=== PATIENT | male | born 1955 | race Caucasian/White ===

== ENCOUNTER 2016-05-11 12:53 | Emergency (ER) | payer OTHER ==
[2016-05-11 12:59] VITALS: BP 154/88; PULSE 82; TEMP 97.8; BMI 27.0
--- NOTE | 2016-05-11 14:08 | PDOC ---
History of Present Illness - General Chief Complaint: Sore Throat Stated Complaint: THROAT PAIN Time Seen by Provider: 05/11/16 14:05 History Source: Patient Exam Limitations: No Limitations - History of Present Illness Initial Comments: 05/11/16 14:17 Patient came for evaluation of throat pain 2+ weeks. States has copious nasal secretions, pain is worse at night and is uncertain as to what he can take for relief. Came to hospital today for a biopsy of his right lung but was unable to tolerate the procedure due to claustrophobia. Was given some medication and is to reschedule that appointment. But patient states also difficult for him to lie flat secondary to this postnasal drainage. Denies fever, denies ear pain, denies cough. Able to swallow 05/11/16 14:24 05/11/16 14:25 Timing/Duration: unsure Severity: mild, moderate Associated Symptoms: denies: denies symptoms, chest pain, cough, fever/chills, loss of appetite Past History - Travel Traveled outside of the country in the last 30 days: No Close contact w/someone who was outside of country & ill: No - Past Medical History Allergies/Adverse Reactions: Allergies Allergy/AdvReac Type Severity Reaction Status Date / Time Penicillins Allergy Mild Rash Verified 05/11/16 12:59 quetiapine fumarate AdvReac Mild nightmares Verified 05/11/16 12:59 [From Seroquel] Home Medications: Ambulatory Orders Diclofenac Sodium [Voltaren] 300 gm TP TID 02/11/14 Docusate Sodium [Colace -] 100 mg PO BID PRN 02/11/14 Ergocalciferol [Drisdol -] 50,000 unit PO WEEKLY 02/11/14 Methadone HCl 22 mg PO DAILY 02/11/14 Mirtazapine [Remeron -] 30 mg PO HS 02/11/14 Gabapentin [Neurontin -] 300 mg PO BID 11/16/15 Gabapentin [Neurontin -] 600 mg PO HS 11/16/15 Zaleplon 10 mg PO HS 12/14/15 Nicotine Patch [Nicoderm Patch -] 1 patch TD DAILY #30 patch 04/15/16 Oxycodone HCl/Acetaminophen [Oxycodone-Acetaminophen 10-325] 1 each PO TID PRN # 90 tablet MDD 3 04/15/16 Ibuprofen/Diphenhydramine Cit [Advil Pm Caplet] 1 cap PO HS 05/05/16 Cetirizine HCl/Pseudoephedrine [Allergy+Congestion Relf-D Tab] 1 each PO DAILY # 30 tab 05/11/16 Anemia: No Asthma: No Cancer: No Cardiac Disorders: No CVA: No COPD: Yes CHF: No Dementia: No Diabetes: No GI Disorders: Yes (GERD-DENIES) Disorders: No HTN: Yes (not on medication) Hypercholesterolemia: Yes (DENIES) Kidney Stones: No Liver Disease: No Suicide Attempt (Hx): No Seizures: No Thyroid Disease: No - Surgical History Abdominal Surgery: No Appendectomy: No Cardiac Surgery: No Cholecystectomy: No Lung Surgery: No Neurologic Surgery: No Orthopedic Surgery: No - Reproductive History Testicular Surgery: No - Psycho/Social/Smoking Cessation Hx Anxiety: No Suicidal Ideation: No Smoking History: Current every day smoker Have you smoked in the past 12 months: Yes Number of Cigarettes Smoked Daily: 5 Information on smoking cessation initiated: No 'Breaking Loose' booklet given: 05/05/16 Hx Alcohol Use: No Drug/Substance Use Hx: No Substance Use Type: None Hx Substance Use Treatment: Yes ([facility], detox and rehab ) Review of Systems - Review of Systems Able to Perform ROS?: Yes Is the patient limited Turkmen proficient: Yes Constitutional: Yes: Symptoms Reported, See HPI, Malaise. No: Fever HEENTM: Yes: Symptoms Reported, See HPI, Nose Congestion (clear drainage) Respiratory: Yes: Symptoms reported, See HPI (nonproductive), Cough All Other Systems: Reviewed and Negative *Physical Exam - Vital Signs Last Vital Signs Temp Pulse Resp BP Pulse Ox 97.8 F 82 20 154/88 100 05/11/16 12:56 05/11/16 12:56 05/11/16 12:56 05/11/16 12:56 05/11/16 12:56 - Physical Exam General Appearance: Yes: Appropriately Dressed, Apparent Distress HEENT: positive: QUYNH, Normal ENT Inspection, TMs Normal, Pharynx Normal (no erythema, no enlargement or exudate, some posterior sinus drainage, clear) Neck: positive: Supple. negative: Tender, Lymphadenopathy (R), Lymphadenopathy (L) Respiratory/Chest: positive: Lungs Clear, Normal Breath Sounds Extremity: positive: Normal Capillary Refill, Normal Inspection, Normal Range of Motion Integumentary: positive: Normal Color, Dry, Warm, Pale Neurologic: positive: soccer commentator II-XII NML intact, Fully Oriented, Alert, Normal Mood/ Affect, Normal Response, Motor Strength 08/19 Medical Decision Making - Medical Decision Making 05/11/16 14:20 ALLERGIC rhinitis, will treat with Zyrtec with decongestant , follow up with PMD 05/11/16 14:22 05/11/16 14:22 *DC/Admit/Observation/Transfer Diagnosis at time of Disposition: Allergic rhinitis Qualifiers: Allergic rhinitis seasonality: non-seasonal Allergic rhinitis trigger: unspecified Qualified Code(s): J30.89 - Other allergic rhinitis - Discharge Dispostion Disposition: HOME Condition at time of disposition: Stable Admit: No - Prescriptions Prescriptions: Cetirizine HCl/Pseudoephedrine [Allergy+Congestion Relf-D Tab] 1 each PO DAILY # 30 tab - Patient Instructions Printed Discharge Instructions: DI for Allergic Rhinitis Additional Instructions: Rest, drink lots of fluids: Teas, water, soups Saltwater gargles. Consider humidifier in room at night Steamy showers/seem to face break up mucus Avoid contact with allergens, exposure to pollens, close windows on a windy day Lots of handwashing and good hygiene Continue rjuv-lwj-hzicofy medications for symptomatic relief- may use allergic eyedrops for itching I Continue antihistamines daily until pollen season is over; Zyrtec, Claritin, Yaneth during the daytime and Benadryl at nighttime as will make sleepy Tylenol or Motrin for fever and pain Followup with private physician in one to 2 days as needed Consider following up with an college tutor/regenerator operator for skin testing and possible allergy shots Return to emergency department for worsened symptoms, fevers, dehydration - Post Discharge Activity Work/School Note: Back to Work
== END 2016-05-11 14:28 | disposition home or self-care (01) ==
LOC: JERFT 12:53
DX: J30.89 Other allergic rhinitis (principal); J44.9 Chronic obstructive pulmonary disease, unspecified; F17.210 Nicotine dependence, cigarettes, uncomplicated
CPT/HCPCS: 99281-25

== ENCOUNTER 2016-05-17 09:01 | Day surgery (SDC) | payer OTHER ==
[2016-05-16 17:49] VITALS: BMI 27.4
[2016-05-17] MEDS ORDERED: ALPRAZolam 2 MG TABLET PO ONE (09:46)
[2016-05-17] MEDS ORDERED: ALPRAZolam 0.25 MG TABLET PO ONE (10:15)
[2016-05-17 10:31] VITALS: TEMP 98.2
[2016-05-17 16:31] VITALS: BP 119/69; PULSE 83
--- NOTE | 2016-05-18 14:42 | PATH ---
Surgical Pathology Report Patient Name: TAMY ROMO [facility]. Rec. #: [id number] /Age/Gender: 1955 (Age: 60) / M Account: [id number] Location: RADIOLOGY Taken: 05/17/2016 Received: 05/17/2016 Reported: 05/18/2016 Physicians: Hamlet Olvera M.D. Cooper Almazan M.D. Julia Concepcion, Ph.D, ANP Specimen(s) Received RIGHT LUNG BIOPSY Clinical History 60-year-old male with right lung mass Rule out primary lung CA Final Diagnosis LUNG, RIGHT, MASS, CT GUIDED CORE BIOPSY: PULMONARY ADENOCARCINOMA, MODERATELY DIFFERENTIATED, PREDOMINANTLY ACINAR PATTERN. Comment: Immunohistochemical stains performed and interpreted [facility] show the following: the tumor cells are positive for CK7 and TTF1 immunostains and are negative for CK20; only few cells show non-specific staining with p63. The morphologic findings in the immune profile consistent with moderately differentiated pulmonary adenocarcinoma. The report was faxed to Dr. Almazan's office on 05/18/2016. Electronically Signed Dani Gutierrez M.D. Gross Description Received in formalin, labeled "right lung biopsy" is a 0.4 x 0.3 x 0.1 cm aggregate of barnes soft tissue fragments. The formalin is filtered and the specimen is entirely submitted in one cassette. 05/17/2016 saudi05/17/2016
== END 2016-05-17 16:32 | disposition home or self-care (01) ==
LOC: JRADIR 09:01
PROVIDERS: ATTEND Specialist
PROC: BB24YZZ Computerized Tomography (CT Scan) of Bilateral Lungs using Other Contrast (ICD-10-PCS; principal; 2016-05-17)
PROC: 0BBF3ZX Excision of Right Lower Lung Lobe, Percutaneous Approach, Diagnostic (ICD-10-PCS; 2016-05-17)
DX: C34.31 Malignant neoplasm of lower lobe, right bronchus or lung (principal)
CPT/HCPCS: 32405; 71010-TC; 76098-TC; 77012-TC; 87899; 88305-TC; 88341-TC; 88342-TC

== ENCOUNTER 2016-06-13 05:58 | Inpatient (IN) | payer OTHER ==
[2016-06-10 15:21] VITALS: BMI 27.4
[2016-06-13] MEDS ORDERED: PROPOFOL 20 ML ONE ×2 (07:18→08:29)
[2016-06-13] MEDS ORDERED: MIDAZOLAM HCL 2 MG/2 ML SINGLE DOSE VIAL ONE ×4 (07:18)
[2016-06-13] MEDS ORDERED: LIDOCAINE HCL/PF 2% SDV 5ML VIAL ONE ×3 (07:18→11:17)
[2016-06-13] MEDS ORDERED: ROCURONIUM BROMIDE 50 MG/5 ML VIAL ONE ×2 (07:18)
[2016-06-13] MEDS ORDERED: CLINDAMYCIN 600 MG PREMIX BAG IVPB ONE (09:15)
[2016-06-13] MEDS ORDERED: HEPARIN NA (PORCINE) 5,000 UNITS/ML 1ML VIAL SQ ONE (09:16)
[2016-06-13] MEDS ORDERED: SODIUM CHLORIDE 0.9% P/F 10 ML VIAL IJ ONE (09:33)
[2016-06-13] MEDS ORDERED: ONDANSETRON 4 MG/2 ML VIAL ONE (10:26)
[2016-06-13] MEDS ORDERED: DEXAMETHASONE SOD PHOSPHATE 4 MG/1 ML VIAL ONE (10:26)
[2016-06-13] MEDS ORDERED: NEOSTIGMINE METHYLSULFATE 0.5 MG/ML - 10 ML MDV ONE (10:34)
[2016-06-13] MEDS ORDERED: GLYCOPYRROLATE 0.2 MG/1 ML VIAL ONE (10:34)
[2016-06-13] MEDS ORDERED: HYDROmorphone HCL CARPU-JECT 2 MG/1 ML DISP.SYRIN ONE (11:18)
--- NOTE | 2016-06-13 11:19 | OP ---
Operative Note - Note: Operative Date: 06/13/16 Pre-Operative Diagnosis: Lung cancer Operation: Bronchoscopy, right vats, pleural and diaphragmatic biopsies Findings: Pleural and diaphragmatic nodules; frozen consistent with cancer. Post-Operative Diagnosis: Other (pleural metastases) Surgeon: Austin Cavazos Seed Analysis Laboratory Assistant: India Ortiz Anesthesia: General Specimens Removed: pleural and diaphragmatic nodules Estimated Blood Loss (mls): 50 Drains & Tubes with Location: right pleural drain Operative Report Dictated: Yes
[2016-06-13] MEDS ORDERED: MEPERIDINE HCL CARPU-JECT 25 MG/1 ML DISP.SYRIN ONE (11:23)
[2016-06-13] MEDS ORDERED: ONDANSETRON 4 MG/2 ML VIAL IVPUSH PRN (11:25)
[2016-06-13] MEDS ORDERED: HYDROmorphone HCL CARPU-JECT 1 MG/1 ML DISP.SYRIN IVPUSH PRN (11:25)
[2016-06-13] MEDS ORDERED: MEPERIDINE HCL CARPU-JECT 25 MG/1 ML DISP.SYRIN IVPUSH ONE (11:26)
[2016-06-13] MEDS ORDERED: LACTATED RINGERS SOLUTION 1,000 ML IV SCH (11:30)
[2016-06-13] MEDS ORDERED: FENTANYL/BUPIVACAINE/NS/PF - PCEA - 50 ML DISP.SYRIN EP ONE (12:02)
[2016-06-13] MEDS: FENTANYL/BUPIVACAINE/NS/PF - PCEA - 50 ML DISP.SYRIN EP SCH ×2 (12:18→19:46)
[2016-06-13] MEDS ORDERED: LORAZEPAM CARPU-JECT 2 MG/ML DISP.SYRIN ONE (12:49)
--- NOTE | 2016-06-13 13:13 | OP ---
- Note: Patient Name: Jayro Gallagher MR#: [id number] Procedure Date: 06/13/2016 Preoperative Diagnosis: Lung cancer Postoperative Diagnosis: Advanced lung cancer Procedure: 1. Bronchoscopy; 2. Right thoracoscopy, pneumolysis; 3. Pleural and diaphragmatic biopsy. Indication: Lung nodule. Surgeon(s): Austin Cavazos MD Cosurgeon: India Ortiz MD Victim Advocate Surgeon: [facility] Anesthesia: General endotracheal with double-lumne; Findings: Bronchoscopy: normal anatomy, cultures sent. Thoracoscopy: multiple pleural and diaphragmatic nodules; frozen consistent with metastatic cancer. Specimens Sent: 1. Pleural biopsies; 2. Diaphragmatic biopsies. Complications: none Drains / Tubes / Catheters: Chest tube. Hardware / Implants: na Blood / Fluid Losses: 50cc. Post-Operative Condition: Hemodynamically stable in transfer to PACU and extubated. Indications: This patient is a 60 year-old male smoker with chronic back pain, opiate dependence, and treated hepatitis C. He was referred from Dr. Almazan for lung biopsy of a nodule after a CT and PET scan. The lung nodule was SUV- avid but the pleura and lymph nodes were not. After biopsy and cardiac clearance he was taken to the operating room for a possible lobectomy. Informed consent was obtained, and he understood the risks, benefits, and alternatives. Details of Procedure: The patient was taken into the operating room and placed supine on the table. He was monitored with pulse oximetry and blood pressure monitoring, including an arterial line. Preoperative antibiotics and subcutaneous heparin were given. He was intubated after being given intravenous sedation. A bronchoscopy was performed. We then positioned him in the left lateral decubitus position. After being prepared and draped, we began with an incision in the 7th intercostal space in the anterior axillary line. We then placed the thoracoscope in his chest. We noticed significan adhesions from the right lower lobe to the diaphragm, and from the upper and middle lobes to the chest wall. We also noticed multiple pleural and diaphragmatic nodules with some appearing inflammatory and calcified and others appearing as if they were cancer. There was no obvious effusion however. For this reason, we placed two more ports and lysed some of the adhesions so as to take good biopsies. Frozen section confirmed that this was metastatic disease. We took more biopsies for permanent. We then obtained hemostasis. A chest tube was placed. The lung was inflated and the wounds were closed with absorbable sutures. Sterile dressings were placed. He was transferred to the PACU in hemodynamically stable condition and extubated.
[2016-06-13] MEDS: IPRATROPIUM BR 0.02% 0.5 MG/2.5 ML VIAL.NEB. NEB SCH ×3 (13:20→23:44)
[2016-06-13] MEDS: NICOTINE 14 MG/24 HOURS TOPICAL PATCH TD SCH (16:34)
--- NOTE | 2016-06-13 16:42 | PN ---
Teaching Attending Note Name of Resident: Mil Augustin ATTENDING PHYSICIAN STATEMENT I saw and evaluated the patient. I reviewed the resident's note and discussed the case with the resident. I agree with the resident's findings and plan as documented. SUBJECTIVE: In brief. 60 M, active smoker, opiate dependence on maintenance program. Found to have a PET avid lesion that appeared to be limited stage on outpatient workup. During an anticipated Right VATS lobectomy, pleural lesions were noted and subsequently biopsied. The lesions were highly suspicious for metastates. Biopsies were taken and a right CT was placed. OBJECTIVE: Intake & Output 06/10/16 06/11/16 06/12/16 06/13/16 23:59 23:59 23:59 23:59 Intake Total 1550 Output Total 1175 Balance 375 Weight 178 lb Last Vital Signs Temp Pulse Resp BP Pulse Ox 98.4 F 88 16 140/92 96 06/13/16 14:45 06/13/16 14:45 06/13/16 14:45 06/13/16 14:45 06/13/16 14:45 Active Medications Fentanyl/Bupivacaine/Sodium Chlor (Bupivicaine 0.125%/Fentanyl 2mcg/Ml Pcea -) 0 ml EP ASDIR COLBY PRN Reason: Protocol Last Admin: 06/13/16 12:18 Dose: 7 ml Heparin Sodium (Porcine) (Heparin -) 5,000 unit SQ BID COLBY Lactated Ringer's (Lactated Ringers Solution) 1,000 mls @ 125 mls/hr IV ASDIR COLBY Last Admin: 06/13/16 16:32 Dose: 125 mls/hr Ipratropium [place] (Atrovent 0.02% Nebulizer -) 1 amp NEB QIDR [facility] Nicotine (Nicoderm Patch -) 14 mg TD DAILY [facility] Last Admin: 06/13/16 16:34 Dose: Not Given Ondansetron HCl (Zofran Injection) 4 mg IVPUSH Q6H PRN PRN Reason: NAUSEA AND/OR VOMITING Stop: 06/13/16 17:26 Gen: Awake and alert, NAD HEENT: (-) Pallor, (-) Icterus Lungs: Right CT intact (-) air leak Cardiac: S1S2 regular Abdomen: Soft, (+) BS, NT Ext: (-) edema FILE MACHINE OPERATOR: AAO, non-focal ASSESSMENT AND PLAN: IMP: S/P Right VATS with Pleural biopsies and Right CT placement -> Suspected Metastatic Lung CA Smoker Opiate Dependence PLAN: CT to suction Monitor CT output O2 as needed BD TX PRN No smoking Monitor off ABX Incentive Spirometry Follow daily CXR while CT is intact ICU monitoring Dr Timmons
--- NOTE | 2016-06-13 17:58 | HP ---
Admitting History and Physical - Primary Care Physician PCP: Brianne Wu - Admission History of Present Illness: 60 yo M who's active smoker with h/o chronic back pain, opiate dependence on methadone, lung CA (unconfirmed type_) and treated hepatitis C admitted to the ICU s/p lung nodule biopsy. Patient was scheduled for Right VATS lobectomy today. However, the procedure was unable to be carried out because pleural lesions were discovered during the procedure. Lung CA with metastasis was suspected and biopsy was taken and R chest tube was placed instead. - Past Medical History Pulmonary: Yes: Other (lung ca) Infectious Disease: Yes: Other (hep c) - Smoking History Smoking history: Current every day smoker Have you smoked in the past 12 months: Yes Aproximately how many cigarettes per day: 1 - Alcohol/Substance Use Hx Alcohol Use: No Home Medications - Allergies Allergies/Adverse Reactions: Allergies Allergy/AdvReac Type Severity Reaction Status Date / Time Penicillins Allergy Intermediate Rash Verified 06/13/16 06:38 quetiapine fumarate AdvReac Intermediate nightmares Verified 06/13/16 06:38 [From Seroquel] - Home Medications Home Medications: Ambulatory Orders Docusate Sodium [Colace -] 100 mg PO BID PRN 02/11/14 Ergocalciferol [Drisdol -] 50,000 unit PO WEEKLY 02/11/14 Methadone HCl 22 mg PO DAILY 02/11/14 Gabapentin [Neurontin -] 300 mg PO BID PRN 11/16/15 Gabapentin [Neurontin -] 600 mg PO HS PRN 11/16/15 Alprazolam [Xanax] 0.5 mg PO ASDIR 05/16/16 Amlodipine Besylate 5 mg PO HS 06/10/16 Oxycodone HCl/Acetaminophen [Oxycodone-Acetaminophen 10-325] 1 each PO QID PRN # 100 tablet MDD 4 06/10/16 Nicotine Patch [Nicoderm Patch -] 1 patch TD DAILY 06/13/16 Family Disease History - Family Disease History Family Disease History: Heart Disease: Mother Physical Examination Vital Signs: Vital Signs Temperature 98.4 F 06/13/16 14:45 Pulse Rate 86 06/13/16 17:00 Respiratory Rate 16 06/13/16 17:00 Blood Pressure 140/92 06/13/16 14:45 O2 Sat by Pulse Oximetry (%) 95 02/27/17 17:00 Constitutional: Yes: No Distress HENT: Yes: Atraumatic Neck: Yes: Supple Cardiovascular: Yes: Regular Rate and Rhythm Respiratory: Yes: Rhonchi, Other (chest tube in place) Gastrointestinal: Yes: Normal Bowel Sounds Extremities: Yes: WNL Neurological: Yes: Alert, Oriented Problem List - Problems (1) Chronic back pain Code(s): M54.9 - DORSALGIA, UNSPECIFIED G89.29 - OTHER CHRONIC PAIN (2) Chronic use of opiate for therapeutic purpose Code(s): Z79.899 - OTHER CONSERVATION ASSISTANT (CURRENT) DRUG THERAPY (3) HTN (hypertension) Code(s): I10 - ESSENTIAL (PRIMARY) HYPERTENSION (4) History of lung cancer Code(s): Z85.118 - PERSONAL HISTORY OF MALIGNANT NEOPLASM OF BRONCHUS AND LUNG (5) Hypercholesterolemia Code(s): E78.0 - PURE HYPERCHOLESTEROLEMIA * DO NOT USE * (6) Lung nodules Code(s): R91.8 - OTHER NONSPECIFIC ABNORMAL FINDING OF LUNG FIELD (7) Methadone maintenance therapy patient Code(s): F11.20 - OPIOID DEPENDENCE, UNCOMPLICATED Assessment/Plan Active Medications Generic Name Dose Route Start Last Admin Trade Name Freq PRN Reason Stop Dose Admin Fentanyl/Bupivacaine/Sodium Chlor 0 ml 06/13/16 11:30 06/13/16 19:46 Bupivicaine 0.125%/Fentanyl 2mcg/Ml Pcea - EP 50 ml ASDIR COLBY Administration Protocol Heparin Sodium (Porcine) 5,000 unit 06/14/16 10:00 Heparin - SQ BID COLBY Lactated Ringer's 1,000 mls @ 125 mls/hr 06/13/16 11:30 06/13/16 16:32 Lactated Ringers Solution IV 125 mls/hr ASDIR COLBY Administration Ipratropium [place] 1 amp 06/13/16 12:00 06/13/16 17:00 Atrovent 0.02% Nebulizer - NEB 1 amp QIDR COLBY Administration Nicotine 14 mg 06/13/16 15:45 06/13/16 16:34 Nicoderm Patch - TD Not Given DAILY COLBY 1.lung ca s/p biopsy of pleural lesion chets tube for drainage prn pain meds fu lab dvt ppx 2.nicotine dependance on patch cc 60 in taking history and physical exam
--- NOTE | 2016-06-13 18:02 | CONSULT ---
Consultation: REQUESTING PROVIDER: Dr. Wu CONSULT REQUEST: We have been asked to medically evaluate this patient for critical care. HISTORY OF PRESENT ILLNESS: 60 yo M who's active smoker with h/o chronic back pain, opiate dependence on methadone, lung CA (unconfirmed type) and treated hepatitis C admitted to the ICU s/p lung nodule biopsy. Patient was scheduled for Right VATS lobectomy today. However, the procedure was unable to be carried out because pleural lesions were discovered during the procedure. Lung CA with metastasis was suspected and biopsy was taken and R chest tube was placed instead. REVIEW OF SYSTEMS: CONSTITUTIONAL: generalized weakness, malaise, loss of appetite, weight change Absent: fever, chills, diaphoresis HEENT: Absent: rhinorrhea, nasal congestion, throat pain, throat swelling, difficulty swallowing, mouth swelling, ear pain, eye pain, visual changes CARDIOVASCULAR: Absent: chest pain, syncope, palpitations, irregular heart rate, lightheadedness , peripheral edema RESPIRATORY: cough, shortness of breath Absent: dyspnea with exertion, orthopnea, wheezing, stridor, hemoptysis GASTROINTESTINAL: Absent: abdominal pain, abdominal distension, nausea, vomiting, diarrhea, constipation, melena, hematochezia GENITOURINARY: Absent: dysuria, frequency, urgency, hesitancy, hematuria, flank pain, genital pain MUSCULOSKELETAL: Absent: myalgia, arthralgia, joint swelling, back pain, neck pain SKIN: Absent: rash, itching, pallor HEMATOLOGIC/IMMUNOLOGIC: Absent: easy bleeding, easy bruising, lymphadenopathy, frequent infections ENDOCRINE: Absent: unexplained weight gain, unexplained weight loss, heat intolerance, cold intolerance NEUROLOGIC: Absent: headache, focal weakness or paresthesias, dizziness, unsteady gait, seizure, mental status changes, bladder or bowel incontinence PSYCHIATRIC: Absent: anxiety, depression, suicidal or homicidal ideation, hallucinations. PHYSICAL EXAMINATION Vital Signs Temperature 98.4 F 06/13/16 14:45 Pulse Rate 86 06/13/16 17:00 Respiratory Rate 16 06/13/16 17:00 Blood Pressure 140/92 06/13/16 14:45 O2 Sat by Pulse Oximetry (%) 95 06/13/16 17:00 GENERAL: Awake, alert, and fully oriented, in no acute distress EYES: Pupils equal, round and reactive to light, extraocular movements intact, sclera anicteric, conjunctiva clear. EARS, NOSE, THROAT: Cold sore in the posterior oropharynx LUNGS: Poor air entry, RLL rhonchi, chest tube in place in R anterior lower lung draining bloody exudate HEART: Regular rate and rhythm, normal S1 and S2 without murmur, rub or gallop. ABDOMEN: Soft, nontender, not distended, normoactive bowel sounds, no guarding, no rebound, no masses. No hepatomegaly or splenomegaly. LOWER EXTREMITIES: No calf tenderness. No peripheral edema. SKIN: Warm, dry, normal turgor, no rashes or lesions noted. Imaging CXR on 06/13: post-operative with CT in place. No pneumothorax. Active Medications Generic Name Dose Route Start Last Admin Trade Name Freq PRN Reason Stop Dose Admin Fentanyl/Bupivacaine/Sodium Chlor 0 ml 06/13/16 11:30 06/13/16 12:18 Bupivicaine 0.125%/Fentanyl 2mcg/Ml Pcea - EP 7 ml ASDIR COLBY Administration Protocol Heparin Sodium (Porcine) 5,000 unit 06/14/16 10:00 Heparin - SQ BID COLBY Lactated Ringer's 1,000 mls @ 125 mls/hr 06/13/16 11:30 06/13/16 16:32 Lactated Ringers Solution IV 125 mls/hr ASDIR COLBY Administration Ipratropium [place] 1 amp 06/13/16 12:00 06/13/16 17:00 Atrovent 0.02% Nebulizer - NEB 1 amp QIDR COLBY Administration Nicotine 14 mg 06/13/16 15:45 06/13/16 16:34 Nicoderm Patch - TD Not Given DAILY COLBY ASSESSMENT/PLAN: 60 yo M who's active smoker with h/o chronic back pain, opiate dependence on methadone, lung CA (unconfirmed type) and treated hepatitis C admitted to the ICU s/p lung nodule biopsy and chest tube placement. Pulmo: Lung CA s/p lung nodule biopsy and chest tube placement - On NC 2L and maintain O2 sat > 88% - Maintain drainage through chest tube - Incentive Spirometry - Bupivicaine for pain - Daily CXR - Cont. chest PT Psych: H/O of polysubstance abuse - F/U methadone level - Nicotine patch 14mg - Detox consult FEN - On LR 125ml/hr - F/U AM labs to monitor lytes - Low sodium diet - Prophylaxis - DVT: heparin gtt - GI: not indicated Disposition - Continues to require inpatient ICU care Code status - Full code Visit type - Emergency Visit Emergency Visit: No - New Patient This patient is new to me today: Yes Date on this admission: 06/13/16 - Critical Care Critical Care patient: Yes Total Critical Care Time (in minutes): 45 Critical Care Statement: The care of this patient involved high complexity decision making to prevent further life threatening deterioration of the patient 's condition and/or to evalute & treat vital organ system(s) failure or risk of failure.
[2016-06-14 06:13] LABS: BASOPHIL 0.1 % (0-2.0); MCH 28.8 pg (25.7-33.7); MCHC 32.8 g/dl (32.0-35.9); MEAN CELL VOLUME 87.9 fl (80-96); MEAN PLT VOLUME 8.6 fl (7.5-11.1); NEUTROPHILS 82.8 % (42.8-82.8); PLATELET COUNT 214 K/MM3 (134-434); RDW 13.3 % (11.9-15.9); WHITE BLOOD COUNT 17.8 K/mm3 (4.0-10.0)
[2016-06-14 06:27] LABS: INR 1.23 (0.82-1.09); PROTHROMBIN TIME (PATIENT) 13.6 SEC (9.98-11.88)
[2016-06-14 06:29] LABS: ACTIVATED PTT 28.9 SECONDS (26.9-34.4)
[2016-06-14 06:32] LABS: ALBUMIN 3.4 g/dl (3.4-5.0); ANION GAP 10 (8-16); CALCIUM 8.8 mg/dL (8.5-10.1); CO2 29 mmol/L (21-32); GLUCOSE,RANDOM 120 mg/dL (74-106)
[2016-06-14 06:37] LABS: ALK PHOS 85 U/L (45-117); BILIRUBIN,TOTAL 1.2 mg/dL (0.2-1.0); PHOSPHOROUS 3.6 mg/dL (2.5-4.9); SGOT/AST 24 U/L (15-37); SGPT/ALT 30 U/L (12-78); TOT PROT 6.7 g/dl (6.4-8.2)
[2016-06-14] MEDS: IPRATROPIUM BR 0.02% 0.5 MG/2.5 ML VIAL.NEB. NEB SCH ×4 (06:43→23:28)
[2016-06-14] MEDS ORDERED: METHADONE HCL 10 MG TABLET PO SCH (10:00)
[2016-06-14] MEDS ORDERED: HEPARIN NA (PORCINE) 5,000 UNITS/ML 1ML VIAL SQ SCH (10:00)
[2016-06-14] MEDS: FENTANYL/BUPIVACAINE/NS/PF - PCEA - 50 ML DISP.SYRIN EP SCH ×2 (10:00→17:15)
[2016-06-14] MEDS ORDERED: PT OWN MED DRAWER 7, Y5N ONE (11:56)
[2016-06-14] MEDS: NICOTINE 14 MG/24 HOURS TOPICAL PATCH TD SCH (11:57)
--- NOTE | 2016-06-14 12:41 | CONSULT ---
Consult Detox [facility] Reason for Current Admission/Consult: MMTP Referred by:: Mil Augustin Res - History History of Present Illness: 60 y/o man is post-op lung & pleural biopsy is seen to resume methadone dose. - History Source History Provided By: Patient Limitations to Obtaining History: No Limitations - Alcohol/Substance Use Hx Alcohol Use: No Hx Substance Use Treatment: Yes (OTP) - Past Medical History Pulmonary: Yes: Other (lung ca) Infectious Disease: Yes: Other (hep c) - Significant Medical Findings: Laboratory Last Values WBC 17.8 K/mm3 (4.0-10.0) H D 06/14/16 05:10 RBC 4.96 M/mm3 (4.00-5.60) 06/14/16 05:10 Hgb 14.3 GM/dL (11.7-16.9) D 06/14/16 05:10 Hct 43.6 % (35.4-49) 06/14/16 05:10 MCV 87.9 fl (80-96) 06/14/16 05:10 MCHC 32.8 g/dl (32.0-35.9) 06/14/16 05:10 RDW 13.3 % (11.9-15.9) 06/14/16 05:10 Plt Count 214 K/MM3 (134-434) D 06/14/16 05:10 MPV 8.6 fl (7.5-11.1) 06/14/16 05:10 Neutrophils % 82.8 % (42.8-82.8) D 06/14/16 05:10 Lymphocytes % 7.5 % (8-40) L D 06/14/16 05:10 Monocytes % 9.6 % (3.8-10.2) 06/14/16 05:10 Eosinophils % 0.0 % (0-4.5) D 06/14/16 05:10 Basophils % 0.1 % (0-2.0) 06/14/16 05:10 INR 1.23 (0.82-1.09) H 06/14/16 05:10 PTT (Actin FS) 28.9 SECONDS (26.9-34.4) 06/14/16 05:10 Sodium 139 mmol/L (136-145) 06/14/16 05:10 Potassium 4.1 mmol/L (3.5-5.1) 06/14/16 05:10 Chloride 100 mmol/L (98-107) 06/14/16 05:10 Carbon Dioxide 29 mmol/L (21-32) 06/14/16 05:10 Anion Gap 10 (8-16) 06/14/16 05:10 BUN 14 mg/dL (7-18) 06/14/16 05:10 Creatinine 1.0 mg/dL (0.7-1.3) 06/14/16 05:10 Creat Clearance w eGFR > 60 (>60) 06/14/16 05:10 Random Glucose 120 mg/dL (74-106) H 06/14/16 05:10 Calcium 8.8 mg/dL (8.5-10.1) 06/14/16 05:10 Phosphorus 3.6 mg/dL (2.5-4.9) 06/14/16 05:10 Magnesium 2.0 mg/dL (1.8-2.4) 06/14/16 05:10 Total Bilirubin 1.2 mg/dL (0.2-1.0) H D 06/14/16 05:10 AST 24 U/L (15-37) 06/14/16 05:10 ALT 30 U/L (12-78) 06/14/16 05:10 Alkaline Phosphatase 85 U/L (45-117) D 06/14/16 05:10 Total Protein 6.7 g/dl (6.4-8.2) 06/14/16 05:10 Albumin 3.4 g/dl (3.4-5.0) 06/14/16 05:10 labs noted Assessment Plan - Diagnosis (1) Methadone maintenance therapy patient Status: Chronic Comment: [facility] - counselor Pema - they count perocet - not attending a group - states he will never go back to drugs as has his grandsons to take care of (ages 7 and 2) patient tapering himself off methadone - Plan Plan: Continue methadone 20mg daily - Medication Detox Regimen/Protocol: Methadone
--- NOTE | 2016-06-14 13:29 | PN ---
HC Provider Note (SOAP) Subjective: Patient seen. Sitting up in chair in NAD. Rt CT in place. Taking PO without problem. Good pain relief with thorasic epidural. Feels 'much better" after resumption of his qdaily methdone. No sig N/V/Pruritis/Sedation. Thorasic Epidural Site; dressing C/D/I A/P: 60 yo male s/p RLL lobectomy, POD#1. Doing well with good analgesia. No sig SE's. Willk continue present managment without change.
--- NOTE | 2016-06-14 13:49 | PN ---
Physical Exam: SUBJECTIVE: Patient seen and examined at bedside in the ICU. He's in good spirit, having breakfast, reported feeling much better. No bowel movement yet. Denies fever, chills, n/v, chest pain, shortness of breath, abd pain. OBJECTIVE: Vital Signs Period Temp Pulse Resp BP Sys/Pe[place] Pulse Ox Last 24 Hr 98.4 F-99.5 F 54-88 16-20 107-144/60-92 95-100 GENERAL: Awake, alert, and fully oriented, in no acute distress EYES: Pupils equal, round and reactive to light, extraocular movements intact, sclera anicteric, conjunctiva clear. EARS, NOSE, THROAT: Cold sore in the posterior oropharynx LUNGS: Poor air entry, CTAB, chest tube in place in R anterior lower lung draining pink exudate HEART: Regular rate and rhythm, normal S1 and S2 without murmur, rub or gallop. ABDOMEN: Soft, nontender, not distended, normoactive bowel sounds, no guarding, no rebound, no masses. LOWER EXTREMITIES: No calf tenderness. No peripheral edema. SKIN: Warm, dry, normal turgor, no rashes or lesions noted. CBCD WBC 17.8 K/mm3 (4.0-10.0) H D 06/14/16 05:10 RBC 4.96 M/mm3 (4.00-5.60) 06/14/16 05:10 Hgb 14.3 GM/dL (11.7-16.9) D 06/14/16 05:10 Hct 43.6 % (35.4-49) 06/14/16 05:10 MCV 87.9 fl (80-96) 06/14/16 05:10 MCHC 32.8 g/dl (32.0-35.9) 06/14/16 05:10 RDW 13.3 % (11.9-15.9) 06/14/16 05:10 Plt Count 214 K/MM3 (134-434) D 06/14/16 05:10 MPV 8.6 fl (7.5-11.1) 06/14/16 05:10 CMP Sodium 139 mmol/L (136-145) 06/14/16 05:10 Potassium 4.1 mmol/L (3.5-5.1) 06/14/16 05:10 Chloride 100 mmol/L (98-107) 06/14/16 05:10 Carbon Dioxide 29 mmol/L (21-32) 06/14/16 05:10 Anion Gap 10 (8-16) 06/14/16 05:10 BUN 14 mg/dL (7-18) 06/14/16 05:10 Creatinine 1.0 mg/dL (0.7-1.3) 06/14/16 05:10 Creat Clearance w eGFR > 60 (>60) 06/14/16 05:10 Calcium 8.8 mg/dL (8.5-10.1) 06/14/16 05:10 Total Bilirubin 1.2 mg/dL (0.2-1.0) H D 06/14/16 05:10 AST 24 U/L (15-37) 06/14/16 05:10 ALT 30 U/L (12-78) 06/14/16 05:10 Alkaline Phosphatase 85 U/L (45-117) D 06/14/16 05:10 Total Protein 6.7 g/dl (6.4-8.2) 06/14/16 05:10 Albumin 3.4 g/dl (3.4-5.0) 06/14/16 05:10 Intake & Output 06/11/16 06/12/16 06/13/16 06/14/16 23:59 23:59 23:59 23:59 Intake Total 2652 2475 Output Total 2611 981 Balance 37 1494 Weight 78.789 kg Active Medications Generic Name Dose Route Start Last Admin Trade Name Freq PRN Reason Stop Dose Admin Fentanyl/Bupivacaine/Sodium Chlor 0 ml 06/13/16 11:30 06/14/16 10:00 Bupivicaine 0.125%/Fentanyl 2mcg/Ml Pcea - EP 7 ml ASDIR COLBY Administration Protocol Heparin Sodium (Porcine) 5,000 unit 06/14/16 10:00 06/14/16 09:26 Heparin - SQ 5,000 unit BID COLBY Administration Ipratropium [place] 1 amp 06/13/16 12:00 06/14/16 10:40 Atrovent 0.02% Nebulizer - NEB 1 amp QIDR COLBY Administration Methadone HCl 20 mg 06/14/16 10:00 06/14/16 09:24 Dolophine - PO 20 mg DAILY COLBY Administration Nicotine 14 mg 06/13/16 15:45 06/14/16 11:57 Nicoderm Patch - TD 14 mg DAILY COLBY Administration Imaging: CXR 06/14: No significant change CXR 06/13: post-op chest with R chest tube in. No pneumothorax. ASSESSMENT/PLAN: 60 yo M who's active smoker with h/o chronic back pain, opiate dependence on methadone, lung CA (unconfirmed type) and treated hepatitis C admitted to the ICU s/p lung nodule biopsy and chest tube placement. Pulmo: Lung CA s/p lung nodule biopsy and chest tube placement - POD #1 - Elevated WBC without fever, cont. to monitor - On NC 2L and maintain O2 sat > 88% - Maintain drainage through chest tube - Incentive Spirometry - Bupivicaine for pain - Cont. chest PT Psych: H/O of polysubstance abuse - Nicotine patch 14mg - Cont. methadone 20mg daily FEN - Not indicated - Normal lytes - Low sodium diet - Prophylaxis - DVT: heparin gtt - GI: not indicated Disposition - May transfer to [place] Code status - Full code Visit type - Emergency Visit Emergency Visit: No - New Patient This patient is new to me today: No - Critical Care Critical Care patient: Yes Total Critical Care Time (in minutes): 45 Critical Care Statement: The care of this patient involved high complexity decision making to prevent further life threatening deterioration of the patient 's condition and/or to evalute & treat vital organ system(s) failure or risk of failure.
--- NOTE | 2016-06-14 15:03 | PN ---
Teaching Attending Note Name of Resident: Mil Augustin ATTENDING PHYSICIAN STATEMENT I saw and evaluated the patient. I reviewed the resident's note and discussed the case with the resident. I agree with the resident's findings and plan as documented. SUBJECTIVE: Patient seen and examined in the ICU. Awake and alert. Some mild discomfort at the CT site. Fentanyl G[employer]IC SOCIAL WORKER infusing. [address] CXR: CT In good position / no PTX Intake & Output 06/11/16 06/12/16 06/13/16 06/14/16 23:59 23:59 23:59 23:59 Intake Total 2652 2475 Output Total 2615 981 Balance 37 1494 Weight 173 lb 11.2 oz Last Vital Signs Temp Pulse Resp BP Pulse Ox 98.8 F 66 18 99/74 96 06/14/16 13:51 06/14/16 13:51 06/14/16 13:51 06/14/16 13:51 06/14/16 10:40 Active Medications Fentanyl/Bupivacaine/Sodium Chlor (Bupivicaine 0.125%/Fentanyl 2mcg/Ml Pcea -) 0 ml EP ASDIR [facility] PRN Reason: Protocol Last Admin: 06/14/16 10:00 Dose: 7 ml Heparin Sodium (Porcine) (Heparin -) 5,000 unit SQ BID [facility] Last Admin: 06/14/16 09:26 Dose: 5,000 unit Ipratropium [place] (Atrovent 0.02% Nebulizer -) 1 amp NEB QIDR [facility] Last Admin: 06/14/16 10:40 Dose: 1 amp Methadone HCl (Dolophine -) 20 mg PO DAILY [facility] Last Admin: 06/14/16 09:24 Dose: 20 mg Nicotine (Nicoderm Patch -) 14 mg TD DAILY [facility] Last Admin: 06/14/16 11:57 Dose: 14 mg Gen: Awake and alert, NAD HEENT: (-) Pallor, (-) Icterus Lungs: Right CT intact (-) air leak Cardiac: S1S2 regular Abdomen: Soft, (+) BS, NT Ext: (-) edema AUTOMOTIVE BRAKE SPECIALIST: AAO, non-focal ASSESSMENT AND PLAN: IMP: S/P Right VATS with Pleural biopsies and Right CT placement -> Suspected Metastatic Lung CA Smoker Opiate Dependence PLAN: CT to waterseal Monitor CT output O2 as needed BD TX PRN No smoking Monitor off ABX Incentive Spirometry 8W Dr Timmons
--- NOTE | 2016-06-14 17:28 | PN ---
Progress Note, Physician - Current Medication List Current Medications: Active Medications Fentanyl/Bupivacaine/Sodium Chlor (Bupivicaine 0.125%/Fentanyl 2mcg/Ml Pcea -) 0 ml EP ASDIR [facility] PRN Reason: Protocol Last Admin: 06/14/16 17:15 Dose: 7 ml Heparin Sodium (Porcine) (Heparin -) 5,000 unit SQ BID [facility] Last Admin: 06/14/16 09:26 Dose: 5,000 unit Ipratropium [place] (Atrovent 0.02% Nebulizer -) 1 amp NEB QIDR [facility] Last Admin: 06/14/16 17:02 Dose: 1 amp Methadone HCl (Dolophine -) 20 mg PO DAILY [facility] Last Admin: 06/14/16 09:24 Dose: 20 mg Nicotine (Nicoderm Patch -) 14 mg TD DAILY [facility] Last Admin: 06/14/16 11:57 Dose: 14 mg - Objective Vital Signs: Vital Signs Temperature 98.8 F 06/14/16 14:00 Pulse Rate 75 06/14/16 17:15 Respiratory Rate 22 06/14/16 17:15 Blood Pressure 126/66 06/14/16 17:15 O2 Sat by Pulse Oximetry (%) 76 L 06/14/16 17:15 Constitutional: Yes: No Distress HENT: Yes: Atraumatic Neck: Yes: Supple Cardiovascular: Yes: Regular Rate and Rhythm Respiratory: Yes: Rhonchi Gastrointestinal: Yes: Normal Bowel Sounds Extremities: Yes: WNL Labs: CBC, BMP 06/14/16 05:10 06/14/16 05:10 INR, PTT INR 1.23 (0.82-1.09) H 06/14/16 05:10 Problem List - Problems (1) Chronic back pain Code(s): M54.9 - DORSALGIA, UNSPECIFIED G89.29 - OTHER CHRONIC PAIN (2) Chronic use of opiate for therapeutic purpose Code(s): Z79.899 - OTHER ELECTRONIC INDUCTION HARDENER (CURRENT) DRUG THERAPY (3) HTN (hypertension) Code(s): I10 - ESSENTIAL (PRIMARY) HYPERTENSION (4) History of lung cancer Code(s): Z85.118 - PERSONAL HISTORY OF MALIGNANT NEOPLASM OF BRONCHUS AND LUNG (5) Hypercholesterolemia Code(s): E78.0 - PURE HYPERCHOLESTEROLEMIA * DO NOT USE * (6) Lung nodules Code(s): R91.8 - OTHER NONSPECIFIC ABNORMAL FINDING OF LUNG FIELD (7) Methadone maintenance therapy patient Code(s): F11.20 - OPIOID DEPENDENCE, UNCOMPLICATED Assessment/Plan 1.lung ca s/p biopsy of pleural lesion chest tube S/P Right VATS with Pleural biopsies and Right CT placement -> Suspected Metastatic Lung CA Smoker Opiate Dependence prn pain meds fu lab dvt ppx 2.nicotine dependance on patch icu cc 30 min
--- NOTE | 2016-06-14 18:32 | CON.CARD ---
Consult Consult Specialty:: Cardiology - History of Present Illness History of Present Illness: 60 M, active smoker, opiate dependence on maintenance program. Found to have a PET avid lesion that appeared to be limited stage on outpatient workup. During an anticipated Right VATS lobectomy, pleural lesions were noted and subsequently biopsied. The lesions were highly suspicious for metastates. Biopsies were taken and a right CT was placed. PMH History of hepatitis C Hypertension Pancreatitis Right lower lobe mass with increasing FDG uptake on PET scan Decreased FDG uptake in the distribution of the left anterior descending artery in comparison to the left circumflex artery c/w CAD Moderate plaque located in left carotid bulb 2015 - History Source History Provided By: Patient, Medical Record - Past Medical History Cardio/Vascular: Yes: CAD, HTN Pulmonary: Yes: Other (lung ca) Infectious Disease: Yes: Other (hep c) - Alcohol/Substance Use Hx Alcohol Use: No - Smoking History Smoking history: Current every day smoker Have you smoked in the past 12 months: Yes Aproximately how many cigarettes per day: 1 Home Medications - Allergies Allergies/Adverse Reactions: Allergies Allergy/AdvReac Type Severity Reaction Status Date / Time Penicillins Allergy Intermediate Rash Verified 06/13/16 06:38 quetiapine fumarate AdvReac Intermediate nightmares Verified 06/13/16 06:38 [From Seroquel] - Home Medications Home Medications: Ambulatory Orders Docusate Sodium [Colace -] 100 mg PO BID PRN 02/11/14 Ergocalciferol [Drisdol -] 50,000 unit PO WEEKLY 02/11/14 Methadone HCl 22 mg PO DAILY 02/11/14 Gabapentin [Neurontin -] 300 mg PO BID PRN 11/16/15 Gabapentin [Neurontin -] 600 mg PO HS PRN 11/16/15 Alprazolam [Xanax] 0.5 mg PO ASDIR 05/16/16 Amlodipine Besylate 5 mg PO HS 06/10/16 Oxycodone HCl/Acetaminophen [Oxycodone-Acetaminophen 10-325] 1 each PO QID PRN # 100 tablet MDD 4 06/10/16 Nicotine Patch [Nicoderm Patch -] 1 patch TD DAILY 06/13/16 Family Disease History - Family Disease History Family Disease History: Heart Disease: Mother Review of Systems - Review of Systems Constitutional: reports: No Symptoms Eyes: reports: No Symptoms HENT: reports: No Symptoms Neck: reports: No Symptoms Cardiovascular: reports: No Symptoms Gastrointestinal: reports: No Symptoms Genitourinary: reports: No Symptoms Breasts: reports: No Symptoms Reported Musculoskeletal: reports: No Symptoms Integumentary: reports: No Symptoms Neurological: reports: No Symptoms Endocrine: reports: No Symptoms Hematology/Lymphatic: reports: No Symptoms Psychiatric: reports: No Symptoms Vital Signs: Vital Signs Temperature 98.8 F 06/14/16 14:00 Pulse Rate 84 06/14/16 18:00 Respiratory Rate 20 06/14/16 18:00 Blood Pressure 134/73 06/14/16 18:00 O2 Sat by Pulse Oximetry (%) 76 L 06/14/16 17:15 Constitutional: Yes: Well Nourished, No Distress, Calm Eyes: Yes: WNL, Conjunctiva Clear, EOM Intact HENT: Yes: WNL, Atraumatic, Normocephalic Neck: Yes: WNL, Supple, Trachea Midline Respiratory: Yes: WNL, Regular, CTA Bilaterally Gastrointestinal: Yes: WNL, Normal Bowel Sounds Renal/: Yes: WNL Cardiovascular: Yes: WNL, Regular Rate and Rhythm Musculoskeletal: Yes: WNL Extremities: Yes: WNL Integumentary: Yes: WNL Neurological: Yes: WNL, Alert, Oriented ...Motor Strength: WNL Psychiatric: Yes: WNL, Alert, Oriented - Other Data Labs, Other Data: CBC, BMP 06/14/16 05:10 06/14/16 05:10 INR, PTT INR 1.23 (0.82-1.09) H 06/14/16 05:10 Imaging - Results EKG: Image Reviewed (sr rep abn) Problem List - Problems (1) Allergic rhinitis Code(s): J30.9 - ALLERGIC RHINITIS, UNSPECIFIED Qualifiers: Allergic rhinitis seasonality: non-seasonal Allergic rhinitis trigger: unspecified Qualified Code(s): J30.89 - Other allergic rhinitis (2) Chronic back pain Code(s): M54.9 - DORSALGIA, UNSPECIFIED G89.29 - OTHER CHRONIC PAIN (3) Chronic use of opiate for therapeutic purpose Code(s): Z79.899 - OTHER SNF (CURRENT) DRUG THERAPY (4) HTN (hypertension) Code(s): I10 - ESSENTIAL (PRIMARY) HYPERTENSION (5) History of lung cancer Code(s): Z85.118 - PERSONAL HISTORY OF MALIGNANT NEOPLASM OF BRONCHUS AND LUNG (6) Hypercholesterolemia Code(s): E78.0 - PURE HYPERCHOLESTEROLEMIA * DO NOT USE * (7) Lung nodules Code(s): R91.8 - OTHER NONSPECIFIC ABNORMAL FINDING OF LUNG FIELD (8) Methadone maintenance therapy patient Code(s): F11.20 - OPIOID DEPENDENCE, UNCOMPLICATED (9) Nicotine dependence Code(s): F17.200 - NICOTINE DEPENDENCE, UNSPECIFIED, UNCOMPLICATED (10) Osteoarthritis Code(s): M19.90 - UNSPECIFIED OSTEOARTHRITIS, UNSPECIFIED SITE (11) Spinal stenosis of lumbar region Code(s): M48.06 - SPINAL STENOSIS, LUMBAR REGION (12) Spondylosis Code(s): M47.9 - SPONDYLOSIS, UNSPECIFIED (13) Vitamin D deficiency Code(s): E55.9 - VITAMIN D DEFICIENCY, UNSPECIFIED Assessment/Plan lung ca -stage IV cad PAD Hep C pancreatitis stable post op cont med rx cc time 75min
[2016-06-14] MEDS ORDERED: FENTANYL/BUPIVACAINE/NS/PF - PCEA - 50 ML DISP.SYRIN EP SCH (19:38)
[2016-06-14] MEDS ORDERED: ALPRAZolam 0.25 MG TABLET PO ONE (20:35)
[2016-06-14] MEDS: HEPARIN NA (PORCINE) 5,000 UNITS/ML 1ML VIAL SQ SCH (21:21)
[2016-06-15 05:33] LABS: MCH 29.3 pg (25.7-33.7); MCHC 33.7 g/dl (32.0-35.9); MEAN PLT VOLUME 8.8 fl (7.5-11.1); PLATELET COUNT 221 K/MM3 (134-434); RDW 13.6 % (11.9-15.9); WHITE BLOOD COUNT 15.3 K/mm3 (4.0-10.0)
[2016-06-15 05:42] LABS: INR 1.14 (0.82-1.09); PROTHROMBIN TIME (PATIENT) 12.6 SEC (9.98-11.88)
[2016-06-15 05:48] LABS: ALBUMIN 3.4 g/dl (3.4-5.0); ANION GAP 8 (8-16); CALCIUM 8.4 mg/dL (8.5-10.1); CO2 30 mmol/L (21-32); CREATININE 0.8 mg/dL (0.7-1.3); GLUCOSE,RANDOM 116 mg/dL (74-106); MAGNESIUM 2.2 mg/dL (1.8-2.4); PHOSPHOROUS 2.4 mg/dL (2.5-4.9); SGOT/AST 26 U/L (15-37); SGPT/ALT 32 U/L (12-78)
[2016-06-15 05:49] LABS: ALK PHOS 90 U/L (45-117); TOT PROT 6.9 g/dl (6.4-8.2)
[2016-06-15] MEDS: IPRATROPIUM BR 0.02% 0.5 MG/2.5 ML VIAL.NEB. NEB SCH ×3 (06:46→18:11)
[2016-06-15] MEDS ORDERED: oxyCODONE HCL 5 MG TABLET PO PRN ×2 (07:56→16:16)
--- NOTE | 2016-06-15 07:56 | PN ---
Progress Note (short form) - Note Progress Note: Anesthesiology Pain Service POD #2 s/p VATS with thoracic epidural for post-op pain. Pt. doing well c/o some pain with movement but otherwise comfortable. VSS with SpO2 at baseline on O2. Epidural removed today, intact. Will order PO pain meds. Primary team to consult Pain management service for further recommendations.
--- NOTE | 2016-06-15 08:17 | PN ---
Progress Note (short form) - Note Progress Note: Pt without complaints of CP/SOB. OOB to chair this am. He tolerated a diet yesterday. No flatus or BM. Vital Signs Period Temp Pulse Resp BP Sys/[place] Pulse Ox Last 24 Hr 98.8 F-99.6 F 54-99 16-22 99-146/58-89 76-96 uop-1700 clear/yellow urine CT-220 serosangrenous GEN: Appears comfortable CV: RRR Lungs: CTA b/l anteriorly, right posterior with crackles at base inc c/d/i with dermabond and slight bruising. NO air leak with cough, CT serosangrenous and tidling well. LE: SCD in place, no calf tenderness or swelling noted CBC, BMP 03/05/03 05:00 06/15/16 05:00 cxr-no pntx, CT in place 3/ Problem List - Problems (1) Lung nodules Assessment/Plan: POD#2 s/p Right VAts with pleural and diaphragm biopsy, path pending. operative findings consistent with frozen cancer D/w Dr. Cavazos and CT removed today-xeroform/dry dressing and tegaderm applied Plan for repeat cxr today consult with oncology Dr. Che pain management consult, he is on methadone but will need additional pain meds. Contacted anesthesia and epidural removed aguilar removed cont diet/oral meds Heparin SQ Code(s): R91.8 - OTHER NONSPECIFIC ABNORMAL FINDING OF LUNG FIELD
[2016-06-15] MEDS: oxyCODONE HCL 5 MG TABLET PO PRN ×3 (08:48→22:08)
--- NOTE | 2016-06-15 08:48 | PATH ---
Surgical Pathology Report Patient Name: TAMY ROMO [facility]. Rec. #: [id number] /Age/Gender: 1955 (Age: 60) / M Account: [id number] Location: [address] [place] [address] Taken: 06/13/2016 Received: 06/13/2016 Reported: 06/15/2016 Physicians: Austin Cavazos M.D. Anne-Marie Campoverde M.D. Specimen(s) Received A: PLEURAL NODULES B: DIAPHGRAM NODULES C: PLEURAL BIOPSIES Clinical History Lung cancer Intraoperative Consult Diagnosis A. Pleural nodules: Positive for carcinoma. B. Diaphragm nodules: Positive for carcinoma. Dr. Gutierrez, 06/13/16. Final Diagnosis A. PLEURAL NODULES, BIOPSY: INVOLVEMENT BY METASTATIC ADENOCARCINOMA CONSISTENT WITH LUNG ORIGIN (SEE COMMENT). B. DIAPHRAGM NODULE, BIOPSY: INVOLVEMENT BY METASTATIC ADENOCARCINOMA CONSISTENT WITH LUNG ORIGIN (SEE COMMENT). C. PLEURAL BIOPSIES: INVOLVEMENT BY METASTATIC ADENOCARCINOMA CONSISTENT WITH LUNG ORIGIN (SEE COMMENT). Comment: History of lung adenocarcinoma ([id number]) is noted. Immunohistochemical stains performed and interpreted at [facility] on block A1 show the tumor cells in the current biopsies are positive for CK7 and TTF1 immunostains and are negative for CK20. The morphologic findings and the immunoprofile are consistent with involvement by metastatic adenocarcinoma of lung origin. PD-L1 IHC is ordered; results will be reported in an addendum. The material is available for molecular studies. Electronically Signed Dani Gutierrez M.D. Addendum Reported: 06/21/2016 Addendum Diagnosis PD-L1 (KEYTRUDA) PERFORMED [facility] INTERPRE[facility] [place] (SPECIMEN # [id number]) SHOWED THE FOLLOWING: PD-L1 (KEYTRUDA, Clone 22C3 pharmDX) TUMOR PROPORTION SCORE: 50%. INTERPRETATION: HIGH EXPRESSION Reference Range: TPS = Tumor Proportion Score = % of at least 100 viable tumor cells showing complete or partial membrane staining at = 1+. TPS < 1% = No expression. TPS 1 49% = Low Expression. Eligible for second-line treatment with KEYTRUDA (pembrolizumab). TPS =50% = High Expression. Eligible for first or second-line treatment with KEYTRUDA (pembrolizumab). The PD-L1, 22C3 pharm DX is FDA approved for use in the detection of PD-L1 in formalin-fixed paraffin embedded non-small cell lung carcinoma using the [employer] 48 platform. The assay is indicated as an aid in identifying NSCLC patients for treatment with Keytruda (pembrolizumab). Dani Gutierrez M.D. Addendum Reported: 07/06/2016 Addendum Diagnosis NextGen Sequencing Lung Major Panel: Integrated Molecular Report ([id number]) [facility] showed the following: Mutational Analysis: Gene(s) with detected Alterations: Result: Classification: TP53 p.R342P(c.1025G>C) Uncertain Significance INTERPRETATION OF RESULTS: Molecular: Mutation is detected in the TP53 gene at p.R342P with frequency of 15.1%. In general, TP53 mutations are observed in about 40-70% of lung cancer tissues and the hot spot codon mutations are in exons 5 through 8. Abnormality of the TP53 gene is one of the most significant events in lung cancers and plays an important role in the tumorigenesis of lung epithelial cells. Most clinical studies suggest that NSCLC with TP53 alterations carries a worse prognosis and may be relatively more resistant to chemotherapy and radiation. This specific mutation has not been sufficiently studied. Refer to [facility] report [id number] for further details. FISH: No evidence of MET(7q31) amplification. No evidence of a rearrangement of ALK(2p23). No evidence of a rearrangement of ROS1(6q22). No evidence of a rearrangement of RET(10q11). EXCISION REPAIR CROSS COMPLEMENTING POLYPEPTIDE STAIN PERFORMED AND INTERPRETED AT [place], [place] ([id number]) SHOWED THE FOLLOWING: ERCC1 (8F1)(A): Positive, 90%, 3+. Intensity Score Interpretation: 0 No tumor cells reactivity NEGATIVE: Intensity score of 0, 1+, 2+ or of 3+ in less than 10% of tumor cells. 1+ Less than internal control POSIT: Intensity score of 3+ in 10% or more of tumor cells. 2+ Same as internal control EQUIVOCAL: Non-reactive internal control or high background. 3+ Greater than internal control Recent studies have also found that patients with completely resected NSCLC with ERCC1-negative tumors appear to benefit from adjuvant [place]-based chemotherapy, whereas patients with ERCC1-positive tumors do not. Dani Gutierrez M.D. Gross Description A. Received fresh, labeled "pleural nodules" is a 1.2 x 0.8 x 0.2 cm aggregate of barnes-pink soft tissue fragments. The specimen is entirely submitted for frozen section. The frozen section residue is entirely submitted in one cassette. B. Received fresh, labeled "diaphragm nodule" are 2 barnes-pink soft tissue fragments measuring 0.2 and 0.3 cm in greatest dimension. The specimen is entirely submitted for frozen section. The frozen section residue is entirely submitted in one cassette. C. Received in formalin, labeled "pleural biopsies" is a 2.0 x 1.7 x 0.3 cm aggregate of barnes pink soft tissue fragments. The specimen is submitted in toto in one cassette. 06/13/201606/13/2016
[2016-06-15] MEDS ORDERED: NICOTINE 14 MG/24 HOURS TOPICAL PATCH TD SCH (10:00)
[2016-06-15] MEDS ORDERED: METHADONE HCL 10 MG TABLET PO SCH (10:00)
[2016-06-15] MEDS: HEPARIN NA (PORCINE) 5,000 UNITS/ML 1ML VIAL SQ SCH ×2 (10:54→22:08)
--- NOTE | 2016-06-15 11:17 | PN ---
Progress Note (short form) - Note Progress Note: Thoracic Attending: Pt seen and examined. POD#2 s/p VATS. Pain controlled now that epidural is out. Path suggests stage 4 disease. As outpt will need Oncology consult. Pain service to assist with pain meds. With chest tube out, ok to dc today.
--- NOTE | 2016-06-15 13:43 | PN ---
Progress Note, Physician History of Present Illness: 60 M, active smoker, opiate dependence on maintenance program. Found to have a PET avid lesion that appeared to be limited stage on outpatient workup. During an anticipated Right VATS lobectomy, pleural lesions were noted and subsequently biopsied. The lesions were highly suspicious for metastates. Biopsies were taken and a right CT was placed. PMH History of hepatitis C Hypertension Pancreatitis Right lower lobe mass with increasing FDG uptake on PET scan Decreased FDG uptake in the distribution of the left anterior descending artery in comparison to the left circumflex artery c/w CAD Moderate plaque located in left carotid bulb 2016 - Current Medication List Current Medications: Active Medications Heparin Sodium (Porcine) (Heparin -) 5,000 unit SQ BID [facility] Last Admin: 06/15/16 10:54 Dose: 5,000 unit Ipratropium [place] (Atrovent 0.02% Nebulizer -) 1 amp NEB QIDR [facility] Last Admin: 06/15/16 11:45 Dose: 1 amp Methadone HCl (Dolophine -) 20 mg PO DAILY [facility] Last Admin: 06/15/16 10:53 Dose: 20 mg Nicotine (Nicoderm Patch -) 14 mg TD DAILY [facility] Last Admin: 06/15/16 12:43 Dose: 14 mg Oxycodone HCl (Roxicodone -) 5 mg PO Q3H PRN PRN Reason: PAIN LEVEL 1-5 Oxycodone HCl (Roxicodone -) 10 mg PO Q3H PRN PRN Reason: PAIN LEVEL 6-10 Last Admin: 06/15/16 12:48 Dose: 10 mg - Objective Vital Signs: Vital Signs Temperature 99 F 06/15/16 10:00 Pulse Rate 90 06/15/16 13:22 Respiratory Rate 20 06/15/16 13:22 Blood Pressure 130/78 06/15/16 13:22 O2 Sat by Pulse Oximetry (%) 95 06/15/16 09:45 Eyes: Yes: WNL, Conjunctiva Clear, EOM Intact HENT: Yes: WNL, Atraumatic, Normocephalic Neck: Yes: WNL, Supple, Trachea Midline Cardiovascular: Yes: WNL, Regular Rate and Rhythm Respiratory: Yes: WNL, Regular, CTA Bilaterally Gastrointestinal: Yes: WNL, Normal Bowel Sounds Genitourinary: Yes: WNL Musculoskeletal: Yes: WNL Extremities: Yes: WNL Edema: No Integumentary: Yes: WNL Neurological: Yes: WNL, Alert, Oriented ...Motor Strength: WNL Psychiatric: Yes: WNL Labs: CBC, BMP 06/15/16 05:00 06/15/16 05:00 INR, PTT INR 1.14 (0.82-1.09) 06/15/16 05:00 Problem List - Problems (1) Allergic rhinitis Code(s): J30.9 - ALLERGIC RHINITIS, UNSPECIFIED Qualifiers: Allergic rhinitis seasonality: non-seasonal Allergic rhinitis trigger: unspecified Qualified Code(s): J30.89 - Other allergic rhinitis (2) Chronic back pain Code(s): M54.9 - DORSALGIA, UNSPECIFIED G89.29 - OTHER CHRONIC PAIN (3) Chronic use of opiate for therapeutic purpose Code(s): Z79.899 - OTHER RETAIL DISTRICT MANAGER (CURRENT) DRUG THERAPY (4) HTN (hypertension) Code(s): I10 - ESSENTIAL (PRIMARY) HYPERTENSION (5) History of lung cancer Code(s): Z85.118 - PERSONAL HISTORY OF MALIGNANT NEOPLASM OF BRONCHUS AND LUNG (6) Hypercholesterolemia Code(s): E78.0 - PURE HYPERCHOLESTEROLEMIA * DO NOT USE * (7) Lung nodules Code(s): R91.8 - OTHER NONSPECIFIC ABNORMAL FINDING OF LUNG FIELD (8) Methadone maintenance therapy patient Code(s): F11.20 - OPIOID DEPENDENCE, UNCOMPLICATED (9) Nicotine dependence Code(s): F17.200 - NICOTINE DEPENDENCE, UNSPECIFIED, UNCOMPLICATED (10) Osteoarthritis Code(s): M19.90 - UNSPECIFIED OSTEOARTHRITIS, UNSPECIFIED SITE (11) Spinal stenosis of lumbar region Code(s): M48.06 - SPINAL STENOSIS, LUMBAR REGION (12) Spondylosis Code(s): M47.9 - SPONDYLOSIS, UNSPECIFIED (13) Vitamin D deficiency Code(s): E55.9 - VITAMIN D DEFICIENCY, UNSPECIFIED Assessment/Plan lung ca -stage IV cad PAD Hep C pancreatitis stable post op cont med rx cc time 35min
--- NOTE | 2016-06-15 13:48 | EKG ---
Test Reason : Blood Pressure : / mmHG Vent. Rate : 097 BPM Atrial Rate : 097 BPM P-R Int : 132 ms QRS Dur : 096 ms QT Int : 350 ms P-R-T Axes : 050 025 022 degrees QTc Int : 444 ms NORMAL SINUS RHYTHM NORMAL ECG WHEN COMPARED WITH ECG OF 06-JUN-2013 09:18, NO SIGNIFICANT CHANGE WAS FOUND Confirmed by NATALIE FRANCIS MD ([id number]) on 06/15/2016 1:48:07 PM Referred By: Austin Cavazos Confirmed By:NATALIE FRANCIS MD
--- NOTE | 2016-06-15 14:04 | PN ---
Teaching Attending Note Name of Resident: Mil Augustin ATTENDING PHYSICIAN STATEMENT I saw and evaluated the patient. I reviewed the resident's note and discussed the case with the resident. I agree with the resident's findings and plan as documented. SUBJECTIVE: Patient seen and examined in the ICU. Awake and alert. CT has been removed. Some dry cough. CXR: No PTX / Bibasilar atelectasis Intake & Output 06/12/16 06/13/16 06/14/16 06/15/16 23:59 23:59 23:59 23:59 Intake Total 2652 3375 Output Total 2615 2145 735 Balance 37 1230 -735 Weight 173 lb 11.2 oz 172 lb 14.4 oz Last Vital Signs Temp Pulse Resp BP Pulse Ox 99 F 91 H 20 130/78 90 L 06/15/16 10:00 06/15/16 13:53 06/15/16 13:22 06/15/16 13:22 06/15/16 13:53 Active Medications Heparin Sodium (Porcine) (Heparin -) 5,000 unit SQ BID [facility] Last Admin: 06/15/16 10:54 Dose: 5,000 unit Ipratropium [place] (Atrovent 0.02% Nebulizer -) 1 amp NEB QIDR [facility] Last Admin: 06/15/16 11:45 Dose: 1 amp Methadone HCl (Dolophine -) 20 mg PO DAILY [facility] Last Admin: 06/15/16 10:53 Dose: 20 mg Nicotine (Nicoderm Patch -) 14 mg TD DAILY [facility] Last Admin: 06/15/16 12:43 Dose: 14 mg Oxycodone HCl (Roxicodone -) 5 mg PO Q3H PRN PRN Reason: PAIN LEVEL 1-5 Oxycodone HCl (Roxicodone -) 10 mg PO Q3H PRN PRN Reason: PAIN LEVEL 6-10 Last Admin: 06/15/16 12:48 Dose: 10 mg Gen: Awake and alert, NAD HEENT: (-) Pallor, (-) Icterus Lungs: Right CT intact (-) air leak Cardiac: S1S2 regular Abdomen: Soft, (+) BS, NT Ext: (-) edema SALES RECEPTIONIST: AAO, non-focal Laboratory Results - last 24 hr 06/15/16 06/15/16 06/15/16 05:00 05:00 05:00 WBC 15.3 H RBC 5.19 Hgb 15.2 Hct 45.2 MCV 87.0 MCHC 33.7 RDW 13.6 Plt Count 221 MPV 8.8 INR 1.14 Sodium 138 Potassium 3.8 Chloride 100 Carbon Dioxide 30 Anion Gap 8 BUN 13 Creatinine 0.8 Creat Clearance w eGFR > 60 Random Glucose 116 H Calcium 8.4 L Phosphorus 2.4 L D Magnesium 2.2 Total Bilirubin 1.0 AST 26 ALT 32 Alkaline Phosphatase 90 Total Protein 6.9 Albumin 3.4 ASSESSMENT AND PLAN: IMP: S/P Right VATS with Pleural biopsies and Right CT placement -> Probable Metastatic Lung CA Smoker Opiate Dependence PLAN: Pre and post ambulation O2 saturation O2 as needed BD TX PRN No smoking Monitor off ABX Incentive Spirometry D/C or 8W Dr Timmons
--- NOTE | 2016-06-15 16:00 | PN ---
Physical Exam: SUBJECTIVE: Patient seen and examined at bedside in the ICU. His daughter was at bedside. Pt reported feeling well, just some pain when breathing. Denied fever, chills, n /v, chest pain, shortness of breath, abd pain. OBJECTIVE: Vital Signs Period Temp Pulse Resp BP Sys/[place] Pulse Ox Last 24 Hr 99 F-100.5 F 68-111 16-22 114-146/58-81 76-95 GENERAL: Awake, alert, and fully oriented, in no acute distress EYES: Pupils equal, round and reactive to light, extraocular movements intact, sclera anicteric, conjunctiva clear. LUNGS: Poor air entry, b/l fine crackles HEART: Regular rate and rhythm, normal S1 and S2 without murmur, rub or gallop. ABDOMEN: Soft, nontender, not distended, normoactive bowel sounds, no guarding, no rebound, no masses. LOWER EXTREMITIES: No calf tenderness. No peripheral edema. CBCD WBC 15.3 K/mm3 (4.0-10.0) H 06/15/16 05:00 RBC 5.19 M/mm3 (4.00-5.60) 06/15/16 05:00 Hgb 15.2 GM/dL (11.7-16.9) 06/15/16 05:00 Hct 45.2 % (35.4-49) 06/15/16 05:00 MCV 87.0 fl (80-96) 06/15/16 05:00 MCHC 33.7 g/dl (32.0-35.9) 06/15/16 05:00 RDW 13.6 % (11.9-15.9) 06/15/16 05:00 Plt Count 221 K/MM3 (134-434) 06/15/16 05:00 MPV 8.8 fl (7.5-11.1) 06/15/16 05:00 CMP Sodium 138 mmol/L (136-145) 06/15/16 05:00 Potassium 3.8 mmol/L (3.5-5.1) 06/15/16 05:00 Chloride 100 mmol/L (98-107) 06/15/16 05:00 Carbon Dioxide 30 mmol/L (21-32) 06/15/16 05:00 Anion Gap 8 (8-16) 06/15/16 05:00 BUN 13 mg/dL (7-18) 06/15/16 05:00 Creatinine 0.8 mg/dL (0.7-1.3) 06/15/16 05:00 Creat Clearance w eGFR > 60 (>60) 06/15/16 05:00 Calcium 8.4 mg/dL (8.5-10.1) L 06/15/16 05:00 Total Bilirubin 1.0 mg/dL (0.2-1.0) 06/15/16 05:00 AST 26 U/L (15-37) 06/15/16 05:00 ALT 32 U/L (12-78) 06/15/16 05:00 Alkaline Phosphatase 90 U/L (45-117) 06/15/16 05:00 Total Protein 6.9 g/dl (6.4-8.2) 06/15/16 05:00 Albumin 3.4 g/dl (3.4-5.0) 06/15/16 05:00 Intake & Output 06/12/16 06/13/16 06/14/16 06/15/16 23:59 23:59 23:59 23:59 Intake Total 2652 3375 Output Total 2615 2145 735 Balance 37 1230 -735 Weight 78.789 kg 78.426 kg Intake & Output 06/12/16 06/13/16 06/14/16 06/15/16 23:59 23:59 23:59 23:59 Intake Total 2652 3375 Output Total 2615 2145 735 Balance 37 1230 -735 Weight 78.789 kg 78.426 kg Active Medications Generic Name Dose Route Start Last Admin Trade Name Freq PRN Reason Stop Dose Admin Heparin Sodium (Porcine) 5,000 unit 06/14/16 22:00 06/15/16 10:54 Heparin - SQ 5,000 unit BID [facility] Administration Ipratropium [place] 1 amp 06/15/16 00:00 06/15/16 11:45 Atrovent 0.02% Nebulizer - NEB 1 amp QIDR [facility] Administration Methadone HCl 20 mg 06/15/16 10:00 06/15/16 10:53 Dolophine - PO 20 mg DAILY [facility] Administration Nicotine 14 mg 06/15/16 10:00 06/15/16 12:43 Nicoderm Patch - TD 14 mg DAILY [facility] Administration Oxycodone HCl 5 mg 06/15/16 07:56 Roxicodone - PO Q3H PRN PAIN LEVEL 1-5 Oxycodone HCl 10 mg 06/15/16 07:56 06/15/16 12:48 Roxicodone - PO 10 mg Q3H PRN Administration PAIN LEVEL 6-10 Microbiology 06/13/16 09:00 Bronchial Washings - Right Lower Lobe Gram Stain - Final 06/13/16 09:00 Bronchial Washings - Right Lower Lobe Bronchoalveolar Lavage Culture - Final NORMAL RESPIRATORY COLT Imaging: CXR 06/15: A single frontal portable projection of the chest at 10:27 AM is submitted. Since a prior study of earlier in the day, a right-sided chest tube has been removed. No pneumothorax has developed. Atelectatic changes are noted at both lung bases, right greater than left. The upper lung pierre are clear. S/ P chest tube removal. CXR 06/14: No significant change CXR 06/13: post-op chest with R chest tube in. No pneumothorax. ASSESSMENT/PLAN: 60 yo M who's active smoker with h/o chronic back pain, opiate dependence on methadone, lung CA (unconfirmed type) and treated hepatitis C admitted to the ICU s/p lung nodule biopsy and chest tube placement. Pulmo: Lung CA s/p lung nodule biopsy and s/p chest tube removal - POD #2, CT removed today - WBC trending down - Wound care - Will need home O2 based on pre and post O2 assessment - Incentive Spirometry - On NC 2L and maintain O2 sat > 88% - Oxycodone 5mg Q3H PRN for pain - Cont. chest PT Heme: Possible stage 4 lung cancer s/p biopsy - Awaiting final path report - Patient will follow up as outpatient Psych: H/O of polysubstance abuse - Nicotine patch 14mg - Cont. methadone 20mg daily FEN - Not indicated - Cont. to monitor lytes - Low sodium diet - Prophylaxis - DVT: heparin gtt - GI: not indicated Disposition - Transferred to [facility] - machine operator hop worker on the case to arrange home O2 Code status - Full code Visit type - Emergency Visit Emergency Visit: No - New Patient This patient is new to me today: No - Critical Care Critical Care patient: Yes Total Critical Care Time (in minutes): 35 Critical Care Statement: The care of this patient involved high complexity decision making to prevent further life threatening deterioration of the patient 's condition and/or to evalute & treat vital organ system(s) failure or risk of failure.
--- NOTE | 2016-06-15 19:31 | PN ---
Progress Note, Physician - Current Medication List Current Medications: Active Medications Heparin Sodium (Porcine) (Heparin -) 5,000 unit SQ BID [facility] Ipratropium [place] (Atrovent 0.02% Nebulizer -) 1 amp NEB QIDR [facility] Last Admin: 06/15/16 18:11 Dose: 1 amp Methadone HCl (Dolophine -) 20 mg PO DAILY [facility] Nicotine (Nicoderm Patch -) 14 mg TD DAILY [facility] Oxycodone HCl (Roxicodone -) 5 mg PO Q3H PRN PRN Reason: PAIN LEVEL 1-5 Oxycodone HCl (Roxicodone -) 10 mg PO Q3H PRN PRN Reason: PAIN LEVEL 6-10 - Objective Vital Signs: Vital Signs Temperature 98.6 F 06/15/16 18:00 Pulse Rate 95 H 06/15/16 18:00 Respiratory Rate 20 06/15/16 18:00 Blood Pressure 125/76 06/15/16 18:00 O2 Sat by Pulse Oximetry (%) 98 06/15/16 15:00 Constitutional: Yes: No Distress HENT: Yes: Atraumatic Neck: Yes: Supple Cardiovascular: Yes: Regular Rate and Rhythm Respiratory: Yes: Rhonchi Gastrointestinal: Yes: Normal Bowel Sounds Extremities: Yes: WNL Labs: CBC, BMP 06/15/16 05:00 06/15/16 05:00 INR, PTT INR 1.14 (0.82-1.09) 06/15/16 05:00 Problem List - Problems (1) Chronic back pain Code(s): M54.9 - DORSALGIA, UNSPECIFIED G89.29 - OTHER CHRONIC PAIN (2) Chronic use of opiate for therapeutic purpose Code(s): Z79.899 - OTHER SHELTER (CURRENT) DRUG THERAPY (3) HTN (hypertension) Code(s): I10 - ESSENTIAL (PRIMARY) HYPERTENSION (4) History of lung cancer Code(s): Z85.118 - PERSONAL HISTORY OF MALIGNANT NEOPLASM OF BRONCHUS AND LUNG (5) Hypercholesterolemia Code(s): E78.0 - PURE HYPERCHOLESTEROLEMIA * DO NOT USE * (6) Lung nodules Code(s): R91.8 - OTHER NONSPECIFIC ABNORMAL FINDING OF LUNG FIELD (7) Methadone maintenance therapy patient Code(s): F11.20 - OPIOID DEPENDENCE, UNCOMPLICATED Assessment/Plan 1.lung ca s/p biopsy of pleural lesion chest tube...REMOVED TODAY S/P Right VATS with Pleural biopsies and Right CT placement -> Suspected Metastatic Lung CA Smoker Opiate Dependence prn pain meds fu lab dvt ppx 2.nicotine dependance on patch NEED XANAX TO SLEEP
--- NOTE | 2016-06-15 22:23 | CONSULT ---
Consult - text type - Consultation Consultation Note: Patient seen and examined 60 M, active smoker, opiate dependence on maintenance program. Found to have a PET avid lesion that appeared to be limited stage on outpatient workup. During an anticipated Right VATS lobectomy, pleural lesions were noted and subsequently biopsied. The lesions were highly suspicious for metastates. Biopsies were taken and a right CT was placed. Chest tube was taken out today Needs home O2 PMH History of hepatitis C Hypertension Pancreatitis Right lower lobe mass with increasing FDG uptake on PET scan Decreased FDG uptake in the distribution of the left anterior descending artery in comparison to the left circumflex artery c/w CAD Moderate plaque located in left carotid bulb 2015 - History Source History Provided By: Patient, Medical Record - Past Medical History Cardio/Vascular: Yes: CAD, HTN Pulmonary: Yes: Other (lung ca) Infectious Disease: Yes: Other (hep c) - Smoking History Smoking history: Current every day smoker Have you smoked in the past 12 months: Yes Home Medications - Allergies Allergies/Adverse Reactions: Allergies Allergy/AdvReac Type Severity Reaction Status Date / Time Penicillins Allergy Intermediate Rash Verified 06/13/16 06:38 quetiapine fumarate AdvReac Intermediate nightmares Verified 06/13/16 06:38 [From Seroquel] - Home Medications Home Medications: Ambulatory Orders Docusate Sodium [Colace -] 100 mg PO BID PRN 02/11/14 Ergocalciferol [Drisdol -] 50,000 unit PO WEEKLY 02/11/14 Methadone HCl 22 mg PO DAILY 02/11/14 Gabapentin [Neurontin -] 300 mg PO BID PRN 11/16/15 Gabapentin [Neurontin -] 600 mg PO HS PRN 11/16/15 Alprazolam [Xanax] 0.5 mg PO ASDIR 05/16/16 Amlodipine Besylate 5 mg PO HS 06/10/16 Oxycodone HCl/Acetaminophen [Oxycodone-Acetaminophen 10-325] 1 each PO QID PRN # 100 tablet MDD 4 06/10/16 Nicotine Patch [Nicoderm Patch -] 1 patch TD DAILY 06/13/16 Vital Signs Temperature 98.8 F 06/14/16 14:00 Pulse Rate 84 06/14/16 18:00 Respiratory Rate 20 06/14/16 18:00 Blood Pressure 134/73 06/14/16 18:00 O2 Sat by Pulse Oximetry (%) 76 L 06/14/16 17:15 Constitutional: Yes: Well Nourished, No Distress, Calm Eyes: Yes: WNL, Conjunctiva Clear, EOM Intact HENT: Yes: WNL, Atraumatic, Normocephalic Neck: Yes: WNL, Supple, Trachea Midline Respiratory: decreased breath sounds rt. lung Gastrointestinal: Yes: WNL, Normal Bowel Sounds Renal/: Yes: WNL Cardiovascular: Yes: WNL, Regular Rate and Rhythm Musculoskeletal: Yes: WNL Extremities: Yes: WNL - Other Data Labs, Other Data: CBC, BMP 06/14/16 05:10 06/14/16 05:10 INR, PTT INR 1.23 (0.82-1.09) H 06/14/16 05:10 Imaging - Results EKG: Image Reviewed (sr rep abn) Problem List - Problems (1) Allergic rhinitis Code(s): J30.9 - ALLERGIC RHINITIS, UNSPECIFIED Qualifiers: Allergic rhinitis seasonality: non-seasonal Allergic rhinitis trigger: unspecified Qualified Code(s): J30.89 - Other allergic rhinitis (2) Chronic back pain Code(s): M54.9 - DORSALGIA, UNSPECIFIED G89.29 - OTHER CHRONIC PAIN (3) Chronic use of opiate for therapeutic purpose Code(s): Z79.899 - OTHER USP (CURRENT) DRUG THERAPY (4) HTN (hypertension) Code(s): I10 - ESSENTIAL (PRIMARY) HYPERTENSION (5) History of lung cancer Code(s): Z85.118 - PERSONAL HISTORY OF MALIGNANT NEOPLASM OF BRONCHUS AND LUNG (6) Hypercholesterolemia Code(s): E78.0 - PURE HYPERCHOLESTEROLEMIA * DO NOT USE * (7) Lung nodules Code(s): R91.8 - OTHER NONSPECIFIC ABNORMAL FINDING OF LUNG FIELD (8) Methadone maintenance therapy patient Code(s): F11.20 - OPIOID DEPENDENCE, UNCOMPLICATED (9) Nicotine dependence Code(s): F17.200 - NICOTINE DEPENDENCE, UNSPECIFIED, UNCOMPLICATED (10) Osteoarthritis Code(s): M19.90 - UNSPECIFIED OSTEOARTHRITIS, UNSPECIFIED SITE (11) Spinal stenosis of lumbar region Code(s): M48.06 - SPINAL STENOSIS, LUMBAR REGION (12) Spondylosis Code(s): M47.9 - SPONDYLOSIS, UNSPECIFIED (13) Vitamin D deficiency Code(s): E55.9 - VITAMIN D DEFICIENCY, UNSPECIFIED 60 y/o patient with h/o Hep. C, newly diagnosed adenoca of lungs with pleural involvement discussed in great detail with family will need PET-CT/MRI brain to complete w/u will need port placement will order PDL1 expression testing and EGFR/ALK mutation testing To consider immunotherapy vs carbo/alimta based on above information start folic acid/B 12 in contemplation discussed with family various side effects of immuno/chemotherapies family welfare social work professor consult contact nos. given
[2016-06-16] MEDS: IPRATROPIUM BR 0.02% 0.5 MG/2.5 ML VIAL.NEB. NEB SCH ×5 (00:12→23:07)
[2016-06-16] MEDS: ALPRAZolam 0.25 MG TABLET PO PRN (00:46)
[2016-06-16] MEDS ORDERED: PT OWN MED DRAWER 7, Y5N ONE (06:59)
[2016-06-16] MEDS: oxyCODONE HCL 5 MG TABLET PO PRN ×3 (07:00→20:00)
[2016-06-16] MEDS: METHADONE HCL 10 MG TABLET PO SCH (09:39)
[2016-06-16] MEDS: NICOTINE 14 MG/24 HOURS TOPICAL PATCH TD SCH (09:39)
[2016-06-16] MEDS: FOLIC ACID 1 MG TABLET (FP) PO SCH (09:39)
[2016-06-16] MEDS: HEPARIN NA (PORCINE) 5,000 UNITS/ML 1ML VIAL SQ SCH ×2 (09:40→21:02)
--- NOTE | 2016-06-16 09:49 | PN ---
Progress Note, Physician Chief Complaint: Pt sitting up at bedside; received pulmonary therapy. No chest pain; feels weak. History of Present Illness: 60 M, active smoker, opiate dependence on maintenance program. Found to have a PET avid lesion that appeared to be limited stage on outpatient workup. During an anticipated Right VATS lobectomy, pleural lesions were noted and subsequently biopsied. The lesions were highly suspicious for metastates. Biopsies were taken and a right CT was placed. - Current Medication List Current Medications: Active Medications Alprazolam (Xanax -) 0.5 mg PO HS PRN PRN Reason: ANXIETY Last Admin: 06/16/16 00:46 Dose: 0.5 mg Folic Acid (Folic Acid -) 1 mg PO DAILY [facility] Last Admin: 06/16/16 09:39 Dose: 1 mg Heparin Sodium (Porcine) (Heparin -) 5,000 unit SQ BID [facility] Last Admin: 06/16/16 09:40 Dose: 5,000 unit Ipratropium [place] (Atrovent 0.02% Nebulizer -) 1 amp NEB QIDR [facility] Last Admin: 06/16/16 07:21 Dose: Not Given Methadone HCl (Dolophine -) 20 mg PO DAILY [facility] Last Admin: 06/16/16 09:39 Dose: 20 mg Nicotine (Nicoderm Patch -) 14 mg TD DAILY [facility] Last Admin: 06/16/16 09:39 Dose: 14 mg Oxycodone HCl (Roxicodone -) 5 mg PO Q3H PRN PRN Reason: PAIN LEVEL 1-5 Oxycodone HCl (Roxicodone -) 10 mg PO Q3H PRN PRN Reason: PAIN LEVEL 6-10 Last Admin: 06/16/16 07:00 Dose: 10 mg - Objective Vital Signs: Vital Signs Temperature 98.6 F 06/16/16 08:00 Pulse Rate 99 H 06/16/16 08:00 Respiratory Rate 20 06/16/16 08:00 Blood Pressure 122/71 06/16/16 08:00 O2 Sat by Pulse Oximetry (%) 96 06/16/16 08:37 Constitutional: Yes: Calm Eyes: Yes: WNL HENT: Yes: WNL Neck: Yes: WNL Cardiovascular: Yes: Regular Rate and Rhythm Respiratory: Yes: Diminished Gastrointestinal: Yes: Soft ...Rectal Exam: Yes: Deferred Genitourinary: No: Anuria Breast(s): Yes: WNL Musculoskeletal: Yes: Muscle Weakness Edema: No Peripheral Pulses WNL: Yes Neurological: Yes: Alert, Oriented Psychiatric: Yes: Alert, Oriented (anxiety; ?depression) Labs: CBC, BMP 06/15/16 05:00 06/15/16 05:00 INR, PTT INR 1.14 (0.82-1.09) 06/15/16 05:00 Problem List - Problems (1) Allergic rhinitis Code(s): J30.9 - ALLERGIC RHINITIS, UNSPECIFIED Qualifiers: Allergic rhinitis seasonality: non-seasonal Allergic rhinitis trigger: unspecified Qualified Code(s): J30.89 - Other allergic rhinitis (2) Chronic use of opiate for therapeutic purpose Assessment/Plan: on methadone. Code(s): Z79.899 - OTHER PATIENT MANAGER (CURRENT) DRUG THERAPY (3) HTN (hypertension) Code(s): I10 - ESSENTIAL (PRIMARY) HYPERTENSION (4) History of lung cancer Assessment/Plan: s/p VATS, pleural biopsies. SOB with mild exertion. F/u ECHO for LVEF, wall thickness and motion. Code(s): Z85.118 - PERSONAL HISTORY OF MALIGNANT NEOPLASM OF BRONCHUS AND LUNG (5) Hypercholesterolemia Code(s): E78.0 - PURE HYPERCHOLESTEROLEMIA * DO NOT USE * (6) Lung nodules Code(s): R91.8 - OTHER NONSPECIFIC ABNORMAL FINDING OF LUNG FIELD (7) Methadone maintenance therapy patient Code(s): F11.20 - OPIOID DEPENDENCE, UNCOMPLICATED
[2016-06-16] MEDS ORDERED: CYANOCOBALAMIN (VITAMIN B-12) 1000 MCG/1 ML VIAL IM ONE (13:20)
--- NOTE | 2016-06-16 14:01 | CONSULT ---
Consult - text type - Consultation Consultation Note: Pt known to me for the past Seen Dr. Concepcion at the [facility] for pain mgmt h/o chronic lower back pain P: Continue current pain mgmt regimen follow up with Dr. Concepcion upon d/c.
--- NOTE | 2016-06-16 18:17 | PN ---
Progress Note, Physician - Current Medication List Current Medications: Active Medications Alprazolam (Xanax -) 0.5 mg PO HS PRN PRN Reason: ANXIETY Last Admin: 06/16/16 00:46 Dose: 0.5 mg Folic Acid (Folic Acid -) 1 mg PO DAILY [facility] Last Admin: 06/16/16 09:39 Dose: 1 mg Heparin Sodium (Porcine) (Heparin -) 5,000 unit SQ BID [facility] Last Admin: 06/16/16 09:40 Dose: 5,000 unit Ipratropium [place] (Atrovent 0.02% Nebulizer -) 1 amp NEB QIDR [facility] Last Admin: 06/16/16 17:55 Dose: 1 amp Methadone HCl (Dolophine -) 20 mg PO DAILY [facility] Last Admin: 06/16/16 09:39 Dose: 20 mg Nicotine (Nicoderm Patch -) 14 mg TD DAILY [facility] Last Admin: 06/16/16 09:39 Dose: 14 mg Oxycodone HCl (Roxicodone -) 5 mg PO Q3H PRN PRN Reason: PAIN LEVEL 1-5 Oxycodone HCl (Roxicodone -) 10 mg PO Q3H PRN PRN Reason: PAIN LEVEL 6-10 Last Admin: 06/16/16 15:02 Dose: 10 mg - Objective Vital Signs: Vital Signs Temperature 99.1 F 06/16/16 15:25 Pulse Rate 88 06/16/16 15:25 Respiratory Rate 20 06/16/16 08:00 Blood Pressure 138/75 06/16/16 15:25 O2 Sat by Pulse Oximetry (%) 96 06/16/16 10:35 Constitutional: Yes: No Distress HENT: Yes: Atraumatic Neck: Yes: Supple Cardiovascular: Yes: Regular Rate and Rhythm Respiratory: Yes: CTA Bilaterally Gastrointestinal: Yes: Normal Bowel Sounds Extremities: Yes: WNL Neurological: Yes: Alert, Oriented Labs: CBC, BMP 06/15/16 05:00 06/15/16 05:00 INR, PTT INR 1.14 (0.82-1.09) 06/15/16 05:00 Problem List - Problems (1) Chronic back pain Code(s): M54.9 - DORSALGIA, UNSPECIFIED G89.29 - OTHER CHRONIC PAIN (2) Chronic use of opiate for therapeutic purpose Code(s): Z79.899 - OTHER [facility] (CURRENT) DRUG THERAPY (3) HTN (hypertension) Code(s): I10 - ESSENTIAL (PRIMARY) HYPERTENSION (4) History of lung cancer Code(s): Z85.118 - PERSONAL HISTORY OF MALIGNANT NEOPLASM OF BRONCHUS AND LUNG (5) Hypercholesterolemia Code(s): E78.0 - PURE HYPERCHOLESTEROLEMIA * DO NOT USE * (6) Lung nodules Code(s): R91.8 - OTHER NONSPECIFIC ABNORMAL FINDING OF LUNG FIELD (7) Methadone maintenance therapy patient Code(s): F11.20 - OPIOID DEPENDENCE, UNCOMPLICATED Assessment/Plan 1.lung ca s/p biopsy of pleural lesion chets tube REMOVED fu lab dvt ppx 2.nicotine dependance on patch 3.htn stable DC IN AM
--- NOTE | 2016-06-16 19:25 | PN ---
Progress Note (short form) - Note Progress Note: PAtient seen and examined ambulated with walker Last Vital Signs Temp Pulse Resp BP Pulse Ox 99.1 F 88 20 138/75 96 06/16/16 15:25 06/16/16 15:25 06/16/16 08:00 06/16/16 15:25 06/16/16 10:35 Cor: RSR, No murmurs, No gallops Lungs: Clear to P&A Abd: Soft, Normal bowel sounds, No organomegaly Ext:No significant edema Skin: No rashes, Integument intact Current Medications Alprazolam (Xanax -) 0.5 mg PO HS PRN PRN Reason: ANXIETY Last Admin: 06/16/16 00:46 Dose: 0.5 mg Folic Acid (Folic Acid -) 1 mg PO DAILY [facility] Last Admin: 06/16/16 09:39 Dose: 1 mg Heparin Sodium (Porcine) (Heparin -) 5,000 unit SQ BID [facility] Last Admin: 06/16/16 09:40 Dose: 5,000 unit Ipratropium [place] (Atrovent 0.02% Nebulizer -) 1 amp NEB QIDR [facility] Last Admin: 06/16/16 17:55 Dose: 1 amp Methadone HCl (Dolophine -) 20 mg PO DAILY [facility] Last Admin: 06/16/16 09:39 Dose: 20 mg Nicotine (Nicoderm Patch -) 14 mg TD DAILY [facility] Last Admin: 06/16/16 09:39 Dose: 14 mg Oxycodone HCl (Roxicodone -) 5 mg PO Q3H PRN PRN Reason: PAIN LEVEL 1-5 Oxycodone HCl (Roxicodone -) 10 mg PO Q3H PRN PRN Reason: PAIN LEVEL 6-10 Last Admin: 06/16/16 15:02 Dose: 10 mg A/P 60 y/o patient with h/o Hep. 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 given
[2016-06-17] MEDS: ALPRAZolam 0.25 MG TABLET PO PRN (00:19)
[2016-06-17] MEDS: oxyCODONE HCL 5 MG TABLET PO PRN ×2 (05:18→08:54)
[2016-06-17] MEDS: IPRATROPIUM BR 0.02% 0.5 MG/2.5 ML VIAL.NEB. NEB SCH (06:45)
[2016-06-17] MEDS: HEPARIN NA (PORCINE) 5,000 UNITS/ML 1ML VIAL SQ SCH (09:14)
[2016-06-17] MEDS: METHADONE HCL 10 MG TABLET PO SCH (09:14)
[2016-06-17] MEDS: FOLIC ACID 1 MG TABLET (FP) PO SCH (09:15)
[2016-06-17] MEDS: NICOTINE 14 MG/24 HOURS TOPICAL PATCH TD SCH (09:15)
[2016-06-17 10:30] VITALS: PULSE 89
[2016-06-17 10:31] VITALS: BP 122/76; TEMP 99.3
--- NOTE | 2016-06-17 19:17 | DS ---
Physical Examination Vital Signs: Vital Signs Temperature 99.3 F 06/17/16 10:00 Pulse Rate 89 06/17/16 10:25 Respiratory Rate 18 06/17/16 10:00 Blood Pressure 122/76 06/17/16 10:00 O2 Sat by Pulse Oximetry (%) 94 L 06/17/16 10:25 Labs: CBC, BMP 06/15/16 05:00 06/15/16 05:00 Discharge Summary Reason For Visit: LUNG CANCER Condition: Stable - Instructions Diet, Activity, Other Instructions: Dr Cavazos Discharge Instructions Dear Jayro, Physical activity Resume your normal everyday activity as tolerated no heavy lifting or exercise until seen by your surgeon. You may walk unlimited amounts of and climb stairs. You may resume driving the car when you feel safe and comfortable behind the wheel. Wound care If you have a bandage, leave it on...may remove in 3 days. It's ok to shower. NO baths. Diet There are no dietary restrictions. Eat healthy, high-fiber foods. Drink 6 to 8 glasses of liquid each day. This will assist in keeping your bowels are regular. Pain management You may take Tylenol or acetaminophen or Ibuprofen (for example, Motrin, Advil etc.) Any pain prescription medication ordered should be taken as prescribed for moderate to severe pain. Call Dr. Cavazos for any of the following: Severe pain not relieved by medication Fever of 101 or higher Excessive bleeding or drainage on dressing Call the office for an appointment in 7-10 days for normal post-operative check- up. Referrals: Austin Cavazos MD [Staff Physician] - Disposition: VNS/HOME HEALTH CARE - Home Medications Comprehensive Discharge Medication List: Ambulatory Orders Docusate Sodium [Colace -] 100 mg PO BID PRN 02/11/14 Ergocalciferol [Drisdol -] 50,000 unit PO WEEKLY 02/11/14 Methadone HCl 22 mg PO DAILY 02/11/14 Gabapentin [Neurontin -] 300 mg PO BID PRN 11/16/15 Gabapentin [Neurontin -] 600 mg PO HS PRN 11/16/15 Alprazolam [Xanax] 0.5 mg PO ASDIR 05/16/16 Amlodipine Besylate 5 mg PO HS 06/10/16 Nicotine Patch [Nicoderm Patch -] 1 patch TD DAILY 06/13/16 Oxycodone HCl/Acetaminophen [Oxycodone-Acetaminophen 10-325] 1 each PO QID PRN # 100 tablet MDD 4 06/17/16 [facility] oncology next week
== END 2016-06-17 10:36 | disposition home health service (06) | DRG 121 ==
LOC: JSAMEDAYSX 05:58 → EDSTATUS 07:30 → JICU 14:22 → J6S 06-15 15:52
PROVIDERS: ADMIT Internal Medicine; ATTEND Internal Medicine
PROC: [UNRECOGNIZED PROCEDURE] (2016-06-13)
PROC: 0BBN4ZX Excision of Right Pleura, Percutaneous Endoscopic Approach, Diagnostic (ICD-10-PCS; 2016-06-13)
PROC: 0BNF4ZZ Release Right Lower Lung Lobe, Percutaneous Endoscopic Approach (ICD-10-PCS; 2016-06-13)
PROC: 0BNC4ZZ Release Right Upper Lung Lobe, Percutaneous Endoscopic Approach (ICD-10-PCS; 2016-06-13)
PROC: 0W9940Z Drainage of Right Pleural Cavity with Drainage Device, Percutaneous Endoscopic Approach (ICD-10-PCS; 2016-06-13)
PROC: 0BJ08ZZ Inspection of Tracheobronchial Tree, Via Natural or Artificial Opening Endoscopic (ICD-10-PCS; principal; 2016-06-13 07:30)
DX: C34.31 Malignant neoplasm of lower lobe, right bronchus or lung (principal); C78.2 Secondary malignant neoplasm of pleura; C79.89 Secondary malignant neoplasm of other specified sites; I25.10 Atherosclerotic heart disease of native coronary artery without angina pectoris; I10 Essential (primary) hypertension; F17.210 Nicotine dependence, cigarettes, uncomplicated; F11.20 Opioid dependence, uncomplicated; B19.20 Unspecified viral hepatitis C without hepatic coma; M54.89 Other dorsalgia; Z79.899 Other long term (current) drug therapy; J30.89 Other allergic rhinitis
CPT/HCPCS: 36415; 71010-TC; 80053; 83735; 84100; 85025; 85027; 85610; 85730; 87070; 87205; 88305-TC; 88331-TC; 88341-TC; 93005; 93010; 93306-TC; 94640; 94667; 94760; 94761; 97116-GP; 97162-PG; G6053; J1644

== ENCOUNTER 2016-07-05 06:59 | Day surgery (SDC) | payer OTHER ==
[2016-07-05] MEDS ORDERED: SODIUM CHLORIDE IVPB ONE ×3 (08:00→09:30)
[2016-07-05] MEDS ORDERED: CYANOCOBALAMIN (VITAMIN B-12) 1000 MCG/1 ML VIAL IM ONE (08:00)
[2016-07-05] MEDS ORDERED: MAGNESIUM SULFATE IVPB ONE (08:00)
[2016-07-05] MEDS ORDERED: POTASSIUM CHLORIDE IVPB ONE (08:00)
[2016-07-05] MEDS ORDERED: PALONOSETRON HCL 0.25 MG in SODIUM CHLORIDE 50 ML IVPB ONE (08:30)
[2016-07-05] MEDS ORDERED: DEXAMETHASONE INJECTION 10 MG in SODIUM CHLORIDE 50 ML IVPB ONE (08:30)
[2016-07-05] MEDS ORDERED: CARBOPLATIN IVPB ONE (09:00)
[2016-07-05] MEDS ORDERED: PEMETREXED DISODIUM IVPB ONE (09:30)
[2016-07-05 09:53] LABS: BASOPHIL 0.4 % (0-2.0); EOSINOPHIL 4.9 % (0-4.5); MCH 28.7 pg (25.7-33.7); MCHC 32.9 g/dl (32.0-35.9); MEAN CELL VOLUME 87.1 fl (80-96); MEAN PLT VOLUME 8.3 fl (7.5-11.1); NEUTROPHILS 64.4 % (42.8-82.8); PLATELET COUNT 272 K/MM3 (134-434); RDW 13.3 % (11.9-15.9); WHITE BLOOD COUNT 8.8 K/mm3 (4.0-10.0)
[2016-07-05] MEDS ORDERED: SODIUM CHLORIDE 250 ML IV ONE ×2 (10:00→12:30)
[2016-07-05 10:07] LABS: ALBUMIN 3.5 g/dl (3.4-5.0); ALK PHOS 109 U/L (45-117); ANION GAP 10 (8-16); BILIRUBIN,TOTAL 0.5 mg/dL (0.2-1.0); CALCIUM 8.7 mg/dL (8.5-10.1); CO2 25 mmol/L (21-32); CREATININE 0.8 mg/dL (0.7-1.3); GLUCOSE,RANDOM 179 mg/dL (74-106); MAGNESIUM 2.1 mg/dL (1.8-2.4); SGOT/AST 24 U/L (15-37); SGPT/ALT 28 U/L (12-78); TOT PROT 7.7 g/dl (6.4-8.2)
[2016-07-05 10:12] LABS: BILIRUBIN,DIRECT < 0.1 mg/dL (0.0-0.2)
[2016-07-05] MEDS ORDERED: DEXAMETHASONE INJECTION 12 MG, ONDANSETRON INJECTION 8 MG in SODIUM CHLORIDE 100 ML IVPB ONE (11:00)
--- NOTE | 2016-07-05 12:44 | PN ---
Progress Note (short form) - Note Progress Note: Full ID consult dictated + Syphilis serology represents "serofast" state No further treatment advised HIV testing offered- declined OK for chemotherapy
[2016-07-05 16:43] VITALS: BP 122/68; PULSE 74; TEMP 97.7
--- NOTE | 2016-07-05 19:16 | CONS ---
DATE OF CONSULTATION: DATE OF DICTATION: 07/05/2016 INFECTIOUS DISEASE CONSULTATION HISTORY OF PRESENT ILLNESS: The patient is a 60-year-old male with a history of lung cancer evaluated for positive syphilis serology. Patient is receiving chemotherapy for his lung cancer. He has had a history of positive syphilis serology, and concern was raised over the need for further treatment. The patient has a long history of positive serology. I contacted the department of health and was able to document that the patient had positive syphilis serology dating back to 1983. He has been treated on multiple occasions. In 1987, he received 3 doses of intramuscular benzathine penicillin. He received 28 day course of doxycycline/tetracycline 3 times in 2001. He again received a 28-day course of doxycycline in 2007, and once again in 2011. He denies any possibility of reexposure. He states he tested HIV negative in the recent past. PAST MEDICAL HISTORY: Positive for lung cancer. ALLERGIES: PENICILLIN. PHYSICAL EXAMINATION: General: He is not acutely toxic appearing. Vital signs: He is afebrile. HEENT: Sclerae anicteric. Port site, no erythema or tenderness. Cardiovascular: Heart sounds S1, S2. Respiratory: Lungs diminished breath sounds bilaterally. Abdomen: Soft. No tenderness elicited. Extremities: Negative for edema. LABORATORY DATA: White count 8.8, hematocrit 47.6, platelet count 272. RPR has been positive in a range of 1:2 to 1:4. He appears to be serofast dating back at least to 2010. IMPRESSION: Positive syphilis serology consistent with "serofast" state. No further treatment advised. He appears to be serofast at a level of 1:4. HIV testing was offered but patient declined. No objection to chemotherapy from infectious disease standpoint. Thank you for the kind referral. ESTHELA HEARD M.D. [id number] MTDD
== END 2016-07-05 16:35 | disposition home or self-care (01) ==
LOC: JONCCHEMO 06:59 → J7W 11:00 → JONCCHEMO 16:35
PROVIDERS: ATTEND Internal Medicine Hematology & Oncology
PROC: 3E04305 Introduction of Other Antineoplastic into Central Vein, Percutaneous Approach (ICD-10-PCS; principal; 2016-07-05)
PROC: 3E0437Z Introduction of Electrolytic and Water Balance Substance into Central Vein, Percutaneous Approach (ICD-10-PCS; 2016-07-05)
PROC: 3E043GC Introduction of Other Therapeutic Substance into Central Vein, Percutaneous Approach (ICD-10-PCS; 2016-07-05)
PROC: 3E023GC Introduction of Other Therapeutic Substance into Muscle, Percutaneous Approach (ICD-10-PCS; 2016-07-05)
DX: Z51.11 Encounter for antineoplastic chemotherapy (principal); C34.31 Malignant neoplasm of lower lobe, right bronchus or lung
CPT/HCPCS: 96361; 96367; 96372; 96411; 96413; J9045; J9305; 36415; 80053; 80076; 83735; 85025; 96417; J8540

== ENCOUNTER 2016-07-06 07:06 | Day surgery (SDC) | payer OTHER ==
[2016-07-06] MEDS ORDERED: PEGFILGRASTIM 6 MG/0.6 ML DISP.SYRIN SQ ONE (08:00)
== END 2016-07-06 10:40 | disposition home or self-care (01) ==
LOC: JONCCHEMO 07:06 → J7W 09:28 → JONCCHEMO 10:40
PROVIDERS: ATTEND Internal Medicine Hematology & Oncology
PROC: 3E013GC Introduction of Other Therapeutic Substance into Subcutaneous Tissue, Percutaneous Approach (ICD-10-PCS; principal; 2016-07-06)
DX: C34.31 Malignant neoplasm of lower lobe, right bronchus or lung (principal)
CPT/HCPCS: 96372; J2505

== ENCOUNTER 2016-07-26 07:03 | Day surgery (SDC) | payer OTHER ==
[2016-07-26] MEDS ORDERED: POTASSIUM CHLORIDE IVPB ONE (08:00)
[2016-07-26] MEDS ORDERED: MAGNESIUM SULFATE IVPB ONE (08:00)
[2016-07-26] MEDS ORDERED: SODIUM CHLORIDE IVPB ONE ×4 (08:00→12:00)
[2016-07-26] MEDS ORDERED: CYANOCOBALAMIN (VITAMIN B-12) 1000 MCG/1 ML VIAL IM ONE (08:30)
[2016-07-26] MEDS ORDERED: DEXAMETHASONE INJECTION 10 MG in SODIUM CHLORIDE 50 ML IVPB ONE (08:30)
[2016-07-26] MEDS ORDERED: PALONOSETRON HCL 0.25 MG in SODIUM CHLORIDE 50 ML IVPB ONE (08:30)
[2016-07-26] MEDS ORDERED: CARBOPLATIN IVPB ONE (09:00)
[2016-07-26] MEDS ORDERED: PEMETREXED DISODIUM IVPB ONE ×2 (09:30→12:00)
[2016-07-26 09:53] VITALS: TEMP 98.2
[2016-07-26 09:59] LABS: BASOPHIL 0.5 % (0-2.0); MCH 28.7 pg (25.7-33.7); MEAN PLT VOLUME 7.7 fl (7.5-11.1); NEUTROPHILS 93.8 % (42.8-82.8); PLATELET COUNT 441 K/MM3 (134-434); RDW 13.7 % (11.9-15.9); WHITE BLOOD COUNT 17.6 K/mm3 (4.0-10.0)
[2016-07-26 10:27] LABS: ALBUMIN 3.4 g/dl (3.4-5.0); ALK PHOS 127 U/L (45-117); ANION GAP 12 (8-16); BILIRUBIN,TOTAL 0.2 mg/dL (0.2-1.0); CALCIUM 8.8 mg/dL (8.5-10.1); CO2 25 mmol/L (21-32); COCKROFT - GAULT 0; CREATININE 0.9 mg/dL (0.7-1.3); MAGNESIUM 2.3 mg/dL (1.8-2.4); SGOT/AST 10 U/L (15-37); SGPT/ALT 19 U/L (12-78); TOT PROT 7.3 g/dl (6.4-8.2)
[2016-07-26 11:34] LABS: GLUCOSE,RANDOM 308 mg/dL (74-106)
[2016-07-26] MEDS ORDERED: INSULIN (NOVOLOG) ASPART 100 UNITS/ML 10ML VIAL SQ ONE (15:00)
[2016-07-26] MEDS ORDERED: INSULIN DETEMIR 100 UNITS/ML MDV SQ ONE ×2 (16:50→17:00)
[2016-07-26] MEDS ORDERED: SODIUM CHLORIDE 500 ML IV ONE (18:45)
[2016-07-26 20:16] VITALS: BP 112/72; PULSE 84
[2016-07-26] MEDS ORDERED: PORTA CATH FLUSH 10 ML IVPUSH PRN (20:16)
== END 2016-07-26 18:40 | disposition home or self-care (01) ==
LOC: JONCCHEMO 07:03 → J7W 10:47 → JONCCHEMO 18:40
PROVIDERS: ATTEND Internal Medicine Hematology & Oncology
PROC: 3E04305 Introduction of Other Antineoplastic into Central Vein, Percutaneous Approach (ICD-10-PCS; principal; 2016-07-26)
PROC: 3E023GC Introduction of Other Therapeutic Substance into Muscle, Percutaneous Approach (ICD-10-PCS; 2016-07-26)
DX: Z51.11 Encounter for antineoplastic chemotherapy (principal); C34.31 Malignant neoplasm of lower lobe, right bronchus or lung
CPT/HCPCS: 36415; 80053; 83735; 85025; 87040; 87086; 96360; 96361; 96367; 96375; 96413; 96417; J2469; J9305

== ENCOUNTER 2016-08-16 07:04 | Day surgery (SDC) | payer OTHER ==
[2016-08-16] MEDS ORDERED: CYANOCOBALAMIN (VITAMIN B-12) 1000 MCG/1 ML VIAL IM ONE (08:00)
[2016-08-16] MEDS ORDERED: PALONOSETRON HCL 0.25 MG in SODIUM CHLORIDE 50 ML IVPB ONE (08:00)
[2016-08-16] MEDS ORDERED: DEXAMETHASONE INJECTION 10 MG in SODIUM CHLORIDE 50 ML IVPB ONE (08:00)
[2016-08-16] MEDS ORDERED: POTASSIUM CHLORIDE IVPB ONE (08:00)
[2016-08-16] MEDS ORDERED: SODIUM CHLORIDE IVPB ONE ×3 (08:00→08:40)
[2016-08-16] MEDS ORDERED: MAGNESIUM SULFATE IVPB ONE (08:00)
[2016-08-16] MEDS ORDERED: PEMETREXED DISODIUM IVPB ONE (08:30)
[2016-08-16] MEDS ORDERED: CARBOPLATIN IVPB ONE (08:40)
[2016-08-16 09:05] LABS: BASOPHIL 0.3 % (0-2.0); MCHC 33.1 g/dl (32.0-35.9); MEAN CELL VOLUME 87.7 fl (80-96); MEAN PLT VOLUME 7.9 fl (7.5-11.1); NEUTROPHILS 82.2 % (42.8-82.8); PLATELET COUNT 292 K/MM3 (134-434); RDW 15.2 % (11.9-15.9); WHITE BLOOD COUNT 10.2 K/mm3 (4.0-10.0)
[2016-08-16 09:19] LABS: ALBUMIN 4.1 g/dl (3.4-5.0); ANION GAP 12 (8-16); BILIRUBIN,TOTAL 0.5 mg/dL (0.2-1.0); CALCIUM 9.5 mg/dL (8.5-10.1); CO2 25 mmol/L (21-32); COCKROFT - GAULT 95; CREATININE 0.9 mg/dL (0.7-1.3); GLUCOSE,RANDOM 134 mg/dL (74-106); SGOT/AST 14 U/L (15-37); SGPT/ALT 23 U/L (12-78)
[2016-08-16 09:20] LABS: ALK PHOS 122 U/L (45-117)
[2016-08-16] MEDS ORDERED: SODIUM CHLORIDE 250 ML IV ONE ×2 (10:15→12:00)
[2016-08-16] MEDS ORDERED: PORTA CATH FLUSH 10 ML IVPUSH ONE ×2 (14:03→16:13)
[2016-08-16 16:05] VITALS: PULSE 68; TEMP 98.6
[2016-08-16 16:13] VITALS: BP 134/91
== END 2016-08-16 18:10 | disposition home or self-care (01) ==
LOC: JONCCHEMO 07:04 → J7W 09:46 → JONCCHEMO 18:10
PROVIDERS: ATTEND Internal Medicine Hematology & Oncology
PROC: 3E04305 Introduction of Other Antineoplastic into Central Vein, Percutaneous Approach (ICD-10-PCS; principal; 2016-08-16)
PROC: 3E043GC Introduction of Other Therapeutic Substance into Central Vein, Percutaneous Approach (ICD-10-PCS; 2016-08-16)
PROC: 3E0437Z Introduction of Electrolytic and Water Balance Substance into Central Vein, Percutaneous Approach (ICD-10-PCS; 2016-08-16)
PROC: 3E023GC Introduction of Other Therapeutic Substance into Muscle, Percutaneous Approach (ICD-10-PCS; 2016-08-16)
DX: Z51.11 Encounter for antineoplastic chemotherapy (principal); C34.31 Malignant neoplasm of lower lobe, right bronchus or lung
CPT/HCPCS: 96361; 96372; 96375; 96411; 96413; 96415; J9045; J9305; 36415; 80053; 83735; 85025; 87517; 87522; 96360; 96367; 96417; J2469

== ENCOUNTER 2016-08-17 07:13 | Day surgery (SDC) | payer OTHER ==
[2016-08-17] MEDS: PEGFILGRASTIM 6 MG/0.6 ML DISP.SYRIN SQ ONE (09:25)
[2016-08-17 09:31] VITALS: BP 140/76; PULSE 67; TEMP 98.4
== END 2016-08-17 09:35 | disposition home or self-care (01) ==
LOC: JONCCHEMO 07:13 → J7W 08:43 → JONCCHEMO 09:35
PROVIDERS: ATTEND Internal Medicine Hematology & Oncology
PROC: 3E023GC Introduction of Other Therapeutic Substance into Muscle, Percutaneous Approach (ICD-10-PCS; principal; 2016-08-17)
DX: C34.31 Malignant neoplasm of lower lobe, right bronchus or lung (principal)
CPT/HCPCS: 96372; J2505

== ENCOUNTER 2016-09-06 07:20 | Day surgery (SDC) | payer OTHER ==
[2016-09-06 08:52] LABS: EOSINOPHIL 1.2 % (0-4.5); MCH 29.1 pg (25.7-33.7); MCHC 32.9 g/dl (32.0-35.9); MEAN CELL VOLUME 88.4 fl (80-96); MEAN PLT VOLUME 7.2 fl (7.5-11.1); NEUTROPHILS 65.2 % (42.8-82.8); PLATELET COUNT 380 K/MM3 (134-434); RDW 16.5 % (11.9-15.9); WHITE BLOOD COUNT 11.3 K/mm3 (4.0-10.0)
[2016-09-06 09:26] LABS: ALBUMIN 3.6 g/dl (3.4-5.0); ANION GAP 6 (8-16); CALCIUM 8.9 mg/dL (8.5-10.1); CO2 31 mmol/L (21-32); COCKROFT - GAULT 83; GLUCOSE,RANDOM 150 mg/dL (74-106); MAGNESIUM 2.1 mg/dL (1.8-2.4); SGOT/AST 27 U/L (15-37); SGPT/ALT 33 U/L (12-78)
[2016-09-06 09:29] LABS: ALK PHOS 135 U/L (45-117); BILIRUBIN,TOTAL 0.4 mg/dL (0.2-1.0); TOT PROT 7.3 g/dl (6.4-8.2)
[2016-09-06] MEDS ORDERED: PORTA CATH FLUSH 10 ML IVPUSH ONE (09:50)
[2016-09-06] MEDS ORDERED: DEXAMETHASONE INJECTION 10 MG in SODIUM CHLORIDE 50 ML IVPB ONE (10:00)
[2016-09-06] MEDS ORDERED: PALONOSETRON HCL 0.25 MG in SODIUM CHLORIDE 50 ML IVPB ONE (10:00)
[2016-09-06] MEDS ORDERED: MAGNESIUM SULFATE IVPB ONE (10:00)
[2016-09-06] MEDS ORDERED: SODIUM CHLORIDE IVPB ONE ×3 (10:00→10:40)
[2016-09-06] MEDS ORDERED: POTASSIUM CHLORIDE IVPB ONE (10:00)
[2016-09-06] MEDS ORDERED: CYANOCOBALAMIN (VITAMIN B-12) 1000 MCG/1 ML VIAL IM ONE (10:00)
[2016-09-06] MEDS ORDERED: SODIUM CHLORIDE 250 ML IV ONE (10:15)
[2016-09-06] MEDS ORDERED: PEMETREXED DISODIUM IVPB ONE (10:30)
[2016-09-06] MEDS ORDERED: CARBOPLATIN IVPB ONE (10:40)
[2016-09-06 13:14] VITALS: BP 120/76; PULSE 86; TEMP 98.3
== END 2016-09-06 13:19 | disposition home or self-care (01) ==
LOC: JONCCHEMO 07:20 → J7W 09:26 → JONCCHEMO 13:19
PROVIDERS: ATTEND Internal Medicine Hematology & Oncology
PROC: 3E04305 Introduction of Other Antineoplastic into Central Vein, Percutaneous Approach (ICD-10-PCS; principal; 2016-09-06)
PROC: 3E043GC Introduction of Other Therapeutic Substance into Central Vein, Percutaneous Approach (ICD-10-PCS; 2016-09-06)
PROC: 3E0437Z Introduction of Electrolytic and Water Balance Substance into Central Vein, Percutaneous Approach (ICD-10-PCS; 2016-09-06)
DX: Z51.11 Encounter for antineoplastic chemotherapy (principal); C34.31 Malignant neoplasm of lower lobe, right bronchus or lung
CPT/HCPCS: 96361; 96375; 96411; 96413; J9045; J9305; 36415; 80053; 83735; 85025; 96360; 96367; 96417; J2469

== ENCOUNTER 2016-09-07 07:27 | Day surgery (SDC) | payer OTHER ==
[2016-09-07] MEDS ORDERED: PEGFILGRASTIM 6 MG/0.6 ML DISP.SYRIN SQ ONE (10:00)
[2016-09-07 10:46] VITALS: BP 106/68; PULSE 106; TEMP 98.5
== END 2016-09-07 11:04 | disposition home or self-care (01) ==
LOC: JONCCHEMO 07:27 → J7W 10:33 → JONCCHEMO 11:04
PROVIDERS: ATTEND Internal Medicine Hematology & Oncology
PROC: 3E013GC Introduction of Other Therapeutic Substance into Subcutaneous Tissue, Percutaneous Approach (ICD-10-PCS; principal; 2016-09-07)
DX: C34.31 Malignant neoplasm of lower lobe, right bronchus or lung (principal)
CPT/HCPCS: 96372; J2505

== ENCOUNTER 2016-09-27 07:24 | Day surgery (SDC) | payer OTHER ==
[2016-09-27 09:04] LABS: BASOPHIL 0.9 % (0-2.0); EOSINOPHIL 0.9 % (0-4.5); MCH 30.3 pg (25.7-33.7); MCHC 33.5 g/dl (32.0-35.9); MEAN CELL VOLUME 90.2 fl (80-96); MEAN PLT VOLUME 7.5 fl (7.5-11.1); NEUTROPHILS 71.1 % (42.8-82.8); PLATELET COUNT 295 K/MM3 (134-434); RDW 18.2 % (11.9-15.9); WHITE BLOOD COUNT 8.6 K/mm3 (4.0-10.0)
[2016-09-27 09:28] LABS: BILIRUBIN,TOTAL 0.5 mg/dL (0.2-1.0); SGOT/AST 27 U/L (15-37); SGPT/ALT 31 U/L (12-78); TOT PROT 7.5 g/dl (6.4-8.2)
[2016-09-27 09:36] LABS: ALK PHOS 142 U/L (45-117); BILIRUBIN,DIRECT < 0.1 mg/dL (0.0-0.2); FREE T4 1.13 ng/dl (0.76-1.16); THYROID STIMULATING HORMONE 1.24 uIU/ml (0.358-3.74)
[2016-09-27] MEDS ORDERED: PORTA CATH FLUSH 10 ML IVPUSH ONE (09:50)
[2016-09-27] MEDS ORDERED: SODIUM CHLORIDE 250 ML IV ONE (10:00)
[2016-09-27] MEDS ORDERED: PEMBROLIZUMAB 200 MG in SODIUM CHLORIDE 50 ML IV ONE (10:00)
[2016-09-27 10:24] LABS: ANION GAP 9 (8-16); CALCIUM 9.4 mg/dL (8.5-10.1); CO2 27 mmol/L (21-32); COCKROFT - GAULT 90; CREATININE 0.9 mg/dL (0.7-1.3); GLUCOSE,RANDOM 141 mg/dL (74-106); MAGNESIUM 2.1 mg/dL (1.8-2.4)
[2016-09-27] MEDS ORDERED: MAGNESIUM SULFATE IVPB ONE (11:00)
[2016-09-27] MEDS ORDERED: POTASSIUM CHLORIDE IVPB ONE (11:00)
[2016-09-27] MEDS ORDERED: SODIUM CHLORIDE IVPB ONE (11:00)
[2016-09-27 12:23] VITALS: BP 147/83; PULSE 67; TEMP 98.2
== END 2016-09-27 13:03 | disposition home or self-care (01) ==
LOC: JONCCHEMO 07:24 → J7W 09:38 → JONCCHEMO 13:03
PROVIDERS: ATTEND Internal Medicine Hematology & Oncology
PROC: 3E04305 Introduction of Other Antineoplastic into Central Vein, Percutaneous Approach (ICD-10-PCS; principal; 2016-09-27)
PROC: 3E0437Z Introduction of Electrolytic and Water Balance Substance into Central Vein, Percutaneous Approach (ICD-10-PCS; 2016-09-27)
DX: Z51.11 Encounter for antineoplastic chemotherapy (principal); C34.31 Malignant neoplasm of lower lobe, right bronchus or lung
CPT/HCPCS: 96361; 96413; J9271; 36415; 80053; 80076; 83735; 84439; 84443; 85025; 96360

== ENCOUNTER 2016-10-19 07:49 | Day surgery (SDC) | payer OTHER ==
[2016-10-19] MEDS ORDERED: PEMBROLIZUMAB 200 MG in SODIUM CHLORIDE 50 ML IV ONE (10:00)
[2016-10-19] MEDS ORDERED: SODIUM CHLORIDE 250 ML IV ONE (10:00)
[2016-10-19 12:58] LABS: BASOPHIL 3.4 % (0-2.0); EOSINOPHIL 4.4 % (0-4.5); MCH 29.6 pg (25.7-33.7); MCHC 33.1 g/dl (32.0-35.9); MEAN CELL VOLUME 89.4 fl (80-96); NEUTROPHILS 60.8 % (42.8-82.8); PLATELET COUNT 228 K/MM3 (134-434); WHITE BLOOD COUNT 9.5 K/mm3 (4.0-10.0)
[2016-10-19 13:30] LABS: ALBUMIN 3.9 g/dl (3.4-5.0); ALK PHOS 122 U/L (45-117); ANION GAP 7 (8-16); BILIRUBIN,DIRECT 0.1 mg/dL (0.0-0.2); BILIRUBIN,TOTAL 0.5 mg/dL (0.2-1.0); CALCIUM 8.9 mg/dL (8.5-10.1); CO2 31 mmol/L (21-32); CREATININE 0.8 mg/dL (0.7-1.3); GLUCOSE,RANDOM 97 mg/dL (74-106); MAGNESIUM 2.3 mg/dL (1.8-2.4); SGOT/AST 23 U/L (15-37); SGPT/ALT 29 U/L (12-78); TOT PROT 7.3 g/dl (6.4-8.2)
[2016-10-19] MEDS ORDERED: PORTA CATH FLUSH 10 ML IVPUSH ONE (14:21)
[2016-10-19 14:25] LABS: FREE T4 1.14 ng/dl (0.76-1.16); THYROID STIMULATING HORMONE 2.17 uIU/ml (0.358-3.74)
[2016-10-19 16:38] VITALS: BP 157/82; PULSE 62; TEMP 98.1
== END 2016-10-19 17:59 | disposition home or self-care (01) ==
LOC: JONCCHEMO 07:49 → J7W 13:55 → JONCCHEMO 17:59
PROVIDERS: ATTEND Internal Medicine Hematology & Oncology
DX: Z51.11 Encounter for antineoplastic chemotherapy (principal); C34.30 Malignant neoplasm of lower lobe, unspecified bronchus or lung
CPT/HCPCS: 36415; 80053; 80076; 83735; 84439; 84443; 85025; 96361; 96413; J9271

== ENCOUNTER 2016-11-10 07:51 | Day surgery (SDC) | payer OTHER ==
[2016-11-10] MEDS ORDERED: SODIUM CHLORIDE 250 ML IV ONE ×2 (08:00→09:30)
[2016-11-10] MEDS ORDERED: PEMBROLIZUMAB 200 MG in SODIUM CHLORIDE 50 ML IV ONE (09:00)
[2016-11-10] MEDS ORDERED: POTASSIUM CHLORIDE IVPB ONE ×2 (09:30)
[2016-11-10] MEDS ORDERED: SODIUM CHLORIDE IVPB ONE ×2 (09:30)
[2016-11-10] MEDS ORDERED: MAGNESIUM SULFATE IVPB ONE ×2 (09:30)
[2016-11-10 11:44] LABS: BASOPHIL 0.1 % (0-2.0); EOSINOPHIL 2.5 % (0-4.5); MCH 29.5 pg (25.7-33.7); MCHC 32.8 g/dl (32.0-35.9); MEAN CELL VOLUME 89.9 fl (80-96); MEAN PLT VOLUME 8.2 fl (7.5-11.1); NEUTROPHILS 55.8 % (42.8-82.8); PLATELET COUNT 202 K/MM3 (134-434); RDW 14.2 % (11.9-15.9); WHITE BLOOD COUNT 6.2 K/mm3 (4.0-10.0)
[2016-11-10 12:12] LABS: ALBUMIN 4.1 g/dl (3.4-5.0); ANION GAP 3 (8-16); BILIRUBIN,DIRECT 0.1 mg/dL (0.0-0.2); BILIRUBIN,TOTAL 0.4 mg/dL (0.2-1.0); CALCIUM 9.3 mg/dL (8.5-10.1); CO2 33 mmol/L (21-32); GLUCOSE,RANDOM 97 mg/dL (74-106); SGOT/AST 21 U/L (15-37); SGPT/ALT 26 U/L (12-78); TOT PROT 7.8 g/dl (6.4-8.2)
[2016-11-10 12:20] LABS: ALK PHOS 120 U/L (45-117); FREE T4 0.99 ng/dl (0.76-1.16); THYROID STIMULATING HORMONE 1.08 uIU/ml (0.358-3.74)
[2016-11-10 16:38] VITALS: BP 160/80; PULSE 65; TEMP 98.5
[2016-11-10] MEDS ORDERED: PORTA CATH FLUSH 10 ML IVPUSH ONE (16:38)
== END 2016-11-10 16:30 | disposition home or self-care (01) ==
LOC: JONCCHEMO 07:51 → J7W 12:48 → JONCCHEMO 16:30
PROVIDERS: ATTEND Internal Medicine Hematology & Oncology
DX: Z51.11 Encounter for antineoplastic chemotherapy (principal); C34.31 Malignant neoplasm of lower lobe, right bronchus or lung
CPT/HCPCS: 36415; 80053; 80076; 84439; 84443; 85025; 96361; 96413; J9271

== ENCOUNTER 2016-12-27 07:24 | Day surgery (SDC) | payer OTHER ==
[2016-12-27 10:17] VITALS: BP 160/84; PULSE 74; TEMP 98
[2016-12-27 10:26] LABS: BASOPHIL 0.7 % (0-2.0); EOSINOPHIL 1.3 % (0-4.5); MCHC 32.8 g/dl (32.0-35.9); MEAN CELL VOLUME 88.4 fl (80-96); MEAN PLT VOLUME 7.9 fl (7.5-11.1); NEUTROPHILS 66.3 % (42.8-82.8); PLATELET COUNT 180 K/MM3 (134-434); RDW 14.4 % (11.9-15.9); WHITE BLOOD COUNT 9.6 K/mm3 (4.0-10.0)
[2016-12-27 10:48] LABS: ALBUMIN 3.5 g/dl (3.4-5.0); ANION GAP 8 (8-16); BILIRUBIN,DIRECT < 0.1 mg/dL (0.0-0.2); BILIRUBIN,TOTAL 0.4 mg/dL (0.2-1.0); CALCIUM 8.4 mg/dL (8.5-10.1); CO2 29 mmol/L (21-32); CREATININE 0.8 mg/dL (0.7-1.3); GLUCOSE,RANDOM 135 mg/dL (74-106); MAGNESIUM 1.9 mg/dL (1.8-2.4); SGOT/AST 10 U/L (15-37); SGPT/ALT 27 U/L (12-78); TOT PROT 6.6 g/dl (6.4-8.2)
[2016-12-27 10:51] LABS: ALK PHOS 134 U/L (45-117)
== END 2016-12-27 11:00 | disposition home or self-care (01) ==
LOC: JONCCHEMO 07:24
PROVIDERS: ATTEND Internal Medicine Hematology & Oncology
PROC: 3E033GC Introduction of Other Therapeutic Substance into Peripheral Vein, Percutaneous Approach (ICD-10-PCS; principal; 2016-12-27)
DX: Z53.8 Procedure and treatment not carried out for other reasons (principal)
CPT/HCPCS: 36415; 80053; 80076; 83735; 85025

== ENCOUNTER 2017-01-03 07:17 | Day surgery (SDC) | payer OTHER ==
[2017-01-03] MEDS ORDERED: SODIUM CHLORIDE 250 ML IV ONE (08:00)
[2017-01-03 08:47] LABS: BASOPHIL 1.1 % (0-2.0); EOSINOPHIL 3.6 % (0-4.5); MCHC 33.1 g/dl (32.0-35.9); MEAN CELL VOLUME 87.7 fl (80-96); MEAN PLT VOLUME 7.8 fl (7.5-11.1); NEUTROPHILS 60.7 % (42.8-82.8); PLATELET COUNT 223 K/MM3 (134-434); RDW 14.6 % (11.9-15.9); WHITE BLOOD COUNT 9.7 K/mm3 (4.0-10.0)
[2017-01-03] MEDS ORDERED: PEMBROLIZUMAB 200 MG in SODIUM CHLORIDE 50 ML IV ONE (09:00)
[2017-01-03 09:12] LABS: ALBUMIN 3.6 g/dl (3.4-5.0); ANION GAP 6 (8-16); BILIRUBIN,DIRECT < 0.1 mg/dL (0.0-0.2); BILIRUBIN,TOTAL 0.3 mg/dL (0.2-1.0); CALCIUM 8.8 mg/dL (8.5-10.1); CO2 29 mmol/L (21-32); CREATININE 0.9 mg/dL (0.7-1.3); GLUCOSE,RANDOM 130 mg/dL (74-106); MAGNESIUM 2.2 mg/dL (1.8-2.4); SGOT/AST 18 U/L (15-37); SGPT/ALT 36 U/L (12-78); TOT PROT 6.7 g/dl (6.4-8.2)
[2017-01-03 09:13] LABS: ALK PHOS 147 U/L (45-117)
[2017-01-03] MEDS ORDERED: POTASSIUM CHLORIDE IVPB ONE (09:30)
[2017-01-03] MEDS ORDERED: SODIUM CHLORIDE IVPB ONE (09:30)
[2017-01-03] MEDS ORDERED: MAGNESIUM SULFATE IVPB ONE (09:30)
[2017-01-03 09:58] VITALS: TEMP 98.2
[2017-01-03] MEDS ORDERED: SODIUM CHLORIDE 1,000 ML IV ONE (10:30)
[2017-01-03 11:14] LABS: FREE T4 1.06 ng/dl (0.76-1.16); THYROID STIMULATING HORMONE 2.73 uIU/ml (0.358-3.74)
[2017-01-03] MEDS ORDERED: PORTA CATH FLUSH 10 ML IVPUSH ONE (11:15)
[2017-01-03] MEDS: LIDOCAINE MM SCH ×2 (11:41→15:43)
[2017-01-03] MEDS: DEXAMETHASONE MM SCH ×2 (11:41→15:43)
[2017-01-03 16:16] VITALS: BP 137/97; PULSE 82
== END 2017-01-03 13:30 | disposition home or self-care (01) ==
LOC: JONCCHEMO 07:17 → J7W 09:49 → JONCCHEMO 13:30
PROVIDERS: ATTEND Internal Medicine Hematology & Oncology
DX: Z51.11 Encounter for antineoplastic chemotherapy (principal); C34.31 Malignant neoplasm of lower lobe, right bronchus or lung
CPT/HCPCS: 36415; 80053; 80076; 83735; 84439; 84443; 85025; 87040; 96361

== ENCOUNTER 2017-01-05 07:25 | Day surgery (SDC) | payer OTHER ==
[2017-01-05] MEDS ORDERED: SODIUM CHLORIDE 250 ML IV ONE (08:00)
[2017-01-05] MEDS ORDERED: PEMBROLIZUMAB 200 MG in SODIUM CHLORIDE 50 ML IV ONE (09:00)
[2017-01-05] MEDS ORDERED: POTASSIUM CHLORIDE IVPB ONE (09:30)
[2017-01-05] MEDS ORDERED: MAGNESIUM SULFATE IVPB ONE (09:30)
[2017-01-05] MEDS ORDERED: SODIUM CHLORIDE IVPB ONE (09:30)
[2017-01-05 10:30] LABS: BASOPHIL 0.9 % (0-2.0); MCH 28.8 pg (25.7-33.7); MEAN CELL VOLUME 87.1 fl (80-96); MEAN PLT VOLUME 7.8 fl (7.5-11.1); NEUTROPHILS 59.4 % (42.8-82.8); PLATELET COUNT 237 K/MM3 (134-434); RDW 14.8 % (11.9-15.9); WHITE BLOOD COUNT 8.6 K/mm3 (4.0-10.0)
[2017-01-05 10:54] LABS: ALBUMIN 3.6 g/dl (3.4-5.0); ALK PHOS 128 U/L (45-117); ANION GAP 6 (8-16); BILIRUBIN,DIRECT 0.1 mg/dL (0.0-0.2); BILIRUBIN,TOTAL 0.6 mg/dL (0.2-1.0); CO2 28 mmol/L (21-32); CREATININE 0.8 mg/dL (0.7-1.3); GLUCOSE,RANDOM 134 mg/dL (74-106); MAGNESIUM 2.2 mg/dL (1.8-2.4); SGOT/AST 13 U/L (15-37); SGPT/ALT 28 U/L (12-78); TOT PROT 7.1 g/dl (6.4-8.2)
[2017-01-05] MEDS ORDERED: DEXAMETHASONE SOD PHOSPHATE 10 MG/1 ML VIAL IVPB ONE (11:30)
[2017-01-05] MEDS ORDERED: ACETAMINOPHEN 325 MG TABLET (FP) PO ONE (11:45)
[2017-01-05 14:25] VITALS: BP 132/74; PULSE 86; TEMP 98.4
== END 2017-01-05 14:00 | disposition home or self-care (01) ==
LOC: JONCCHEMO 07:25 → J7W 11:11 → JONCCHEMO 14:00
PROVIDERS: ATTEND Internal Medicine Hematology & Oncology
DX: Z51.11 Encounter for antineoplastic chemotherapy (principal); C34.31 Malignant neoplasm of lower lobe, right bronchus or lung
CPT/HCPCS: 36415; 80053; 80076; 83735; 85025; 96361; 96367; 96375; 96413; J9271

== ENCOUNTER → 2017-01-26 | Day surgery (SDC) | payer OTHER ==
[2017-01-26 10:42] LABS: BASOPHIL 1.4 % (0-2.0); EOSINOPHIL 2.8 % (0-4.5); MCH 28.4 pg (25.7-33.7); MCHC 32.6 g/dl (32.0-35.9); MEAN PLT VOLUME 8.1 fl (7.5-11.1); NEUTROPHILS 61.3 % (42.8-82.8); PLATELET COUNT 246 K/MM3 (134-434); RDW 14.4 % (11.9-15.9); WHITE BLOOD COUNT 7.1 K/mm3 (4.0-10.0)
[2017-01-26 11:15] LABS: ALBUMIN 3.5 g/dl (3.4-5.0); ALK PHOS 119 U/L (45-117); ANION GAP 10 (8-16); BILIRUBIN,DIRECT 0.1 mg/dL (0.0-0.2); BILIRUBIN,TOTAL 0.4 mg/dL (0.2-1.0); CALCIUM 8.9 mg/dL (8.5-10.1); CO2 27 mmol/L (21-32); GLUCOSE,RANDOM 192 mg/dL (74-106); MAGNESIUM 2.1 mg/dL (1.8-2.4); SGOT/AST 10 U/L (15-37); SGPT/ALT 21 U/L (12-78); TOT PROT 7.1 g/dl (6.4-8.2)
[2017-01-26 11:23] LABS: FREE T4 1.03 ng/dl (0.76-1.16); THYROID STIMULATING HORMONE 1.68 uIU/ml (0.358-3.74)
== END | disposition home or self-care (01) ==
LOC: JONCNONCHE 09:50
PROVIDERS: ATTEND Internal Medicine Hematology & Oncology
DX: Z53.8 Procedure and treatment not carried out for other reasons (principal)
CPT/HCPCS: 36415; 80053; 80076; 83735; 84439; 84443; 85025

== ENCOUNTER 2017-01-31 07:17 | Day surgery (SDC) | payer OTHER ==
[2017-01-31 09:29] VITALS: BP 140/80; PULSE 94; TEMP 98.4
[2017-01-31 09:38] LABS: BASOPHIL 3.4 % (0-2.0); EOSINOPHIL 3.4 % (0-4.5); MCH 28.4 pg (25.7-33.7); MCHC 33.3 g/dl (32.0-35.9); MEAN CELL VOLUME 85.4 fl (80-96); MEAN PLT VOLUME 7.8 fl (7.5-11.1); NEUTROPHILS 55.9 % (42.8-82.8); PLATELET COUNT 246 K/MM3 (134-434); RDW 14.4 % (11.9-15.9); WHITE BLOOD COUNT 5.9 K/mm3 (4.0-10.0)
[2017-01-31] MEDS ORDERED: SODIUM CHLORIDE 250 ML IV ONE (10:00)
[2017-01-31 10:14] LABS: ALBUMIN 3.6 g/dl (3.4-5.0); ANION GAP 10 (8-16); CALCIUM 8.8 mg/dL (8.5-10.1); CO2 27 mmol/L (21-32)
[2017-01-31 10:20] LABS: ALK PHOS 120 U/L (45-117); BILIRUBIN,DIRECT 0.2 mg/dL (0.0-0.2); BILIRUBIN,TOTAL 0.5 mg/dL (0.2-1.0); CREATININE 1.1 mg/dL (0.7-1.3); GLUCOSE,RANDOM 151 mg/dL (74-106); MAGNESIUM 2.1 mg/dL (1.8-2.4); SGOT/AST 17 U/L (15-37); SGPT/ALT 20 U/L (12-78); TOT PROT 7.1 g/dl (6.4-8.2)
[2017-01-31] MEDS ORDERED: PEMBROLIZUMAB 200 MG in SODIUM CHLORIDE 50 ML IV ONE (10:30)
[2017-01-31] MEDS ORDERED: SODIUM CHLORIDE IVPB ONE (11:00)
[2017-01-31] MEDS ORDERED: MAGNESIUM SULFATE IVPB ONE (11:00)
[2017-01-31] MEDS ORDERED: POTASSIUM CHLORIDE IVPB ONE (11:00)
== END 2017-01-31 11:30 | disposition home or self-care (01) ==
LOC: JONCCHEMO 07:17
PROVIDERS: ATTEND Internal Medicine Hematology & Oncology
PROC: 3E043GC Introduction of Other Therapeutic Substance into Central Vein, Percutaneous Approach (ICD-10-PCS; principal; 2017-01-31)
DX: Z53.8 Procedure and treatment not carried out for other reasons (principal)
CPT/HCPCS: 36415; 80053; 80076; 83735; 85025

== ENCOUNTER 2017-07-24 08:48 | Emergency (ER) | payer OTHER ==
[2017-07-24 08:55] VITALS: BMI 26.8
--- NOTE | 2017-07-24 09:39 | PDOC ---
History of Present Illness - General Chief Complaint: Weakness Stated Complaint: PAIN Time Seen by Provider: 07/24/17 09:16 - History of Present Illness Initial Comments: 07/24/17 09:44 61yo M with significant history of Lung carcinoma with last chemotherapy about 3 months ago with c/o sore throat and sinus congestion. Pt has had this congestion for about a month, however it has progressively gotten worse. He reports it worsening and now he continues to have a nonproductive cough. He states that he feels his mucus is stuck in his throat. Pt also endorses sinus pressure, and ear pain that have developed as his symptoms have worsened. Pt denies any rhinorrhea, fevers/chills, diarrhea, abdominal pain, SOB, CP/ discomfort, palpitations. Pt reports calling Dr. Emmanuel and reporting some chest pain. He was relayed to here for further workup by Dr. Emmanuel's offices. He also had a Chest CT on which shows an increase in his RLL tumor recently. Finally he endorses being on Levaquin day 6 of 10 already. Past History - Past Medical History Allergies/Adverse Reactions: Allergies Allergy/AdvReac Type Severity Reaction Status Date / Time Penicillins Allergy Intermediate Rash Verified 07/24/17 08:51 quetiapine fumarate AdvReac Intermediate nightmares Verified 07/24/17 08:51 [From Seroquel] Home Medications: Ambulatory Orders Methadone HCl 25 mg PO DAILY 02/11/14 Gabapentin [Neurontin -] 300 mg PO BID PRN 11/16/15 Amlodipine Besylate 5 mg PO HS 06/10/16 Pantoprazole Sodium [Protonix -] 40 mg PO DAILY 07/05/16 Alprazolam 0.25 mg PO DAILY PRN 06/30/17 Diclofenac Sodium [Voltaren] 2 gm TP QID PRN #3 tube 06/30/17 Multivitamin [Multiple Vitamins] 1 each PO DAILY #30 tablet 06/30/17 Oxycodone HCl/Acetaminophen [Percocet 10-325 mg Tablet] 1 each PO TID #75 tablet MDD 3 06/30/17 Anemia: No Asthma: No Cancer: Yes (metastatic lung cancer) Cardiac Disorders: No CVA: No COPD: Yes CHF: No Dementia: No Diabetes: No GI Disorders: Yes (GERD) Disorders: No HTN: Yes Hypercholesterolemia: Yes Kidney Stones: No Liver Disease: No Seizures: No Thyroid Disease: No - Surgical History Abdominal Surgery: No Appendectomy: No Cardiac Surgery: No Cholecystectomy: No Lung Surgery: No (lung biopsy) Neurologic Surgery: No Orthopedic Surgery: No - Reproductive History Testicular Surgery: No - Suicide/Smoking/Psychosocial Hx Smoking History: Former smoker Have you smoked in the past 12 months: Yes Number of Cigarettes Smoked Daily: 1 Information on smoking cessation initiated: No 'Breaking Loose' booklet given: 05/05/16 Hx Alcohol Use: Yes (none for six years) Drug/Substance Use Hx: No Substance Use Type: Cocaine, Heroin, Marijuana, Opiates Hx Substance Use Treatment: Yes (OTP) Review of Systems - Review of Systems Constitutional: No: Chills, Fever HEENTM: Yes: Ear Pain, Throat Pain. No: Blurred Vision, Tinnitus, Hearing Loss , Throat Swelling, Difficulty Swallowing Respiratory: No: Shortness of Breath Cardiac (ROS): No: Chest Pain, Palpitations ABD/GI: No: Abdominal Distended, Constipated, Diarrhea, Nausea, Vomiting : No: Dysuria, Frequency Neurological: No: Numbness, Paresthesia, Tingling, Weakness *Physical Exam - Vital Signs Last Vital Signs Temp Pulse Resp BP Pulse Ox 98.3 F 100 H 18 132/89 100 07/24/17 08:53 07/24/17 08:53 07/24/17 08:53 07/24/17 08:53 07/24/17 08:53 - Physical Exam Comments: 07/24/17 09:49 GEN: NAD, awake, alert and oriented x3, sitting in bed HEEN: TM's umana with some bulging of clear fluid noted, R ear erythema noted on inferior aspect of canal, EOMI, TI, sclera anicteric MOUTH: Tongue with white plaques noted, no plaques or erythema in the posterior oropharynx, dentition intact with prior cavities noted, no buccal lesions noted Neck: No lymphadenopathy noted, soft, no JVD, no thyromegaly Lungs: Diminished breath sounds on R from mid and lower lung, otherwise CTA. No wheezes, rhonchi or rales noted Cardiac: RRR, no murmur appreciated Abdomen: Soft, NT/ND, no rebound, no guarding, no hepatomegaly per palpation, no bruits auscultated EXT: No edema, warm, 2+ DP pulses ED Treatment Course - LABORATORY CBC & Chemistry Diagram: 07/24/17 10:25 07/24/17 10:25 Medical Decision Making - Medical Decision Making 07/24/17 10:16 cbc, cmp, trop, ekg, CXR spoke with Dr. Emmanuel --Head CT w/ and w/o contrast and Neck CT w/ contrast to r/o any new metastatic disease to area as etiology of new onset pains 07/24/17 12:30 --Pt signed out to Dr. Benito; pending Head and neck CT for new occurrence of mets and possible nerve irritation to explain onset of neck discomfort *DC/Admit/Observation/Transfer Diagnosis at time of Disposition: Neck pain - Discharge Dispostion Disposition: HOME Condition at time of disposition: Stable - Referrals Referrals: Lien Ta MD [Staff Physician] - Lakisha Donis MD [Primary Care Provider] - - Patient Instructions Printed Discharge Instructions: Allergies (Alternative Therapy) Additional Instructions: You had a head and neck CT scan done which was all negative, meaning it did not show anything abnormal. Please follow up with Dr. Emmanuel in 2-3 days. Follow up with Dr. Borrero regarding your ears. Please return to the ER if you have any signs or symptoms of chest pain, shortness of breath, uncontrollable fever, chills, nausea, vomiting, numbness, tingling, or weakness in any part of your body, changes in vision, or slurred speech. Please return to the ER if symptoms persist, worsen, or new symptoms arise. Print Language: POLISH - Post Discharge Activity
--- NOTE | 2017-07-24 10:18 | PDOC ---
Attending Attestation - Resident Resident Name: Kali Conrad - ED Attending Attestation I have performed the following: I have examined & evaluated the patient, The case was reviewed & discussed with the resident, I agree w/resident's findings & plan, Exceptions are as noted - Medical Decision Making 07/24/17 10:16 61 yo stage IV lung ca, wtih c/o right neck ear pain, ear fullness. constant need to clear his throat. no f/c d/w dr. emmanuel, will order cthead and neck r/o metastatic disease. labs <Onelia Baker - Last Filed: 07/24/17 10:16> - HPI HPI: 07/24/17 10:22 Pt is a 61 yo M with a PMHx of Stage IV R Lung CA, who presents to the ED with throat discomfort and bilateral ear pain for the past month. Patient reports camping one month ago with his family and since then has been experiencing this pain. Patient was seen by his Oncologist and was given Levaquin. Patient has been taking abx (on day 09/24) however denies any relief. Due to pain, patient took half tablet of percocet however presents to the ED for further evaluation. Patient denies fever or chills. Patient denies any SOB, headache or dizziness. Note, patient had recent scan on 07/12/17 which revealed increasing tumour size. PCP: Jose Onco: Lien - Physicial Exam PE: 07/24/17 10:23 GENERAL: Awake, alert, and fully oriented, in no acute distress HEAD: No signs of trauma EYES: PERRLA, EOMI, sclera anicteric, conjunctiva clear ENT: Auricles normal inspection, nares patent, Moist mucosa. + R TM is cloudy. L TM is clear. NECK: Normal ROM, supple, no lymphadenopathy, JVD, or masses LUNGS: Breath sounds equal, clear to auscultation bilaterally. No wheezes, and no crackles HEART: Regular rate and rhythm, normal S1 and S2, no murmurs, rubs or gallops ABDOMEN: Soft, nontender, normoactive bowel sounds. No guarding, no rebound. No masses EXTREMITIES: Normal range of motion, no edema. No clubbing or cyanosis. No cords, erythema, or tenderness NEUROLOGICAL: Normal speech SKIN: Warm, Dry, normal turgor, no rashes or lesions noted. - Medical Decision Making 07/24/17 10:23 Documentation prepared by Justyna Avila, acting as medical staff manager for Onelia Baker MD 10:08: Paged Dr. Emmanuel via cell number. Discussed patient's case. <Justyna Avila - Last Filed: 07/24/17 10:28> Heart Score/ECG Review #1 General ECG Interpretation: Sinus Rhythm, Normal Rate (86), Normal Intervals, No acute ischemic changes <Onelia Baker - Last Filed: 07/24/17 10:16>
[2017-07-24 10:40] LABS: BASO % 0.5 % (0-2.0); EOS % 2.5 % (0-4.5); HEMATOCRIT 45.5 % (35.4-49); HEMOGLOBIN 15.1 GM/dL (11.7-16.9); LYMPH % 12.2 % (8-40); MCH 28.2 pg (25.7-33.7); MCHC 33.3 g/dl (32.0-35.9); MEAN CELL VOLUME 84.7 fl (80-96); MEAN PLT VOLUME 7.8 fl (7.5-11.1); MONO % 8.4 % (3.8-10.2); NEUT % 76.4 % (42.8-82.8); PLATELET COUNT 231 K/MM3 (134-434); RBC 5.37 M/mm3 (4.00-5.60); RDW 14.4 % (11.9-15.9); WHITE BLOOD COUNT 11.4 K/mm3 (4.0-10.0)
[2017-07-24 11:10] LABS: ANION GAP 5 (8-16); BLOOD UREA NITROGEN 11 mg/dL (7-18); CALCIUM 8.6 mg/dL (8.5-10.1); CHLORIDE 103 mmol/L (98-107); CO2 30 mmol/L (21-32); GLUCOSE,RANDOM 112 mg/dL (74-106); POTASSIUM 3.8 mmol/L (3.5-5.1); SGOT/AST 13 U/L (15-37); SGPT/ALT 21 U/L (12-78); SODIUM 138 mmol/L (136-145)
[2017-07-24 11:11] LABS: ALK PHOS 121 U/L (45-117); BILIRUBIN,TOTAL 0.7 mg/dL (0.2-1.0); TOT PROT 7.4 g/dl (6.4-8.2)
--- NOTE | 2017-07-24 12:39 | PDOC ---
*Physical Exam - Vital Signs Last Vital Signs Temp Pulse Resp BP Pulse Ox 98.3 F 100 H 18 132/89 100 07/24/17 08:53 07/24/17 08:53 07/24/17 08:53 07/24/17 08:53 07/24/17 09:15 ED Treatment Course - LABORATORY CBC & Chemistry Diagram: 07/24/17 10:25 07/24/17 10:25 - ADDITIONAL ORDERS Additional order review: Laboratory Results 07/24/17 07/24/17 10:25 10:25 Sodium 138 Potassium 3.8 Chloride 103 Carbon Dioxide 30 Anion Gap 5 L BUN 11 Creatinine 1.0 Creat Clearance w eGFR > 60 Random Glucose 112 H D Calcium 8.6 Total Bilirubin 0.7 D AST 13 L ALT 21 D Alkaline Phosphatase 121 H Troponin I < 0.02 Total Protein 7.4 Albumin 4.0 07/24/17 10:25 RBC 5.37 MCV 84.7 MCHC 33.3 RDW 14.4 MPV 7.8 Neutrophils % 76.4 D Lymphocytes % 12.2 D Monocytes % 8.4 Eosinophils % 2.5 Basophils % 0.5 Medical Decision Making - Medical Decision Making 07/24/17 12:38 The patient was signed out to me by Dr. Conrad, casandra team. The patient is a 61M who is presenting with worsening head and neck pain. CT pending to r/o mets 2/2 to stage 4 lung CA. Pending labs and imaging. Will discuss with Dr. Emmanuel (pt's oncologist) after results. *DC/Admit/Observation/Transfer Diagnosis at time of Disposition: Neck pain - Discharge Dispostion Disposition: HOME Condition at time of disposition: Stable Admit: No - Referrals Referrals: Lakisha Donis MD [Primary Care Provider] - Lien Ta MD [Staff Physician] - - Patient Instructions Printed Discharge Instructions: Allergies (Alternative Therapy) Additional Instructions: You had a head and neck CT scan done which was all negative, meaning it did not show anything abnormal. Please follow up with Dr. Emmanuel in 2-3 days. Follow up with Dr. Borrero regarding your ears. Please return to the ER if you have any signs or symptoms of chest pain, shortness of breath, uncontrollable fever, chills, nausea, vomiting, numbness, tingling, or weakness in any part of your body, changes in vision, or slurred speech. Please return to the ER if symptoms persist, worsen, or new symptoms arise. Print Language: CITIZEN OF [place] - Post Discharge Activity
[2017-07-24 14:37] VITALS: BP 137/80; PULSE 91; TEMP 97.8
--- NOTE | 2017-07-24 23:48 | EKG ---
Test Reason : Blood Pressure : / mmHG Vent. Rate : 086 BPM Atrial Rate : 086 BPM P-R Int : 152 ms QRS Dur : 092 ms QT Int : 376 ms P-R-T Axes : 047 042 030 degrees QTc Int : 449 ms NORMAL SINUS RHYTHM NORMAL ECG WHEN COMPARED WITH ECG OF 17-JUL-2017 12:51, NO SIGNIFICANT CHANGE WAS FOUND Confirmed by TESS ESPITIA MD ([id number]) on 07/24/2017 11:48:03 PM Referred By: Confirmed By:TESS ESPITIA MD
== END 2017-07-24 14:37 | disposition home or self-care (01) ==
LOC: JER 08:48
DX: M54.2 Cervicalgia (principal); C34.91 Malignant neoplasm of unspecified part of right bronchus or lung; Z87.891 Personal history of nicotine dependence; I10 Essential (primary) hypertension; K21.9 Gastro-esophageal reflux disease without esophagitis; J44.9 Chronic obstructive pulmonary disease, unspecified; Z88.8 Allergy status to other drugs, medicaments and biological substances; J34.89 Other specified disorders of nose and nasal sinuses
CPT/HCPCS: 36415; 70470-TC; 70491-TC; 71046-TC-FY; 80053; 84484; 85025; 93005; 93010; 99284-25

== ENCOUNTER 2017-08-08 07:26 | Day surgery (SDC) | payer OTHER ==
[2017-08-08] MEDS ORDERED: SODIUM CHLORIDE 250 ML IV ONE (09:00)
[2017-08-08] MEDS ORDERED: DIPHENHYDRAMINE 25 MG, DEXAMETHASONE INJECTION 20 MG in SODIUM CHLORIDE 100 ML IVPB ONE (10:00)
[2017-08-08] MEDS ORDERED: PEMBROLIZUMAB 200 MG in SODIUM CHLORIDE 50 ML IV ONE (10:30)
[2017-08-08 10:31] LABS: BASO % 0.9 % (0-2.0); EOS % 0.7 % (0-4.5); HEMATOCRIT 42.7 % (35.4-49); HEMOGLOBIN 14.3 GM/dL (11.7-16.9); LYMPH % 26.5 % (8-40); MCH 28.7 pg (25.7-33.7); MCHC 33.5 g/dl (32.0-35.9); MEAN CELL VOLUME 85.5 fl (80-96); MEAN PLT VOLUME 7.8 fl (7.5-11.1); NEUT % 63.9 % (42.8-82.8); PLATELET COUNT 261 K/MM3 (134-434); RBC 4.99 M/mm3 (4.00-5.60); RDW 14.7 % (11.9-15.9); WHITE BLOOD COUNT 6.7 K/mm3 (4.0-10.0)
[2017-08-08 10:55] LABS: ALK PHOS 115 U/L (45-117); BILIRUBIN,DIRECT < 0.2 mg/dL (0.0-0.2); BILIRUBIN,TOTAL 0.5 mg/dL (0.2-1.0); MAGNESIUM 2.5 mg/dL (1.8-2.4); SGOT/AST 18 U/L (15-37); SGPT/ALT 18 U/L (12-78); TOT PROT 7.4 g/dl (6.4-8.2)
[2017-08-08 10:56] LABS: ALBUMIN 3.9 g/dl (3.4-5.0); ANION GAP 3 (8-16); BILIRUBIN,TOTAL 0.5 mg/dL (0.2-1.0); BLOOD UREA NITROGEN 12 mg/dL (7-18); CALCIUM 8.6 mg/dL (8.5-10.1); CHLORIDE 105 mmol/L (98-107); CO2 30 mmol/L (21-32); GLUCOSE,RANDOM 127 mg/dL (74-106); POTASSIUM 4.1 mmol/L (3.5-5.1); SGOT/AST 18 U/L (15-37); SGPT/ALT 17 U/L (12-78); SODIUM 138 mmol/L (136-145); TOT PROT 7.5 g/dl (6.4-8.2)
[2017-08-08] MEDS ORDERED: POTASSIUM CHLORIDE IVPB ONE (11:00)
[2017-08-08] MEDS ORDERED: MAGNESIUM SULFATE IVPB ONE (11:00)
[2017-08-08] MEDS ORDERED: SODIUM CHLORIDE IVPB ONE (11:00)
[2017-08-08 11:04] LABS: ALK PHOS 114 U/L (45-117)
[2017-08-08] MEDS ORDERED: SODIUM CHLORIDE 250 ML IV STA (11:24)
[2017-08-08] MEDS ORDERED: SODIUM CHLORIDE 1,000 ML IV SCH (11:30)
[2017-08-08 12:42] VITALS: TEMP 97.9
[2017-08-08] MEDS ORDERED: PORTA CATH FLUSH 10 ML IVPUSH ONE (12:42)
[2017-08-08 15:46] VITALS: BP 129/69; PULSE 82
== END 2017-08-08 15:20 | disposition home or self-care (01) ==
LOC: JONCCHEMO 07:26 → J7W 11:43 → JONCCHEMO 15:20
PROVIDERS: ATTEND Internal Medicine Hematology & Oncology
DX: Z51.11 Encounter for antineoplastic chemotherapy (principal); C34.31 Malignant neoplasm of lower lobe, right bronchus or lung
CPT/HCPCS: 36415; 80053; 80076; 83735; 84439; 84443; 85025; 96361; 96367; 96375; 96413; J1100; J9271

== ENCOUNTER 2017-08-30 07:49 | Day surgery (SDC) | payer OTHER ==
[2017-08-30 09:15] LABS: BASO % 1.2 % (0-2.0); EOS % 2.2 % (0-4.5); HEMOGLOBIN 14.8 GM/dL (11.7-16.9); LYMPH % 30.3 % (8-40); MCH 27.9 pg (25.7-33.7); MCHC 32.9 g/dl (32.0-35.9); MEAN CELL VOLUME 84.8 fl (80-96); MEAN PLT VOLUME 8.2 fl (7.5-11.1); MONO % 9.4 % (3.8-10.2); NEUT % 56.9 % (42.8-82.8); PLATELET COUNT 215 K/MM3 (134-434); RDW 14.6 % (11.9-15.9); WHITE BLOOD COUNT 6.5 K/mm3 (4.0-10.0)
[2017-08-30 09:38] LABS: ALK PHOS 118 U/L (45-117); ANION GAP 7 (8-16); BILIRUBIN,TOTAL 0.5 mg/dL (0.2-1.0); BLOOD UREA NITROGEN 12 mg/dL (7-18); CALCIUM 8.9 mg/dL (8.5-10.1); CHLORIDE 103 mmol/L (98-107); CO2 29 mmol/L (21-32); GLUCOSE,RANDOM 144 mg/dL (74-106); SGOT/AST 15 U/L (15-37); SGPT/ALT 24 U/L (12-78); SODIUM 139 mmol/L (136-145); TOT PROT 7.3 g/dl (6.4-8.2)
[2017-08-30 10:05] LABS: BILIRUBIN,DIRECT < 0.2 mg/dL (0.0-0.2); MAGNESIUM 2.2 mg/dL (1.8-2.4)
[2017-08-30] MEDS ORDERED: SODIUM CHLORIDE 250 ML IV ONE (10:15)
[2017-08-30 10:25] VITALS: TEMP 98
[2017-08-30] MEDS ORDERED: PORTA CATH FLUSH 10 ML IVPUSH ONE (10:25)
[2017-08-30] MEDS ORDERED: DEXAMETHASONE INJECTION 20 MG, DIPHENHYDRAMINE 25 MG in SODIUM CHLORIDE 100 ML IVPB ONE (10:30)
[2017-08-30] MEDS ORDERED: PEMBROLIZUMAB 200 MG in SODIUM CHLORIDE 50 ML IV ONE (11:00)
[2017-08-30] MEDS ORDERED: POTASSIUM CHLORIDE IVPB ONE (11:30)
[2017-08-30] MEDS ORDERED: MAGNESIUM SULFATE IVPB ONE (11:30)
[2017-08-30] MEDS ORDERED: SODIUM CHLORIDE IVPB ONE (11:30)
[2017-08-30 15:16] VITALS: BP 122/76; PULSE 86
== END 2017-08-30 13:45 | disposition home or self-care (01) ==
LOC: JONCCHEMO 07:49 → J7W 09:59 → JONCCHEMO 13:45
PROVIDERS: ATTEND Internal Medicine Hematology & Oncology
DX: Z51.11 Encounter for antineoplastic chemotherapy (principal); C34.31 Malignant neoplasm of lower lobe, right bronchus or lung
CPT/HCPCS: 36415; 80053; 80076; 83735; 85025; 96361; 96367; 96375; 96413; J1100; J9271

== ENCOUNTER 2017-09-19 07:49 | Day surgery (SDC) | payer OTHER ==
[2017-09-19] MEDS ORDERED: SODIUM CHLORIDE 250 ML IV ONE (08:00)
[2017-09-19] MEDS ORDERED: DEXAMETHASONE INJECTION 20 MG, DIPHENHYDRAMINE 25 MG in SODIUM CHLORIDE 100 ML IVPB ONE (08:30)
[2017-09-19] MEDS ORDERED: PEMBROLIZUMAB 200 MG in SODIUM CHLORIDE 50 ML IV ONE (09:00)
[2017-09-19 09:23] LABS: BASO % 0.7 % (0-2.0); HEMATOCRIT 44.8 % (35.4-49); HEMOGLOBIN 14.7 GM/dL (11.7-16.9); LYMPH % 27.6 % (8-40); MCH 28.2 pg (25.7-33.7); MCHC 32.9 g/dl (32.0-35.9); MEAN CELL VOLUME 85.6 fl (80-96); MONO % 6.5 % (3.8-10.2); NEUT % 64.2 % (42.8-82.8); PLATELET COUNT 238 K/MM3 (134-434); RBC 5.23 M/mm3 (4.00-5.60); RDW 14.4 % (11.9-15.9); WHITE BLOOD COUNT 7.3 K/mm3 (4.0-10.0)
[2017-09-19] MEDS ORDERED: POTASSIUM CHLORIDE IVPB ONE (09:30)
[2017-09-19] MEDS ORDERED: MAGNESIUM SULFATE IVPB ONE (09:30)
[2017-09-19] MEDS ORDERED: SODIUM CHLORIDE IVPB ONE (09:30)
[2017-09-19 10:15] VITALS: TEMP 97.2
[2017-09-19 13:09] LABS: CHLORIDE 105 mmol/L (98-107); POTASSIUM 3.7 mmol/L (3.5-5.1); SODIUM 141 mmol/L (136-145)
[2017-09-19 13:14] LABS: ALK PHOS 124 U/L (45-117); ANION GAP 10 (8-16); BILIRUBIN,TOTAL 0.7 mg/dL (0.2-1.0); BLOOD UREA NITROGEN 7 mg/dL (7-18); CALCIUM 8.9 mg/dL (8.5-10.1); CO2 26 mmol/L (21-32); CREATININE 1.1 mg/dL (0.7-1.3); GLUCOSE,RANDOM 175 mg/dL (74-106); SGOT/AST 17 U/L (15-37); SGPT/ALT 22 U/L (12-78); TOT PROT 7.3 g/dl (6.4-8.2)
[2017-09-19] MEDS: PORTA CATH FLUSH 10 ML IVPUSH ONE ×2 (13:45→15:09)
[2017-09-19] MEDS ORDERED: PORTA CATH FLUSH 10 ML IVPUSH ONE (14:29)
[2017-09-19 15:11] VITALS: BP 146/77; PULSE 64
[2017-09-19 15:52] LABS: BILIRUBIN,DIRECT 0.2 mg/dL (0.0-0.2); MAGNESIUM 2.1 mg/dL (1.8-2.4)
== END 2017-09-19 13:45 | disposition home or self-care (01) ==
LOC: JONCCHEMO 07:49 → J7W 09:55 → JONCCHEMO 13:45
PROVIDERS: ATTEND Internal Medicine Hematology & Oncology
DX: Z51.11 Encounter for antineoplastic chemotherapy (principal); C34.31 Malignant neoplasm of lower lobe, right bronchus or lung
CPT/HCPCS: 36415; 80053; 80076; 83735; 85025; 96361; 96367; 96375; 96413; J1100; J9271

== ENCOUNTER 2017-10-10 07:35 | Day surgery (SDC) | payer OTHER ==
[2017-10-10] MEDS ORDERED: SODIUM CHLORIDE 250 ML IV ONE (09:00)
[2017-10-10] MEDS ORDERED: DEXAMETHASONE INJECTION 20 MG, DIPHENHYDRAMINE 25 MG in SODIUM CHLORIDE 100 ML IVPB ONE (10:00)
[2017-10-10] MEDS ORDERED: PEMBROLIZUMAB 200 MG in SODIUM CHLORIDE 50 ML IV ONE (10:30)
[2017-10-10 10:44] LABS: BASO % 0.7 % (0-2.0); EOS % 2.1 % (0-4.5); HEMATOCRIT 43.4 % (35.4-49); HEMOGLOBIN 14.5 GM/dL (11.7-16.9); LYMPH % 36.1 % (8-40); MCH 28.9 pg (25.7-33.7); MCHC 33.4 g/dl (32.0-35.9); MEAN CELL VOLUME 86.4 fl (80-96); MEAN PLT VOLUME 8.3 fl (7.5-11.1); MONO % 7.4 % (3.8-10.2); NEUT % 53.7 % (42.8-82.8); PLATELET COUNT 229 K/MM3 (134-434); RBC 5.03 M/mm3 (4.00-5.60); RDW 14.4 % (11.9-15.9); WHITE BLOOD COUNT 11.1 K/mm3 (4.0-10.0)
[2017-10-10] MEDS ORDERED: SODIUM CHLORIDE 250 ML IVPB ONE (11:00)
[2017-10-10 11:18] LABS: ALBUMIN 3.8 g/dl (3.4-5.0); ANION GAP 5 (8-16); BILIRUBIN,DIRECT 0.2 mg/dL (0.0-0.2); BLOOD UREA NITROGEN 14 mg/dL (7-18); CALCIUM 8.7 mg/dL (8.5-10.1); CHLORIDE 105 mmol/L (98-107); CO2 31 mmol/L (21-32); CREATININE 0.9 mg/dL (0.7-1.3); GLUCOSE,RANDOM 86 mg/dL (74-106); MAGNESIUM 2.1 mg/dL (1.8-2.4); POTASSIUM 3.6 mmol/L (3.5-5.1); SGOT/AST 16 U/L (15-37); SGPT/ALT 34 U/L (12-78); SODIUM 141 mmol/L (136-145)
[2017-10-10 11:20] LABS: ALK PHOS 117 U/L (45-117); BILIRUBIN,TOTAL 0.5 mg/dL (0.2-1.0); TOT PROT 6.9 g/dl (6.4-8.2)
[2017-10-10 18:14] VITALS: TEMP 98.1
[2017-10-10] MEDS ORDERED: PORTA CATH FLUSH 10 ML IVPUSH ONE ×2 (18:14→18:30)
[2017-10-10 18:20] VITALS: BP 151/82; PULSE 68
== END 2017-10-10 15:15 | disposition home or self-care (01) ==
LOC: JONCCHEMO 07:35 → J7W 11:36 → JONCCHEMO 15:15
PROVIDERS: ATTEND Internal Medicine Hematology & Oncology
DX: Z51.11 Encounter for antineoplastic chemotherapy (principal); C34.31 Malignant neoplasm of lower lobe, right bronchus or lung
CPT/HCPCS: 36415; 80053; 80076; 83735; 85025; 96361; 96367; 96375; 96413; J1100; J9271

== ENCOUNTER 2017-10-31 07:31 | Day surgery (SDC) | payer OTHER ==
[2017-10-31] MEDS ORDERED: SODIUM CHLORIDE 250 ML IV ONE ×2 (08:00→09:30)
[2017-10-31] MEDS ORDERED: DEXAMETHASONE INJECTION 20 MG, DIPHENHYDRAMINE 25 MG in SODIUM CHLORIDE 100 ML IVPB ONE (08:30)
[2017-10-31] MEDS ORDERED: PEMBROLIZUMAB 200 MG in SODIUM CHLORIDE 50 ML IV ONE (09:00)
[2017-10-31] MEDS ORDERED: POTASSIUM CHLORIDE IVPB ONE (09:30)
[2017-10-31] MEDS ORDERED: MAGNESIUM SULFATE IVPB ONE (09:30)
[2017-10-31] MEDS ORDERED: SODIUM CHLORIDE IVPB ONE (09:30)
[2017-10-31 09:43] VITALS: TEMP 98.2
[2017-10-31 09:56] LABS: BASO % 1.2 % (0-2.0); EOS % 1.5 % (0-4.5); HEMATOCRIT 44.6 % (35.4-49); HEMOGLOBIN 14.7 GM/dL (11.7-16.9); LYMPH % 26.1 % (8-40); MCH 28.5 pg (25.7-33.7); MCHC 33.1 g/dl (32.0-35.9); MEAN CELL VOLUME 86.1 fl (80-96); MEAN PLT VOLUME 8.1 fl (7.5-11.1); MONO % 8.2 % (3.8-10.2); PLATELET COUNT 245 K/MM3 (134-434); RBC 5.18 M/mm3 (4.00-5.60); RDW 14.2 % (11.9-15.9)
[2017-10-31 10:35] LABS: ALBUMIN 4.1 g/dl (3.4-5.0); ANION GAP 8 (8-16); BILIRUBIN,TOTAL 0.5 mg/dL (0.2-1.0); BLOOD UREA NITROGEN 9 mg/dL (7-18); CALCIUM 8.9 mg/dL (8.5-10.1); CHLORIDE 105 mmol/L (98-107); CO2 28 mmol/L (21-32); CREATININE 1.1 mg/dL (0.7-1.3); GLUCOSE,RANDOM 148 mg/dL (74-106); POTASSIUM 3.7 mmol/L (3.5-5.1); SGOT/AST 15 U/L (15-37); SGPT/ALT 27 U/L (12-78); SODIUM 141 mmol/L (136-145)
[2017-10-31 10:36] LABS: ALBUMIN 4.1 g/dl (3.4-5.0); BILIRUBIN,DIRECT 0.2 mg/dL (0.0-0.2); MAGNESIUM 2.2 mg/dL (1.8-2.4)
[2017-10-31 10:40] LABS: BILIRUBIN,TOTAL 0.5 mg/dL (0.2-1.0); TOT PROT 7.1 g/dl (6.4-8.2)
[2017-10-31 10:44] LABS: ALK PHOS 111 U/L (45-117)
[2017-10-31] MEDS ORDERED: PORTA CATH FLUSH 10 ML IVPUSH ONE (14:53)
[2017-10-31 15:59] VITALS: BP 159/80; PULSE 73
== END 2017-10-31 15:25 | disposition home or self-care (01) ==
LOC: JONCCHEMO 07:31 → J7W 11:45 → JONCCHEMO 15:25
PROVIDERS: ATTEND Internal Medicine Hematology & Oncology
DX: Z51.11 Encounter for antineoplastic chemotherapy (principal); C34.31 Malignant neoplasm of lower lobe, right bronchus or lung
CPT/HCPCS: 36415; 80053; 80076; 82150; 83690; 83735; 84439; 84443; 85025; 96361; 96367; 96375; 96413; J1100; J9271

== ENCOUNTER 2017-12-12 07:46 | Day surgery (SDC) | payer OTHER ==
[2017-12-12] MEDS ORDERED: SODIUM CHLORIDE 250 ML IV ONE ×2 (09:00→11:00)
[2017-12-12 09:53] LABS: BASO % 1.5 % (0-2.0); EOS % 3.3 % (0-4.5); LYMPH % 34.6 % (8-40); MCH 29.2 pg (25.7-33.7); MCHC 33.3 g/dl (32.0-35.9); MEAN CELL VOLUME 87.7 fl (80-96); MEAN PLT VOLUME 7.8 fl (7.5-11.1); MONO % 9.6 % (3.8-10.2); PLATELET COUNT 231 K/MM3 (134-434); RBC 4.79 M/mm3 (4.00-5.60); RDW 14.6 % (11.9-15.9); WHITE BLOOD COUNT 8.2 K/mm3 (4.0-10.0)
[2017-12-12] MEDS ORDERED: DEXAMETHASONE INJECTION 20 MG, DIPHENHYDRAMINE 25 MG in SODIUM CHLORIDE 100 ML IVPB ONE (10:00)
[2017-12-12 10:18] LABS: ALBUMIN 3.6 g/dl (3.4-5.0); ALBUMIN 3.7 g/dl (3.4-5.0); ALK PHOS 115 U/L (45-117); ANION GAP 8 MMOL/L (8-16); BILIRUBIN,DIRECT < 0.2 mg/dL (0.0-0.2); BILIRUBIN,TOTAL 0.5 mg/dL (0.2-1.0); BLOOD UREA NITROGEN 15 mg/dL (7-18); CALCIUM 8.6 mg/dL (8.5-10.1); CHLORIDE 106 mmol/L (98-107); CO2 31 mmol/L (21-32); GLUCOSE,RANDOM 118 mg/dL (74-106); MAGNESIUM 2.2 mg/dL (1.8-2.4); POTASSIUM 3.9 mmol/L (3.5-5.1); SGOT/AST 11 U/L (15-37); SGOT/AST 12 U/L (15-37); SGPT/ALT 23 U/L (12-78); SODIUM 145 mmol/L (136-145); TOT PROT 6.7 g/dl (6.4-8.2)
[2017-12-12 10:19] LABS: ALK PHOS 112 U/L (45-117); BILIRUBIN,TOTAL 0.5 mg/dL (0.2-1.0); TOT PROT 6.6 g/dl (6.4-8.2)
[2017-12-12] MEDS ORDERED: PEMBROLIZUMAB 200 MG in SODIUM CHLORIDE 50 ML IV ONE (10:30)
[2017-12-12 15:05] VITALS: TEMP 98
[2017-12-12] MEDS ORDERED: PORTA CATH FLUSH 10 ML IVPUSH ONE (15:05)
[2017-12-12 15:07] VITALS: BP 116/70; PULSE 68
== END 2017-12-12 15:10 | disposition home or self-care (01) ==
LOC: JONCCHEMO 07:46 → J7W 10:57 → JONCCHEMO 15:10
PROVIDERS: ATTEND Internal Medicine Hematology & Oncology
DX: Z51.11 Encounter for antineoplastic chemotherapy (principal); C34.31 Malignant neoplasm of lower lobe, right bronchus or lung
CPT/HCPCS: 36415; 80053; 80076; 83735; 85025; 96361; 96367; 96375; 96413; J1100; J9271

== ENCOUNTER 2018-01-03 07:39 | Day surgery (SDC) | payer OTHER ==
[2018-01-03] MEDS ORDERED: SODIUM CHLORIDE 250 ML IV ONE ×2 (09:00→11:00)
[2018-01-03 09:47] LABS: BASO % 1.2 % (0-2.0); EOS % 4.8 % (0-4.5); HEMATOCRIT 42.6 % (35.4-49); HEMOGLOBIN 14.3 GM/dL (11.7-16.9); LYMPH % 26.7 % (8-40); MCH 29.4 pg (25.7-33.7); MCHC 33.6 g/dl (32.0-35.9); MEAN CELL VOLUME 87.6 fl (80-96); MEAN PLT VOLUME 7.9 fl (7.5-11.1); MONO % 8.7 % (3.8-10.2); NEUT % 58.6 % (42.8-82.8); PLATELET COUNT 236 K/MM3 (134-434); RBC 4.87 M/mm3 (4.00-5.60); RDW 13.7 % (11.9-15.9); WHITE BLOOD COUNT 8.2 K/mm3 (4.0-10.0)
[2018-01-03] MEDS ORDERED: DEXAMETHASONE INJECTION 20 MG, DIPHENHYDRAMINE 25 MG in SODIUM CHLORIDE 100 ML IVPB ONE (10:00)
[2018-01-03 10:14] LABS: ALBUMIN 3.8 g/dl (3.4-5.0); ANION GAP 7 MMOL/L (8-16); BLOOD UREA NITROGEN 11 mg/dL (7-18); CALCIUM 8.9 mg/dL (8.5-10.1); CHLORIDE 101 mmol/L (98-107); CO2 32 mmol/L (21-32); GLUCOSE,RANDOM 151 mg/dL (74-106); POTASSIUM 4.4 mmol/L (3.5-5.1); SODIUM 140 mmol/L (136-145)
[2018-01-03] MEDS ORDERED: PEMBROLIZUMAB 200 MG in SODIUM CHLORIDE 50 ML IV ONE (10:30)
[2018-01-03 10:36] LABS: ALBUMIN 3.8 g/dl (3.4-5.0); ALK PHOS 117 U/L (45-117); ALK PHOS 119 U/L (45-117); BILIRUBIN,DIRECT < 0.2 mg/dL (0.0-0.2); BILIRUBIN,TOTAL 0.5 mg/dL (0.2-1); BILIRUBIN,TOTAL 0.6 mg/dL (0.2-1); MAGNESIUM 2.1 mg/dL (1.8-2.4); SGOT/AST 27 U/L (15-37); SGOT/AST 28 U/L (15-37); SGPT/ALT 36 U/L (13-61); TOT PROT 7.1 g/dl (6.4-8.2)
[2018-01-03 17:39] VITALS: BP 136/84; PULSE 92; TEMP 99.2
== END 2018-01-03 13:30 | disposition home or self-care (01) ==
LOC: JONCCHEMO 07:39 → J7W 09:52 → JONCCHEMO 13:30
PROVIDERS: ATTEND Internal Medicine Hematology & Oncology
DX: Z51.11 Encounter for antineoplastic chemotherapy (principal); C34.31 Malignant neoplasm of lower lobe, right bronchus or lung
CPT/HCPCS: 36415; 80053; 80076; 82378; 83735; 84439; 84443; 85025; 96361; 96367; 96375; 96413; J1100; J9271

== ENCOUNTER 2018-01-24 07:39 | Day surgery (SDC) | payer OTHER ==
[2018-01-24] MEDS ORDERED: SODIUM CHLORIDE 250 ML IV ONE ×2 (09:00→11:00)
[2018-01-24 09:54] LABS: BASO % 1.5 % (0-2.0); HEMOGLOBIN 13.6 GM/dL (11.7-16.9); LYMPH % 28.8 % (8-40); MCH 28.6 pg (25.7-33.7); MCHC 32.4 g/dl (32.0-35.9); MEAN CELL VOLUME 88.4 fl (80-96); MEAN PLT VOLUME 7.9 fl (7.5-11.1); MONO % 9.7 % (3.8-10.2); PLATELET COUNT 220 K/MM3 (134-434); RBC 4.75 M/mm3 (4.00-5.60); RDW 14.2 % (11.9-15.9); WHITE BLOOD COUNT 8.4 K/mm3 (4.0-10.0)
[2018-01-24] MEDS ORDERED: DEXAMETHASONE INJECTION 20 MG, DIPHENHYDRAMINE 25 MG in SODIUM CHLORIDE 100 ML IVPB ONE (10:00)
[2018-01-24 10:27] LABS: ALBUMIN 3.6 g/dl (3.4-5.0); BILIRUBIN,DIRECT 0.1 mg/dL (0.0-0.2); BILIRUBIN,TOTAL 0.6 mg/dL (0.2-1); TOT PROT 6.8 g/dl (6.4-8.2)
[2018-01-24] MEDS ORDERED: PEMBROLIZUMAB 200 MG in SODIUM CHLORIDE 50 ML IV ONE (10:30)
[2018-01-24 11:05] LABS: BLOOD UREA NITROGEN 13 mg/dL (7-18); CREATININE 0.9 mg/dL (0.55-1.3); GLUCOSE,RANDOM 126 mg/dL (74-106)
[2018-01-24 11:06] LABS: ALBUMIN 3.6 g/dl (3.4-5.0); ALK PHOS 112 U/L (45-117); ANION GAP 5 MMOL/L (8-16); BILIRUBIN,TOTAL 0.5 mg/dL (0.2-1); CALCIUM 8.7 mg/dL (8.5-10.1); CHLORIDE 109 mmol/L (98-107); CO2 24 mmol/L (21-32); POTASSIUM 4.2 mmol/L (3.5-5.1); SGOT/AST 21 U/L (15-37); SGPT/ALT 26 U/L (13-61); SODIUM 138 mmol/L (136-145); TOT PROT 6.9 g/dl (6.4-8.2)
[2018-01-24 17:42] VITALS: BP 147/75; PULSE 72; TEMP 97.6
[2018-01-24] MEDS ORDERED: PORTA CATH FLUSH 10 ML IVPUSH ONE (17:42)
== END 2018-01-24 14:45 | disposition home or self-care (01) ==
LOC: JONCCHEMO 07:39 → J7W 11:07 → JONCCHEMO 14:45
PROVIDERS: ATTEND Internal Medicine Hematology & Oncology
DX: Z51.11 Encounter for antineoplastic chemotherapy (principal); C34.31 Malignant neoplasm of lower lobe, right bronchus or lung
CPT/HCPCS: 36415; 80053; 80076; 83735; 85025; 96361; 96367; 96375; 96413; J1100; J9271

== ENCOUNTER 2018-02-14 07:29 | Day surgery (SDC) | payer OTHER ==
[2018-02-14] MEDS ORDERED: SODIUM CHLORIDE 250 ML IV ONE ×2 (08:00→09:30)
[2018-02-14] MEDS ORDERED: DEXAMETHASONE INJECTION 10 MG, DIPHENHYDRAMINE 25 MG in SODIUM CHLORIDE 100 ML IVPB ONE (08:30)
[2018-02-14] MEDS ORDERED: DEXAMETHASONE INJECTION 20 MG, DIPHENHYDRAMINE 25 MG in SODIUM CHLORIDE 100 ML IVPB ONE (08:30)
[2018-02-14] MEDS ORDERED: PEMBROLIZUMAB 200 MG in SODIUM CHLORIDE 50 ML IV ONE (09:00)
[2018-02-14 09:32] LABS: BASO % 1.2 % (0-2.0); EOS % 1.6 % (0-4.5); HEMATOCRIT 42.7 % (35.4-49); HEMOGLOBIN 14.1 GM/dL (11.7-16.9); LYMPH % 16.5 % (8-40); MCHC 32.9 g/dl (32.0-35.9); MEAN PLT VOLUME 8.4 fl (7.5-11.1); MONO % 5.7 % (3.8-10.2); PLATELET COUNT 210 K/MM3 (134-434); RBC 4.86 M/mm3 (4.00-5.60); RDW 13.5 % (11.9-15.9); WHITE BLOOD COUNT 7.5 K/mm3 (4.0-10.0)
[2018-02-14 10:04] LABS: ALBUMIN 3.9 g/dl (3.4-5.0); ALK PHOS 112 U/L (45-117); ANION GAP 6 MMOL/L (8-16); BILIRUBIN,DIRECT 0.2 mg/dL (0.0-0.2); BILIRUBIN,TOTAL 0.8 mg/dL (0.2-1); BLOOD UREA NITROGEN 15 mg/dL (7-18); CALCIUM 8.7 mg/dL (8.5-10.1); CHLORIDE 104 mmol/L (98-107); CO2 29 mmol/L (21-32); CREATININE 1.1 mg/dL (0.55-1.3); GLUCOSE,RANDOM 153 mg/dL (74-106); POTASSIUM 3.9 mmol/L (3.5-5.1); SGOT/AST 22 U/L (15-37); SGPT/ALT 27 U/L (13-61); SODIUM 138 mmol/L (136-145); TOT PROT 7.2 g/dl (6.4-8.2)
[2018-02-14] MEDS ORDERED: DEXAMETHASONE SOD PHOSPHATE 20 MG/5 ML VIAL IVPB ONE (10:15)
[2018-02-14 10:52] VITALS: TEMP 98
[2018-02-14] MEDS ORDERED: DEXAMETHASONE SOD PHOSPHATE 10 MG/1 ML VIAL ONE (11:07)
[2018-02-14] MEDS ORDERED: DEXAMETHASONE SOD PHOSPHATE 10 MG/1 ML VIAL IVPB ONE (12:00)
[2018-02-14 16:05] VITALS: PULSE 70
[2018-02-14 16:07] VITALS: BP 142/72
== END 2018-02-14 14:30 | disposition home or self-care (01) ==
LOC: JONCCHEMO 07:29 → J7W 10:32 → JONCCHEMO 14:30
PROVIDERS: ATTEND Internal Medicine Hematology & Oncology
DX: Z51.11 Encounter for antineoplastic chemotherapy (principal); C34.31 Malignant neoplasm of lower lobe, right bronchus or lung
CPT/HCPCS: 36415; 73552-TC-RT-FY; 73590-TC-RT-FY; 73630-TC-RT-FY; 80053; 80076; 83735; 85025; 93971-TC; 96361; 96367; 96375; 96413; J1100; J9271

== ENCOUNTER 2018-03-07 07:47 | Day surgery (SDC) | payer OTHER ==
[2018-03-07] MEDS ORDERED: SODIUM CHLORIDE 250 ML IV ONE ×2 (09:00→11:00)
[2018-03-07 09:42] VITALS: PULSE 68
[2018-03-07] MEDS ORDERED: DEXAMETHASONE INJECTION 20 MG, DIPHENHYDRAMINE 25 MG in SODIUM CHLORIDE 100 ML IVPB ONE (10:00)
[2018-03-07 10:25] LABS: BASO % 0.6 % (0-2.0); EOS % 0.3 % (0-4.5); HEMATOCRIT 47.1 % (35.4-49); HEMOGLOBIN 15.1 GM/dL (11.7-16.9); LYMPH % 15.4 % (8-40); MCH 28.3 pg (25.7-33.7); MEAN CELL VOLUME 88.4 fl (80-96); MEAN PLT VOLUME 7.8 fl (7.5-11.1); MONO % 8.3 % (3.8-10.2); NEUT % 75.4 % (42.8-82.8); PLATELET COUNT 237 K/MM3 (134-434); RBC 5.33 M/mm3 (4.00-5.60); RDW 14.2 % (11.9-15.9); WHITE BLOOD COUNT 12.6 K/mm3 (4.0-10.0)
[2018-03-07] MEDS ORDERED: PEMBROLIZUMAB 200 MG in SODIUM CHLORIDE 50 ML IV ONE (10:30)
[2018-03-07 11:11] LABS: ALBUMIN 3.6 g/dl (3.4-5.0); ALK PHOS 131 U/L (45-117); ANION GAP 8 MMOL/L (8-16); BILIRUBIN,DIRECT 0.1 mg/dL (0.0-0.2); BILIRUBIN,TOTAL 0.5 mg/dL (0.2-1); BLOOD UREA NITROGEN 24 mg/dL (7-18); CALCIUM 8.5 mg/dL (8.5-10.1); CHLORIDE 106 mmol/L (98-107); CO2 27 mmol/L (21-32); GLUCOSE,RANDOM 150 mg/dL (74-106); MAGNESIUM 2.4 mg/dL (1.8-2.4); POTASSIUM 3.9 mmol/L (3.5-5.1); SGOT/AST 12 U/L (15-37); SGPT/ALT 36 U/L (13-61); SODIUM 140 mmol/L (136-145); TOT PROT 6.8 g/dl (6.4-8.2)
[2018-03-07] MEDS ORDERED: DEXAMETHASONE SOD PHOSPHATE 10 MG/1 ML VIAL IVPB ONE (14:15)
[2018-03-07] MEDS ORDERED: amLODIPine BESYLATE 5 MG TABLET (FP) PO ONE (14:15)
[2018-03-07 15:13] VITALS: BP 149/81; TEMP 98.3
[2018-03-07] MEDS ORDERED: PORTA CATH FLUSH 10 ML IVPUSH ONE (15:13)
== END 2018-03-07 15:14 | disposition home or self-care (01) ==
LOC: JONCCHEMO 07:47 → J7W 11:35 → JONCCHEMO 15:14
PROVIDERS: ATTEND Internal Medicine Hematology & Oncology
DX: Z51.11 Encounter for antineoplastic chemotherapy (principal); C34.31 Malignant neoplasm of lower lobe, right bronchus or lung
CPT/HCPCS: 36415; 80053; 80076; 83735; 84439; 84443; 85025; 96361; 96367; 96375; 96413; J1100; J9271

== ENCOUNTER 2018-03-28 06:32 | Day surgery (SDC) | payer OTHER ==
[2018-03-28 08:57] VITALS: TEMP 97.9
[2018-03-28] MEDS ORDERED: SODIUM CHLORIDE 250 ML IV ONE ×2 (09:00→11:00)
[2018-03-28 09:39] LABS: BASO % 0.7 % (0-2.0); EOS % 2.6 % (0-4.5); HEMATOCRIT 41.4 % (35.4-49); HEMOGLOBIN 14.3 GM/dL (11.7-16.9); LYMPH % 27.3 % (8-40); MCH 30.1 pg (25.7-33.7); MCHC 34.5 g/dl (32.0-35.9); MEAN CELL VOLUME 87.2 fl (80-96); MEAN PLT VOLUME 8.1 fl (7.5-11.1); MONO % 7.7 % (3.8-10.2); NEUT % 61.7 % (42.8-82.8); PLATELET COUNT 208 K/MM3 (134-434); RBC 4.74 M/mm3 (4.00-5.60); RDW 14.4 % (11.9-15.9); WHITE BLOOD COUNT 8.4 K/mm3 (4.0-10.0)
[2018-03-28] MEDS ORDERED: DEXAMETHASONE SODIUM PHOSPHATE 20 MG, DIPHENHYDRAMINE 25 MG in SODIUM CHLORIDE 100 ML IVPB ONE (10:00)
[2018-03-28 10:03] LABS: ALBUMIN 3.6 g/dl (3.4-5.0); ALK PHOS 105 U/L (45-117); ANION GAP 9 MMOL/L (8-16); BILIRUBIN,DIRECT 0.2 mg/dL (0.0-0.2); BILIRUBIN,TOTAL 0.5 mg/dL (0.2-1); BLOOD UREA NITROGEN 16 mg/dL (7-18); CALCIUM 8.2 mg/dL (8.5-10.1); CHLORIDE 105 mmol/L (98-107); CO2 28 mmol/L (21-32); CREATININE 1.1 mg/dL (0.55-1.3); GLUCOSE,RANDOM 165 mg/dL (74-106); MAGNESIUM 1.8 mg/dL (1.8-2.4); POTASSIUM 3.4 mmol/L (3.5-5.1); SGOT/AST 15 U/L (15-37); SGPT/ALT 30 U/L (13-61); SODIUM 142 mmol/L (136-145); TOT PROT 6.5 g/dl (6.4-8.2)
[2018-03-28] MEDS ORDERED: DEXAMETHASONE SOD PHOSPHATE 10 MG/1 ML VIAL IVPB ONE (10:30)
[2018-03-28] MEDS ORDERED: PEMBROLIZUMAB 200 MG in SODIUM CHLORIDE 50 ML IV ONE (10:30)
[2018-03-28] MEDS: FLUCONAZOLE 150 MG TABLET PO ONE ×2 (11:38→11:44)
[2018-03-28] MEDS ORDERED: POTASSIUM CHLORIDE TABS 20 MEQ TABLET.ER (FP) PO ONE (11:50)
[2018-03-28] MEDS ORDERED: PORTA CATH FLUSH 10 ML IVPUSH ONE (14:43)
[2018-03-28 14:44] VITALS: BP 141/84; PULSE 84
== END 2018-03-28 13:40 | disposition home or self-care (01) ==
LOC: JONCCHEMO 06:32 → J7W 10:18 → JONCCHEMO 13:40
PROVIDERS: ATTEND Internal Medicine Hematology & Oncology
DX: Z51.11 Encounter for antineoplastic chemotherapy (principal); C34.31 Malignant neoplasm of lower lobe, right bronchus or lung
CPT/HCPCS: 36415; 80053; 80076; 83735; 85025; 96361; 96367; 96375; 96413; J1100; J9271

== ENCOUNTER 2018-04-18 07:54 | Day surgery (SDC) | payer OTHER ==
[2018-04-18] MEDS ORDERED: SODIUM CHLORIDE 250 ML IV ONE ×2 (08:00→09:30)
[2018-04-18] MEDS ORDERED: DEXAMETHASONE INJECTION 10 MG, DIPHENHYDRAMINE 25 MG in SODIUM CHLORIDE 100 ML IVPB ONE (08:30)
[2018-04-18] MEDS ORDERED: PEMBROLIZUMAB 200 MG in SODIUM CHLORIDE 50 ML IV ONE (09:00)
[2018-04-18 09:17] LABS: BASO % 0.9 % (0-2.0); EOS % 1.6 % (0-4.5); HEMATOCRIT 41.8 % (35.4-49); HEMOGLOBIN 14.5 GM/dL (11.7-16.9); LYMPH % 15.6 % (8-40); MCHC 34.7 g/dl (32.0-35.9); MEAN CELL VOLUME 86.4 fl (80-96); MEAN PLT VOLUME 7.9 fl (7.5-11.1); MONO % 6.9 % (3.8-10.2); PLATELET COUNT 290 K/MM3 (134-434); RBC 4.84 M/mm3 (4.00-5.60); RDW 14.7 % (11.9-15.9); WHITE BLOOD COUNT 9.2 K/mm3 (4.0-10.0)
[2018-04-18 10:37] LABS: ALBUMIN 3.9 g/dl (3.4-5.0); ALK PHOS 104 U/L (45-117); ANION GAP 9 MMOL/L (8-16); BILIRUBIN,DIRECT 0.2 mg/dL (0.0-0.2); BILIRUBIN,TOTAL 0.6 mg/dL (0.2-1); BLOOD UREA NITROGEN 14 mg/dL (7-18); CALCIUM 9.2 mg/dL (8.5-10.1); CHLORIDE 106 mmol/L (98-107); CO2 26 mmol/L (21-32); CREATININE 1.2 mg/dL (0.55-1.3); GLUCOSE,RANDOM 162 mg/dL (74-106); MAGNESIUM 1.9 mg/dL (1.8-2.4); POTASSIUM 3.7 mmol/L (3.5-5.1); SGOT/AST 27 U/L (15-37); SGPT/ALT 39 U/L (13-61); SODIUM 141 mmol/L (136-145); TOT PROT 7.2 g/dl (6.4-8.2)
[2018-04-18] MEDS ORDERED: ALTEPLASE 2 MG VIAL NR ONE (12:00)
[2018-04-18 17:40] VITALS: TEMP 97.9
[2018-04-18 18:02] VITALS: BP 144/72; PULSE 94
[2018-04-18] MEDS ORDERED: PORTA CATH FLUSH 10 ML IVPUSH ONE (18:02)
--- NOTE | 2018-06-08 11:51 | EKG ---
Test Reason : Blood Pressure : / mmHG Vent. Rate : 101 BPM Atrial Rate : 101 BPM P-R Int : 126 ms QRS Dur : 096 ms QT Int : 366 ms P-R-T Axes : 051 050 036 degrees QTc Int : 474 ms SINUS TACHYCARDIA POSSIBLE LEFT ATRIAL ENLARGEMENT WHEN COMPARED WITH ECG OF 24-JUL-2017 10:15, NO SIGNIFICANT CHANGE WAS FOUND Confirmed by ESTHELA POON MD ([id number]) on 06/08/2018 11:51:43 AM Referred By: Confirmed By:ESTHELA POON MD
== END 2018-04-18 15:30 | disposition home or self-care (01) ==
LOC: JONCCHEMO 07:54 → J7W 10:08 → JONCCHEMO 15:30
PROVIDERS: ATTEND Internal Medicine Hematology & Oncology
DX: Z51.11 Encounter for antineoplastic chemotherapy (principal); C34.31 Malignant neoplasm of lower lobe, right bronchus or lung
CPT/HCPCS: 36415; 80053; 80076; 83735; 85025; 93005; 93010; 96361; 96367; 96375; 96413; J1100; J2997; J9271

== ENCOUNTER 2018-04-23 08:44 | Inpatient (IN) | payer OTHER ==
--- NOTE | 2018-04-23 09:09 | PDOC ---
History of Present Illness - General Chief Complaint: Chest Pain Stated Complaint: CHEST PAIN Time Seen by Provider: 04/23/18 09:09 Past History - Past Medical History Allergies/Adverse Reactions: Allergies Allergy/AdvReac Type Severity Reaction Status Date / Time Penicillins Allergy Intermediate Rash Verified 07/24/17 08:51 quetiapine fumarate AdvReac Intermediate nightmares Verified 07/24/17 08:51 [From Seroquel] Home Medications: Ambulatory Orders Methadone HCl 20 mg PO DAILY 02/11/14 Amlodipine Besylate 5 mg PO HS 06/10/16 Pantoprazole Sodium [Protonix -] 40 mg PO DAILY 07/05/16 Alprazolam 0.25 mg PO BID 06/30/17 Mirtazapine [Remeron -] 30 mg PO HS 07/28/17 Baclofen 10 mg PO TID PRN 08/25/17 Nystatin Oral Suspension - [Nystatin Oral Susp 447600 Units/5 ML -] 5 ml PO QID #1 bottle 09/25/17 Mag Hydrox/Alh/Smc/Dpha/Lido [Magic Mouthwash *Sjr Formula* -] 5 ml MM Q6HPO #1 bottle 10/23/17 Multivitamin [Multiple Vitamins] 1 each PO DAILY #30 tablet 11/22/17 Ergocalciferol [Vitamin D2] 50,000 unit PO Q7D@1000 #4 capsule 12/22/17 Diclofenac Sodium [Voltaren] 2 gm TP QID PRN #3 tube 01/17/18 Gabapentin 300 mg PO Q8H #90 capsule 03/16/18 Oxycodone HCl/Acetaminophen [Percocet 10-325 mg Tablet] 1 each PO TID #70 tablet MDD 3 04/16/18 Anemia: No Asthma: No Cancer: Yes (metastatic lung cancer) Cardiac Disorders: No CVA: No COPD: Yes CHF: No Dementia: No Diabetes: No GI Disorders: Yes (GERD) Disorders: No HTN: Yes Hypercholesterolemia: Yes Kidney Stones: No Liver Disease: No Seizures: No Thyroid Disease: No - Surgical History Abdominal Surgery: No Appendectomy: No Cardiac Surgery: No Cholecystectomy: No Lung Surgery: No (lung biopsy) Neurologic Surgery: No Orthopedic Surgery: No - Reproductive History Testicular Surgery: No - Suicide/Smoking/Psychosocial Hx Smoking History: Never smoked Have you smoked in the past 12 months: No Number of Cigarettes Smoked Daily: 1 Information on smoking cessation initiated: No 'Breaking Loose' booklet given: 05/05/16 Hx Alcohol Use: No Drug/Substance Use Hx: No Substance Use Type: Cocaine, Heroin, Marijuana, Opiates Hx Substance Use Treatment: Yes (OTP) *Physical Exam - Vital Signs Last Vital Signs Temp Pulse Resp BP Pulse Ox 98.4 F 100 H 16 149/85 92 L 04/23/18 08:47 04/23/18 08:47 04/23/18 08:47 04/23/18 08:47 04/23/18 08:47 Moderate Sedation - Procedure Monitoring Vital Signs: Procedure Monitoring Vital Signs Temperature 98.4 F 04/23/18 08:47 Pulse Rate 100 H 04/23/18 08:47 Respiratory Rate 16 04/23/18 08:47 Blood Pressure 149/85 04/23/18 08:47 O2 Sat by Pulse Oximetry (%) 92 L 04/23/18 08:47 *DC/Admit/Observation/Transfer - Discharge Dispostion Condition at time of disposition: Stable - Referrals Referrals: Lakisha Donis MD [Primary Care Provider] - - Patient Instructions - Post Discharge Activity
--- NOTE | 2018-04-23 09:14 | PDOC ---
Attending Attestation - Resident Resident Name: Vanessa Redding - HPI HPI: 04/23/18 11:19 Pt presents to the ED complaining of R sided chest pain and shortness of breath that have been present for several days since his port was de clotted several days ago. Denies fever or cough. Pain is pressure like, moderate in severity, constant and radiates down the R arm. Extensive past medical history as described in resident note, notable for metastatic lung CA, currently on chemo. No prior history of PE or DVT. 04/23/18 11:23 - Physicial Exam PE: 04/23/18 11:24 Agree with resident exam. Patient is alert and oriented, speaking in complete sentences without respiratory distress. Mildy tachycardic. - Medical Decision Making 04/23/18 11:25 Pt presents to the ED complaining of R sided chest pain that is different from his chronic chest pain. History of malignancy. Differential includes PE, ACS, PNA, less likely pleural effusion. Will check labs and CT PE, reassess. 04/23/18 12:38 CT shows large PE. PT remains hemodynamically stable. Will admit to medicine for anticoagulation. <Ashely Sharp - Last Filed: 04/23/18 12:38> - Medical Decision Making 04/23/18 12:[address] Emmanuel, patient's director of infection prevention, case was discussed with resident physician, Dr. Vanessa Redding. <Janice Mendoza - Last Filed: 04/23/18 12:44> Attestations - Attestations 04/23/18 12:43 Documentation prepared by Janice Mendoza, acting as medical practice assistant for Ashely Sharp MD.. <Janice Mendoza - Last Filed: 04/23/18 12:44>
[2018-04-23] MEDS ORDERED: ACETAMINOPHEN 1000 MG/100 ML VIAL (NON FORMULARY) IVPB ONE (09:54)
[2018-04-23] MEDS ORDERED: SODIUM CHLORIDE 0.9% 500 ML INFUS.BAG IV ONE (09:58)
[2018-04-23] MEDS ORDERED: ACETAMINOPHEN INJECTION 100 ML IVPB ONE (10:17)
--- NOTE | 2018-04-23 10:32 | PDOC ---
History of Present Illness - General Chief Complaint: Chest Pain Stated Complaint: CHEST PAIN Time Seen by Provider: 04/23/18 09:09 History Source: Patient Exam Limitations: No Limitations - History of Present Illness Initial Comments: 04/23/18 10:03 [id number] with h/o stage IV lung CA s/p right anterior chest wall port placement, on chemo with last tx 04/18/18, HTN, COPD, past smoker, and CAD, who p/w right sided diffuse anterior chest pain radiating down his right arm and to his neck which has been ongoing for the past week but acutely worsened since last night. He additionally notes mild headache, mild SOB, mild palpitations. He denies new neck/back pain, vision changes, abdominal pain, leg pain/swelling, f/c/n/v/d/c, or other symptoms. Past History - Past Medical History Allergies/Adverse Reactions: Allergies Allergy/AdvReac Type Severity Reaction Status Date / Time Penicillins Allergy Intermediate Rash Verified 07/24/17 08:51 quetiapine fumarate AdvReac Intermediate nightmares Verified 07/24/17 08:51 [From Seroquel] Home Medications: Ambulatory Orders Methadone HCl 20 mg PO DAILY 02/11/14 Amlodipine Besylate 5 mg PO DAILY 06/10/16 Pantoprazole Sodium [Protonix -] 40 mg PO DAILY 07/05/16 Mirtazapine [Remeron -] 30 mg PO HS 07/28/17 Nystatin Oral Suspension - [Nystatin Oral Susp 858726 Units/5 ML -] 5 ml PO QID #1 bottle 09/25/17 Multivitamin [Multiple Vitamins] 1 each PO DAILY #30 tablet 11/22/17 Ergocalciferol [Vitamin D2] 50,000 unit PO Q7D@1000 #4 capsule 12/22/17 Diclofenac Sodium [Voltaren] 2 gm TP QID PRN #3 tube 01/17/18 Gabapentin 300 mg PO Q8H #90 capsule 03/16/18 Oxycodone HCl/Acetaminophen [Percocet 10-325 mg Tablet] 1 each PO TID #70 tablet MDD 3 04/16/18 Prednisone 10 mg PO DAILY 04/23/18 Triamcinolone 0.1% Cream [Aristocort 0.1% Cream -] 1 applic TP BID 04/23/18 Xanax 04/23/18 Aspirin [ASA -] 81 mg PO DAILY tab.chew 04/26/18 Atorvastatin Ca [Lipitor] 80 mg PO HS tablet 04/26/18 Heparin - 5,000 unit IVPUSH PRN PRN vial 04/26/18 Methadone [Dolophine -] 20 mg PO DAILY@0600 tablet MDD 2 TABS 04/26/18 Metoprolol Tartrate [Lopressor -] 12.5 mg PO BID tablet 04/26/18 Anemia: No Asthma: No Cancer: Yes (metastatic lung cancer) Cardiac Disorders: No CVA: No COPD: Yes CHF: No Dementia: No Diabetes: No GI Disorders: Yes (GERD) Disorders: No HTN: Yes Hypercholesterolemia: Yes Kidney Stones: No Liver Disease: No Seizures: No Thyroid Disease: No - Surgical History Abdominal Surgery: No Appendectomy: No Cardiac Surgery: No Cholecystectomy: No Lung Surgery: No (lung biopsy) Neurologic Surgery: No Orthopedic Surgery: No - Reproductive History Testicular Surgery: No - Suicide/Smoking/Psychosocial Hx Smoking History: Never smoked Have you smoked in the past 12 months: No Number of Cigarettes Smoked Daily: 1 Information on smoking cessation initiated: No 'Breaking Loose' booklet given: 05/05/16 Hx Alcohol Use: No Drug/Substance Use Hx: No Substance Use Type: Cocaine, Heroin, Marijuana, Opiates Hx Substance Use Treatment: Yes (OTP) Cardiac Specific PMH - Complaint Specific PMHX Pacemaker: No Review of Systems - Review of Systems Able to Perform ROS?: Yes Comments:: 04/23/18 12:43 GEN: no fever, chills, malaise, generalized weakness, or weight change HEENT: throat/anterior neck pain, no ear pain, sore throat, vision change, or eye pain CV: chest pain, no palpitations, lightheadedness, syncope, or edema RESP: mild SOB, no cough, no wheezing GI: no abdominal pain, nausea, vomiting, diarrhea, constipation, or white/black/ bloody stool : no dysuria, hematuria, incontinence, retention, bleeding, or discharge MSK: no neck/back pain, muscle weakness/pain, or joint swelling/pain NEURO: mild headache, seizure, vertigo, numbness, tingling, or focal weakness PSYCH: no substance use, no behavior change SKIN: no jaundice, no rash ROS otherwise negative except as noted in HPI *Physical Exam - Vital Signs Last Vital Signs Temp Pulse Resp BP Pulse Ox 98.3 F 66 14 112/72 95 04/26/18 15:40 04/26/18 15:40 04/26/18 15:40 04/26/18 15:40 04/26/18 14:35 - Physical Exam Comments: Initial Vital Signs Temp Pulse Resp BP Pulse Ox 98.4 F 100 H 16 149/85 92 L 04/23/18 08:47 04/23/18 08:47 04/23/18 08:47 04/23/18 08:47 04/23/18 08:47 Laboratory Tests 04/23/18 04/23/18 04/23/18 10:08 10:08 10:45 WBC 13.8 H RBC 5.21 Hgb 15.6 Hct 45.8 MCV 87.8 MCH 29.9 MCHC 34.1 RDW 15.2 Plt Count 326 MPV 8.0 Absolute Neuts (auto) 11.4 H Neutrophils % 82.4 Lymphocytes % 9.0 D Monocytes % 6.3 Eosinophils % 1.7 Basophils % 0.6 Nucleated RBC % 0 PT with INR 12.80 INR 1.08 Sodium 139 Potassium 3.9 Chloride 101 Carbon Dioxide 29 Anion Gap 9 BUN 18 Creatinine 1.0 Creat Clearance w eGFR > 60 Random Glucose 126 H Calcium 9.1 Total Bilirubin 0.7 AST 26 ALT 31 Alkaline Phosphatase 119 H Creatine Kinase 54 Troponin I 0.06 H Total Protein 7.2 Albumin 3.9 GENERAL: chronically ill-appearing, uncomfortable, A/Ox4, moderate distress, answers questions appropriately, [place] speaking, son at bedside HEENT: PERRLA, EOMI, moist mucous membranes NECK/BACK: no midline ttp, no spinal stepoff or deformity, no hematoma, full ROM , neck supple CARDIOVASCULAR: regular rate/rhythm, normal S1S2, no MGR, strong peripheral pulses, capillary refill <2 seconds, extremities wwp, no edema LUNGS/RESPIRATORY: mild respiratory distress, lungs CTAB without areas of decreased breath sounds GI/ABDOMEN: symmetric [id number], normoactive BS, soft, no ttp, no midline pulsatile masses : no CVA tenderness EXTREMITIES: no muscle atrophy, no acute deformity, no edema SKIN: warm and dry, no pallor, no jaundice, no rash, no bruising, no skin breakdown, no cuts, no lesions NEUROLOGICAL: GCS 15, CN II-XII grossly intact, 5/5 strength proximally and distally, no facial droop Heart Score/ECG Review - History History: Moderately suspicious - Electrocardiogram EKG: Non specific repolarization disturbance - Age Age: 45-65 - Risk Factors Risk Factors Heart Score: Yes Hx Hypertension, Yes Smoking History, Yes Positive family hx of cardiac disease Based on the list above the patient has:: >/=3 risk factors or Hx atherosclerotic disease - Troponin Troponin: </= normal limit - Score Heart Score - Total: 5 #1 Sinus rhythm, rate 89, normal axis, QTc 481, ST-T abnormality in anterior leads , no additional ST-T abnormalities Moderate Sedation - Procedure Monitoring Vital Signs: Procedure Monitoring Vital Signs Temperature 98.3 F 04/26/18 15:40 Pulse Rate 66 04/26/18 15:40 Respiratory Rate 14 04/26/18 15:40 Blood Pressure 112/72 04/26/18 15:40 O2 Sat by Pulse Oximetry (%) 95 04/26/18 14:35 ED Treatment Course - LABORATORY CBC & Chemistry Diagram: 04/26/18 05:15 04/26/18 05:15 - ADDITIONAL ORDERS Additional order review: 04/23/18 10:08 RBC 5.21 MCV 87.8 MCHC 34.1 RDW 15.2 MPV 8.0 Neutrophils % 82.4 Lymphocytes % 9.0 D Monocytes % 6.3 Eosinophils % 1.7 Basophils % 0.6 - RADIOLOGY Radiology Studies Ordered: Category Date Time Status CHEST CTA [CT] Stat CT Scan 04/23/18 09:57 Completed CHEST - PA [RAD] Stat Radiology 04/23/18 09:57 Completed - Medications Given in the ED: ED Medications Discontinued Medications Generic Name Dose Route Start Last Admin Trade Name Freq PRN Reason Stop Dose Admin Acetaminophen 1,000 mg 04/23/18 09:54 04/23/18 10:20 Ofirmev Injection - IVPB 04/23/18 09:55 1,000 mg ONCE ONE Administration Acetaminophen 325 mg 04/23/18 22:00 04/26/18 14:17 Tylenol - PO 325 mg TID COLBY Administration Amlodipine Besylate 5 mg 04/23/18 22:00 04/25/18 22:25 Norvasc - PO 5 mg HS COLBY Administration Aspirin 325 mg 04/24/18 17:35 04/24/18 17:43 Asa - PO 04/24/18 17:36 325 mg ONCE ONE Administration Aspirin 81 mg 04/25/18 10:00 04/26/18 10:50 Asa - PO 81 mg DAILY COLBY Administration Atorvastatin Calcium 80 mg 04/25/18 10:02 04/25/18 11:37 Lipitor - PO 04/25/18 10:03 80 mg ONCE ONE Administration Clopidogrel Bisulfate 300 mg 04/24/18 17:38 04/24/18 17:43 Plavix - PO 04/24/18 17:39 300 mg ONCE ONE Administration Clopidogrel Bisulfate 75 mg 04/25/18 12:00 04/26/18 11:09 Plavix - PO 75 mg DAILY [facility] Administration Enoxaparin Sodium 80 mg 04/23/18 12:36 04/23/18 12:54 Lovenox - SQ 04/23/18 12:37 80 mg ONCE ONE Administration Enoxaparin Sodium 80 mg 04/23/18 22:00 04/25/18 22:26 Lovenox - SQ 80 mg BID [facility] Administration Gabapentin 300 mg 04/23/18 15:15 04/26/18 14:16 Neurontin - PO 300 mg Q8H COLBY Administration Heparin Sodium (Porcine) 5,000 unit 04/26/18 08:59 04/26/18 09:05 Heparin - IVPUSH 04/26/18 09:00 5,000 unit ONCE ONE Administration Heparin Sodium/Dextrose 25,000 units in 500 mls @ 20 mls/hr 04/26/18 08:30 15:30 Heparin Infusion - IVPB 950 units/hr TITR COLBY 19 mls/hr Titration Protocol 1,000 UNITS/HR Methadone HCl 20 mg 04/24/18 08:15 04/26/18 06:22 Dolophine - PO 20 mg DAILY@0600 COLBY Administration Methadone HCl 20 mg 04/24/18 06:00 04/24/18 06:08 Dolophine - PO 04/24/18 06:01 20 mg ONCE ONE Administration Metoprolol Tartrate 12.5 mg 04/24/18 22:00 04/26/18 10:50 Lopressor - PO 12.5 mg BID COLBY Administration Metoprolol Tartrate 12.5 mg 04/24/18 18:00 01/08/19 18:19 Lopressor - PO 04/24/18 18:01 12.5 mg ONCE ONE Administration Nystatin 500,000 units 04/23/18 18:00 04/26/18 14:16 Nystatin Oral Suspension - PO 500,000 units QID COLBY Administration Oxycodone HCl 5 mg 04/23/18 22:00 04/23/18 22:05 Roxicodone - PO Not Given TID COLBY Oxycodone HCl 5 mg 04/23/18 22:31 04/24/18 23:00 Roxicodone - PO 5 mg Q8H PRN Administration PAIN LEVEL 7 - 10 Pantoprazole Sodium 40 mg 04/23/18 15:15 04/26/18 10:50 Protonix - PO 40 mg DAILY [facility]BY Administration Prednisone 5 mg 04/23/18 15:30 04/26/18 10:50 Deltasone - PO 5 mg DAILY COLBY Administration Sodium Chloride 1,000 ml 04/23/18 09:58 04/23/18 10:21 Normal Saline - IV 04/23/18 09:59 1,000 ml ONCE ONE Administration Medical Decision Making - Medical Decision Making 04/23/18 12:44 Adult Pt p/w chest pain. Initial Vital Signs Temp Pulse Resp BP Pulse Ox 98.4 F 100 H 16 149/85 92 L 04/23/18 08:47 04/23/18 08:47 04/23/18 08:47 04/23/18 08:47 04/23/18 08:47 Exam: As noted in Physical Exam section. DDX IBNLT: ACS, pericarditis, tamponade, aortic dissection, AAA, PTX, PE, esophageal tear, esophagitis (e.g. pill, infectious), esophageal stricture, esophageal FB, gastritis, PUD, pancreatitis, cholecystitis, cholangitis, colitis , bowel perforation, PNA/bronchitis, pleurisy, pleuritis, MVP, pulmonary HTN, musculoskeletal, panic/anxiety, etc. W/U ordered: Labs as noted below, EKG CXR Chest CTA PE protocol TX ordered: monitor, Ofirmev, IVF EKG: Reviewed; results as noted in ECG Review section. RAD/CHEST - PA Chest pain Single portable chest x-ray. Comparison study July. Right vascular catheter in place. No evidence of widening of the superior mediastinum. The heart is borderline enlarged. The right diaphragm slightly elevated. No evidence of blunting of the costophrenic angles. Increased lung markings are noted in the region of the right cardiophrenic angle. No evidence of vascular congestive changes. Impression. Increased lung markings in the region of the right cardiophrenic angle concerning for the atelectasis. No evidence of vascular congestive changes, pneumothorax, or large pleural effusion. Laboratory Tests 04/23/18 04/23/18 04/23/18 10:08 10:08 10:45 WBC 13.8 H RBC 5.21 Hgb 15.6 Hct 45.8 MCV 87.8 MCH 29.9 MCHC 34.1 RDW 15.2 Plt Count 326 MPV 8.0 Absolute Neuts (auto) 11.4 H Neutrophils % 82.4 Lymphocytes % 9.0 D Monocytes % 6.3 Eosinophils % 1.7 Basophils % 0.6 Nucleated RBC % 0 PT with INR 12.80 INR 1.08 Sodium 139 Potassium 3.9 Chloride 101 Carbon Dioxide 29 Anion Gap 9 BUN 18 Creatinine 1.0 Creat Clearance w eGFR > 60 Random Glucose 126 H Calcium 9.1 Total Bilirubin 0.7 AST 26 ALT 31 Alkaline Phosphatase 119 H Creatine Kinase 54 Troponin I 0.06 H Total Protein 7.2 Albumin 3.9 Blood Type Antibody Screen 04/23/18 10:45 WBC RBC Hgb Hct MCV MCH MCHC RDW Plt Count MPV Absolute Neuts (auto) Neutrophils % Lymphocytes % Monocytes % Eosinophils % Basophils % Nucleated RBC % PT with INR INR Sodium Potassium Chloride Carbon Dioxide Anion Gap BUN Creatinine Creat Clearance w eGFR Random Glucose Calcium Total Bilirubin AST ALT Alkaline Phosphatase Creatine Kinase Troponin I Total Protein Albumin Blood Type O POSITIVE Antibody Screen Negative CT/CHEST CTA Chest CT angiography CLINICAL INFORMATION: chest pain Multiplanar imaging was performed following the intravenous administration of nonionic contrast. Acute bilateral upper and lower lobe lobar emboli are identified. No obvious ventricular septal displacement is seen to suggest right ventricular dysfunction allowing for vascular pulsation artifact. Correlate with echocardiography. An oval-shaped nonspecific opacity is seen within the right posterior basilar region currently measuring approximately 3.7 x 3.7 x 1.7 cm, previously 3.4 x 2.9 x 1.[address] study of 2017. Pleural thickening is again seen along the right posterior chest within the lower and middle thirds without obvious interval change. Centrilobular emphysema is noted which is probably moderate. No infiltrate or pleural effusion is seen. There is mild linear and curvilinear scarring within the right posterior lobe and lingula. No definite cardiac enlargement is seen. There is no pericardial effusion. In comparison to a contrast-enhanced CT study of 11/09/2017 interval mild enlargement of bilateral hilar lymph nodes is noted with a 1.1 cm maximum short axis diameter. A stable mildly prominent subcarinal mediastinal lymph nodes again noted with a 0.9 cm short axis diameter No aortic aneurysm is noted. The visualized osseous structures demonstrate no gross acute pathology. The partially imaged liver demonstrates diffuse steatosis. As on prior studies note is made of mild common bile duct dilatation with a 1.1 cm diameter. IMPRESSION: Acute pulmonary embolism is identified involving the upper and lower lobe lobar arteries bilaterally. Mild interval enlargement of the right lower lobe masslike opacity is noted in comparison to a prior CT study of 03/14/2018. Centrilobular emphysema. Interval mild enlargement of bilateral nonspecific hilar lymph nodes is seen. Reassessment: Patient still appears uncomfortable. VS are stable. Heparin drip protocol ordered for PE. ADMIT Repeat cardiac enzymes ordered. Patient has PE and is unsafe for discharge at this time. They require further hospital observation, workup, and treatment. Lovenox has been ordered. Microblog sent to [facility] for admission. Blank Decision to Admit order is placed per ED protocol. I subsequently spoke with [facility], order corrected with Dr. Thomas's name. *DC/Admit/Observation/Transfer Diagnosis at time of Disposition: Troponin I above reference range Pulmonary emboli Qualifiers: Pulmonary embolism type: unspecified Chronicity: acute Acute cor pulmonale presence: without acute cor pulmonale Qualified Code(s): I26.99 - Other pulmonary embolism without acute cor pulmonale - Discharge Dispostion Condition at time of disposition: Guarded Decision to Admit order: Yes - Referrals - Patient Instructions - Post Discharge Activity
[2018-04-23 10:39] LABS: BASO % 0.6 % (0-2.0); EOS % 1.7 % (0-4.5); HEMATOCRIT 45.8 % (35.4-49); HEMOGLOBIN 15.6 GM/dL (11.7-16.9); MCH 29.9 pg (25.7-33.7); MCHC 34.1 g/dl (32.0-35.9); MEAN CELL VOLUME 87.8 fl (80-96); MONO % 6.3 % (3.8-10.2); NEUT % 82.4 % (42.8-82.8); PLATELET COUNT 326 K/MM3 (134-434); RBC 5.21 M/mm3 (4.00-5.60); RDW 15.2 % (11.9-15.9); WHITE BLOOD COUNT 13.8 K/mm3 (4.0-10.0)
[2018-04-23 10:59] LABS: ALBUMIN 3.9 g/dl (3.4-5.0); ALK PHOS 119 U/L (45-117); ANION GAP 9 MMOL/L (8-16); BILIRUBIN,TOTAL 0.7 mg/dL (0.2-1); BLOOD UREA NITROGEN 18 mg/dL (7-18); CALCIUM 9.1 mg/dL (8.5-10.1); CHLORIDE 101 mmol/L (98-107); CO2 29 mmol/L (21-32); GLUCOSE,RANDOM 126 mg/dL (74-106); POTASSIUM 3.9 mmol/L (3.5-5.1); SGOT/AST 26 U/L (15-37); SGPT/ALT 31 U/L (13-61); SODIUM 139 mmol/L (136-145); TOT PROT 7.2 g/dl (6.4-8.2)
[2018-04-23 11:04] LABS: INR 1.08 (0.83-1.09); PROTHROMBIN TIME (PATIENT) 12.8 SEC (9.7-13.0)
[2018-04-23] MEDS ORDERED: HEPARIN NA (PORCINE) 5,000 UNITS/ML 1ML VIAL IVPUSH PRN ×2 (12:34)
[2018-04-23] MEDS ORDERED: ENOXAPARIN NA (PORCINE) 80 MG/0.8 ML DISP.SYRIN SQ ONE ×2 (12:36→12:45)
[2018-04-23] MEDS ORDERED: HEPARIN - 25,000 UNIT in SODIUM CHLORIDE 495 ML IV SCH (12:45)
[2018-04-23 14:00] LABS: URINE APPEARANCE CLEAR; URINE BILIRUBIN NEGATIVE (<2.0 mg/dL); URINE COLOR COLORLESS; URINE GLUCOSE (UA) NEGATIVE (NEGATIVE); URINE KETONE NEGATIVE (NEGATIVE); URINE LEUK ESTERASE NEGATIVE (NEGATIVE); URINE NITRITE NEGATIVE (NEGATIVE); URINE PROTEIN NEGATIVE (NEGATIVE); URINE UROBILINOGEN NEGATIVE mg/dL (0.2-1.0)
[2018-04-23] MEDS ORDERED: PATIENT'S OWN MEDICATION (NON-FORMULARY) (Diclofenac Sodium [Voltaren] 2 GM) TP PRN (15:14)
[2018-04-23] MEDS ORDERED: PANTOPRAZOLE 40 MG TABLET (FP) ONE (15:43)
[2018-04-23] MEDS ORDERED: GABAPENTIN 100 MG CAPSULE (FP) ONE (15:43)
[2018-04-23] MEDS: GABAPENTIN 300 MG CAPSULE (FP) PO SCH ×2 (15:49→23:57)
[2018-04-23] MEDS: predniSONE 5 MG TABLET (UD) PO SCH (15:49)
[2018-04-23] MEDS: PANTOPRAZOLE 40 MG TABLET (FP) PO SCH (15:49)
--- NOTE | 2018-04-23 16:54 | HP ---
CHIEF COMPLAINT: PCP: HISTORY OF PRESENT ILLNESS: Pt presents to the ED complaining of R sided chest pain and shortness of breath that have been present for several days since his port was de clotted several days ago. Denies fever or cough. Pain is pressure like, moderate in severity, constant and radiates down the R arm. Extensive past medical history as described in resident note, notable for metastatic lung CA, currently on chemo. No prior history of PE or DVT. Recent Travel: PAST MEDICAL HISTORY: Metastatic lung ca. PAST SURGICAL HISTORY: Social History: Smoking: Alcohol: Drugs: Family History: Allergies Penicillins Allergy (Intermediate, Verified 07/24/17 08:51) Rash quetiapine fumarate [From Seroquel] Adverse Reaction (Intermediate, Verified 01/02 08:51) nightmares HOME MEDICATIONS: Home Medications Medication Instructions Recorded Methadone HCl 20 mg PO DAILY 02/11/14 Amlodipine Besylate 5 mg PO HS 06/10/16 Pantoprazole Sodium [Protonix -] 40 mg PO DAILY 07/05/16 Mirtazapine [Remeron -] 30 mg PO HS 07/28/17 Nystatin Oral Suspension - 5 ml PO QID #1 bottle 09/25/17 [Nystatin Oral Susp 187330 Units/5 ML -] Multivitamin [Multiple Vitamins] 1 each PO DAILY #30 tablet 11/22/17 Ergocalciferol [Vitamin D2] 50,000 unit PO Q7D@1000 #4 capsule 12/22/17 Diclofenac Sodium [Voltaren] 2 gm TP QID PRN #3 tube 01/17/18 Gabapentin 300 mg PO Q8H #90 capsule 03/16/18 Oxycodone HCl/Acetaminophen 1 each PO TID #70 tablet MDD 3 04/16/18 [Percocet 10-325 mg Tablet] Levofloxacin [Levaquin] 500 mg PO DAILY 04/23/18 Prednisone 5 mg PO DAILY 04/23/18 Triamcinolone 0.1% Cream 1 applic TP BID 04/23/18 [Aristocort] REVIEW OF SYSTEMS Other ROS are negative. PHYSICAL EXAMINATION Vital Signs - 24 hr 04/23/18 08:47 Temperature 98.4 F Pulse Rate 100 H Respiratory 16 Rate Blood Pressure 149/85 O2 Sat by Pulse 92 L Oximetry (%) GENERAL: Awake, alert, and fully oriented, in no acute distress. HEAD: Normal with no signs of trauma. EYES: Pupils equal, round and reactive to light, extraocular movements intact, sclera anicteric, conjunctiva clear. No lid lag. EARS, NOSE, THROAT: Ears normal, nares patent, oropharynx clear without exudates. Moist mucous membranes. NECK: Normal range of motion, supple without lymphadenopathy, JVD, or masses. LUNGS: Breath sounds equal, clear to auscultation bilaterally. No wheezes, and no crackles. No accessory muscle use. Mediport in place over right chest wall. HEART: Regular rate and rhythm, normal S1 and S2 without murmur, rub or gallop. ABDOMEN: Soft, nontender, not distended, normoactive bowel sounds, no guarding, no rebound, no masses. No hepatomegaly or splenomegaly. MUSCULOSKELETAL: Normal range of motion at all joints. No bony deformities or tenderness. No CVA tenderness. UPPER EXTREMITIES: 2+ pulses, warm, well-perfused. No cyanosis. No clubbing. No peripheral edema. LOWER EXTREMITIES: 2+ pulses, warm, well-perfused. No calf tenderness. No peripheral edema. NEUROLOGICAL: Cranial nerves II-XII intact. Normal speech. Normal gait. PSYCHIATRIC: Cooperative. Good eye contact. Appropriate mood and affect. SKIN: Warm, dry, normal turgor, no rashes or lesions noted, normal capillary refill. Laboratory Results - last 24 hr 04/23/18 04/23/18 04/23/18 10:08 10:08 10:45 WBC 13.8 H RBC 5.21 Hgb 15.6 Hct 45.8 MCV 87.8 MCH 29.9 MCHC 34.1 RDW 15.2 Plt Count 326 MPV 8.0 Absolute Neuts (auto) 11.4 H Neutrophils % 82.4 Lymphocytes % 9.0 D Monocytes % 6.3 Eosinophils % 1.7 Basophils % 0.6 Nucleated RBC % 0 PT with INR 12.80 INR 1.08 Sodium 139 Potassium 3.9 Chloride 101 Carbon Dioxide 29 Anion Gap 9 BUN 18 Creatinine 1.0 Creat Clearance w eGFR > 60 Random Glucose 126 H Calcium 9.1 Total Bilirubin 0.7 AST 26 ALT 31 Alkaline Phosphatase 119 H Creatine Kinase 54 Troponin I 0.06 H Total Protein 7.2 Albumin 3.9 Urine Color Urine Appearance Urine pH Ur Specific [place] Urine Protein Urine Glucose (UA) Urine Ketones Urine Blood Urine Nitrite Urine Bilirubin Urine Urobilinogen Ur Leukocyte Esterase Blood Type Antibody Screen 04/23/18 04/23/18 10:45 13:23 WBC RBC Hgb Hct MCV MCH MCHC RDW Plt Count MPV Absolute Neuts (auto) Neutrophils % Lymphocytes % Monocytes % Eosinophils % Basophils % Nucleated RBC % PT with INR INR Sodium Potassium Chloride Carbon Dioxide Anion Gap BUN Creatinine Creat Clearance w eGFR Random Glucose Calcium Total Bilirubin AST ALT Alkaline Phosphatase Creatine Kinase Troponin I Total Protein Albumin Urine Color Colorless Urine Appearance Clear Urine pH 7.0 D Ur Specific [place] 1.039 H Urine Protein Negative Urine Glucose (UA) Negative Urine Ketones Negative Urine Blood Negative Urine Nitrite Negative Urine Bilirubin Negative Urine Urobilinogen Negative Ur Leukocyte Esterase Negative Blood Type O POSITIVE Antibody Screen Negative ASSESSMENT/PLAN: Pt presents to the ED complaining of R sided chest pain and shortness of breath that have been present for several days since his port was de clotted several days ago. Denies fever or cough. Pain is pressure like, moderate in severity, constant and radiates down the R arm. Extensive past medical history as described in resident note, notable for metastatic lung CA, currently on chemo. No prior history of PE or DVT. # Acute Pulmonary Embolism B/L 2/2 Underlying metastatic malignancy. Lovenox at therapeutic dose would be appropriate. Please get 2D ECHO r/o RV strain. Pulm eval will be appreciated. # Troponinemia 2/2 B/L PE, doubt CAD. (? Type 2 NSTEMI) Trend CE. # Metastatic lung cancer on Chemo. # Chronic back pain > Control pain. C/W other medical mgmt. NO need for abx. PLAN D/W the patient at bedside. Visit type - Emergency Visit Emergency Visit: Yes ED Registration Date: 04/23/18 Care time: The patient presented to the Emergency Department on the above date and was hospitalized for further evaluation of their emergent condition. - New Patient This patient is new to me today: Yes Date on this admission: 04/23/18 - Critical Care Critical Care patient: No
[2018-04-23] MEDS: NYSTATIN 500,000 UNITS/5 ML SUSPENSION PO SCH ×2 (18:14→23:57)
[2018-04-23] MEDS ORDERED: oxyCODONE HCL 5 MG TABLET PO SCH (22:00)
[2018-04-23] MEDS ORDERED: oxyCODONE HCL 5 MG TABLET PO PRN (22:31)
[2018-04-23] MEDS: amLODIPine BESYLATE 5 MG TABLET (FP) PO SCH (22:32)
[2018-04-23] MEDS: ACETAMINOPHEN 325 MG TABLET (FP) PO SCH (23:57)
[2018-04-23] MEDS: ENOXAPARIN NA (PORCINE) 80 MG/0.8 ML DISP.SYRIN SQ SCH (23:57)
[2018-04-24] MEDS ORDERED: METHADONE HCL 10 MG TABLET PO ONE (06:00)
[2018-04-24] MEDS: ACETAMINOPHEN 325 MG TABLET (FP) PO SCH ×3 (06:09→22:59)
[2018-04-24] MEDS: GABAPENTIN 300 MG CAPSULE (FP) PO SCH ×3 (06:18→22:58)
[2018-04-24 06:56] LABS: BASO % 1.3 % (0-2.0); EOS % 4.5 % (0-4.5); HEMATOCRIT 43.6 % (35.4-49); LYMPH % 18.6 % (8-40); MCH 28.3 pg (25.7-33.7); MCHC 32.2 g/dl (32.0-35.9); MEAN PLT VOLUME 8.2 fl (7.5-11.1); MONO % 10.2 % (3.8-10.2); NEUT % 65.4 % (42.8-82.8); PLATELET COUNT 278 K/MM3 (134-434); RBC 4.96 M/mm3 (4.00-5.60); RDW 14.7 % (11.9-15.9); WHITE BLOOD COUNT 10.3 K/mm3 (4.0-10.0)
[2018-04-24 07:09] LABS: ALBUMIN 3.4 g/dl (3.4-5.0); ALK PHOS 103 U/L (45-117); ANION GAP 9 MMOL/L (8-16); BILIRUBIN,TOTAL 0.7 mg/dL (0.2-1); BLOOD UREA NITROGEN 14 mg/dL (7-18); CALCIUM 8.2 mg/dL (8.5-10.1); CHLORIDE 101 mmol/L (98-107); CO2 28 mmol/L (21-32); CREATININE 1.1 mg/dL (0.55-1.3); GLUCOSE,RANDOM 94 mg/dL (74-106); MAGNESIUM 2.2 mg/dL (1.8-2.4); PHOSPHOROUS 2.4 mg/dL (2.5-4.9); POTASSIUM 3.9 mmol/L (3.5-5.1); SGOT/AST 121 U/L (15-37); SGPT/ALT 38 U/L (13-61); SODIUM 138 mmol/L (136-145); TOT PROT 6.4 g/dl (6.4-8.2)
--- NOTE | 2018-04-24 10:04 | EKG ---
Test Reason : Blood Pressure : / mmHG Vent. Rate : 089 BPM Atrial Rate : 089 BPM P-R Int : 122 ms QRS Dur : 096 ms QT Int : 396 ms P-R-T Axes : 068 052 091 degrees QTc Int : 481 ms NORMAL SINUS RHYTHM SEPTAL INFARCT (CITED ON OR BEFORE 23-APR-2018) T WAVE ABNORMALITY, CONSIDER ANTEROLATERAL ISCHEMIA ABNORMAL ECG Confirmed by Todd An MD ([id number]) on 04/24/2018 10:03:45 AM Referred By: Confirmed By:Todd An MD
--- NOTE | 2018-04-24 10:34 | CONSULT ---
Consult Consult Specialty:: HEMATOLOGY-ONCOLOGY Reason for Consultation:: [facility] - History of Present Illness Chief Complaint: chest pain, shortness of breath History of Present Illness: 62 yr old man with HTN, DM, methadone maintenance therapy, chronic pain, and lung cancer presents with progressively worsening shortness of breath and chest pain since Monday. It started at his port-site during chemo. He initially had a thrombus in the port that required AC through the port to the break up the clot prior to receiving chemo. the pain improved once the port was functioning but then worsened at home. Pain is located substernally, nonradiating. On monday he was in excruciating pain, without any alleviating factors and presented to the ED for further evaluation. He was found to have a PE. Heme-Onc has been asked to evaluate the patient. denies fevers, cough, lightheadedness, bruising/bleeding, cough, hematochezia, abdominal pain, headache. denies recent travel. - History Source History Provided By: Patient - Past Medical History Cardio/Vascular: Yes: CAD, HTN Pulmonary: Yes: Other (lung ca) Infectious Disease: Yes: Other (hep c) - Alcohol/Substance Use Hx Alcohol Use: No - Smoking History Smoking history: Former smoker Have you smoked in the past 12 months: No Aproximately how many cigarettes per day: 1 Home Medications - Allergies Allergies/Adverse Reactions: Allergies Allergy/AdvReac Type Severity Reaction Status Date / Time Penicillins Allergy Intermediate Rash Verified 07/24/17 08:51 quetiapine fumarate AdvReac Intermediate nightmares Verified 07/24/17 08:51 [From Seroquel] - Home Medications Home Medications: Ambulatory Orders Methadone HCl 20 mg PO DAILY 02/11/14 Amlodipine Besylate 5 mg PO DAILY 06/10/16 Pantoprazole Sodium [Protonix -] 40 mg PO DAILY 07/05/16 Mirtazapine [Remeron -] 30 mg PO HS 07/28/17 Nystatin Oral Suspension - [Nystatin Oral Susp 897440 Units/5 ML -] 5 ml PO QID #1 bottle 09/25/17 Multivitamin [Multiple Vitamins] 1 each PO DAILY #30 tablet 11/22/17 Ergocalciferol [Vitamin D2] 50,000 unit PO Q7D@1000 #4 capsule 12/22/17 Diclofenac Sodium [Voltaren] 2 gm TP QID PRN #3 tube 01/17/18 Gabapentin 300 mg PO Q8H #90 capsule 03/16/18 Oxycodone HCl/Acetaminophen [Percocet 10-325 mg Tablet] 1 each PO TID #70 tablet MDD 3 04/16/18 Prednisone 10 mg PO DAILY 04/23/18 Triamcinolone 0.1% Cream [Aristocort 0.1% Cream -] 1 applic TP BID 04/23/18 Xanax 04/23/18 Aspirin [ASA -] 81 mg PO DAILY tab.chew 04/26/18 Atorvastatin Ca [Lipitor] 80 mg PO HS tablet 04/26/18 Heparin - 5,000 unit IVPUSH PRN PRN vial 04/26/18 Methadone [Dolophine -] 20 mg PO DAILY@0600 tablet MDD 2 TABS 04/26/18 Metoprolol Tartrate [Lopressor -] 12.5 mg PO BID tablet 04/26/18 Family Disease History - Family Disease History Family Disease History: Diabetes: Mother (alive), Heart Disease: Father ( after heart surgery), Mother, Other: Father, Brother (one HIV/ drugs; two other living), Sister (one living), Son (2- living, healthy), Daughter (2 - living, healthy) Physical Exam Vital Signs: Vital Signs Temperature 98.8 F 04/24/18 05:00 Pulse Rate 93 H 04/24/18 05:00 Respiratory Rate 20 04/24/18 05:00 Blood Pressure 95/50 L 04/24/18 05:00 O2 Sat by Pulse Oximetry (%) 95 04/23/18 22:00 Constitutional: Yes: No Distress, Calm Eyes: Yes: Conjunctiva Clear, EOM Intact HENT: Yes: Atraumatic, Normocephalic. No: Pharyngeal Erythema, Thrush Neck: Yes: Supple, Trachea Midline. No: Tenderness, Thyromegaly Cardiovascular: Yes: Regular Rate and Rhythm, Other (nontender chest). No: Murmur Respiratory: Yes: Regular, CTA Bilaterally Gastrointestinal: Yes: Normal Bowel Sounds, Soft Edema: No Peripheral Pulses WNL: Yes Neurological: Yes: Alert, Oriented ...Motor Strength: WNL Labs: CBC, BMP 04/24/18 05:30 04/24/18 05:30 Assessment/Plan 62 yr old man with metastatic lung adenocarcinoma receiving Keytruda presents with chest pain and shortness of breath found to have PE and elevated troponins being monitored in the ICU. Problem list: adenocarcinoma - last keytruda 04/18/2018 PE, likely due to his hypercoaguable state with malignancy elevated tropinins A/P - lovenox BID for anticoagulation. discussed use of AC at home, pt is amenable to subq injections or oral. - trend troponins, f/u cardiology consult - await echo report to evaluate for right heart strain
[2018-04-24] MEDS: PANTOPRAZOLE 40 MG TABLET (FP) PO SCH (10:55)
[2018-04-24] MEDS: NYSTATIN 500,000 UNITS/5 ML SUSPENSION PO SCH ×4 (10:55→22:57)
[2018-04-24] MEDS: ENOXAPARIN NA (PORCINE) 80 MG/0.8 ML DISP.SYRIN SQ SCH ×2 (10:55→22:57)
[2018-04-24] MEDS: predniSONE 5 MG TABLET (UD) PO SCH (10:55)
[2018-04-24] MEDS: METHADONE HCL 10 MG TABLET PO SCH (10:57)
--- NOTE | 2018-04-24 12:25 | PN ---
Progress Note (short form) - Note Progress Note: PULMONARY CONSULTATION DICTATED 04/24/18 IMP BILATERAL PULMONARY EMBOLISM HYPOXEMIA SECONDARY TO ABOVE CHEST PAIN LUNG CA STAGE 4 + TROPONIN PLAN LOVENOX O2 ECHO DUPLEX LOWER EXTREMITIES TREND TROPONINS DR ALCARAZ Problem List - Problems (1) Lung cancer Code(s): C34.90 - MALIGNANT NEOPLASM OF UNSP PART OF UNSP BRONCHUS OR LUNG (2) Pulmonary emboli Code(s): I26.99 - OTHER PULMONARY EMBOLISM WITHOUT ACUTE COR PULMONALE Qualifiers: Pulmonary embolism type: unspecified Chronicity: acute Acute cor pulmonale presence: without acute cor pulmonale Qualified Code(s): I26.99 - Other pulmonary embolism without acute cor pulmonale (3) Troponin I above reference range Code(s): R74.8 - ABNORMAL LEVELS OF OTHER SERUM ENZYMES (4) HTN (hypertension) Code(s): I10 - ESSENTIAL (PRIMARY) HYPERTENSION (5) Hypoxemia requiring supplemental oxygen Code(s): R09.02 - HYPOXEMIA; Z99.81 - DEPENDENCE ON SUPPLEMENTAL OXYGEN (6) Chest pain Code(s): R07.9 - CHEST PAIN, UNSPECIFIED
--- NOTE | 2018-04-24 12:55 | CONS ---
DATE OF CONSULTATION: 04/24/2018 PULMONARY CONSULTATION REFERRING PHYSICIAN: Joel Morin NP Patient is a 62-year-old male with past medical history of stage IV lung carcinoma diagnosed 2 years ago status post chemotherapy currently on immunotherapy last treatment week ago, admitted to [facility] for complaint of right-sided chest pain, shortness of breath. Patient states that he was well until approximately a week ago. At that time, he was receiving chemo, and his port got clotted, they removed the clot without complications. He started developing increasing chest pain increased with inspiration as well as shortness of breath with exertion without any nausea, vomiting, or diaphoresis. Denied any fevers or chills. He presented to the emergency room with the above. In the ER, he had a CTA of the chest which revealed large bilateral pulmonary emboli. He denies any previous history of pulmonary emboli or DVT in the past. He denies any lower extremity edema. There is no history of recent travel. He has a history of lung CA diagnosed 2 years ago and at the time was found to have stage IV. Patient denies any history of COPD or asthma in the past. There is no history of occupational exposures to chemicals or fumes. There is a history of tobacco approximately 1 pack per day for greater than 40 years. Quit a couple of years ago. PAST MEDICAL HISTORY: Stage IV lung CA. REVIEW OF SYSTEMS: Positive for chest pain. Positive shortness of breath. No cough. No hemoptysis. No abdominal pain. No lower extremity edema. CURRENT MEDICATIONS: Include diclofenac, prednisone, Tylenol, Lovenox, Neurontin, Norvasc, morphine, oxycodone, nystatin, Protonix. PHYSICAL EXAMINATION: General: Patient is a well-developed, well-nourished male awake, alert, in no acute distress. Vital Signs: He is currently afebrile, blood pressure is 102/69, O2 saturation is 88% on room air. HEENT: Exam is normocephalic, atraumatic. Neck: Supple. Heart: Regular, S1, S2. Chest: Clear. Abdomen: Soft. Bowel sounds positive. Extremities: No cyanosis. Edema. LABORATORIES: WBC is 10.3, hemoglobin 14.0, hematocrit 43.6 with a platelet count 278,000. BUN 14, creatinine 1.1. Troponin 0.06. Chest CT reveals large bilateral pulmonary emboli and is oval shaped opacity in right posterior basilar region 3 x 7 x 1.7 cm which has increased in size from previous CAT scan March 14, 2018. IMPRESSION: 1. Acute bilateral pulmonary embol 2. Hypoxemia secondary to above 3. Chest pain 4. Stage IV lung carcinoma. 5. Positive troponins. PLAN: Lovenox. Supplemental O2. Obtain echocardiogram. Trend troponins. Duplex the lower extremities. Continue telemetry monitoring. Supplemental O2. VIDAL ALCARAZ M.D. [id number] MTDD
--- NOTE | 2018-04-24 13:30 | ECHO ---
Name: TAMY ROMO Exam:Adult Echocardiogram Study Date: 04/24/2018 11:46 AM Age: 62 yrs Reason For Study: R/O RT HEART STRAIN Height: 67 in Weight: 178 lb BSA: 1.9 m2 MMode/2D Measurements & Calculations IVSd: 1.7 cm Ao root diam: 3.1 cm LVIDd: 4.0 cm LA dimension: 3.1 cm LVIDs: 2.8 cm LVPWd: 1.1 cm EDV(Teich): 71.4 ml ESV(Teich): 30.2 ml Doppler Measurements & Calculations MV E max jordan: 34.4 cm/sec TR max jordan: 290.2 cm/sec MV A max jordan: 58.7 cm/sec TR max P.0 mmHg MV E/A: 0.59 MV dec time: 0.13 sec Med Peak E' Jordan: 5.4 cm/sec PI Vmax: 152.3 cm/sec Med E/e': 6.3 Lat Peak E' Jordan: 5.5 cm/sec Lat E/e': 6.2 Procedure A complete two-dimensional transthoracic echocardiogram was performed (2D, M-mode, Doppler and color flow Doppler). Left Ventricle The left ventricular size, thickness and function are normal. Ejection Fraction = 60%. The transmitra l spectral Doppler flow pattern is suggestive of impaired LV relaxation. The left ventricular wall aylin on is normal. Right Ventricle The right ventricle is normal in size and function. Atria Normal left and right atrial size and function. Mitral Valve The mitral valve is normal in structure and function. Tricuspid Valve The tricuspid valve is normal. There is trace tricuspid regurgitation. Right ventricular systolic pre ssure is elevated at 34 mmhg. Aortic Valve The aortic valve is normal in structure and function. Pulmonic Valve The pulmonic valve is not well seen, but is grossly normal. Great Vessels The aortic root is normal size. Normal aortic arch, descending and ascending aorta. Pericardium/Pleura There is no pericardial effusion. There is no pleural effusion. Interpretation Summary The left ventricular size, thickness and function are normal Ejection Fraction = 60%. The transmitral spectral Doppler flow pattern is suggestive of impaired LV relaxation. The right ventricle is normal in size and function. The mitral valve is normal in structure and function. There is trace tricuspid regurgitation. Right ventricular systolic pressure is elevated at 34 mmhg. MD Todd An 04/24/2018 01:30 PM
--- NOTE | 2018-04-24 13:48 | CON.CARD ---
Consult Consult Specialty:: cardiology Reason for Consultation:: elevated TNI; bilateral PE; lung CA - History of Present Illness Chief Complaint: Pt A&ox3; asymptomatic History of Present Illness: 62YOMb (b. [place]), with h/o stage IV lung CA, moderate emphysema, s/p right anterior chest wall port placement, on chemo with last tx 04/18/18, who p/w right sided diffuse anterior chest pain radiating down his right arm and to his neck which has been ongoing for the past week but acutely worsened since last night. He additionally notes mild headache, mild SOB, mild palpitations. He denies new neck/back pain, vision changes, abdominal pain, leg pain/swelling, f/ c/n/v/d/c, or other symptoms. 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 He denies chest pain; +CHANEL and exertional fatigue. - History Source History Provided By: Patient, Medical Record Limitations to Obtaining History: No Limitations - Past Medical History Cardio/Vascular: Yes: CAD, HTN Pulmonary: Yes: Cancer, COPD, Other (lung ca) Infectious Disease: Yes: Other (hep c) - Alcohol/Substance Use Hx Alcohol Use: No - Smoking History Smoking history: Former smoker Have you smoked in the past 12 months: No Aproximately how many cigarettes per day: 10 - Social History Usual Living Arrangement: With Spouse Home Medications - Allergies Allergies/Adverse Reactions: Allergies Allergy/AdvReac Type Severity Reaction Status Date / Time Penicillins Allergy Intermediate Rash Verified 07/24/17 08:51 quetiapine fumarate AdvReac Intermediate nightmares Verified 07/24/17 08:51 [From Seroquel] - Home Medications Home Medications: Ambulatory Orders Methadone HCl 20 mg PO DAILY 02/11/14 Amlodipine Besylate 5 mg PO DAILY 06/10/16 Pantoprazole Sodium [Protonix -] 40 mg PO DAILY 07/05/16 Mirtazapine [Remeron -] 30 mg PO HS 07/28/17 Nystatin Oral Suspension - [Nystatin Oral Susp 665886 Units/5 ML -] 5 ml PO QID #1 bottle 09/25/17 Multivitamin [Multiple Vitamins] 1 each PO DAILY #30 tablet 11/22/17 Ergocalciferol [Vitamin D2] 50,000 unit PO Q7D@1000 #4 capsule 12/22/17 Diclofenac Sodium [Voltaren] 2 gm TP QID PRN #3 tube 01/17/18 Gabapentin 300 mg PO Q8H #90 capsule 03/16/18 Oxycodone HCl/Acetaminophen [Percocet 10-325 mg Tablet] 1 each PO TID #70 tablet MDD 3 04/16/18 Levofloxacin [Levaquin] 500 mg PO DAILY 04/23/18 Prednisone 10 mg PO DAILY 04/23/18 Triamcinolone 0.1% Cream [Aristocort] 1 applic TP BID 04/23/18 Xanax 04/23/18 Family Disease History - Family Disease History Family Disease History: Diabetes: Mother (alive), Heart Disease: Father ( after heart surgery), Mother, Other: Father, Brother (one HIV/ drugs; two other living), Sister (one living), Son (2- living, healthy), Daughter (2 - living, healthy) Review of Systems - Review of Systems Constitutional: reports: Weakness HENT: reports: No Symptoms Neck: reports: No Symptoms Cardiovascular: reports: Chest Pain (recent right-sided pain) Respiratory: reports: SOB on Exertion Gastrointestinal: reports: No Symptoms Genitourinary: reports: No Symptoms Breasts: reports: No Symptoms Reported Musculoskeletal: reports: Muscle Weakness Integumentary: reports: Other (right "under-skin" catheter) Neurological: reports: Weakness Endocrine: reports: No Symptoms Hematology/Lymphatic: reports: No Symptoms Psychiatric: reports: No Symptoms - Risk Factors Known Risk Factors: Yes: Age, Gender, Hypercholesterolemia, Hypertension, Physical Inactivity, Smoking, Other (lung CA) Vital Signs: Vital Signs Temperature 98.6 F 04/24/18 09:00 Pulse Rate 91 H 04/24/18 09:00 Respiratory Rate 20 04/24/18 09:00 Blood Pressure 102/69 04/24/18 09:00 O2 Sat by Pulse Oximetry (%) 88 L 04/24/18 09:00 Constitutional: Yes: Calm Eyes: Yes: WNL HENT: Yes: WNL Neck: Yes: WNL (]) Respiratory: Yes: SOB on Exertion Gastrointestinal: Yes: WNL Renal/: No: Anuria Cardiovascular: Yes: WNL JVD: No Carotid Bruit: No PMI: Non-Displaced Heart Sounds: Yes: S1, S2 Murmur: Yes: Systolic Murmur, Grade 1 Musculoskeletal: Yes: Muscle Weakness Extremities: Yes: WNL Edema: No Peripheral Pulses WNL: Yes Integumentary: Yes: Other (nontender protruberance of right chest wall cath) Psychiatric: Yes: WNL - Other Data Labs, Other Data: CBC, BMP 04/24/18 05:30 04/24/18 05:30 INR, PTT INR 1.08 (0.83-1.09) 04/23/18 10:45 Troponin, BNP 04/24/18 12:10 Troponin I 12.00 H* Troponin, BNP 04/24/18 12:10 Troponin I 12.00 H* Abnormal Lab Results 04/24/18 04/25/18 04/25/18 20:00 05:30 05:30 WBC 10.4 H Monocytes % 12.3 H Eosinophils % 7.4 H Anion Gap 7 L Calcium 8.3 L Magnesium 2.5 H AST 60 H CK-MB (CK-2) 9.1 H 5.1 H Troponin I 7.55 H* 6.83 H* B-Natriuretic Peptide 1395.0 H Total Protein 6.3 L Echo: Report Reviewed Ejection Fraction %: LVEF > or = 40 % Imaging - Results EKG: Image Reviewed Problem List - Problems (1) LFT elevation Code(s): R94.5 - ABNORMAL RESULTS OF LIVER FUNCTION STUDIES (2) Lung cancer Assessment/Plan: 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 Hypercoaguable state-->acute PE and WI (portent of progression of CA). F/u with oncologist. Code(s): C34.90 - MALIGNANT NEOPLASM OF UNSP PART OF UNSP BRONCHUS OR LUNG (3) Pulmonary emboli Assessment/Plan: On Lovenox 1 mg/kg BW bid. ECHO: normal LVEF and RVEF; RV size reportedly WNL; no significant pulmonary HTN. Code(s): I26.99 - OTHER PULMONARY EMBOLISM WITHOUT ACUTE COR PULMONALE Qualifiers: Pulmonary embolism type: unspecified Chronicity: acute Acute cor pulmonale presence: without acute cor pulmonale Qualified Code(s): I26.99 - Other pulmonary embolism without acute cor pulmonale (4) Troponin I above reference range Assessment/Plan: TNI 0.06-->12 within past 24 hours in the setting of bilateral PE and acute elevation of AST. F?u CK (normal on initial TNI). Likely demand ischemia and hypercoagulation-->STEMI.(Stress MIBI 05/2016 negative for ischemia). ECHO: normal LVEF. Atorvastatin 80 mg daily, unless contraindicated by CA/PE-related transaminase elevation. Start metoprolol tartrate 12.5 mg bid if no contraindications (hx COPD and lung CA; ? no known hx of asthma). Start ASA 81 mg, unless contraindicated by clinical status (on Lovenox for PE). Addendum: EKG shows ST elevation of V1-V3, with K, aVL reciprocal changes: evolving STEMI. Discussed pt with stitchdown thread laster at [facility]: Pt has been asymptomatic for past 24 hours; hypercoaguable state from CA, with resultant acute bilateral PE and WI. Discussed with oncologist: pt has stage IV lung CA (treated for the past 2 years ) with pleural mets, and now with hypercoaguable state indicating progression of CA state, with survival prognosis of more than several months less likely. He will be transferred to ICU for closer observation. F/u serial TNI, EKG, telemetry. ASA 325 mg and clopidogrel 300 mg given. ECHO in am for LVEF, wall motion (to compare with initial ECHO). For non-emergent coronary artery evaluation (angiogram) based on PE treatment, symptoms, f/u of above factors. Code(s): R74.8 - ABNORMAL LEVELS OF OTHER SERUM ENZYMES (5) Chronic use of opiate for therapeutic purpose Code(s): Z79.899 - OTHER [employer] (CURRENT) DRUG THERAPY (6) Hypercholesterolemia Code(s): E78.0 - PURE HYPERCHOLESTEROLEMIA * DO NOT USE * (7) Spondylosis Code(s): M47.9 - SPONDYLOSIS, UNSPECIFIED
[2018-04-24] MEDS ORDERED: ASPIRIN 325 MG ENTERIC COATED TABLET (FP) ONE (17:34)
[2018-04-24] MEDS ORDERED: ASPIRIN 325 MG TABLET PO ONE (17:35)
[2018-04-24] MEDS ORDERED: CLOPIDOGREL BISULFATE 300 MG TABLET PO ONE (17:38)
[2018-04-24] MEDS ORDERED: METOPROLOL TARTRATE 25 MG TABLET (FP) PO ONE (18:00)
--- NOTE | 2018-04-24 18:54 | PN ---
Progress Note (short form) - Note Progress Note: Patient seen and examined at bedside. Seen by Dr. Jordan in consultation earlier today. Patient with stage 4 lung Ca and bilateral PE on lovenox. Troponin repeated today after about 24 hours and found to be 12. EKG done and found to have ST elevations/changes in septal leads with reciprocal changes which is acutely changed from EKG on admission. Interventionalist contacted at [place] by Dr. Roche and given clinical picture and history and being without chest pain will watch patient in ICU. Patient denies chest pain. Sitting up in bed laughing with family and eating dinner. PE: NAD sitting up in bed eating dinner laughing with family members RRR S1 S2 CTAB Soft non tender non distended no lower extremity edema Aspirin plavix lovenox will add metoprolol per cardiology 12.5mg po BID Repeat echo in AM to evaluate wall motion
--- NOTE | 2018-04-24 19:15 | PN ---
Physical Exam: SUBJECTIVE: Patient seen and examined at the bedside. Denies pain, denies shortness of breath. On Lovenox for bilateral PE. has hx of lung cancer. OBJECTIVE: repeated troponin which came back at 12, troponin was 0.06 24 hours prior Called cardiology and discussed with Dr. Muñiz Patient has bilateral PE and a lower ext DVT He is asymptomatic to both the PE and the elevated troponins patient now in icu Vital Signs Period Temp Pulse Resp BP Sys/Perea Pulse Ox Last 24 Hr 97.5 F-99.2 F 89-94 18-20 95-139/50-85 88-95 GENERAL: The patient is awake, alert, and fully oriented, in no acute distress. HEAD: Normal with no signs of trauma. EYES: PERRL, extraocular movements intact, sclera anicteric, conjunctiva clear. No ptosis. ENT: Ears normal, nares patent, oropharynx clear without exudates, moist mucous membranes. NECK: Trachea midline, full range of motion, supple. LUNGS: Breath sounds equal, clear to auscultation bilaterally, no wheezes, no crackles HEART: Regular rate and rhythm ABDOMEN: Soft, nontender, nondistended, normoactive bowel sounds, no guarding, no rebound, no hepatosplenomegaly, no masses. EXTREMITIES: no edema. NEUROLOGICAL: Normal speech, gait steady PSYCH: Normal mood, normal affect. SKIN: Warm, dry, normal turgor, no rashes or lesions noted Laboratory Results - last 24 hr 04/24/18 04/24/18 04/24/18 05:30 05:30 05:30 WBC 10.3 H RBC 4.96 Hgb 14.0 Hct 43.6 MCV 88.0 MCH 28.3 MCHC 32.2 RDW 14.7 Plt Count 278 MPV 8.2 Absolute Neuts (auto) 6.7 Neutrophils % 65.4 D Lymphocytes % 18.6 D Monocytes % 10.2 Eosinophils % 4.5 D Basophils % 1.3 Nucleated RBC % 0 Sodium 138 Potassium 3.9 Chloride 101 Carbon Dioxide 28 Anion Gap 9 BUN 14 Creatinine 1.1 Creat Clearance w eGFR > 60 Random Glucose 94 Hemoglobin A1c % 7.2 H Calcium 8.2 L Phosphorus 2.4 L Magnesium 2.2 Total Bilirubin 0.7 AST 121 H ALT 38 Alkaline Phosphatase 103 Creatine Kinase Creatine Kinase Index CK-MB (CK-2) Troponin I Total Protein 6.4 Albumin 3.4 04/24/18 04/24/18 12:10 12:10 WBC RBC Hgb Hct MCV MCH MCHC RDW Plt Count MPV Absolute Neuts (auto) Neutrophils % Lymphocytes % Monocytes % Eosinophils % Basophils % Nucleated RBC % Sodium Potassium Chloride Carbon Dioxide Anion Gap BUN Creatinine Creat Clearance w eGFR Random Glucose Hemoglobin A1c % Calcium Phosphorus Magnesium Total Bilirubin AST ALT Alkaline Phosphatase Creatine Kinase 387 H Creatine Kinase Index 4.7 Cancelled CK-MB (CK-2) 18.23 H Cancelled Troponin I 12.00 H* Total Protein Albumin Active Medications Generic Name Dose Route Start Last Admin Trade Name Freq PRN Reason Stop Dose Admin Acetaminophen 325 mg 04/23/18 22:00 04/24/18 14:23 Tylenol - PO Not Given TID [facility] Amlodipine Besylate 5 mg 04/23/18 22:00 04/23/18 22:32 Norvasc - PO Not Given HS [facility] Enoxaparin Sodium 80 mg 04/23/18 22:00 04/24/18 10:55 Lovenox - SQ 80 mg BID [facility] Administration Gabapentin 300 mg 04/23/18 15:15 04/24/18 14:21 Neurontin - PO 300 mg Q8H [facility] Administration Methadone HCl 20 mg 04/24/18 08:15 04/24/18 10:57 Dolophine - PO Not Given DAILY@0600 [facility] Metoprolol Tartrate 12.5 mg 04/24/18 22:00 Lopressor - PO BID [facility] Non-Formulary Medication 2 gm 04/23/18 15:14 Diclofenac Sodium [Voltaren] TP QID PRN PAIN Nystatin 500,000 units 04/23/18 18:00 04/24/18 18:19 Nystatin Oral Suspension - PO 500,000 units QID [facility] Administration Oxycodone HCl 5 mg 04/23/18 22:31 Roxicodone - PO Q8H PRN PAIN LEVEL 7 - 10 Pantoprazole Sodium 40 mg 04/23/18 15:15 04/24/18 10:55 Protonix - PO 40 mg DAILY [facility] Administration Prednisone 5 mg 04/23/18 15:30 04/24/18 10:55 Deltasone - PO 5 mg DAILY [facility] Administration ASSESSMENT/PLAN: Patient is a 62 year old male with a significant past medical history of stage IV lung CA, s/p right anterior chest wall port placement, s/p chemo. Last chemo treatment on 04/18/2018. He presents to the ED on 04/23/2018 with right sided anterior chest pain radiating down his right arm and to his neck which has been ongoing for the past week. On admission a CTA showed that he had acute PE in the upper and lower lobe lobar arteries bilaterally. He also was found to have a DVT on his right popliteal vein. On exam, patient is resting comfortably, son at the bedside. In no acute distress. Denies pain or shortness of breath. imaging: vascular study: dvt right popliteal vein cta: acute pulmonary embolism involving the upper and lower lobe lobar arteries bilaterally echo: lv size normal, trace tr, RV systolic pressure elevated at 34mmhg Cardiology: Elevated troponins 0.06>12.00. Patient did not c/o of chest pain or discomfort today. Tropnins were only added for trending purposes as his last trop on 04/23/18 was 0.06. Today he was reported to have a troponin of 12. He has been asymptomatic. Discussed with securities consultant and patient was sent to the ICU for closer monitoring. EKG with st elevations, changed from ekg done on admission Started on metoprolol bid, given loading dose of plavix. and asa 325mg. Follow up serial troponins to trend peak echo in a.m. Patient for coronary artery eval per cardiology Hematology Bilateral PE Right leg DVT In the setting of advance lung cancer On Lovenox BID Hematology consulted and following Lung cancer Patient admitted with right sided anterior chest pain radiating down to his right arm. Patient is s/p chemo and had a right chest wall mediport placed for the chemo. Last chemo treatment 04/18/18. Oncologist following. fen tolerating po monitor electrolytes low salt diet prophy lovenox bid Visit type - Emergency Visit Emergency Visit: Yes ED Registration Date: 04/23/18 Care time: The patient presented to the Emergency Department on the above date and was hospitalized for further evaluation of their emergent condition. - New Patient This patient is new to me today: Yes Date on this admission: 04/24/18 - Critical Care Critical Care patient: Yes Total Critical Care Time (in minutes): 60 Critical Care Statement: The care of this patient involved high complexity decision making to prevent further life threatening deterioration of the patient 's condition and/or to evaluate & treat vital organ system(s) failure or risk of failure.
--- NOTE | 2018-04-24 19:54 | PN ---
Teaching Attending Note Name of Resident: Asim Dumont ATTENDING PHYSICIAN STATEMENT I saw and evaluated the patient. I reviewed the resident's note and discussed the case with the resident. I agree with the resident's findings and plan as documented. SUBJECTIVE: Patient seen and examined Metastatic lung ca on Keytruda with good clinical response . Last chemotherapy -04/18. Developed increasing right anterior chest pain with SOB. Found to have bilateral pulmonary emboli Developed troponin to 12 - relatively asymptomatic and transferred to ICU Last Vital Signs Temp Pulse Resp BP Pulse Ox 97.6 F 90 20 105/76 88 L 04/24/18 17:00 04/24/18 17:00 04/24/18 17:00 04/24/18 17:00 04/24/18 09:00 HEENT: SAUD, EOM Intact Oropharynx: No thrush, No mucositis Neck: Supple Nodes: Without adenopathy Cor: RSR, No murmurs, No gallops Lungs: Clear to P&A Abd: Soft, Normal bowel sounds, No organomegaly Ext:No significant edema Skin: No rashes, Integument intact CBC, BMP 04/24/18 05:30 04/24/18 05:30 Abnormal Lab Results 04/24/18 04/24/18 04/24/18 05:30 05:30 05:30 WBC 10.3 H Hemoglobin A1c % 7.2 H Calcium 8.2 L Phosphorus 2.4 L AST 121 H Creatine Kinase CK-MB (CK-2) Troponin I 04/24/18 12:10 WBC Hemoglobin A1c % Calcium Phosphorus AST Creatine Kinase 387 H CK-MB (CK-2) 18.23 H Troponin I 12.00 H* Current Medications Generic Name Dose Route Start Last Admin Trade Name Freq PRN Reason Stop Dose Admin Acetaminophen 325 mg 04/23/18 22:00 04/24/18 14:23 Tylenol - PO Not Given TID [facility] Amlodipine Besylate 5 mg 04/23/18 22:00 04/23/18 22:32 Norvasc - PO Not Given HS [facility] Enoxaparin Sodium 80 mg 04/23/18 22:00 04/24/18 10:55 Lovenox - SQ 80 mg BID [facility] Administration Gabapentin 300 mg 04/23/18 15:15 04/24/18 14:21 Neurontin - PO 300 mg Q8H [facility] Administration Methadone HCl 20 mg 04/24/18 08:15 04/24/18 10:57 Dolophine - PO Not Given DAILY@0600 [facility] Metoprolol Tartrate 12.5 mg 04/24/18 22:00 Lopressor - PO BID [facility] Non-Formulary Medication 2 gm 04/23/18 15:14 Diclofenac Sodium [Voltaren] TP QID PRN PAIN Nystatin 500,000 units 04/23/18 18:00 04/24/18 18:19 Nystatin Oral Suspension - PO 500,000 units QID [facility] Administration Oxycodone HCl 5 mg 04/23/18 22:31 Roxicodone - PO Q8H PRN PAIN LEVEL 7 - 10 Pantoprazole Sodium 40 mg 04/23/18 15:15 04/24/18 10:55 Protonix - PO 40 mg DAILY [facility] Administration Prednisone 5 mg 04/23/18 15:30 04/24/18 10:55 Deltasone - PO 5 mg DAILY [facility] Administration OBJECTIVE: Impression: Lung ca S/P keytruda therapy on 04/18 B/L pulmonary emboli Troponin elevation Plan : Hold keytruda ICU monitoring. ASSESSMENT AND PLAN:
[2018-04-24] MEDS: amLODIPine BESYLATE 5 MG TABLET (FP) PO SCH (22:58)
[2018-04-24] MEDS: METOPROLOL TARTRATE 25 MG TABLET (FP) PO SCH (22:58)
[2018-04-25] MEDS: ACETAMINOPHEN 325 MG TABLET (FP) PO SCH ×3 (05:18→22:26)
[2018-04-25] MEDS: METHADONE HCL 10 MG TABLET PO SCH (05:56)
[2018-04-25] MEDS: GABAPENTIN 300 MG CAPSULE (FP) PO SCH ×3 (06:22→22:25)
[2018-04-25 06:23] LABS: BASO % 1.8 % (0-2.0); EOS % 7.4 % (0-4.5); HEMATOCRIT 44.7 % (35.4-49); HEMOGLOBIN 14.3 GM/dL (11.7-16.9); LYMPH % 26.2 % (8-40); MCH 28.2 pg (25.7-33.7); MEAN CELL VOLUME 88.3 fl (80-96); MEAN PLT VOLUME 7.7 fl (7.5-11.1); MONO % 12.3 % (3.8-10.2); NEUT % 52.3 % (42.8-82.8); PLATELET COUNT 276 K/MM3 (134-434); RBC 5.06 M/mm3 (4.00-5.60); RDW 14.9 % (11.9-15.9); WHITE BLOOD COUNT 10.4 K/mm3 (4.0-10.0)
[2018-04-25 07:31] LABS: ALBUMIN 3.4 g/dl (3.4-5.0); ALK PHOS 102 U/L (45-117); ANION GAP 7 MMOL/L (8-16); BILIRUBIN,TOTAL 0.6 mg/dL (0.2-1); BLOOD UREA NITROGEN 14 mg/dL (7-18); CALCIUM 8.3 mg/dL (8.5-10.1); CHLORIDE 104 mmol/L (98-107); CO2 30 mmol/L (21-32); CREATININE 0.8 mg/dL (0.55-1.3); GLUCOSE,RANDOM 93 mg/dL (74-106); MAGNESIUM 2.5 mg/dL (1.8-2.4); SGOT/AST 60 U/L (15-37); SGPT/ALT 39 U/L (13-61); SODIUM 140 mmol/L (136-145); TOT PROT 6.3 g/dl (6.4-8.2)
[2018-04-25] MEDS ORDERED: PT OWN MED DRAWER 7, Y5N ONE ×2 (08:35→09:50)
--- NOTE | 2018-04-25 09:06 | PN ---
Progress Note (short form) - Note Progress Note: Patient seen and examined at bedside No events overnight Troponin trending down denies chest pain denies any symptoms States he "very very good" in [place] Negative stress test a year ago per cardiology Vital Signs Temperature 97.2 F L 04/25/18 07:00 Pulse Rate 68 04/25/18 07:00 Respiratory Rate 16 04/25/18 07:00 Blood Pressure 118/80 04/25/18 07:00 O2 Sat by Pulse Oximetry (%) 94 04/25/18 04:00 PE: NAD lying in bed eating breakfast PERRL EOMI Moist mucous membranes RRR S1 S2 left side clear to auscultation Right side with crackles Abdomen is soft non tender non distended no edema 04/25/18 04/25/18 05:30 05:30 WBC 10.4 H RBC 5.06 Hgb 14.3 Hct 44.7 MCV 88.3 MCHC 32.0 RDW 14.9 Plt Count 276 Neutrophils % 52.3 D Lymphocytes % 26.2 D Monocytes % 12.3 H Eosinophils % 7.4 H Basophils % 1.8 Sodium 140 Potassium 4.0 Chloride 104 Carbon Dioxide 30 Anion Gap 7 L BUN 14 Creatinine 0.8 04/23/18 13:23 Urine Culture - Final Urine - Urine Clean Catch NO GROWTH OBTAINED Abnormal Lab Results 04/24/18 04/24/18 04/25/18 12:10 20:00 05:30 WBC 10.4 H Monocytes % 12.3 H Eosinophils % 7.4 H Anion Gap Calcium Magnesium AST Creatine Kinase 387 H CK-MB (CK-2) 18.23 H 9.1 H Troponin I 12.00 H* 7.55 H* Total Protein 04/25/18 05:30 WBC Monocytes % Eosinophils % Anion Gap 7 L Calcium 8.3 L Magnesium 2.5 H AST 60 H Creatine Kinase CK-MB (CK-2) 5.1 H Troponin I 6.83 H* Total Protein 6.3 L A/P 62M with history of HTN Problem List: HTN DM chronic pain on methadone bilateral PEs STEMI Right distal vein popliteal vein DVT history of hep c Stage 4 lung Ca repeat Echo today to assess any wall motion abnormalities Add on BNP Get STAT EKG this AM to assess trend continue lovenox continue metoprolol 12.5mg po BID continue norvasc 5mg po daily will start aspirin 81mg po daily Will start Lipitor 80mg po HS and give STAT dose now continue methadone for pain control continue prednisone 5mg po daily Hold Keytruda for now per oncology Will discuss the need to possible transfer with web mobile designer If echo does not reveal any worsening wall motion abnormalities and he remains asymptomatic will consider transfer to telemetry CCTime 36 minutes
[2018-04-25] MEDS: METOPROLOL TARTRATE 25 MG TABLET (FP) PO SCH ×2 (09:55→22:26)
[2018-04-25] MEDS: predniSONE 5 MG TABLET (UD) PO SCH (09:55)
[2018-04-25] MEDS: ENOXAPARIN NA (PORCINE) 80 MG/0.8 ML DISP.SYRIN SQ SCH ×2 (09:55→22:26)
[2018-04-25] MEDS: ASPIRIN 81 MG CHEWABLE TABLETS PO SCH (09:55)
[2018-04-25] MEDS: PANTOPRAZOLE 40 MG TABLET (FP) PO SCH (09:56)
[2018-04-25] MEDS: NYSTATIN 500,000 UNITS/5 ML SUSPENSION PO SCH ×4 (09:56→22:26)
[2018-04-25] MEDS ORDERED: CLOPIDOGREL BISULFATE 75 MG TABLET (FP) PO SCH (10:00)
[2018-04-25] MEDS ORDERED: ATORVASTATIN CA 80 MG TABLET (FP) PO ONE (10:02)
--- NOTE | 2018-04-25 10:58 | EKG ---
Test Reason : Blood Pressure : / mmHG Vent. Rate : 085 BPM Atrial Rate : 085 BPM P-R Int : 126 ms QRS Dur : 090 ms QT Int : 426 ms P-R-T Axes : 055 052 114 degrees QTc Int : 506 ms POOR DATA QUALITY, INTERPRETATION MAY BE ADVERSELY AFFECTED NORMAL SINUS RHYTHM SEPTAL INFARCT (CITED ON OR BEFORE 23-APR-2018) T WAVE ABNORMALITY, CONSIDER ANTEROLATERAL ISCHEMIA ABNORMAL ECG WHEN COMPARED WITH ECG OF 23-APR-2018 13:52, SERIAL CHANGES OF SEPTAL INFARCT PRESENT Confirmed by PENNY SHAFER, NATALIE ([id number]) on 04/25/2018 10:58:18 AM Referred By: Confirmed By:NATALIE FRANCIS MD
--- NOTE | 2018-04-25 11:44 | PN ---
Progress Note, Physician - Current Medication List Current Medications: Active Medications Acetaminophen (Tylenol -) 325 mg PO TID [facility] Last Admin: 04/25/18 05:18 Dose: Not Given Amlodipine Besylate (Norvasc -) [address] [facility] Last Admin: 04/24/18 22:58 Dose: 5 mg Aspirin (Asa -) 81 mg PO DAILY [facility] Last Admin: 04/25/18 09:55 Dose: 81 mg Atorvastatin Calcium (Lipitor -) [address] [facility] Enoxaparin Sodium (Lovenox -) 80 mg SQ BID [facility] Last Admin: 04/25/18 09:55 Dose: 80 mg Gabapentin (Neurontin -) 300 mg PO Q8H [facility] Last Admin: 04/25/18 06:22 Dose: 300 mg Methadone HCl (Dolophine -) 20 mg PO DAILY@0600 [facility] Last Admin: 04/25/18 05:56 Dose: 20 mg Metoprolol Tartrate (Lopressor -) 12.5 mg PO BID [facility] Last Admin: 04/25/18 09:55 Dose: 12.5 mg Non-Formulary Medication (Diclofenac Sodium [Voltaren]) 2 gm TP QID PRN PRN Reason: PAIN Nystatin (Nystatin Oral Suspension -) 500,000 units PO QID [facility] Last Admin: 04/25/18 09:56 Dose: 500,000 units Oxycodone HCl (Roxicodone -) 5 mg PO Q8H PRN PRN Reason: PAIN LEVEL 7 - 10 Last Admin: 04/24/18 23:00 Dose: 5 mg Pantoprazole Sodium (Protonix -) 40 mg PO DAILY [facility] Last Admin: 04/25/18 09:56 Dose: 40 mg Prednisone (Deltasone -) 5 mg PO DAILY [facility] Last Admin: 04/25/18 09:55 Dose: 5 mg - Objective Vital Signs: Vital Signs Temperature 97.7 F 04/25/18 10:00 Pulse Rate 82 04/25/18 10:00 Respiratory Rate 16 04/25/18 10:00 Blood Pressure 113/72 04/25/18 10:00 O2 Sat by Pulse Oximetry (%) 96 04/25/18 08:00 Eyes: Yes: WNL, Conjunctiva Clear, EOM Intact HENT: Yes: WNL, Atraumatic, Normocephalic Neck: Yes: WNL, Supple, Trachea Midline Cardiovascular: Yes: WNL, Regular Rate and Rhythm Respiratory: Yes: WNL, Regular, CTA Bilaterally Gastrointestinal: Yes: WNL, Normal Bowel Sounds Genitourinary: Yes: WNL Musculoskeletal: Yes: WNL Extremities: Yes: WNL Edema: No Integumentary: Yes: WNL Neurological: Yes: WNL, Alert, Oriented ...Motor Strength: WNL Psychiatric: Yes: WNL Labs: CBC, BMP 04/25/18 05:30 04/25/18 05:30 INR, PTT INR 1.08 (0.83-1.09) 04/23/18 10:45 Assessment/Plan - Problems (1) LFT elevation Code(s): R94.5 - ABNORMAL RESULTS OF LIVER FUNCTION STUDIES (2) Lung cancer Assessment/Plan: 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 Hypercoaguable state-->acute PE and ID (portent of progression of CA). F/u with oncologist. Code(s): C34.90 - MALIGNANT NEOPLASM OF UNSP PART OF UNSP BRONCHUS OR LUNG (3) Pulmonary emboli Assessment/Plan: On Lovenox 1 mg/kg BW bid. ECHO: normal LVEF and RVEF; RV size reportedly WNL; no significant pulmonary HTN. Code(s): I26.99 - OTHER PULMONARY EMBOLISM WITHOUT ACUTE COR PULMONALE Qualifiers: Pulmonary embolism type: unspecified Chronicity: acute Acute cor pulmonale presence: without acute cor pulmonale Qualified Code(s): I26.99 - Other pulmonary embolism without acute cor pulmonale (4) Troponin I above reference range Assessment/Plan: TNI 0.06-->12 within past 24 hours in the setting of bilateral PE and acute elevation of AST. F?u CK (normal on initial TNI). Likely demand ischemia-->NSTEMi.(Stress MIBI 05/2016 negative for ishcemia). ECHO: normalt LVEF. Atorvastatin 80 mg daily, unless contraindicated by CA/PE-related transaminase elevation. Start metoprolol tartrate 12.5 mg bid if no contraindications (hx COPD and lung CA; ? no known hx of asthma). Start ASA 81 mg, unless contraindicated by clinical status (on Lovenox for PE). Addendum: EKG shows ST elevation of V1-V3, with K, aVL reciprocal changes. Discussed pt with [id number] at [place]: Pt has been asymptomatic for past 24 hours; hypercoaguable state from CA, with resultant acute bilateral PE and ID. Discussed with oncologist: pt has stage IV lung CA (treated for the past 2 years ) with pleural mets, and now with hypercoaguable state indicating progression of CA state, with survival prognosis of more than several months less likely. He will be transferred to ICU for closer observation. F/u serial TNI, EKG, telemetry. ASA 325 mg and clopidogrel 300 mg given. ECHO today showed apical hypokinesis will transfer for c. cath 04-26-18 Code(s): R74.8 - ABNORMAL LEVELS OF OTHER SERUM ENZYMES (5) Chronic use of opiate for therapeutic purpose Code(s): Z79.899 - OTHER STOPPER MAKER HELPER (CURRENT) DRUG THERAPY (6) Hypercholesterolemia Code(s): E78.0 - PURE HYPERCHOLESTEROLEMIA * DO NOT USE * (7) Spondylosis Code(s): M47.9 - SPONDYLOSIS, UNSPECIFIED
--- NOTE | 2018-04-25 11:55 | ECHO ---
Name: TAMY ROMO Exam:Adult Echocardiogram Study Date: 04/25/2018 08:38 AM Age: 62 yrs Reason For Study: COMPARE TO 04/24/18 Height: 67 in Weight: 167 lb BSA: 1.9 m2 Doppler Measurements & Calculations TR max lori: 313.6 cm/sec TR max P.3 mmHg Procedure A two-dimensional transthoracic echocardiogram with color flow and Doppler was performed. A two-dimen sional transthoracic echocardiogram with color flow and Doppler was performed in limited views only. Left Ventricle The left ventricular size, thickness and function are normal. The left ventricular ejection fraction is normal. There is apical akinesis. Right Ventricle The right ventricle is not well visualized. Mitral Valve There is mild mitral valve thickening. Tricuspid Valve There is mild tricuspid valve thickening. There is no tricuspid stenosis. There is mild tricuspid regurgitation. Right ventricular systolic pressure is elevated at 40-50mmHg. Aortic Valve The aortic valve is normal in structure and function. Interpretation Summary A two-dimensional transthoracic echocardiogram with color flow and Doppler was performed. There is mild tricuspid regurgitation. Right ventricular systolic pressure is elevated at 40-50mmHg. The left ventricular size, thickness and function are normal The left ventricular ejection fraction is normal. The right ventricle is not well visualized. A two-dimensional transthoracic echocardiogram with color flow and Doppler was performed in [facility] iews only. MD Corona Giron 04/25/2018 11:54 AM
--- NOTE | 2018-04-25 12:16 | PN ---
Teaching Attending Note Name of Resident: Nas Thomas ATTENDING PHYSICIAN STATEMENT I saw and evaluated the patient. I reviewed the resident's note and discussed the case with the resident. I agree with the resident's findings and plan as documented. SUBJECTIVE: Pt seen and examined in the ICU. Denies shortness of breath or chest pain. EKG still with ST elevations septal leads. Has been hemodynamically stable. Echocardiogram showing elevated RVSP and LV apical akinesis. OBJECTIVE: Vital Signs Period Temp Pulse Resp BP Sys/Perea Pulse Ox Last 24 Hr 97.2 F-99 F 63-94 11-20 105-138/63-96 88-96 Intake & Output 04/22/18 04/23/18 04/24/18 04/25/18 23:59 23:59 23:59 23:59 Intake Total 250 240 Balance 250 240 Weight 76.929 kg 76.113 kg 73.496 kg Gen: NAD at rest Heart: RRR Lung: decreased breth sounds at the bases Abd: soft, nontender Ext: no edema CBC, BMP 04/25/18 05:30 04/25/18 05:30 Troponin, BNP 04/24/18 04/24/18 04/25/18 12:10 20:00 05:30 Troponin I 12.00 H* 7.55 H* 6.83 H* B-Natriuretic Peptide 1395.0 H 04/25/18 05:30 Troponin I Cancelled B-Natriuretic Peptide Active Medications Acetaminophen (Tylenol -) 325 mg PO TID [facility] Last Admin: 04/25/18 05:18 Dose: Not Given Amlodipine Besylate (Norvasc -) 5 mg PO HS [facility] Last Admin: 04/24/18 22:58 Dose: 5 mg Aspirin (Asa -) 81 mg PO DAILY [facility] Last Admin: 04/25/18 09:55 Dose: 81 mg Atorvastatin Calcium (Lipitor -) 80 mg PO HS [facility] Clopidogrel Bisulfate (Plavix -) 75 mg PO DAILY [facility] Enoxaparin Sodium (Lovenox -) 80 mg SQ BID [facility] Last Admin: 04/25/18 09:55 Dose: 80 mg Gabapentin (Neurontin -) 300 mg PO Q8H [facility] Last Admin: 04/25/18 06:22 Dose: 300 mg Methadone HCl (Dolophine -) 20 mg PO DAILY@0600 [facility] Last Admin: 04/25/18 05:56 Dose: 20 mg Metoprolol Tartrate (Lopressor -) 12.5 mg PO BID [facility] Last Admin: 04/25/18 09:55 Dose: 12.5 mg Nystatin (Nystatin Oral Suspension -) 500,000 units PO QID [facility] Last Admin: 04/25/18 09:56 Dose: 500,000 units Oxycodone HCl (Roxicodone -) 5 mg PO Q8H PRN PRN Reason: PAIN LEVEL 7 - 10 Last Admin: 04/24/18 23:00 Dose: 5 mg Pantoprazole Sodium (Protonix -) 40 mg PO DAILY [facility] Last Admin: 04/25/18 09:56 Dose: 40 mg Prednisone (Deltasone -) 5 mg PO DAILY [facility] Last Admin: 04/25/18 09:55 Dose: 5 mg ASSESSMENT AND PLAN: Acute PE/DVT Pulmonary HTN Acute STEMI Stage IV Lung Cancer HTN DM Methadone Maintenance - continue anticoagulation - trend cardiac enzymes - for cardiac catheterization per cardiology - ASA, plavix - beta david, statin - O2 to keep SpO2 >90% - continue ICU monitoring critical care time spent in reviewing chart, evaluating patient and formulating plan 35 min
[2018-04-25] MEDS: CLOPIDOGREL BISULFATE 75 MG TABLET (FP) PO SCH (13:03)
--- NOTE | 2018-04-25 13:08 | EKG ---
Test Reason : Blood Pressure : / mmHG Vent. Rate : 080 BPM Atrial Rate : 080 BPM P-R Int : 134 ms QRS Dur : 098 ms QT Int : 462 ms P-R-T Axes : 063 061 113 degrees QTc Int : 532 ms NORMAL SINUS RHYTHM SEPTAL INFARCT (CITED ON OR BEFORE 23-APR-2018) T WAVE ABNORMALITY, CONSIDER ANTEROLATERAL ISCHEMIA PROLONGED QT ABNORMAL ECG WHEN COMPARED WITH ECG OF 24-APR-2018 17:12, NO SIGNIFICANT CHANGE WAS FOUND Confirmed by PENNY SHAFER, NATALIE ([id number]) on 04/25/2018 1:08:19 PM Referred By: MELISSA VANG Confirmed By:NATALIE FRANCIS MD
[2018-04-25 15:06] VITALS: BMI 25.3
--- NOTE | 2018-04-25 16:40 | PN ---
Progress Note (short form) - Note Progress Note: feels well, intermittent mild pain around port site. denies fevers, cough, palpitations, hematuria, abdominal pain, hematochezia, melena. ambulating/eating/toileting well. Vital Signs Temperature 97.6 F 04/25/18 14:00 Pulse Rate 77 04/25/18 14:00 Respiratory Rate 13 04/25/18 14:00 Blood Pressure 119/63 04/25/18 14:00 O2 Sat by Pulse Oximetry (%) 96 04/25/18 08:00 PE: NAD moist mucous membranes no mrg, s1, s2, CTAB port skin is intact without erythema or swelling abd soft nontender no LE edema b/l 62 yr old man with metastatic lung cancer with PEs and elevated troponins. problem list: PE adenocarcinoma Plan: echo showed apical hypokinesis, cardiology plan to transfer patient for cardiac cath tomorrow will hold keytruda until resolution of acute process is resolved, will reevaluate patient for chemo as outpatient continue lovenox BID for AC for PE
--- NOTE | 2018-04-25 17:59 | PN ---
Physical Exam: SUBJECTIVE: Patient seen and examined at the bedside. patient denies any chest pain or shortness of breath. discussed POC with him and son. OBJECTIVE: Vital Signs Period Temp Pulse Resp BP Sys/Perea Pulse Ox Last 24 Hr 97.2 F-97.7 F 63-82 11-22 107-138/63-96 88-96 GENERAL: The patient is awake, alert, and fully oriented, in no acute distress. HEAD: Normal with no signs of trauma. EYES: PERRL, extraocular movements intact, sclera anicteric, conjunctiva clear. No ptosis. ENT: Ears normal, nares patent, oropharynx clear without exudates, moist mucous membranes. NECK: Trachea midline, full range of motion, supple. LUNGS: Breath sounds equal, clear to auscultation bilaterally, no wheezes, no crackles HEART: Regular rate and rhythm ABDOMEN: Soft, nontender, nondistended, normoactive bowel sounds, no guarding, no rebound, no hepatosplenomegaly, no masses. EXTREMITIES: no edema. NEUROLOGICAL: Normal speech, gait steady PSYCH: Normal mood, normal affect. SKIN: Warm, dry, normal turgor, no rashes or lesions noted Laboratory Results - last 24 hr 04/24/18 04/25/18 04/25/18 20:00 05:30 05:30 WBC 10.4 H RBC 5.06 Hgb 14.3 Hct 44.7 MCV 88.3 MCH 28.2 MCHC 32.0 RDW 14.9 Plt Count 276 MPV 7.7 Absolute Neuts (auto) 5.4 Neutrophils % 52.3 D Lymphocytes % 26.2 D Monocytes % 12.3 H Eosinophils % 7.4 H Basophils % 1.8 Nucleated RBC % 0 Sodium 140 Potassium 4.0 Chloride 104 Carbon Dioxide 30 Anion Gap 7 L BUN 14 Creatinine 0.8 Creat Clearance w eGFR > 60 Random Glucose 93 Calcium 8.3 L Magnesium 2.5 H Total Bilirubin 0.6 AST 60 H ALT 39 Alkaline Phosphatase 102 Creatine Kinase 253 150 Creatine Kinase Index 3.5 3.4 CK-MB (CK-2) 9.1 H 5.1 H Troponin I 7.55 H* 6.83 H* B-Natriuretic Peptide 1395.0 H Total Protein 6.3 L Albumin 3.4 04/25/18 04/25/18 05:30 05:30 WBC RBC Hgb Hct MCV MCH MCHC RDW Plt Count MPV Absolute Neuts (auto) Neutrophils % Lymphocytes % Monocytes % Eosinophils % Basophils % Nucleated RBC % Sodium Potassium Chloride Carbon Dioxide Anion Gap BUN Creatinine Creat Clearance w eGFR Random Glucose Calcium Magnesium Total Bilirubin AST ALT Alkaline Phosphatase Creatine Kinase Creatine Kinase Index CK-MB (CK-2) Cancelled Troponin I Cancelled B-Natriuretic Peptide Total Protein Albumin Active Medications Generic Name Dose Route Start Last Admin Trade Name Freq PRN Reason Stop Dose Admin Acetaminophen 325 mg 04/23/18 22:00 04/25/18 14:43 Tylenol - PO Not Given TID [facility] Amlodipine Besylate 5 mg 04/23/18 22:00 04/24/18 22:58 Norvasc - PO 5 mg HS [facility] Administration Aspirin 81 mg 04/25/18 10:00 04/25/18 09:55 Asa - PO 81 mg DAILY [facility] Administration Atorvastatin Calcium 80 mg 04/26/18 22:00 Lipitor - PO HS [facility] Clopidogrel Bisulfate 75 mg 04/25/18 12:00 04/25/18 13:03 Plavix - PO 75 mg DAILY [facility] Administration Enoxaparin Sodium 80 mg 04/23/18 22:00 04/25/18 09:55 Lovenox - SQ 80 mg BID [facility] Administration Gabapentin 300 mg 04/23/18 15:15 04/25/18 14:44 Neurontin - PO 300 mg Q8H [facility] Administration Methadone HCl 20 mg 04/24/18 08:15 04/25/18 05:56 Dolophine - PO 20 mg DAILY@0600 [facility] Administration Metoprolol Tartrate 12.5 mg 04/24/18 22:00 04/25/18 09:55 Lopressor - PO 12.5 mg BID [facility] Administration Nystatin 500,000 units 04/23/18 18:00 04/25/18 17:13 Nystatin Oral Suspension - PO 500,000 units QID [facility] Administration Oxycodone HCl 5 mg 04/23/18 22:31 04/24/18 23:00 Roxicodone - PO 5 mg Q8H PRN Administration PAIN LEVEL 7 - 10 Pantoprazole Sodium 40 mg 04/23/18 15:15 04/25/18 09:56 Protonix - PO 40 mg DAILY [facility] Administration Prednisone 5 mg 04/23/18 15:30 04/25/18 09:55 Deltasone - PO 5 mg DAILY [facility] Administration ASSESSMENT/PLAN: Patient is a 62 year old male with a significant past medical history of stage IV lung CA, s/p right anterior chest wall port placement, s/p chemo. Last chemo treatment on 04/18/2018. He presents to the ED on 04/23/2018 with right sided anterior chest pain radiating down his right arm and to his neck which has been ongoing for the past week. On admission a CTA showed that he had acute PE in the upper and lower lobe lobar arteries bilaterally. He also was found to have a DVT on his right popliteal vein. On exam, patient is resting comfortably, son at the bedside. In no acute distress. Denies pain or shortness of breath. imaging: vascular study: dvt right popliteal vein cta: acute pulmonary embolism involving the upper and lower lobe lobar arteries bilaterally echo 04/24/18: lv size normal, trace tr, RV systolic pressure elevated at 34mmhg echo 04/25/18: RV pressure elevated Cardiology: Elevated troponins 0.06>12.00>7.8>6.5 Patient does not c/o of chest pain or discomfort. Troponins have trended down, but still remain elevated. He is on lovenox bid, metoprolol bid, ASA 81mg daily. Patient in ICU for closer monitoring. EKG with st elevations, changed from ekg done on admission Repeat Echo shows RV elevated pressure Patient for coronary artery eval per cardiology, possibly at [facility] Hematology Bilateral PE Right leg DVT In the setting of advance lung cancer On Lovenox BID Hematology consulted and following Lung cancer Patient admitted with right sided anterior chest pain radiating down to his right arm. Patient is s/p chemo and had a right chest wall mediport placed for the chemo. Last chemo treatment 04/18/18. Mediport placed 2 years ago. fen tolerating po monitor electrolytes low salt diet prophy lovenox bid discharge: per cardiology, patient may be discharged to [facility] for cardiac cath. Visit type - Emergency Visit Emergency Visit: Yes ED Registration Date: 04/23/18 Care time: The patient presented to the Emergency Department on the above date and was hospitalized for further evaluation of their emergent condition. - New Patient This patient is new to me today: No - Critical Care Critical Care patient: Yes Total Critical Care Time (in minutes): 60 Critical Care Statement: The care of this patient involved high complexity decision making to prevent further life threatening deterioration of the patient 's condition and/or to evaluate & treat vital organ system(s) failure or risk of failure.
--- NOTE | 2018-04-25 19:36 | PN ---
Teaching Attending Note Name of Resident: Asim Dumont ATTENDING PHYSICIAN STATEMENT I saw and evaluated the patient. I reviewed the resident's note and discussed the case with the resident. I agree with the resident's findings and plan as documented. SUBJECTIVE:Patient seen and examined . Denies chest pain , SOB S/P bilateral P.E. Elevated troponins trending downward Abnormal ECHO. For cardiac cath at tertiary facility. Keytruda on hold. Last Vital Signs Temp Pulse Resp BP Pulse Ox 97.7 F 91 H 18 120/93 96 04/25/18 18:00 04/25/18 18:00 04/25/18 18:00 04/25/18 18:00 04/25/18 08:00 HEENT: SAUD, EOM Intact Oropharynx: No thrush, No mucositis Cor: RSR, No murmurs, No gallops Lungs: Clear to P&A Abd: Soft, Normal bowel sounds, No organomegaly Ext:No significant edema Skin: No rashes, Integument intact CBC, BMP 04/25/18 05:30 04/25/18 05:30 Current Medications Generic Name Dose Route Start Last Admin Trade Name Freq PRN Reason Stop Dose Admin Acetaminophen 325 mg 04/23/18 22:00 04/25/18 14:43 Tylenol - PO Not Given TID [facility] Amlodipine Besylate 5 mg 04/23/18 22:00 04/24/18 22:58 Norvasc - PO 5 mg HS [facility] Administration Aspirin 81 mg 04/25/18 10:00 04/25/18 09:55 Asa - PO 81 mg DAILY [facility] Administration Atorvastatin Calcium 80 mg 04/26/18 22:00 Lipitor - PO HS [facility] Clopidogrel Bisulfate 75 mg 04/25/18 12:00 04/25/18 13:03 Plavix - PO 75 mg DAILY [facility] Administration Enoxaparin Sodium 80 mg 04/23/18 22:00 04/25/18 09:55 Lovenox - SQ 80 mg BID [facility] Administration Gabapentin 300 mg 04/23/18 15:15 04/25/18 14:44 Neurontin - PO 300 mg Q8H [facility] Administration Methadone HCl 20 mg 04/24/18 08:15 04/25/18 05:56 Dolophine - PO 20 mg DAILY@0600 [facility] Administration Metoprolol Tartrate 12.5 mg 04/24/18 22:00 04/25/18 09:55 Lopressor - PO 12.5 mg BID [facility] Administration Nystatin 500,000 units 04/23/18 18:00 04/25/18 17:13 Nystatin Oral Suspension - PO 500,000 units QID [facility] Administration Oxycodone HCl 5 mg 04/23/18 22:31 04/24/18 23:00 Roxicodone - PO 5 mg Q8H PRN Administration PAIN LEVEL 7 - 10 Pantoprazole Sodium 40 mg 04/23/18 15:15 04/25/18 09:56 Protonix - PO 40 mg DAILY [facility] Administration Prednisone 5 mg 04/23/18 15:30 04/25/18 09:55 Deltasone - PO 5 mg DAILY [facility] Administration Impression Lung Ca-metastatic S/P keytruda Bilateral P.E. Elevated troponins with abnormal ECHO For cath. OBJECTIVE: ASSESSMENT AND PLAN:
[2018-04-25] MEDS: amLODIPine BESYLATE 5 MG TABLET (FP) PO SCH (22:25)
[2018-04-26 05:58] LABS: BASO % 1.8 % (0-2.0); EOS % 6.9 % (0-4.5); HEMATOCRIT 45.4 % (35.4-49); HEMOGLOBIN 14.3 GM/dL (11.7-16.9); LYMPH % 25.8 % (8-40); MCH 28.2 pg (25.7-33.7); MCHC 31.6 g/dl (32.0-35.9); MEAN CELL VOLUME 89.3 fl (80-96); MEAN PLT VOLUME 7.7 fl (7.5-11.1); MONO % 10.6 % (3.8-10.2); NEUT % 54.9 % (42.8-82.8); PLATELET COUNT 274 K/MM3 (134-434); RBC 5.09 M/mm3 (4.00-5.60); RDW 14.9 % (11.9-15.9); WHITE BLOOD COUNT 9.6 K/mm3 (4.0-10.0)
[2018-04-26] MEDS: METHADONE HCL 10 MG TABLET PO SCH (06:22)
[2018-04-26] MEDS: ACETAMINOPHEN 325 MG TABLET (FP) PO SCH ×2 (06:22→14:17)
[2018-04-26] MEDS: GABAPENTIN 300 MG CAPSULE (FP) PO SCH ×2 (06:22→14:16)
[2018-04-26 06:27] LABS: ALBUMIN 3.3 g/dl (3.4-5.0); ALK PHOS 107 U/L (45-117); ANION GAP 7 MMOL/L (8-16); BILIRUBIN,TOTAL 0.4 mg/dL (0.2-1); BLOOD UREA NITROGEN 12 mg/dL (7-18); CALCIUM 8.3 mg/dL (8.5-10.1); CHLORIDE 106 mmol/L (98-107); CO2 29 mmol/L (21-32); CREATININE 0.8 mg/dL (0.55-1.3); GLUCOSE,RANDOM 84 mg/dL (74-106); MAGNESIUM 2.4 mg/dL (1.8-2.4); PHOSPHOROUS 3.8 mg/dL (2.5-4.9); POTASSIUM 4.4 mmol/L (3.5-5.1); SGOT/AST 48 U/L (15-37); SGPT/ALT 54 U/L (13-61); SODIUM 142 mmol/L (136-145); TOT PROT 6.3 g/dl (6.4-8.2)
--- NOTE | 2018-04-26 07:53 | PN ---
Progress Note (short form) - Note Progress Note: Patient seen and examined at bedside No events overnight Troponin trending down denies chest pain denies any symptoms States he "very very good" in [place] Negative stress test a year ago per cardiology Vital Signs Temperature 98.1 F 04/26/18 06:00 Pulse Rate 64 04/26/18 06:00 Respiratory Rate 15 04/26/18 06:00 Blood Pressure 100/56 L 04/26/18 06:00 O2 Sat by Pulse Oximetry (%) 97 04/25/18 21:00 PE: NAD lying in bed eating breakfast PERRL EOMI Moist mucous membranes RRR S1 S2 left side clear to auscultation Right side with crackles Abdomen is soft non tender non distended no edema Abnormal Lab Results 04/25/18 04/26/18 04/26/18 05:30 05:15 05:15 MCHC 31.6 L Monocytes % 10.6 H Eosinophils % 6.9 H Anion Gap 7 L 7 L Calcium 8.3 L 8.3 L Magnesium 2.5 H AST 60 H 48 H CK-MB (CK-2) 5.1 H Troponin I 6.83 H* B-Natriuretic Peptide 1395.0 H Total Protein 6.3 L 6.3 L Albumin 3.3 L A/P 62M with history of HTN admitted for chest pain found to have bilateral PEs Problem List: HTN DM chronic pain on methadone bilateral PEs STEMI Right distal vein popliteal vein DVT history of hep c Stage 4 lung Ca repeat Echo done yesterday noted for apical akinesis Cardiology to transfer patient to [facility] in [place] for cardiac catheterization elevated BNP noted discontinue lovenox full anticoagulation dose and start heparin gtt per protocol continue metoprolol 12.5mg po BID continue norvasc 5mg po daily continue aspirin 81mg po daily continue Lipitor 80mg po HS continue methadone for pain control continue prednisone 5mg po daily Hold Keytruda for now per oncology CCTime 36 minutes
[2018-04-26] MEDS ORDERED: HEPARIN NA (PORCINE) 5,000 UNITS/ML 1ML VIAL IVPUSH PRN ×2 (08:21)
[2018-04-26] MEDS ORDERED: HEPARIN INFUSION - 25,000 UNITS/500 ML INFUS.BAG IVPB SCH (08:30)
[2018-04-26] MEDS ORDERED: HEPARIN NA (PORCINE) 5,000 UNITS/ML 1ML VIAL SQ ONE (08:34)
[2018-04-26] MEDS ORDERED: HEPARIN NA (PORCINE) 5,000 UNITS/ML 1ML VIAL IVPUSH ONE (08:59)
--- NOTE | 2018-04-26 09:22 | PN ---
Progress Note, Physician Chief Complaint: Pt A&Ox3; remains asymptomatic. History of Present Illness: 62YOMb (b. [place]), with h/o stage IV lung CA, moderate emphysema, s/p right anterior chest wall port placement, on chemo with last tx 04/18/18, who p/w right sided diffuse anterior chest pain radiating down his right arm and to his neck which has been ongoing for the past week but acutely worsened since last night. He additionally notes mild headache, mild SOB, mild palpitations. He denies new neck/back pain, vision changes, abdominal pain, leg pain/swelling, f/ c/n/v/d/c, or other symptoms. 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 He denies chest pain; +CHANEL and exertional fatigue. - Current Medication List Current Medications: Active Medications Acetaminophen (Tylenol -) 325 mg PO TID [facility] Last Admin: 04/26/18 06:22 Dose: 325 mg Amlodipine Besylate (Norvasc -) 5 mg PO HS [facility] Last Admin: 04/25/18 22:25 Dose: 5 mg Aspirin (Asa -) 81 mg PO DAILY [facility] Last Admin: 04/25/18 09:55 Dose: 81 mg Atorvastatin Calcium (Lipitor -) 80 mg PO HS [facility] Clopidogrel Bisulfate (Plavix -) 75 mg PO DAILY [facility] Last Admin: 04/25/18 13:03 Dose: 75 mg Gabapentin (Neurontin -) 300 mg PO Q8H [facility] Last Admin: 04/26/18 06:22 Dose: 300 mg Heparin Sodium (Porcine) (Heparin -) 1,000 unit IVPUSH PRN PRN PRN Reason: Heparin Heparin Sodium (Porcine) (Heparin -) 5,000 unit IVPUSH PRN PRN PRN Reason: Heparin Heparin Sodium (Porcine) (Heparin -) 5,000 unit IVPUSH ONCE ONE Stop: 04/26/18 09:00 Last Admin: 04/26/18 09:05 Dose: 5,000 unit Heparin Sodium/Dextrose (Heparin Infusion -) 25,000 units in 500 mls @ 20 mls/ hr IVPB TITR [facility]; Protocol Last Admin: 04/26/18 09:05 Dose: 1,000 units/hr, 20 mls/hr Methadone HCl (Dolophine -) 20 mg PO DAILY@0600 [facility] Last Admin: 04/26/18 06:22 Dose: 20 mg Metoprolol Tartrate (Lopressor -) 12.5 mg PO BID [facility] Last Admin: 04/25/18 22:26 Dose: 12.5 mg Nystatin (Nystatin Oral Suspension -) 500,000 units PO QID [facility] Last Admin: 04/25/18 22:26 Dose: 500,000 units Oxycodone HCl (Roxicodone -) 5 mg PO Q8H PRN PRN Reason: PAIN LEVEL 7 - 10 Last Admin: 04/24/18 23:00 Dose: 5 mg Pantoprazole Sodium (Protonix -) 40 mg PO DAILY [facility] Last Admin: 04/25/18 09:56 Dose: 40 mg Prednisone (Deltasone -) 5 mg PO DAILY [facility] Last Admin: 04/25/18 09:55 Dose: 5 mg - Objective Vital Signs: Vital Signs Temperature 98.1 F 04/26/18 06:00 Pulse Rate 64 04/26/18 06:00 Respiratory Rate 15 04/26/18 06:00 Blood Pressure 100/56 L 04/26/18 06:00 O2 Sat by Pulse Oximetry (%) 97 04/25/18 21:00 Constitutional: Yes: No Distress, Calm Eyes: Yes: WNL HENT: Yes: WNL Neck: Yes: WNL Cardiovascular: Yes: S1, S2 Respiratory: Yes: Diminished Gastrointestinal: Yes: WNL ...Rectal Exam: Yes: Deferred Genitourinary: No: Anuria Breast(s): Yes: WNL Musculoskeletal: Yes: Muscle Weakness Extremities: Yes: WNL Edema: No Peripheral Pulses WNL: Yes Integumentary: Yes: WNL Neurological: Yes: WNL Psychiatric: Yes: WNL Labs: CBC, BMP 04/26/18 05:15 04/26/18 05:15 INR, PTT INR 1.08 (0.83-1.09) 04/23/18 10:45 Abnormal Lab Results 04/25/18 04/26/18 04/26/18 05:30 05:15 05:15 MCHC 31.6 L Monocytes % 10.6 H Eosinophils % 6.9 H Anion Gap 7 L 7 L Calcium 8.3 L 8.3 L Magnesium 2.5 H AST 60 H 48 H CK-MB (CK-2) 5.1 H Troponin I 6.83 H* B-Natriuretic Peptide 1395.0 H Total Protein 6.3 L 6.3 L Albumin 3.3 L Problem List - Problems (1) LFT elevation Code(s): R94.5 - ABNORMAL RESULTS OF LIVER FUNCTION STUDIES (2) Lung cancer Assessment/Plan: 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 Hypercoaguable state-->acute PE and VT (portent of progression of CA). F/u with oncologist. Code(s): C34.90 - MALIGNANT NEOPLASM OF UNSP PART OF UNSP BRONCHUS OR LUNG (3) Pulmonary emboli Assessment/Plan: On Lovenox 1 mg/kg BW bid. ECHO: normal LVEF and RVEF; RV size reportedly WNL; no significant pulmonary HTN. Code(s): I26.99 - OTHER PULMONARY EMBOLISM WITHOUT ACUTE COR PULMONALE Qualifiers: Pulmonary embolism type: unspecified Chronicity: acute Acute cor pulmonale presence: without acute cor pulmonale Qualified Code(s): I26.99 - Other pulmonary embolism without acute cor pulmonale (4) Chronic use of opiate for therapeutic purpose Code(s): Z79.899 - OTHER ASSISTANT PROFESSOR OF COMMUNICATION (CURRENT) DRUG THERAPY (5) Hypercholesterolemia Code(s): E78.0 - PURE HYPERCHOLESTEROLEMIA * DO NOT USE * (6) Spondylosis Code(s): M47.9 - SPONDYLOSIS, UNSPECIFIED (7) STEMI (ST elevation myocardial infarction) Assessment/Plan: TNI trending downward. No significant changes on today's EKG. On IV heparin, clopidogrel, ASA, atorvastatin.metoprolol (consider changing amlodipine to ACEI or ARB). For transfer to [facility] for coronary angiogram. Code(s): I21.3 - ST ELEVATION (STEMI) MYOCARDIAL INFARCTION OF UNSP SITE
[2018-04-26] MEDS: ASPIRIN 81 MG CHEWABLE TABLETS PO SCH (10:50)
[2018-04-26] MEDS: NYSTATIN 500,000 UNITS/5 ML SUSPENSION PO SCH ×2 (10:50→14:16)
[2018-04-26] MEDS: PANTOPRAZOLE 40 MG TABLET (FP) PO SCH (10:50)
[2018-04-26] MEDS: predniSONE 5 MG TABLET (UD) PO SCH (10:50)
[2018-04-26] MEDS: METOPROLOL TARTRATE 25 MG TABLET (FP) PO SCH (10:50)
[2018-04-26] MEDS: CLOPIDOGREL BISULFATE 75 MG TABLET (FP) PO SCH (11:09)
[2018-04-26 11:18] LABS: CHOLESTEROL 175 mg/dL (50-200); HDL CHOLESTEROL 35 mg/dL (40-60); TRIGLYCERIDES 89 mg/dL (0-150)
--- NOTE | 2018-04-26 12:43 | PN ---
Teaching Attending Note Name of Resident: Nas Thomas ATTENDING PHYSICIAN STATEMENT I saw and evaluated the patient. I reviewed the resident's note and discussed the case with the resident. I agree with the resident's findings and plan as documented. SUBJECTIVE: Pt seen and examined in the ICU. Denies shortness of breath or chest pain. Still with ST elevations on AM EKG. OBJECTIVE: Vital Signs Period Temp Pulse Resp BP Sys/Perea Pulse Ox Last 24 Hr 97.6 F-98.1 F 60-91 9-18 93-124/56-96 96-97 Intake & Output 04/23/18 04/24/18 04/25/18 04/26/18 23:59 23:59 23:59 23:59 Intake Total 250 870 130 Balance 250 870 130 Weight 76.929 kg 76.113 kg 73.482 kg Gen: NAD at rest Heart: RRR Lung: decreased breath sounds at the bases Abd: soft, nontender Ext: no edema CBC, BMP 04/26/18 05:15 04/26/18 05:15 Active Medications Acetaminophen (Tylenol -) 325 mg PO TID [facility] Last Admin: 04/26/18 06:22 Dose: 325 mg Amlodipine Besylate (Norvasc -) 5 mg PO HS [facility] Last Admin: 04/25/18 22:25 Dose: 5 mg Aspirin (Asa -) 81 mg PO DAILY [facility] Last Admin: 04/26/18 10:50 Dose: 81 mg Atorvastatin Calcium (Lipitor -) 80 mg PO HS [facility] Clopidogrel Bisulfate (Plavix -) 75 mg PO DAILY [facility] Last Admin: 04/26/18 11:09 Dose: 75 mg Gabapentin (Neurontin -) 300 mg PO Q8H [facility] Last Admin: 04/26/18 06:22 Dose: 300 mg Heparin Sodium (Porcine) (Heparin -) 1,000 unit IVPUSH PRN PRN PRN Reason: Heparin Heparin Sodium (Porcine) (Heparin -) 5,000 unit IVPUSH PRN PRN PRN Reason: Heparin Heparin Sodium/Dextrose (Heparin Infusion -) 25,000 units in 500 mls @ 20 mls/ hr IVPB TITR [facility]; Protocol Last Admin: 04/26/18 09:05 Dose: 1,000 units/hr, 20 mls/hr Influenza Virus Vaccine Quadrival (Flulaval Quad [id number]) 60 mcg IM .ONCE ONE Stop: 04/26/18 13:01 Methadone HCl (Dolophine -) 20 mg PO DAILY@0600 [facility] Last Admin: 04/26/18 06:22 Dose: 20 mg Metoprolol Tartrate (Lopressor -) 12.5 mg PO BID [facility] Last Admin: 04/26/18 10:50 Dose: 12.5 mg Nystatin (Nystatin Oral Suspension -) 500,000 units PO QID [facility] Last Admin: 04/26/18 10:50 Dose: 500,000 units Oxycodone HCl (Roxicodone -) 5 mg PO Q8H PRN PRN Reason: PAIN LEVEL 7 - 10 Last Admin: 04/24/18 23:00 Dose: 5 mg Pantoprazole Sodium (Protonix -) 40 mg PO DAILY [facility] Last Admin: 04/26/18 10:50 Dose: 40 mg Prednisone (Deltasone -) 5 mg PO DAILY [facility] Last Admin: 04/26/18 10:50 Dose: 5 mg ASSESSMENT AND PLAN: Acute PE/DVT Pulmonary HTN Acute STEMI Stage IV Lung Cancer HTN DM Methadone Maintenance - continue anticoagulation - ASA, plavix - beta david, statin - O2 to keep SpO2 >90% - for cardiac catheterization per cardiology
--- NOTE | 2018-04-26 12:44 | EKG ---
Test Reason : Blood Pressure : / mmHG Vent. Rate : 068 BPM Atrial Rate : 068 BPM P-R Int : 136 ms QRS Dur : 096 ms QT Int : 422 ms P-R-T Axes : 065 062 102 degrees QTc Int : 448 ms NORMAL SINUS RHYTHM SEPTAL INFARCT (CITED ON OR BEFORE 23-APR-2018) T WAVE ABNORMALITY, CONSIDER ANTERIOR ISCHEMIA ABNORMAL ECG WHEN COMPARED WITH ECG OF 25-APR-2018 10:03, SERIAL CHANGES OF SEPTAL INFARCT PRESENT Confirmed by GERALD RAMESH MD ([id number]) on 04/26/2018 12:44:09 PM Referred By: JACKELIN GONSALEZ Confirmed By:GERALD RAMESH MD
[2018-04-26] MEDS ORDERED: FLU VACCINE QUAD 60 MCG/0.5 ML (MDV 18-19) IM ONE (13:00)
[2018-04-26 16:16] VITALS: BP 112/72; PULSE 66; TEMP 98.3
--- NOTE | 2018-04-26 17:55 | DS ---
Physical Exam: SUBJECTIVE: Patient seen and examined at the bedside. denies any pain, no shortness of breath. no chest pain. OBJECTIVE: discharge to [facility] for cardiac cath Vital Signs Period Temp Pulse Resp BP Sys/Perea Pulse Ox Last 24 Hr 97.7 F-98.4 F 60-91 9-18 93-136/56-96 95-97 PHYSICAL EXAM GENERAL: The patient is awake, alert, and fully oriented, in no acute distress. HEAD: Normal with no signs of trauma. EYES: PERRL, extraocular movements intact, sclera anicteric, conjunctiva clear. No ptosis. ENT: Ears normal, nares patent, oropharynx clear without exudates, moist mucous membranes. NECK: Trachea midline, full range of motion, supple. LUNGS: Breath sounds equal, clear to auscultation bilaterally, no wheezes, no crackles HEART: Regular rate and rhythm ABDOMEN: Soft, nontender, nondistended, normoactive bowel sounds, no guarding, no rebound, no hepatosplenomegaly, no masses. EXTREMITIES: no edema. NEUROLOGICAL: Normal speech, gait steady PSYCH: Normal mood, normal affect. SKIN: Warm, dry, normal turgor, no rashes or lesions noted LABS Laboratory Results - last 24 hr 04/26/18 04/26/18 04/26/18 05:15 05:15 13:38 WBC 9.6 RBC 5.09 Hgb 14.3 Hct 45.4 MCV 89.3 MCH 28.2 MCHC 31.6 L RDW 14.9 Plt Count 274 MPV 7.7 Absolute Neuts (auto) 5.3 Neutrophils % 54.9 Lymphocytes % 25.8 Monocytes % 10.6 H Eosinophils % 6.9 H Basophils % 1.8 Nucleated RBC % 0 PTT (Actin FS) 78.9 H Sodium 142 Potassium 4.4 Chloride 106 Carbon Dioxide 29 Anion Gap 7 L BUN 12 Creatinine 0.8 Creat Clearance w eGFR > 60 Random Glucose 84 Calcium 8.3 L Phosphorus 3.8 Magnesium 2.4 Total Bilirubin 0.4 AST 48 H ALT 54 Alkaline Phosphatase 107 Total Protein 6.3 L Albumin 3.3 L Triglycerides 89 Cholesterol 175 Total LDL Cholesterol 118 H HDL Cholesterol 35 L HOSPITAL COURSE: Patient is a 62 year old male with a significant past medical history of stage IV lung CA, s/p right anterior chest wall port placement, s/p chemo. Last chemo treatment on 04/18/2018. He presents to the ED on 04/23/2018 with right sided anterior chest pain radiating down his right arm and to his neck which has been ongoing for the past week. On admission a CTA showed that he had acute PE in the upper and lower lobe lobar arteries bilaterally. He also was found to have a DVT on his right popliteal vein. On exam, patient is resting comfortably, son at the bedside. In no acute distress. Denies pain or shortness of breath. imaging: vascular study: dvt right popliteal vein cta: acute pulmonary embolism involving the upper and lower lobe lobar arteries bilaterally echo 04/24/18: lv size normal, trace tr, RV systolic pressure elevated at 34mmhg echo 04/25/18: RV pressure elevated Cardiology: Elevated troponins 0.06>12.00>7.8>6.5 Patient does not c/o of chest pain or discomfort. Troponins have trended down, but still remain elevated. He is on heparin gtt, metoprolol bid, ASA 81mg daily. Patient in ICU for closer monitoring. EKG with st elevations, changed from ekg done on admission Repeat Echo shows RV elevated pressure Patient for coronary artery evaluation at [facility] Hematology Bilateral PE Right leg DVT In the setting of advance lung cancer On heparin drip Hematology consulted and following Lung cancer Patient admitted with right sided anterior chest pain radiating down to his right arm. Patient is s/p chemo and had a right chest wall mediport placed for the chemo. Last chemo treatment 04/18/18. Mediport placed 2 years ago. Date of Admission:04/23/18 Date of Discharge: 04/26/18 discharge: per cardiology, patient may be discharged to [facility] for cardiac cath. Minutes to complete discharge: 60 Discharge Summary Reason For Visit: ELEVATED TROPONIN; PULMONARY EMBOLISM Condition: Guarded - Instructions Diet, Activity, Other Instructions: TRANFER TO [facility] FOR CARDIAC CATH Referrals: Lakisha Donis MD [Primary Care Provider] - Disposition: TRANSFER ACUTE CARE/OTHER HOSP - Home Medications Comprehensive Discharge Medication List: Ambulatory Orders Methadone HCl 20 mg PO DAILY 02/11/14 Amlodipine Besylate 5 mg PO DAILY 06/10/16 Pantoprazole Sodium [Protonix -] 40 mg PO DAILY 07/05/16 Mirtazapine [Remeron -] 30 mg PO HS 07/28/17 Nystatin Oral Suspension - [Nystatin Oral Susp 266692 Units/5 ML -] 5 ml PO QID #1 bottle 09/25/17 Multivitamin [Multiple Vitamins] 1 each PO DAILY #30 tablet 11/22/17 Ergocalciferol [Vitamin D2] 50,000 unit PO Q7D@1000 #4 capsule 12/22/17 Diclofenac Sodium [Voltaren] 2 gm TP QID PRN #3 tube 01/17/18 Gabapentin 300 mg PO Q8H #90 capsule 03/16/18 Oxycodone HCl/Acetaminophen [Percocet 10-325 mg Tablet] 1 each PO TID #70 tablet MDD 3 04/16/18 Prednisone 10 mg PO DAILY 04/23/18 Triamcinolone 0.1% Cream [Aristocort 0.1% Cream -] 1 applic TP BID 04/23/18 Xanax 04/23/18 Aspirin [ASA -] 81 mg PO DAILY tab.chew 04/26/18 Atorvastatin Ca [Lipitor] 80 mg PO HS tablet 04/26/18 Heparin - 5,000 unit IVPUSH PRN PRN vial 04/26/18 Methadone [Dolophine -] 20 mg PO DAILY@0600 tablet MDD 2 TABS 04/26/18 Metoprolol Tartrate [Lopressor -] 12.5 mg PO BID tablet 04/26/18 This patient is new to me today: No Emergency Visit: Yes ED Registration Date: 04/23/18 Care time: The patient presented to the Emergency Department on the above date and was hospitalized for further evaluation of their emergent condition. Critical Care patient: Yes Total Critical Care Time (in minutes): 60 Critical Care Statement: The care of this patient involved high complexity decision making to prevent further life threatening deterioration of the patient 's condition and/or to evaluate & treat vital organ system(s) failure or risk of failure. - Discharge Referral Referred to [facility] No
[2018-04-26] MEDS ORDERED: ATORVASTATIN CA 80 MG TABLET (FP) PO SCH (22:00)
--- NOTE | 2018-06-08 11:50 | EKG ---
Test Reason : Blood Pressure : / mmHG Vent. Rate : 096 BPM Atrial Rate : 096 BPM P-R Int : 126 ms QRS Dur : 098 ms QT Int : 364 ms P-R-T Axes : 057 049 056 degrees QTc Int : 459 ms SINUS RHYTHM WITH OCCASIONAL PREMATURE VENTRICULAR COMPLEXES SEPTAL INFARCT , AGE UNDETERMINED ABNORMAL ECG WHEN COMPARED WITH ECG OF 18-APR-2018 09:23, PREMATURE VENTRICULAR COMPLEXES ARE NOW PRESENT Confirmed by AYAH SHAFER, ESTHELA ([id number]) on 06/08/2018 11:50:16 AM Referred By: Confirmed By:ESTHELA POON MD
== END 2018-04-26 16:41 | disposition short-term general hospital (02) | DRG 134 ==
LOC: JER 08:44 → JERBED 12:40 → J4W 21:01 → JICU 04-24 18:45
PROVIDERS: ADMIT Internal Medicine; ATTEND Nurse Practitioner Family
DX: I26.99 Other pulmonary embolism without acute cor pulmonale (principal); I21.3 ST elevation (STEMI) myocardial infarction of unspecified site; I82.431 Acute embolism and thrombosis of right popliteal vein; I27.20 Pulmonary hypertension, unspecified; J43.9 Emphysema, unspecified; C34.90 Malignant neoplasm of unspecified part of unspecified bronchus or lung; Z85.118 Personal history of other malignant neoplasm of bronchus and lung; K21.9 Gastro-esophageal reflux disease without esophagitis; F12.10 Cannabis abuse, uncomplicated; F14.10 Cocaine abuse, uncomplicated; F11.10 Opioid abuse, uncomplicated; E78.00 Pure hypercholesterolemia, unspecified; M54.5 Low back pain; I25.10 Atherosclerotic heart disease of native coronary artery without angina pectoris; B19.20 Unspecified viral hepatitis C without hepatic coma; Z87.891 Personal history of nicotine dependence; R09.02 Hypoxemia
CPT/HCPCS: 36415; 71045-TC-FY; 71275-TC; 80053; 80061; 81003; 82550; 82553; 83036; 83721; 83735; 83880; 84100; 84484; 85025; 85610; 85730; 86850; 86900; 86901; 87086; 93005; 93010; 93306-TC; 93970-TC; 99283-25; J0131; J1644

== ENCOUNTER → 2018-05-09 | Day surgery (SDC) | payer OTHER ==
[~2018-05-09] MED LIST: DEXAMETHASONE SODIUM PHOSPHATE 10 MG, DIPHENHYDRAMINE 25 MG in SODIUM CHLORIDE 100 ML IVPB ONE; PEMBROLIZUMAB 200 MG in SODIUM CHLORIDE 50 ML IV ONE; SODIUM CHLORIDE 250 ML IV ONE
[2018-05-09 10:07] LABS: BASO % 0.8 % (0-2.0); EOS % 2.4 % (0-4.5); HEMATOCRIT 39.3 % (35.4-49); HEMOGLOBIN 13.3 GM/dL (11.7-16.9); LYMPH % 19.3 % (8-40); MCH 29.4 pg (25.7-33.7); MCHC 33.8 g/dl (32.0-35.9); MONO % 10.1 % (3.8-10.2); NEUT % 67.4 % (42.8-82.8); PLATELET COUNT 278 K/MM3 (134-434); RBC 4.51 M/mm3 (4.00-5.60); RDW 14.1 % (11.9-15.9); WHITE BLOOD COUNT 8.4 K/mm3 (4.0-10.0)
[2018-05-09 10:37] LABS: ALBUMIN 3.5 g/dl (3.4-5.0); ALK PHOS 104 U/L (45-117); ANION GAP 8 MMOL/L (8-16); BILIRUBIN,DIRECT 0.2 mg/dL (0.0-0.2); BILIRUBIN,TOTAL 0.6 mg/dL (0.2-1); BLOOD UREA NITROGEN 15 mg/dL (7-18); CALCIUM 8.5 mg/dL (8.5-10.1); CHLORIDE 101 mmol/L (98-107); CO2 30 mmol/L (21-32); GLUCOSE,RANDOM 116 mg/dL (74-106); MAGNESIUM 2.2 mg/dL (1.8-2.4); POTASSIUM 3.3 mmol/L (3.5-5.1); SGOT/AST 35 U/L (15-37); SGPT/ALT 64 U/L (13-61); SODIUM 139 mmol/L (136-145); TOT PROT 6.9 g/dl (6.4-8.2)
[2018-05-09 11:17] VITALS: BP 138/80; PULSE 88; TEMP 98.4
== END | disposition home or self-care (01) ==
LOC: JONCCHEMO 07:01
PROVIDERS: ATTEND Internal Medicine Hematology & Oncology
PROC: 3E013GC Introduction of Other Therapeutic Substance into Subcutaneous Tissue, Percutaneous Approach (ICD-10-PCS; principal; 2018-05-09)
DX: Z53.8 Procedure and treatment not carried out for other reasons (principal)
CPT/HCPCS: 36415; 80048; 80076; 83735; 85025

== ENCOUNTER → 2018-05-16 | Day surgery (SDC) | payer OTHER | LOC: JONCCHEMO 07:27 ==

== ENCOUNTER 2018-05-23 07:10 | Day surgery (SDC) | payer OTHER ==
[2018-05-23] MEDS ORDERED: SODIUM CHLORIDE 250 ML IV ONE ×2 (09:00→11:00)
[2018-05-23] MEDS ORDERED: DEXAMETHASONE SODIUM PHOSPHATE 10 MG, DIPHENHYDRAMINE 25 MG in SODIUM CHLORIDE 100 ML IVPB ONE (10:00)
[2018-05-23] MEDS ORDERED: PEMBROLIZUMAB 200 MG in SODIUM CHLORIDE 50 ML IV ONE (10:30)
[2018-05-23 11:25] LABS: BASO % 1.2 % (0-2.0); HEMATOCRIT 40.7 % (35.4-49); LYMPH % 11.8 % (8-40); MCH 29.9 pg (25.7-33.7); MCHC 34.5 g/dl (32.0-35.9); MEAN CELL VOLUME 86.6 fl (80-96); MEAN PLT VOLUME 8.3 fl (7.5-11.1); PLATELET COUNT 270 K/MM3 (134-434); RDW 14.6 % (11.9-15.9); WHITE BLOOD COUNT 9.4 K/mm3 (4.0-10.0)
[2018-05-23 11:58] LABS: ALBUMIN 3.6 g/dl (3.4-5.0); ALK PHOS 121 U/L (45-117); ANION GAP 8 MMOL/L (8-16); BILIRUBIN,DIRECT 0.1 mg/dL (0.0-0.2); BILIRUBIN,TOTAL 0.4 mg/dL (0.2-1); BLOOD UREA NITROGEN 16 mg/dL (7-18); CALCIUM 8.5 mg/dL (8.5-10.1); CHLORIDE 103 mmol/L (98-107); CO2 28 mmol/L (21-32); CREATININE 0.9 mg/dL (0.55-1.3); GLUCOSE,RANDOM 144 mg/dL (74-106); MAGNESIUM 2.1 mg/dL (1.8-2.4); SGOT/AST 20 U/L (15-37); SGPT/ALT 37 U/L (13-61); SODIUM 139 mmol/L (136-145); TOT PROT 6.8 g/dl (6.4-8.2)
[2018-05-23 17:10] VITALS: TEMP 98.6
[2018-05-23 17:15] VITALS: BP 127/70; PULSE 61
[2018-05-23] MEDS ORDERED: PORTA CATH FLUSH 10 ML IVPUSH ONE (17:15)
== END 2018-05-23 17:00 | disposition home or self-care (01) ==
LOC: JONCCHEMO 07:10 → J7W 12:40 → JONCCHEMO 17:00
PROVIDERS: ATTEND Internal Medicine Hematology & Oncology
DX: Z51.11 Encounter for antineoplastic chemotherapy (principal); C34.31 Malignant neoplasm of lower lobe, right bronchus or lung
CPT/HCPCS: 36415; 80048; 80076; 83735; 84436; 84439; 84443; 85025; 96361; 96367; 96375; 96413; J9271

== ENCOUNTER 2018-06-13 07:15 | Day surgery (SDC) | payer OTHER ==
[2018-06-13] MEDS ORDERED: SODIUM CHLORIDE 250 ML IV ONE ×2 (08:00→09:30)
[2018-06-13] MEDS ORDERED: DEXAMETHASONE SODIUM PHOSPHATE 8 MG, DIPHENHYDRAMINE 25 MG in SODIUM CHLORIDE 100 ML IVPB ONE (08:30)
[2018-06-13] MEDS ORDERED: PEMBROLIZUMAB 200 MG in SODIUM CHLORIDE 50 ML IV ONE (09:00)
[2018-06-13 10:06] LABS: BASO % 1.2 % (0-2.0); EOS % 5.5 % (0-4.5); HEMATOCRIT 41.8 % (35.4-49); HEMOGLOBIN 13.8 GM/dL (11.7-16.9); LYMPH % 28.7 % (8-40); MCH 28.7 pg (25.7-33.7); MCHC 32.9 g/dl (32.0-35.9); MEAN CELL VOLUME 87.2 fl (80-96); MEAN PLT VOLUME 8.2 fl (7.5-11.1); MONO % 9.7 % (3.8-10.2); NEUT % 54.9 % (42.8-82.8); PLATELET COUNT 231 K/MM3 (134-434); RBC 4.79 M/mm3 (4.00-5.60); RDW 15.1 % (11.9-15.9); WHITE BLOOD COUNT 7.9 K/mm3 (4.0-10.0)
[2018-06-13 10:32] LABS: ALBUMIN 3.6 g/dl (3.4-5.0); ALK PHOS 164 U/L (45-117); ANION GAP 6 MMOL/L (8-16); BILIRUBIN,TOTAL 0.2 mg/dL (0.2-1); BLOOD UREA NITROGEN 12 mg/dL (7-18); CALCIUM 8.4 mg/dL (8.5-10.1); CHLORIDE 110 mmol/L (98-107); CO2 27 mmol/L (21-32); GLUCOSE,RANDOM 164 mg/dL (74-106); POTASSIUM 3.9 mmol/L (3.5-5.1); SGOT/AST 34 U/L (15-37); SGPT/ALT 50 U/L (13-61); SODIUM 144 mmol/L (136-145); TOT PROT 6.5 g/dl (6.4-8.2)
[2018-06-13 10:36] LABS: ALBUMIN 3.5 g/dl (3.4-5.0); BILIRUBIN,DIRECT 0.1 mg/dL (0.0-0.2); BILIRUBIN,TOTAL 0.3 mg/dL (0.2-1); MAGNESIUM 2.1 mg/dL (1.8-2.4); TOT PROT 6.6 g/dl (6.4-8.2)
[2018-06-13 14:05] VITALS: BP 132/77; PULSE 85; TEMP 97.7
[2018-06-13] MEDS ORDERED: PORTA CATH FLUSH 10 ML IVPUSH ONE (14:05)
== END 2018-06-13 14:06 | disposition home or self-care (01) ==
LOC: JONCCHEMO 07:15 → J7W 10:28 → JONCCHEMO 14:06
PROVIDERS: ATTEND Internal Medicine Hematology & Oncology
DX: C34.31 Malignant neoplasm of lower lobe, right bronchus or lung (principal)
CPT/HCPCS: 36415; 80053; 80076; 83735; 85025; 96361; 96367; 96375; 96413; J9271

== ENCOUNTER 2018-07-05 06:27 | Day surgery (SDC) | payer OTHER ==
[2018-07-05] MEDS ORDERED: SODIUM CHLORIDE 250 ML IV ONE ×2 (09:00→11:00)
[2018-07-05 09:15] LABS: BASO % 1.2 % (0-2.0); EOS % 4.1 % (0-4.5); HEMATOCRIT 43.3 % (35.4-49); HEMOGLOBIN 14.8 GM/dL (11.7-16.9); LYMPH % 20.8 % (8-40); MCH 29.3 pg (25.7-33.7); MCHC 34.1 g/dl (32.0-35.9); MEAN CELL VOLUME 86.1 fl (80-96); MEAN PLT VOLUME 7.8 fl (7.5-11.1); MONO % 10.6 % (3.8-10.2); NEUT % 63.3 % (42.8-82.8); PLATELET COUNT 249 K/MM3 (134-434); RBC 5.03 M/mm3 (4.00-5.60); RDW 15.2 % (11.9-15.9); WHITE BLOOD COUNT 8.1 K/mm3 (4.0-10.0)
[2018-07-05 09:43] LABS: INR 1.42 (0.83-1.09); PROTHROMBIN TIME (PATIENT) 16.8 SEC (9.7-13.0)
[2018-07-05 09:55] LABS: ALBUMIN 3.7 g/dl (3.4-5.0); ALK PHOS 106 U/L (45-117); ANION GAP 7 MMOL/L (8-16); BILIRUBIN,TOTAL 0.7 mg/dL (0.2-1); BLOOD UREA NITROGEN 18 mg/dL (7-18); CALCIUM 8.9 mg/dL (8.5-10.1); CHLORIDE 104 mmol/L (98-107); CO2 27 mmol/L (21-32); CREATININE 1.1 mg/dL (0.55-1.3); GLUCOSE,RANDOM 124 mg/dL (74-106); POTASSIUM 3.7 mmol/L (3.5-5.1); SGOT/AST 19 U/L (15-37); SGPT/ALT 28 U/L (13-61); SODIUM 139 mmol/L (136-145); TOT PROT 7.3 g/dl (6.4-8.2)
[2018-07-05 09:57] LABS: ALBUMIN 3.8 g/dl (3.4-5.0); BILIRUBIN,DIRECT 0.2 mg/dL (0.0-0.2); BILIRUBIN,TOTAL 0.7 mg/dL (0.2-1); TOT PROT 7.2 g/dl (6.4-8.2)
[2018-07-05 10:00] LABS: MAGNESIUM 2.1 mg/dL (1.8-2.4)
[2018-07-05] MEDS ORDERED: DEXAMETHASONE SODIUM PHOSPHATE 8 MG, DIPHENHYDRAMINE 25 MG in SODIUM CHLORIDE 100 ML IVPB ONE (10:00)
[2018-07-05] MEDS ORDERED: PEMBROLIZUMAB 200 MG in SODIUM CHLORIDE 50 ML IV ONE (10:30)
[2018-07-05 15:37] VITALS: BP 134/86; PULSE 67; TEMP 98.2
[2018-07-05] MEDS ORDERED: PORTA CATH FLUSH 10 ML IVPUSH ONE (15:45)
== END 2018-07-05 13:40 | disposition home or self-care (01) ==
LOC: JONCCHEMO 06:27 → J7W 10:18 → JONCCHEMO 13:40
PROVIDERS: ATTEND Internal Medicine Hematology & Oncology
DX: Z51.11 Encounter for antineoplastic chemotherapy (principal); C34.31 Malignant neoplasm of lower lobe, right bronchus or lung
CPT/HCPCS: 36415; 80053; 80076; 83735; 84439; 84443; 85025; 85610; 85730; 96361; 96367; 96375; 96413; J9271

== ENCOUNTER 2018-07-25 12:17 | Inpatient (IN) | payer OTHER ==
--- NOTE | 2018-07-25 13:35 | PDOC ---
Attending Attestation - HPI HPI: 07/25/18 15:21 The patient is a 62 year old male with a significant PMH of R Lung Ca (dx 2017, chemo- Keytruda q3w), PE (on Eliquis), CAD s/p stent, HTN sent to ED from oncologist office for evaluation of fever (101.4F) and elevated LFTs. The patient reports right upper abdominal pain and had 1 episode of NBNB emesis which he attributes to "drinking too much water". He denies SOB, cough, chest pain, back pain, headache, rash, lightheadedness, syncope, nausea, diarrhea, bloody stools, dysuria. No sick contacts, no recent travel. PMD: Violeta Hem/Onc: Lien - Physicial Exam PE: 07/25/18 17:18 GENERAL: The patient is in no acute distress. HEAD: Normal with no signs of trauma. EYES: PERRLA, EOMI, sclera anicteric, conjunctiva clear. NECK: Normal range of motion, supple without lymphadenopathy, JVD, or masses. LUNGS: Breath sounds equal, clear to auscultation bilaterally. No wheezes, and no crackles. HEART: Regular rate and rhythm, normal S1 and S2 without murmur, rub or gallop. ABDOMEN: Soft, nontender, normoactive bowel sounds. No guarding, no rebound. No masses palpable. EXTREMITIES: Normal range of motion, no edema. No clubbing or cyanosis. No erythema, or tenderness. NEUROLOGICAL: Cranial nerves II through XII grossly intact. Normal speech. No focal neurological deficits. <Kayla Haskins - Last Filed: 07/25/18 17:18> - Resident Resident Name: Chastity Mayer - ED Attending Attestation I have performed the following: I have examined & evaluated the patient, The case was reviewed & discussed with the resident, I agree w/resident's findings & plan, Exceptions are as noted - Medical Decision Making 07/27/18 17:33 Pt presents with severe right sided pain and fever No nausea or vomiting Symptoms have resolved Pt is being treated for lung cancer (Keytruda) Laboratory Tests 07/25/18 07/25/18 07/25/18 13:45 13:45 13:45 WBC 11.5 H Hgb 14.4 Hct 43.0 Plt Count 235 INR 1.71 H Sodium Potassium Chloride Carbon Dioxide BUN Creatinine Random Glucose Lactic Acid Total Bilirubin AST ALT Alkaline Phosphatase Troponin I 0.02 07/25/18 07/25/18 13:45 14:47 WBC Hgb Hct Plt Count INR Sodium 136 Potassium 3.8 Chloride 102 Carbon Dioxide 28 BUN 9 Creatinine 1.0 Random Glucose 117 H Lactic Acid 1.8 Total Bilirubin 1.1 H AST 206 H ALT 240 H Alkaline Phosphatase 157 H Troponin I Transaminitis noted Pt CT reveal no PE, No liver mass, no biliary pathology Will admit to hospitalist Clinical impression: transaminitis, initial presentation <Mariana Condon - Last Filed: 07/27/18 17:39> Attestations - Attestations 07/25/18 15:22 Documentation prepared by Kayla Haskins, acting as medical unit secretary for Mariana Condon MD <Kayla Haskins - Last Filed: 07/25/18 17:18>
[2018-07-25] MEDS ORDERED: LACTATED RINGERS SOLUTION 1000 ML INFUS.BAG IV ONE (13:54)
[2018-07-25] MEDS ORDERED: ACETAMINOPHEN 1000 MG/100 ML VIAL (NON FORMULARY) IVPB ONE (13:54)
[2018-07-25 13:59] LABS: BASO % 0.8 % (0-2.0); EOS % 0.5 % (0-4.5); HEMOGLOBIN 14.4 GM/dL (11.7-16.9); LYMPH % 3.7 % (8-40); MCH 28.4 pg (25.7-33.7); MCHC 33.5 g/dl (32.0-35.9); MEAN CELL VOLUME 84.9 fl (80-96); MONO % 4.2 % (3.8-10.2); NEUT % 90.8 % (42.8-82.8); PLATELET COUNT 235 K/MM3 (134-434); RBC 5.06 M/mm3 (4.00-5.60); RDW 15.5 % (11.9-15.9); VENOUS PC02 36.9 mmHg (41-51); VENOUS PH 7.46 (7.31-7.41); VENOUS PO2 74.8 mmHg (30-40); WHITE BLOOD COUNT 11.5 K/mm3 (4.0-10.0)
[2018-07-25] MEDS ORDERED: ACETAMINOPHEN INJECTION 100 ML IVPB ONE (14:02)
--- NOTE | 2018-07-25 14:04 | PDOC ---
History of Present Illness - General Chief Complaint: SIRS, Suspected/Possible Stated Complaint: SENT BY PCP/FEVER Time Seen by Provider: 07/25/18 13:20 History Source: Patient, Family (daughter) Exam Limitations: No Limitations - History of Present Illness Initial Comments: 07/25/18 13:58 Pt is a 62yo M with PMH of R Lung Ca (dx 2017, chemo- Keytruda q3w), PE (on Eliquis), CAD s/p stent, HTN sent to ED from oncologist office for fever and elevated LFTs. Pt states he was not feeling well and went to oncologist office where he was found to be febrile to 101.4 and having abnormal LFTs. Pt states that he was having some RUQ pain and had 1 episode of emesis which he states is due to "drinking too much water". He denies SOB, cough, chest pain, back pain, headache, rash, lightheadedness, syncope, nausea, diarrhea, bloody stools, dysuria. No sick contacts, no recent travel. PMD: Violeta Onc: Lien PMH: see hpi PSH: see hpi Meds: eliquis, plavix, metoprolol, see med rec Allergies: PCN Past History - Past Medical History Allergies/Adverse Reactions: Allergies Allergy/AdvReac Type Severity Reaction Status Date / Time Penicillins Allergy Intermediate Rash Verified 07/25/18 12:25 quetiapine fumarate AdvReac Intermediate nightmares Verified 07/25/18 12:25 [From Seroquel] Home Medications: Ambulatory Orders Methadone HCl 20 mg PO DAILY 02/11/14 Amlodipine Besylate 5 mg PO DAILY 06/10/16 Pantoprazole Sodium [Protonix -] 40 mg PO DAILY 07/05/16 Mirtazapine [Remeron -] 30 mg PO HS 07/28/17 Nystatin Oral Suspension - [Nystatin Oral Susp [id number] Units/5 ML -] 5 ml PO QID #1 bottle 09/25/17 Prednisone 10 mg PO DAILY 04/23/18 Triamcinolone 0.1% Cream [Aristocort 0.1% Cream -] 1 applic TP BID 04/23/18 Atorvastatin Ca [Lipitor] 80 mg PO HS tablet 04/26/18 Alprazolam [Xanax] 0.25 mg PO BID PRN 05/15/18 Apixaban [Eliquis -] 5 mg PO BID 05/15/18 Dextran 70/Hypromellose [Natural Balance Tears Eye Drop] 15 ml OU TID #1 bottle 05/15/18 Multivitamin [Multiple Vitamins] 1 each PO DAILY #30 tablet 05/15/18 traZODone HCL [Desyrel -] 50 mg PO HS #30 tablet 06/14/18 Diclofenac Sodium [Voltaren] 2 gm TP QID PRN #3 tube 07/12/18 Ergocalciferol [Vitamin D2] 50,000 unit PO Q7D@1000 #4 capsule 07/12/18 Gabapentin 300 mg PO Q8H #90 capsule 07/12/18 Oxycodone HCl/Acetaminophen [Percocet 10-325 mg Tablet] 1 each PO TID #70 tablet MDD 3 07/12/18 Anemia: No Asthma: No Cancer: Yes (metastatic lung cancer) Cardiac Disorders: Yes (history of CA, history of PE ) CVA: No COPD: Yes CHF: No Dementia: No Diabetes: No GI Disorders: Yes (GERD) Disorders: No HTN: Yes Hypercholesterolemia: No Kidney Stones: No Liver Disease: No Seizures: No Thyroid Disease: No - Surgical History Abdominal Surgery: No Appendectomy: No Cardiac Surgery: No Cholecystectomy: No Lung Surgery: No (lung biopsy) Neurologic Surgery: No Orthopedic Surgery: No - Reproductive History Testicular Surgery: No - Suicide/Smoking/Psychosocial Hx Smoking History: Never smoked Have you smoked in the past 12 months: No Number of Cigarettes Smoked Daily: 1 'Breaking Loose' booklet given: 05/05/16 Hx Alcohol Use: No Drug/Substance Use Hx: Yes (none x 15 years) Substance Use Type: Cocaine, Heroin, Marijuana, Opiates Hx Substance Use Treatment: Yes (methadone maintenance) Review of Systems - Review of Systems Constitutional: Yes: Fever. No: Chills, Night Sweats HEENTM: No: Symptoms Reported Respiratory: No: Cough, Shortness of Breath, Wheezing, Hemoptysis Cardiac (ROS): Yes: See HPI. No: Chest Pain, Lightheadedness, Palpitations, Chest Tightness, Other ABD/GI: Yes: See HPI, Vomiting. No: Constipated, Diarrhea, Nausea, Tarry Stools : No: Burning, Dysuria Musculoskeletal: No: Back Pain, Joint Pain, Neck Pain Integumentary: No: Symptoms Reported Neurological: No: Headache, Numbness, Tingling, Tremors *Physical Exam - Vital Signs Last Vital Signs Temp Pulse Resp BP Pulse Ox 99.8 F H 113 H 18 110/69 94 L 07/25/18 12:22 07/25/18 12:22 07/25/18 12:22 07/25/18 12:22 07/25/18 12:22 - Physical Exam General Appearance: Yes: Nourished, Appropriately Dressed. No: Apparent Distress HEENT: positive: EOMI, QUYNH. negative: Normal ENT Inspection Neck: positive: Tender, Trachea midline. negative: Lymphadenopathy (R), Lymphadenopathy (L) Respiratory/Chest: positive: Lungs Clear, Normal Breath Sounds. negative: Crackles, Rales, Rhonchi, Stridor, Wheezing Cardiovascular: positive: Regular Rhythm, S1, S2, Tachycardia. negative: Edema , JVD, Murmur Vascular Pulses: Carotid (R): 2+, Carotid (L): 2+, Dorsalis-Pedis (R): 2+, Doralis-Pedis (L): 2+ Gastrointestinal/Abdominal: positive: Normal Bowel Sounds, Soft. negative: Tender, Distended, Guarding, Rebound, Hernia Musculoskeletal: negative: CVA Tenderness Extremity: positive: Normal Capillary Refill. negative: Pedal Edema, Swelling Integumentary: positive: Normal Color, Dry, Warm Neurologic: positive: eyeglass maker II-XII NML intact, Fully Oriented, Alert, Normal Mood/ Affect, Normal Response, Motor Strength 5/5 ED Treatment Course - LABORATORY CBC & Chemistry Diagram: 07/25/18 13:45 07/25/18 14:47 - RADIOLOGY Radiology Studies Ordered: Category Date Time Status CHEST CT WITHOUT CONTRAST [CT] Stat CT Scan 07/25/18 13:25 Ordered ABDOMEN US -LIMITED [US] Stat Ultrasound 07/25/18 13:24 Ordered Medical Decision Making - Medical Decision Making 07/25/18 14:04 Pt is a 62yo M with PMH of R Lung Ca (dx 2017, chemo q3w), PE (on Eliquis), CAD s/p stent, HTN sent to ED from oncologist office for fever and elevated LFTs. Pt states he was not feeling well and went to oncologist office where he was found to be febrile to 101.4 and having abnormal LFTs. Pt states that he was having some RUQ pain and had 1 episode of emesis which he states is due to "drinking too much water". He denies SOB, cough, chest pain, back pain, headache , rash, lightheadedness, syncope, nausea, diarrhea, bloody stools, dysuria. No sick contacts, no recent travel. Vitals: 94%RA, tachycardia, 99.4 temperature PE: benign, no abdominal tenderness, lungs CTA, normal heart sounds, normal exam Ddx includes but not limited to: sepsis, neutropenic fever, pna, cholangitis, cholecystitis, metastasis, electrolyte/metabolic disturbance, drug interaction -sepsis w/u -ekg, cxr, US, CT chest, CTAP -iv tylenol, fluids, levaquin (per Dr. Emmanuel request) -likely admission labs significant for WBC 11.2, elevated LFTs, normal lipase, normal trop. Sono: fatty liver v. infiltrate. moderately dilated cbc 1.8 cm from 1.6 CTA: no pe, no acute changes, mass seen with R effusion unchanged CTAP: dilation of cbd and pancreatic duct Spoke to Dr. Che for Dr. Emmanuel, will have Dr. Emmanuel see pt tomorrow. Admitting for fever/sespis, transaminitis and dilation of cbd. *DC/Admit/Observation/Transfer Diagnosis at time of Disposition: LFTs abnormal Sepsis Qualifiers: Sepsis type: sepsis due to unspecified organism Qualified Code(s): A41.9 - Sepsis, unspecified organism - Discharge Dispostion Condition at time of disposition: Good - Referrals - Patient Instructions - Post Discharge Activity
[2018-07-25 14:19] LABS: INR 1.71 (0.83-1.09); PROTHROMBIN TIME (PATIENT) 20.3 SEC (9.7-13.0)
[2018-07-25 14:22] LABS: ACTIVATED PTT 34.9 SECONDS (25.2-36.5)
[2018-07-25 14:37] LABS: PH,URINE 7.5 (5.0-8.0); URINE APPEARANCE CLEAR; URINE BILIRUBIN NEGATIVE (NEGATIVE); URINE COLOR YELLOW; URINE GLUCOSE (UA) NEGATIVE (NEGATIVE); URINE KETONE NEGATIVE (NEGATIVE); URINE LEUK ESTERASE NEGATIVE (NEGATIVE); URINE NITRITE NEGATIVE (NEGATIVE); URINE PROTEIN NEGATIVE (NEGATIVE)
[2018-07-25 15:17] LABS: ALK PHOS 157 U/L (45-117); ANION GAP 6 MMOL/L (8-16); BILIRUBIN,TOTAL 1.1 mg/dL (0.2-1); BLOOD UREA NITROGEN 9 mg/dL (7-18); CALCIUM 8.2 mg/dL (8.5-10.1); CHLORIDE 102 mmol/L (98-107); CO2 28 mmol/L (21-32); GLUCOSE,RANDOM 117 mg/dL (74-106); POTASSIUM 3.8 mmol/L (3.5-5.1); SGOT/AST 206 U/L (15-37); SGPT/ALT 240 U/L (13-61); SODIUM 136 mmol/L (136-145); TOT PROT 5.8 g/dl (6.4-8.2)
[2018-07-25] MEDS ORDERED: metoPROLOL SUCCINATE 25 MG TAB.SR.24H (FP) PO ONE (19:53)
[2018-07-25] MEDS ORDERED: CLOPIDOGREL BISULFATE 75 MG TABLET (FP) PO ONE (19:53)
[2018-07-25] MEDS ORDERED: CEFTRIAXONE 2 GM-D5W BAG 2 GM/50 ML BAG IVPB ONE (19:54)
--- NOTE | 2018-07-25 20:09 | HP ---
CHIEF COMPLAINT: fever, RUQ pain PCP: Violeta Onc: Cely GI: Lantin HISTORY OF PRESENT ILLNESS: Patient is a 62 y/o M w/ PMHx R lung Ca on chemo/Keytruda, PE on Eliquis, CAD s/ p stenting, HTN, sent from oncologist's office after experiencing fever to 101.4 , malaise, 1 ep NBNB vomiting, RUQ pain beginning morning of day of admission. Lung Ca is advanced and patient experiences chronic diffuse pain. In addition to fever, found to have transaminitis in outpatient w/u, sent to ED for sepsis w /u. Feels better at time of encounter. T 99.8 and HR 113 on admission, otherwise VS stable. No other complaints. CXR unchanged from prior, EKG unchanged from prior, abd US showing fatty liver vs. hepatocellular dz and interval increase in CBD diameter 1.4->1.6cm, CTA stable, CT a/p showing GB distention and dilatation of pancreatic component of CBD. Labs significant for LFT abnormalities, mild leukocytosis to 11.5. ER course was notable for: (1) abd US showing fatty liver vs. hepatocellular dz and interval increase in CBD diameter 1.4->1.6cm, CT a/p showing GB distention and dilatation of pancreatic component of CB (2) AST/ALT 206/240, alk phos 157, T bili 1.1; these are acute changes (3) Recent Travel: PAST MEDICAL HISTORY: As per HPI PAST SURGICAL HISTORY: Social History: Smoking: Alcohol: Drugs: Family History: Allergies Penicillins Allergy (Intermediate, Verified 07/25/18 12:25) Rash quetiapine fumarate [From Seroquel] Adverse Reaction (Intermediate, Verified 02/02 12:25) nightmares HOME MEDICATIONS: Home Medications Medication Instructions Recorded Methadone HCl 20 mg PO DAILY 02/11/14 Amlodipine Besylate 5 mg PO DAILY 06/10/16 Pantoprazole Sodium [Protonix -] 40 mg PO DAILY 07/05/16 Mirtazapine [Remeron -] 30 mg PO HS 07/28/17 Nystatin Oral Suspension - 5 ml PO QID #1 bottle 09/25/17 [Nystatin Oral Susp 409031 Units/5 ML -] Prednisone 10 mg PO DAILY 04/23/18 Triamcinolone 0.1% Cream 1 applic TP BID 04/23/18 [Aristocort 0.1% Cream -] Atorvastatin Ca [Lipitor] 80 mg PO HS tablet 04/26/18 Alprazolam [Xanax] 0.25 mg PO BID PRN 05/15/18 Apixaban [Eliquis -] 5 mg PO BID 05/15/18 Dextran 70/Hypromellose [Natural 15 ml OU TID #1 bottle 05/15/18 Balance Tears Eye Drop] Multivitamin [Multiple Vitamins] 1 each PO DAILY #30 tablet 05/15/18 traZODone HCL [Desyrel -] 50 mg PO HS #30 tablet 06/14/18 Diclofenac Sodium [Voltaren] 2 gm TP QID PRN #3 tube 07/12/18 Ergocalciferol [Vitamin D2] 50,000 unit PO Q7D@1000 #4 capsule 07/12/18 Gabapentin 300 mg PO Q8H #90 capsule 07/12/18 Oxycodone HCl/Acetaminophen 1 each PO TID #70 tablet MDD 3 07/12/18 [Percocet 10-325 mg Tablet] REVIEW OF SYSTEMS As per HPI PHYSICAL EXAMINATION Vital Signs - 24 hr 07/25/18 12:22 Temperature 99.8 F H Pulse Rate 113 H Respiratory 18 Rate Blood Pressure 110/69 O2 Sat by Pulse 94 L Oximetry (%) GENERAL: A&Ox3, NAD HEAD: NC/AT EYES: PERRLA, EOMI, anicteric EARS, NOSE, THROAT: Ears normal, nares patent, oropharynx clear without exudates. Moist mucous membranes. NECK: Normal range of motion, supple without lymphadenopathy, JVD, or masses. LUNGS: Breath sounds equal, clear to auscultation bilaterally. No wheezes, and no crackles. No accessory muscle use. HEART: Regular rate and rhythm, normal S1 and S2 without murmur, rub or gallop. ABDOMEN: Soft, nontender, not distended, normoactive bowel sounds, no guarding, no rebound, no masses. No hepatomegaly or splenomegaly. MUSCULOSKELETAL: Normal range of motion at all joints. No bony deformities or tenderness. No CVA tenderness. UPPER EXTREMITIES: 2+ pulses, warm, well-perfused. No cyanosis. No clubbing. No peripheral edema. LOWER EXTREMITIES: 2+ pulses, warm, well-perfused. No calf tenderness. No peripheral edema. NEUROLOGICAL: infrastructure project manager, motor, sensory systems w/o focal deficit PSYCHIATRIC: Cooperative. Good eye contact. Appropriate mood and affect. SKIN: Warm, dry, normal turgor, no rashes or lesions noted, normal capillary refill. Laboratory Results - last 24 hr 07/25/18 07/25/18 07/25/18 13:45 13:45 13:45 WBC 11.5 H RBC 5.06 Hgb 14.4 Hct 43.0 MCV 84.9 MCH 28.4 MCHC 33.5 RDW 15.5 Plt Count 235 MPV 9.0 D Absolute Neuts (auto) 10.4 H Neutrophils % 90.8 H Lymphocytes % 3.7 L D Monocytes % 4.2 Eosinophils % 0.5 D Basophils % 0.8 Nucleated RBC % 0 PT with INR 20.30 H INR 1.71 H PTT (Actin FS) 34.9 VBG pH 7.46 H POC VBG pCO2 36.9 L POC VBG pO2 74.8 H VBG HCO3 25.8 VBG O2 Sat (Yesi) 96.1 H VBG Base Excess 2.6 H Sodium Potassium Chloride Carbon Dioxide Anion Gap BUN Creatinine Creat Clearance w eGFR Random Glucose Lactic Acid Calcium Total Bilirubin AST ALT Alkaline Phosphatase Creatine Kinase CK-MB (CK-2) Troponin I Total Protein Albumin Lipase Urine Color Urine Appearance Urine pH Ur Specific Lynn Urine Protein Urine Glucose (UA) Urine Ketones Urine Blood Urine Nitrite Urine Bilirubin Urine Urobilinogen Ur Leukocyte Esterase Blood Type Antibody Screen 07/25/18 07/25/18 07/25/18 13:45 13:45 13:45 WBC RBC Hgb Hct MCV MCH MCHC RDW Plt Count MPV Absolute Neuts (auto) Neutrophils % Lymphocytes % Monocytes % Eosinophils % Basophils % Nucleated RBC % PT with INR INR PTT (Actin FS) VBG pH POC VBG pCO2 POC VBG pO2 VBG HCO3 VBG O2 Sat (Yesi) VBG Base Excess Sodium Cancelled Potassium Cancelled Chloride Cancelled Carbon Dioxide Cancelled Anion Gap Cancelled BUN Cancelled Creatinine Cancelled Creat Clearance w eGFR Cancelled Random Glucose Cancelled Lactic Acid Calcium Cancelled Total Bilirubin Cancelled AST Cancelled ALT Cancelled Alkaline Phosphatase Cancelled Creatine Kinase Cancelled CK-MB (CK-2) Cancelled Troponin I 0.02 Total Protein Cancelled Albumin Cancelled Lipase Urine Color Urine Appearance Urine pH Ur Specific Lynn Urine Protein Urine Glucose (UA) Urine Ketones Urine Blood Urine Nitrite Urine Bilirubin Urine Urobilinogen Ur Leukocyte Esterase Blood Type Cancelled Antibody Screen Cancelled 07/25/18 07/25/18 07/25/18 13:45 13:51 14:47 WBC RBC Hgb Hct MCV MCH MCHC RDW Plt Count MPV Absolute Neuts (auto) Neutrophils % Lymphocytes % Monocytes % Eosinophils % Basophils % Nucleated RBC % PT with INR INR PTT (Actin FS) VBG pH POC VBG pCO2 POC VBG pO2 VBG HCO3 VBG O2 Sat (Yesi) VBG Base Excess Sodium Potassium Chloride Carbon Dioxide Anion Gap BUN Creatinine Creat Clearance w eGFR Random Glucose Lactic Acid 1.8 Calcium Total Bilirubin AST ALT Alkaline Phosphatase Creatine Kinase 52 CK-MB (CK-2) Troponin I 0.03 Total Protein Albumin Lipase 115 Urine Color Yellow Urine Appearance Clear Urine pH 7.5 Ur Specific Lynn 1.016 Urine Protein Negative Urine Glucose (UA) Negative Urine Ketones Negative Urine Blood Negative Urine Nitrite Negative Urine Bilirubin Negative Urine Urobilinogen 1.0 Ur Leukocyte Esterase Negative Blood Type Antibody Screen 07/25/18 14:47 WBC RBC Hgb Hct MCV MCH MCHC RDW Plt Count MPV Absolute Neuts (auto) Neutrophils % Lymphocytes % Monocytes % Eosinophils % Basophils % Nucleated RBC % PT with INR INR PTT (Actin FS) VBG pH POC VBG pCO2 POC VBG pO2 VBG HCO3 VBG O2 Sat (Yesi) VBG Base Excess Sodium 136 Potassium 3.8 Chloride 102 Carbon Dioxide 28 Anion Gap 6 L BUN 9 Creatinine 1.0 Creat Clearance w eGFR 75.47 Random Glucose 117 H Lactic Acid Calcium 8.2 L Total Bilirubin 1.1 H AST 206 H ALT 240 H Alkaline Phosphatase 157 H Creatine Kinase CK-MB (CK-2) Troponin I Total Protein 5.8 L Albumin 3.0 L Lipase Urine Color Urine Appearance Urine pH Ur Specific Lynn Urine Protein Urine Glucose (UA) Urine Ketones Urine Blood Urine Nitrite Urine Bilirubin Urine Urobilinogen Ur Leukocyte Esterase Blood Type Antibody Screen ASSESSMENT/PLAN: 62 y/o M w/ PMHx R lung Ca on chemo/Keytruda, PE on Eliquis, CAD s/p stenting, HTN, sent from oncologist's office after experiencing fever to 101.4, malaise, 1 ep NBNB vomiting, RUQ pain beginning morning of day of admission. Admitted for fever of unknown origin in the setting of advanced malignancy and acute LFT abnormalities. -abd imaging studies showing mild progression of hepatobiliary ductal abnormalities, otherwise unremarkable -CTA stable -LFT changes are acute -low grade temp to 99.8 on admission -no longer tachycardic at time of encounter -consulted onc -consulted GI -consulted ID -Levaquin given in ED, added empiric flagyl -LR @ 42 cc/hr -regular diet -HIDA scan ordered -restarted home meds, list confirmed w/ Pt's family, does require confirmation w / pharmacy in AM -per chart review, methadone and percocet are confirmed -Eliquis for DVT PPx -PO PTx for GI PPx -admit to med/surg Visit type - Emergency Visit Emergency Visit: Yes Care time: The patient presented to the Emergency Department on the above date and was hospitalized for further evaluation of their emergent condition. - New Patient This patient is new to me today: Yes Date on this admission: 07/25/18 - Critical Care Critical Care patient: No
--- NOTE | 2018-07-25 20:10 | PN ---
Teaching Attending Note Name of Resident: Austin Pierce ATTENDING PHYSICIAN STATEMENT I saw and evaluated the patient. I reviewed the resident's note and discussed the case with the resident. I agree with the resident's findings and plan as documented. SUBJECTIVE: Patient is a 62 year old man with PMH of Right Lung Cancer (dx 2017, chemo- Keytruda q3w), Penicillin allergy, methadone therapy, PE (on Eliquis), CAD s/p stent, HTN sent to ER from oncologist office for fever and elevated LFTs. Patient states he was not feeling well and went to oncologist office where he was found to be febrile to 101.4 and having abnormal LFTs. He was having some RUQ pain and had 1 episode of vomiting which he states is due to "drinking too much water". He denies SOB, cough, chest pain, back pain, headache, rash, lightheadedness, syncope, nausea, diarrhea, bloody stools, dysuria. No sick contacts and no recent travel. OBJECTIVE: Alert Vital Signs Period Temp Pulse Resp BP Sys/Perea Pulse Ox Last 24 Hr 99.8 F 113 18 110/69 94 HEENT: No Jaundice, eye redness or discharge, PERRLA, EOMI. Normocephalic, atraumatic. External ears are normal and hearing is grossly intact. No nasal discharge. Neck: Supple, nontender. No palpable adenopathy or thyromegaly. No JVD Chest: Good effort. Right chest port. Clear to auscultation and percussion. Heart: Regular. No S3, rub or murmur Abdomen: Not distended, soft, nontender and no HSM. No rebound or guarding. Normal bowel sounds. Ext: Peripheral pulses intact. No leg edema. Skin: Warm and dry. No petechiae, rash or ecchymosis. Neuro: Alert. Oriented x3. CN 2-12 grossly intact. Sensation grossly intact in all four extremities and DTR are symmetric. Psych: Appropriate mood and affect. Good insight. Current Medications Generic Name Dose Route Start Last Admin Trade Name Freq PRN Reason Stop Dose Admin Alprazolam 0.25 mg 07/25/18 19:50 Xanax - PO Q12H PRN ANXIETY Apixaban 5 mg 07/25/18 22:00 Eliquis - PO BID [facility]BY Aspirin 81 mg 07/26/18 10:00 Ecotrin - PO DAILY [facility] Atorvastatin Calcium 80 mg 07/25/18 22:00 Lipitor - PO HS [facility] Gabapentin 300 mg 07/25/18 22:00 Neurontin - PO TID [facility] Lactated Ringer's 1,000 mls @ 42 mls/hr 07/25/18 19:45 Lactated Ringers Solution IV ASDIR [facility]BY Metronidazole 500 mg in 100 mls @ 100 mls/hr 07/26/18 02:00 Flagyl 500mg Premixed Ivpb - IVPB Q8H-IV [facility] Non-Formulary Medication 15 ml 07/25/18 22:00 Dextran 70/Hypromellose [Natural Balance Tears Eye Drop] OU TID [facility] Non-Formulary Medication 20 mg 07/26/18 10:00 Methadone Hcl [Methadone Hcl] PO DAILY [facility] Non-Formulary Medication 1 each 07/25/18 22:00 Oxycodone Hcl/Acetaminophen [Percocet 10-325 Mg Tablet] PO TID [facility] Pantoprazole Sodium 40 mg 07/26/18 10:00 Protonix - PO DAILY [facility] Prednisone 5 mg 07/26/18 10:00 Deltasone - PO DAILY [facility] Home Medications Medication Instructions Recorded Methadone HCl 20 mg PO DAILY 02/11/14 Amlodipine Besylate 5 mg PO DAILY 06/10/16 Pantoprazole Sodium [Protonix -] 40 mg PO DAILY 07/05/16 Mirtazapine [Remeron -] 30 mg PO HS 07/28/17 Nystatin Oral Suspension - 5 ml PO QID #1 bottle 09/25/17 [Nystatin Oral Susp 539251 Units/5 ML -] Prednisone 10 mg PO DAILY 04/23/18 Triamcinolone 0.1% Cream 1 applic TP BID 04/23/18 [Aristocort 0.1% Cream -] Atorvastatin Ca [Lipitor] 80 mg PO HS tablet 04/26/18 Alprazolam [Xanax] 0.25 mg PO BID PRN 05/15/18 Apixaban [Eliquis -] 5 mg PO BID 05/15/18 Dextran 70/Hypromellose [Natural 15 ml OU TID #1 bottle 05/15/18 Balance Tears Eye Drop] Multivitamin [Multiple Vitamins] 1 each PO DAILY #30 tablet 05/15/18 traZODone HCL [Desyrel -] 50 mg PO HS #30 tablet 06/14/18 Diclofenac Sodium [Voltaren] 2 gm TP QID PRN #3 tube 07/12/18 Ergocalciferol [Vitamin D2] 50,000 unit PO Q7D@1000 #4 capsule 07/12/18 Gabapentin 300 mg PO Q8H #90 capsule 07/12/18 Oxycodone HCl/Acetaminophen 1 each PO TID #70 tablet MDD 3 07/12/18 [Percocet 10-325 mg Tablet] Abnormal Lab Results 07/25/18 07/25/18 07/25/18 13:45 13:45 13:45 WBC 11.5 H Absolute Neuts (auto) 10.4 H Neutrophils % 90.8 H Lymphocytes % 3.7 L D PT with INR 20.30 H INR 1.71 H VBG pH 7.46 H POC VBG pCO2 36.9 L POC VBG pO2 74.8 H VBG O2 Sat (Yesi) 96.1 H VBG Base Excess 2.6 H Anion Gap Random Glucose Calcium Total Bilirubin AST ALT Alkaline Phosphatase Total Protein Albumin 07/25/18 14:47 WBC Absolute Neuts (auto) Neutrophils % Lymphocytes % PT with INR INR VBG pH POC VBG pCO2 POC VBG pO2 VBG O2 Sat (Yesi) VBG Base Excess Anion Gap 6 L Random Glucose 117 H Calcium 8.2 L Total Bilirubin 1.1 H AST 206 H ALT 240 H Alkaline Phosphatase 157 H Total Protein 5.8 L Albumin 3.0 L ASSESSMENT AND PLAN: 1. Fever of Unknown Origin - Sepsis work up done. The hepatobiliary system is a likely source. LFTs are elevated and CT shows distended gallbladder, dilated CBD and possible small bowel ileus. Will treat with IV Flagyl and Levaquin pending cultures. Will get HIDA scan, trend LFTs and get hepatitis serology. Continue IV LR and keep him NPO. GI consult. No PE on CTA and CXR is unchanged. EKG shows NSR with no significant ST-T wave changes. Check HbA1c. Continue comprehensive cancer care for right lung cancer and consult oncology. 2. Hypoalbuminemia - Possibly due to combined effects of malnutrition and inflammation associated with comorbid chronic conditions. Will ensure adequate dietary protein intake and also consult sewer repairer. 3. Hypertension - Restart outpatient antihypertensive drugs when clinically appropriate. Nonpharmacologic measures to control hypertension like weight loss , salt restriction and exercise discussed. 4. DVT prophylaxis - On Eliquis for DVT 5. Advance directives - Full code
[2018-07-25] MEDS ORDERED: ATORVASTATIN CA 80 MG TABLET (FP) PO SCH (22:00)
[2018-07-25] MEDS: LACTATED RINGERS SOLUTION 1,000 ML IV SCH (22:07)
[2018-07-25] MEDS ORDERED: ACETAMINOPHEN 325 MG TABLET (FP) PO PRN (22:14)
[2018-07-25] MEDS: ARTIFICIAL TEARS (POLYVINYL ALCOHOL) OPTH DROPS OU SCH (22:57)
[2018-07-25] MEDS: ALPRAZolam 0.25 MG TABLET PO PRN (22:57)
[2018-07-25] MEDS: APIXABAN 5 MG TABLET PO SCH (22:57)
[2018-07-25] MEDS: GABAPENTIN 300 MG CAPSULE (FP) PO SCH (22:57)
[2018-07-26] MEDS ORDERED: ACETAMINOPHEN 1000 MG/100 ML VIAL (NON FORMULARY) IVPB ONE (00:17)
[2018-07-26] MEDS ORDERED: diphenhydrAMINE HCL 25 MG CAPSULE (FP) PO ONE (01:01)
[2018-07-26] MEDS: oxyCODONE HCL 5 MG TABLET PO PRN (01:18)
[2018-07-26 01:53] VITALS: BMI 25.7
[2018-07-26] MEDS: GABAPENTIN 300 MG CAPSULE (FP) PO SCH ×3 (06:14→22:00)
[2018-07-26] MEDS: METHADONE HCL 10 MG TABLET PO SCH (06:14)
[2018-07-26] MEDS: ARTIFICIAL TEARS (POLYVINYL ALCOHOL) OPTH DROPS OU SCH ×3 (06:14→22:00)
[2018-07-26 06:51] LABS: BASO % 0.7 % (0-2.0); EOS % 2.4 % (0-4.5); HEMATOCRIT 41.2 % (35.4-49); HEMOGLOBIN 13.8 GM/dL (11.7-16.9); LYMPH % 5.6 % (8-40); MCH 28.5 pg (25.7-33.7); MCHC 33.4 g/dl (32.0-35.9); MEAN CELL VOLUME 85.3 fl (80-96); MEAN PLT VOLUME 8.4 fl (7.5-11.1); MONO % 4.5 % (3.8-10.2); NEUT % 86.8 % (42.8-82.8); PLATELET COUNT 194 K/MM3 (134-434); RBC 4.83 M/mm3 (4.00-5.60); RDW 15.5 % (11.9-15.9); WHITE BLOOD COUNT 11.2 K/mm3 (4.0-10.0)
[2018-07-26 07:09] LABS: PROTHROMBIN TIME (PATIENT) 23.8 SEC (9.7-13.0)
[2018-07-26 07:12] LABS: ACTIVATED PTT 36.5 SECONDS (25.2-36.5)
[2018-07-26 07:22] LABS: ALBUMIN 3.3 g/dl (3.4-5.0); ALK PHOS 183 U/L (45-117); ANION GAP 7 MMOL/L (8-16); BLOOD UREA NITROGEN 9 mg/dL (7-18); CALCIUM 8.2 mg/dL (8.5-10.1); CHLORIDE 99 mmol/L (98-107); CO2 32 mmol/L (21-32); CREATININE 1.2 mg/dL (0.55-1.3); GLUCOSE,RANDOM 90 mg/dL (74-106); LIPASE 89 U/L (73-393); MAGNESIUM 1.9 mg/dL (1.8-2.4); PHOSPHOROUS 3.2 mg/dL (2.5-4.9); POTASSIUM 3.8 mmol/L (3.5-5.1); SGOT/AST 396 U/L (15-37); SGPT/ALT 383 U/L (13-61); SODIUM 138 mmol/L (136-145); TOT PROT 6.4 g/dl (6.4-8.2)
--- NOTE | 2018-07-26 08:14 | CON.GI ---
Consult Consult Specialty:: GI Referred by:: Dr. Pierce Reason for Consultation:: LFT elevation - History of Present Illness Chief Complaint: LFT elevation History of Present Illness: Patient is a 62 y/o male with past medical history of Right Lung CA (on chemo), PE (on Eliquis), CAD s/p stent placement, HTN. I was asked to evaluate patient due to elevated LFTs. Patient is known to me from my office. He has history of Hepatitis C and was treated with Harvoni in 2013. Labs show elevated AST 396 , ALT 383, Alk Phos 183. Abdominal US shows fatty liver versus hepatocellular disease, dilated CBD at 1.6cm. Abdomen CT scan shows overdistended gallbladder without intraluminal stone or wall thickening. Patient is currently NPO pending HIDA scan with EF. Patient states having poor appetite, weakness, and weight loss of 10lbs in more than 1 week. Denies dysphagia, heartburn, nausea, vomiting, abdominal pain. Denies diarrhea, constipation, blood in stool, melena. - History Source History Provided By: Patient Limitations to Obtaining History: No Limitations - Past Medical History Cardio/Vascular: Yes: CAD, HTN Pulmonary: Yes: Pulmonary Embolus, Other (lung ca) Hepatobiliary: Yes: Hepatitis C Infectious Disease: Yes: Other (hep c) - Alcohol/Substance Use Hx Alcohol Use: No - Smoking History Smoking history: Never smoked Have you smoked in the past 12 months: No Aproximately how many cigarettes per day: 1 - Social History ADL: Independent History of Recent Travel: No Home Medications - Allergies Allergies/Adverse Reactions: Allergies Allergy/AdvReac Type Severity Reaction Status Date / Time Penicillins Allergy Intermediate Rash Verified 07/25/18 12:25 quetiapine fumarate AdvReac Intermediate nightmares Verified 07/25/18 12:25 [From Seroquel] - Home Medications Home Medications: Ambulatory Orders Methadone HCl 20 mg PO DAILY 02/11/14 Amlodipine Besylate 5 mg PO DAILY 06/10/16 Pantoprazole Sodium [Protonix -] 40 mg PO DAILY 07/05/16 Mirtazapine [Remeron -] 30 mg PO HS 07/28/17 Nystatin Oral Suspension - [Nystatin Oral Susp 905196 Units/5 ML -] 5 ml PO QID #1 bottle 09/25/17 Prednisone 10 mg PO DAILY 04/23/18 Triamcinolone 0.1% Cream [Aristocort 0.1% Cream -] 1 applic TP BID 04/23/18 Atorvastatin Ca [Lipitor] 80 mg PO HS tablet 04/26/18 Alprazolam [Xanax] 0.25 mg PO BID PRN 05/15/18 Apixaban [Eliquis -] 5 mg PO BID 05/15/18 Dextran 70/Hypromellose [Natural Balance Tears Eye Drop] 15 ml OU TID #1 bottle 05/15/18 Multivitamin [Multiple Vitamins] 1 each PO DAILY #30 tablet 05/15/18 traZODone HCL [Desyrel -] 50 mg PO HS #30 tablet 06/14/18 Diclofenac Sodium [Voltaren] 2 gm TP QID PRN #3 tube 07/12/18 Ergocalciferol [Vitamin D2] 50,000 unit PO Q7D@1000 #4 capsule 07/12/18 Gabapentin 300 mg PO Q8H #90 capsule 07/12/18 Oxycodone HCl/Acetaminophen [Percocet 10-325 mg Tablet] 1 each PO TID #70 tablet MDD 3 07/12/18 Family Disease History - Family Disease History Family Disease History: Diabetes: Mother (alive), Heart Disease: Father ( after heart surgery), Mother, Other: Father, Brother (one HIV/ drugs; two other living), Sister (one living), Son (2- living, healthy), Daughter (2 - living, healthy) Review of Systems - Review of Systems Constitutional: reports: Loss of Appetite, Unintentional Wgt. Loss, Weakness Eyes: reports: No Symptoms HENT: reports: No Symptoms Neck: reports: No Symptoms Cardiovascular: reports: No Symptoms Respiratory: reports: No Symptoms Gastrointestinal: reports: No Symptoms Genitourinary: reports: No Symptoms Breasts: reports: No Symptoms Reported Musculoskeletal: reports: No Symptoms Integumentary: reports: No Symptoms Neurological: reports: No Symptoms Endocrine: reports: No Symptoms Hematology/Lymphatic: reports: No Symptoms Psychiatric: reports: No Symptoms Physical Exam-GI Vital Signs: Vital Signs Temperature 99.7 F H 07/26/18 06:17 Pulse Rate 86 07/26/18 06:17 Respiratory Rate 16 07/26/18 06:17 Blood Pressure 103/54 L 07/26/18 06:17 O2 Sat by Pulse Oximetry (%) 96 07/25/18 21:00 Constitutional: Yes: Well Nourished, No Distress, Calm Eyes: Yes: Conjunctiva Clear HENT: Yes: Atraumatic Cardiovascular: Yes: Regular Rate and Rhythm Respiratory: Yes: Regular, CTA Bilaterally Gastrointestinal Inspection: Yes: WNL. No: Ascites, Distention, Hernia, Scars, Other ...Auscultate: Yes: Normoactive Bowel Sounds. No: Hyperactive Bowel Sounds, Hypoactive Bowel Sounds, No Bowel Sounds, Other ...Palpate: Yes: Soft. No: Firm/Rigid, Guarding, Hepatomegaly, Mass, Pulsatile Mass, Splenomegaly, Tenderness, Tenderness, Epigastium, Tenderness, Rebound, Other ...Percussion: Yes: Tympanitic. No: Dullness, Fluid Wave, Other Neurological: Yes: Alert, Oriented Psychiatric: Yes: Alert, Oriented Labs: CBC, BMP 07/26/18 06:00 07/26/18 06:00 INR, PTT INR 2.00 (0.83-1.09) H 07/26/18 06:00 Active Medications Generic Name Dose Route Start Last Admin Trade Name Freq PRN Reason Stop Dose Admin Acetaminophen 325 mg 07/25/18 22:14 07/26/18 01:19 Tylenol - PO 325 mg Q8H PRN Administration PAIN LEVEL 6-10 Alprazolam 0.25 mg 07/25/18 19:50 07/25/18 22:57 Xanax - PO 0.25 mg Q12H PRN Administration ANXIETY Apixaban 5 mg 07/25/18 22:00 07/25/18 22:57 Eliquis - PO 5 mg BID [facility] Administration Artificial Tears 1 drop 07/25/18 22:00 07/26/18 06:14 Artificial Tears OU 1 drp TID [facility] Administration Aspirin 81 mg 07/26/18 10:00 Ecotrin - PO DAILY [facility] Atorvastatin Calcium 80 mg 07/25/18 22:00 07/25/18 22:57 Lipitor - PO 80 mg HS [facility] Administration Gabapentin 300 mg 07/25/18 22:00 07/26/18 06:14 Neurontin - PO 300 mg TID [facility] Administration Lactated Ringer's 1,000 mls @ 42 mls/hr 07/25/18 19:45 04/10/19 22:07 Lactated Ringers Solution IV 42 mls/hr ASDIR [facility] Administration Metronidazole 500 mg in 100 mls @ 100 mls/hr 07/26/18 02:00 07/26/18 01:19 Flagyl 500mg Premixed Ivpb - IVPB 100 mls/hr Q8H-IV [facility] Administration Methadone HCl 20 mg 07/26/18 06:00 07/26/18 06:14 Dolophine - PO 20 mg DAILY@0600 [facility] Administration Oxycodone HCl 10 mg 07/25/18 22:14 07/26/18 01:18 Roxicodone - PO 10 mg Q8H PRN Administration PAIN LEVEL 6-10 Pantoprazole Sodium 40 mg 07/26/18 10:00 Protonix - PO DAILY [facility] Prednisone 5 mg 07/26/18 10:00 Deltasone - PO DAILY [facility] Imaging - Results Cat Scan: Report Reviewed Ultrasound: Report Reviewed Problem List - Problems (1) LFT elevation Assessment/Plan: >elevated LFTs 2/2 drug toxicity patient is currently on jail statin >recommend to hold statin and consult cardiology decrease dose to 20mg daily and add Zetia once liver enzymes near normal Code(s): R94.5 - ABNORMAL RESULTS OF LIVER FUNCTION STUDIES (2) Dilated cbd, acquired Assessment/Plan: >CBD dilation secondary to jail methadone use >pending HIDA scan with EF r/o cholecystitis Code(s): K83.8 - OTHER SPECIFIED DISEASES OF BILIARY TRACT
[2018-07-26] MEDS ORDERED: IBUPROFEN 400 MG TABLET (FP) PO ONE (09:03)
[2018-07-26] MEDS ORDERED: IBUPROFEN 800 MG/8 ML IJ IVPB ONE (09:15)
[2018-07-26] MEDS: predniSONE 5 MG TABLET (UD) PO SCH (09:40)
[2018-07-26] MEDS: PANTOPRAZOLE 40 MG TABLET (FP) PO SCH (09:40)
[2018-07-26] MEDS: APIXABAN 5 MG TABLET PO SCH ×2 (09:40→22:00)
[2018-07-26] MEDS ORDERED: ASPIRIN COATED 81 MG TABLET.EC PO SCH (10:00)
--- NOTE | 2018-07-26 17:05 | PN ---
Physical Exam: SUBJECTIVE: Patient seen and examined at bedside this morning. PAtient was admitted due to fever, noted at doctor's clinic. THis morning, patient still presents with fever of 102F but denies any cough, colds, chest pain, SOB, nausea , vomiting, abdominal pain, diarrhea, urinary symptoms. OBJECTIVE: Vital Signs Temperature 98.4 F 07/26/18 13:31 Pulse Rate 85 07/26/18 13:31 Respiratory Rate 20 07/26/18 13:31 Blood Pressure 92/52 L 07/26/18 13:31 O2 Sat by Pulse Oximetry (%) 96 07/26/18 09:00 GENERAL: The patient is awake, alert, and fully oriented, in no acute distress. HEAD: Normal with no signs of trauma. EYES:PERRLA, EOMI, conjunctiva clear. ENT: oropharynx clear without exudates, moist mucous membranes. NECK: Trachea midline, full range of motion, supple. LUNGS: Breath sounds equal, clear to auscultation bilaterally. HEART: Regular rate and rhythm, S1, S2 without murmur, rub or gallop. ABDOMEN: Soft, nontender, nondistended, normoactive bowel sounds. EXTREMITIES: 2+ pulses, warm, well-perfused, no edema. NEUROLOGICAL: Cranial nerves II through XII grossly intact. Normal speech, normal gait PSYCH: Normal mood, normal affect. SKIN: Warm, dry, normal turgor, no rashes or lesions noted Laboratory Results - last 24 hr 07/26/18 07/26/18 07/26/18 06:00 06:00 06:00 WBC 11.2 H RBC 4.83 Hgb 13.8 Hct 41.2 MCV 85.3 MCH 28.5 MCHC 33.4 RDW 15.5 Plt Count 194 MPV 8.4 Absolute Neuts (auto) 9.7 H Neutrophils % 86.8 H Lymphocytes % 5.6 L D Monocytes % 4.5 Eosinophils % 2.4 D Basophils % 0.7 Nucleated RBC % 0 PT with INR 23.80 H INR 2.00 H PTT (Actin FS) 36.5 Sodium 138 Potassium 3.8 Chloride 99 Carbon Dioxide 32 Anion Gap 7 L BUN 9 Creatinine 1.2 Creat Clearance w eGFR 61.15 Random Glucose 90 Calcium 8.2 L Phosphorus 3.2 Magnesium 1.9 Total Bilirubin 2.0 H AST 396 H ALT 383 H Alkaline Phosphatase 183 H Total Protein 6.4 Albumin 3.3 L Lipase 89 Active Medications Generic Name Dose Route Start Last Admin Trade Name Freq PRN Reason Stop Dose Admin Acetaminophen 325 mg 07/25/18 22:14 07/26/18 01:19 Tylenol - PO 325 mg Q8H PRN Administration PAIN LEVEL 6-10 Alprazolam 0.25 mg 07/25/18 19:50 07/25/18 22:57 Xanax - PO 0.25 mg Q12H PRN Administration ANXIETY Apixaban 5 mg 07/25/18 22:00 07/26/18 09:40 Eliquis - PO 5 mg BID COLBY Administration Artificial Tears 1 drop 07/25/18 22:00 07/26/18 15:42 Artificial Tears OU 1 drp TID COLBY Administration Aspirin 81 mg 07/26/18 10:00 07/26/18 09:40 Ecotrin - PO 81 mg DAILY COLBY Administration Atorvastatin Calcium 80 mg 07/25/18 22:00 07/25/18 22:57 Lipitor - PO 80 mg HS COLBY Administration Gabapentin 300 mg 07/25/18 22:00 07/26/18 15:44 Neurontin - PO 300 mg TID COLBY Administration Lactated Ringer's 1,000 mls @ 42 mls/hr 07/25/18 19:45 07/25/18 22:07 Lactated Ringers Solution IV 42 mls/hr ASDIR COLBY Administration Metronidazole 500 mg in 100 mls @ 100 mls/hr 07/26/18 02:00 07/26/18 09:10 Flagyl 500mg Premixed Ivpb - IVPB 100 mls/hr Q8H-IV COLBY Administration Methadone HCl 20 mg 07/26/18 06:00 07/26/18 06:14 Dolophine - PO 20 mg DAILY@0600 COLBY Administration Oxycodone HCl 10 mg 07/25/18 22:14 07/26/18 01:18 Roxicodone - PO 10 mg Q8H PRN Administration PAIN LEVEL 6-10 Pantoprazole Sodium 40 mg 07/26/18 10:00 07/26/18 09:40 Protonix - PO 40 mg DAILY COLBY Administration Prednisone 5 mg 07/26/18 10:00 07/26/18 09:40 Deltasone - PO 5 mg DAILY COLBY Administration ASSESSMENT/PLAN: Patient is a 62 year old male with past medical history of right lung CA on chemo/Keytruda, PE on eliquis, CAD s/p stenting, HTN, sent from oncologist's office due to fever (101.4F), malaise, vomiting and RUQ pain for 1 day. #Fever of unknown origin: likely hepatobiliary source -mild leukocytosis -Blood cultures -IV fluids -Levaquin and Flagyl given -ID (Dr. Tamayo) consulted. -RUQ US: Fatty liver vs hepatocellular disease. Persistent CBD now measuring 1.6cm from 1.4cm on prior exam. Limited visualization of the pancreas with dilatation of the pancreatic duct measuring 4mm, unchanged since prior exam. -CTAP: Slightly overdistended gallbladder without intraluminal stones or wall thickening. Borderline dilatation of the intrapancreatic portion of the CBD measuring 6mm. Fluid-filled nondilated distal small bowel loops in the pelvis likely on the basis of ileus. Tiny fat-containing umbilical hernia. Rest of exam unremarkable. -HIDA scan: Filling of the gallbladder excludes acute cystic duct obstruction. Delayed common hepatic duct with significant delayed biliary enteric transit of tracer. Findings are nonspecific and could be secondary to partial CBD obstruction/stricture or chronic cholecystitis. #Acute transaminitis -AST 396 ALT 383 ALP 183 -GI (Dr. Cee) consulted. Recommendations appreciated. -likely 2/2 drug toxicity, currently on manager long term care statin -hold statin -Avoid tylenol. -Cardiology (Dr. Roche) consulted. -consider decrease dose to 20mg daily and add Zetia once liver enzymes near normal #Hx of Lung CA -on chemotherapy -Oncology (Dr. Emmanuel) consulted. #Hx of PE -Eliquis 5mg BID #CAD s/p stenting -ASA 81mg daily -Clopidogrel 75mg daily -Lipitor 80mg daily #HTN: chronic -Continue home Metoprolol XL 25mg -Amlodipine 5mg daily #FEN -IV LR @ 42cc/hr -Electrolytes wnl, routine bmp monitoring -Regular diet #Prophylaxis -On eliquis 5mg BID #Disposition -full code -med surg Visit type - Emergency Visit Emergency Visit: Yes ED Registration Date: 07/25/18 Care time: The patient presented to the Emergency Department on the above date and was hospitalized for further evaluation of their emergent condition. - New Patient This patient is new to me today: Yes Date on this admission: 07/26/18 - Critical Care Critical Care patient: No
--- NOTE | 2018-07-26 17:56 | CON.CARD ---
Consult Consult Specialty:: cardioogy Reason for Consultation:: hx drug-eluting coronary stent 04/2018 - History of Present Illness Chief Complaint: Pt denies chest pain, dyspnea; + intermittent right-sided abdominal pain. History of Present Illness: The patient is a 62 year old male (b. [place]) with a significant PMH of R Lung Ca (dx 2017, chemo- Keytruda q3w), PE (on Eliquis), CAD s/p stent 04/2018 at [facility],, HTNl, sent to ED from oncologist office for evaluation of fever (101.4F) and elevated LFTs. The patient reports right upper abdominal pain and had 1m episode of NBNB emesis which he attributes to "drinking too much water". He denies SOB, cough, chest pain, back pain, headache, rash, lightheadedness, syncope, nausea, diarrhea, bloody stools, dysuria. No sick contacts, no recent travel. PMD: Violeta Hem/Onc: Lien - History Source History Provided By: Patient, Family Member, Medical Record Limitations to Obtaining History: Poor Historian - Past Medical History Cardio/Vascular: Yes: CAD (coronary stent 04/2018), HTN Pulmonary: Yes: Pulmonary Embolus, Other (lung ca) Hepatobiliary: Yes: Hepatitis C Renal/: No: Renal Inusuff Heme/Onc: Yes: Cancer Infectious Disease: Yes: Other (hep c) Psych: Yes: Anxiety, Other (reportedly has periods of memory lapses, per family) - Past Surgical History Past Surgical History: Yes: Stent (coronary 05/05) - Alcohol/Substance Use Hx Alcohol Use: No - Smoking History Smoking history: Never smoked Have you smoked in the past 12 months: No Aproximately how many cigarettes per day: 1 - Social History ADL: Independent History of Recent Travel: No Home Medications - Allergies Allergies/Adverse Reactions: Allergies Allergy/AdvReac Type Severity Reaction Status Date / Time Penicillins Allergy Intermediate Rash Verified 07/25/18 12:25 quetiapine fumarate AdvReac Intermediate nightmares Verified 07/25/18 12:25 [From Seroquel] - Home Medications Home Medications: Ambulatory Orders Methadone HCl 20 mg PO DAILY 02/11/14 Pantoprazole Sodium [Protonix -] 40 mg PO DAILY 07/05/16 Nystatin Oral Suspension - [Nystatin Oral Susp 305441 Units/5 ML -] 5 ml PO QID #1 bottle 09/25/17 Prednisone 10 mg PO DAILY 04/23/18 Atorvastatin Ca [Lipitor] 80 mg PO HS tablet 04/26/18 Alprazolam [Xanax] 0.25 mg PO BID PRN 05/15/18 Apixaban [Eliquis -] 5 mg PO BID 05/15/18 Dextran 70/Hypromellose [Natural Balance Tears Eye Drop] 15 ml OU TID #1 bottle 05/15/18 Multivitamin [Multiple Vitamins] 1 each PO DAILY #30 tablet 05/15/18 Diclofenac Sodium [Voltaren] 2 gm TP QID PRN #3 tube 07/12/18 Ergocalciferol [Vitamin D2] 50,000 unit PO Q7D@1000 #4 capsule 07/12/18 Gabapentin 300 mg PO Q8H #90 capsule 07/12/18 Oxycodone HCl/Acetaminophen [Percocet 10-325 mg Tablet] 1 each PO TID #70 tablet MDD 3 07/12/18 Clopidogrel Bisulfate [Plavix] 75 mg PO DAILY 07/26/18 Metoprolol Succinate [Toprol Xl] 25 mg PO DAILY 07/26/18 Family Disease History - Family Disease History Family Disease History: Diabetes: Mother (alive), Heart Disease: Father ( after heart surgery), Mother, Other: Father, Brother (one HIV/ drugs; two other living), Sister (one living), Son (2- living, healthy), Daughter (2 - living, healthy) Review of Systems Unable to obtain ROS, reason: poor historian - Review of Systems Constitutional: reports: Weakness Eyes: reports: No Symptoms HENT: reports: No Symptoms Neck: reports: No Symptoms Cardiovascular: denies: Chest Pain Respiratory: reports: SOB on Exertion - Risk Factors Known Risk Factors: Yes: Age, Gender, Hypercholesterolemia, Hypertension, Physical Inactivity, Other (lung cancer) Vital Signs: Vital Signs Temperature 98.4 F 07/26/18 13:31 Pulse Rate 85 07/26/18 13:31 Respiratory Rate 20 07/26/18 13:31 Blood Pressure 92/52 L 07/26/18 13:31 O2 Sat by Pulse Oximetry (%) 96 07/26/18 09:00 Constitutional: Yes: No Distress Eyes: Yes: WNL HENT: Yes: WNL Neck: Yes: WNL Respiratory: Yes: Diminished Gastrointestinal: Yes: Soft, Distention Renal/: No: Anuria Heart Sounds: Yes: S1, S2 Musculoskeletal: Yes: Muscle Weakness Extremities: Yes: Cool Edema: No Peripheral Pulses WNL: Yes Integumentary: No: Bruising Neurological: Yes: Alert, Confusion, Weakness Psychiatric: Yes: Alert - Other Data Labs, Other Data: CBC, BMP 07/26/18 06:00 07/26/18 06:00 INR, PTT INR 2.00 (0.83-1.09) H 07/26/18 06:00 Abnormal Lab Results 07/26/18 07/26/18 07/26/18 06:00 06:00 06:00 WBC 11.2 H Absolute Neuts (auto) 9.7 H Neutrophils % 86.8 H Lymphocytes % 5.6 L D PT with INR 23.80 H INR 2.00 H Anion Gap 7 L Calcium 8.2 L Total Bilirubin 2.0 H AST 396 H ALT 383 H Alkaline Phosphatase 183 H Albumin 3.3 L Echo: Report Reviewed Ejection Fraction %: LVEF > or = 40 % Imaging - Results Cat Scan: Image Reviewed EKG: Image Reviewed Problem List - Problems (1) Fever Assessment/Plan: antibiotics per ID and oncologist. Antipyretics, especially non-aspirin NSAIDs and acetaminophen, are problematic ( elevated LFTs; recent coronary artery stent). Code(s): R50.9 - FEVER, UNSPECIFIED (2) LFTs abnormal Assessment/Plan: Discontinue Tylenol. F/u with oncologist, GI. Code(s): R94.5 - ABNORMAL RESULTS OF LIVER FUNCTION STUDIES (3) Sepsis Code(s): A41.9 - SEPSIS, UNSPECIFIED ORGANISM Qualifiers: Sepsis type: sepsis due to unspecified organism Qualified Code(s): A41.9 - Sepsis, unspecified organism (4) HTN (hypertension) Assessment/Plan: On metoprolol ER for HR, BP control. Code(s): I10 - ESSENTIAL (PRIMARY) HYPERTENSION (5) History of lung cancer Code(s): Z85.118 - PERSONAL HISTORY OF MALIGNANT NEOPLASM OF BRONCHUS AND LUNG (6) Hypercholesterolemia Code(s): E78.0 - PURE HYPERCHOLESTEROLEMIA * DO NOT USE * (7) Methadone maintenance therapy patient Code(s): F11.20 - OPIOID DEPENDENCE, UNCOMPLICATED (8) Pulmonary emboli Assessment/Plan: On apixaban. Code(s): I26.99 - OTHER PULMONARY EMBOLISM WITHOUT ACUTE COR PULMONALE Qualifiers: Pulmonary embolism type: unspecified Chronicity: acute Acute cor pulmonale presence: without acute cor pulmonale Qualified Code(s): I26.99 - Other pulmonary embolism without acute cor pulmonale (10) H/O heart artery stent Assessment/Plan: s/p drug-eluting stent 04/2018. Continue ASA 81 mg daily and clopidogerel 75 mg daily. Code(s): Z95.5 - PRESENCE OF CORONARY ANGIOPLASTY IMPLANT AND GRAFT (11) Diastolic CHF Code(s): I50.30 - UNSPECIFIED DIASTOLIC (CONGESTIVE) HEART FAILURE
--- NOTE | 2018-07-26 19:05 | PN ---
Teaching Attending Note Name of Resident: Gina Young ATTENDING PHYSICIAN STATEMENT I saw and evaluated the patient. I reviewed the resident's note and discussed the case with the resident. I agree with the resident's findings and plan as documented. SUBJECTIVE: Patient is c/o having mid-epigastric pain. OBJECTIVE: Vital Signs Temperature 98.4 F 07/26/18 13:31 Pulse Rate 85 07/26/18 13:31 Respiratory Rate 20 07/26/18 13:31 Blood Pressure 92/52 L 07/26/18 13:31 O2 Sat by Pulse Oximetry (%) 96 07/26/18 09:00 GENERAL: The patient is awake, alert, and fully oriented, in no acute distress. HEAD: Normal with no signs of trauma. EYES:PERRLA, EOMI, conjunctiva clear. ENT: oropharynx clear without exudates, moist mucous membranes. NECK: Trachea midline, full range of motion, supple. LUNGS: Breath sounds equal, clear to auscultation bilaterally. HEART: Regular rate and rhythm, S1, S2 without murmur, rub or gallop. ABDOMEN: Soft, mild tenderness midepigastric pain, nondistended, normoactive bowel sounds. EXTREMITIES: 2+ pulses, warm, well-perfused, no edema. NEUROLOGICAL: Cranial nerves II through XII grossly intact. Normal speech, normal gait PSYCH: Normal mood, normal affect. SKIN: Warm, dry, normal turgor, no rashes or lesions noted CBCD WBC 11.2 K/mm3 (4.0-10.0) H 07/26/18 06:00 RBC 4.83 M/mm3 (4.00-5.60) 07/26/18 06:00 Hgb 13.8 GM/dL (11.7-16.9) 07/26/18 06:00 Hct 41.2 % (35.4-49) 07/26/18 06:00 MCV 85.3 fl (80-96) 07/26/18 06:00 MCHC 33.4 g/dl (32.0-35.9) 07/26/18 06:00 RDW 15.5 % (11.9-15.9) 07/26/18 06:00 Plt Count 194 K/MM3 (134-434) 07/26/18 06:00 MPV 8.4 fl (7.5-11.1) 07/26/18 06:00 CMP Sodium 138 mmol/L (136-145) 07/26/18 06:00 Potassium 3.8 mmol/L (3.5-5.1) 07/26/18 06:00 Chloride 99 mmol/L (98-107) 07/26/18 06:00 Carbon Dioxide 32 mmol/L (21-32) 07/26/18 06:00 Anion Gap 7 MMOL/L (8-16) L 07/26/18 06:00 BUN 9 mg/dL (7-18) 07/26/18 06:00 Creatinine 1.2 mg/dL (0.55-1.3) 07/26/18 06:00 Creat Clearance w eGFR 61.15 (>60) 07/26/18 06:00 Random Glucose 90 mg/dL (74-106) 07/26/18 06:00 Calcium 8.2 mg/dL (8.5-10.1) L 07/26/18 06:00 Total Bilirubin 2.0 mg/dL (0.2-1) H 07/26/18 06:00 AST 396 U/L (15-37) H 07/26/18 06:00 ALT 383 U/L (13-61) H 07/26/18 06:00 Alkaline Phosphatase 183 U/L (45-117) H 07/26/18 06:00 Total Protein 6.4 g/dl (6.4-8.2) 07/26/18 06:00 Albumin 3.3 g/dl (3.4-5.0) L 07/26/18 06:00 CARDIAC ENZYMES Creatine Kinase 52 U/L (26-308) 07/25/18 14:47 Troponin I 0.03 ng/ml (0.00-0.05) 07/25/18 14:47 Current Medications Generic Name Dose Route Start Last Admin Trade Name Freq PRN Reason Stop Dose Admin Alprazolam 0.25 mg 07/25/18 19:50 07/25/18 22:57 Xanax - PO 0.25 mg Q12H PRN Administration ANXIETY Amlodipine Besylate 5 mg 07/27/18 10:00 Norvasc - PO DAILY COLBY Apixaban 5 mg 07/25/18 22:00 07/26/18 09:40 Eliquis - PO 5 mg BID COLBY Administration Artificial Tears 1 drop 07/25/18 22:00 07/26/18 15:42 Artificial Tears OU 1 drp TID COLBY Administration Aspirin 81 mg 07/27/18 10:00 Asa - PO DAILY [facility] Clopidogrel Bisulfate 75 mg 07/26/18 19:00 Plavix - PO DAILY COLBY Gabapentin 300 mg 07/25/18 22:00 07/26/18 15:44 Neurontin - PO 300 mg TID COLBY Administration Lactated Ringer's 1,000 mls @ 42 mls/hr 07/25/18 19:45 07/25/18 22:07 Lactated Ringers Solution IV 42 mls/hr ASDIR COLBY Administration Metronidazole 500 mg in 100 mls @ 100 mls/hr 07/26/18 02:00 07/26/18 18:05 Flagyl 500mg Premixed Ivpb - IVPB 100 mls/hr Q8H-IV COBLY Administration Methadone HCl 20 mg 07/26/18 06:00 07/26/18 06:14 Dolophine - PO 20 mg DAILY@0600 COLBY Administration Metoprolol Succinate 25 mg 07/27/18 10:00 Toprol Xl - PO DAILY [facility] Oxycodone HCl 10 mg 07/25/18 22:14 07/26/18 01:18 Roxicodone - PO 10 mg Q8H PRN Administration PAIN LEVEL 6-10 Pantoprazole Sodium 40 mg 07/26/18 10:00 07/26/18 09:40 Protonix - PO 40 mg DAILY COLBY Administration Prednisone 5 mg 07/26/18 10:00 07/26/18 09:40 Deltasone - PO 5 mg DAILY COLBY Administration Home Medications Medication Instructions Recorded Methadone HCl 20 mg PO DAILY 02/11/14 Amlodipine Besylate 5 mg PO DAILY 06/10/16 Pantoprazole Sodium [Protonix -] 40 mg PO DAILY 07/05/16 Nystatin Oral Suspension - 5 ml PO QID #1 bottle 09/25/17 [Nystatin Oral Susp 801986 Units/5 ML -] Prednisone 10 mg PO DAILY 04/23/18 Atorvastatin Ca [Lipitor] 80 mg PO HS tablet 04/26/18 Alprazolam [Xanax] 0.25 mg PO BID PRN 05/15/18 Apixaban [Eliquis -] 5 mg PO BID 05/15/18 Dextran 70/Hypromellose [Natural 15 ml OU TID #1 bottle 05/15/18 Balance Tears Eye Drop] Multivitamin [Multiple Vitamins] 1 each PO DAILY #30 tablet 05/15/18 Diclofenac Sodium [Voltaren] 2 gm TP QID PRN #3 tube 07/12/18 Ergocalciferol [Vitamin D2] 50,000 unit PO Q7D@1000 #4 capsule 07/12/18 Gabapentin 300 mg PO Q8H #90 capsule 07/12/18 Oxycodone HCl/Acetaminophen 1 each PO TID #70 tablet MDD 3 07/12/18 [Percocet 10-325 mg Tablet] Clopidogrel Bisulfate [Plavix] 75 mg PO DAILY 07/26/18 Metoprolol Succinate [Toprol Xl] 25 mg PO DAILY 07/26/18 CTAP: Slightly overdistended gallbladder without intraluminal stones or wall thickening. Borderline dilatation of the intrapancreatic portion of the CBD measuring 6mm. Fluid-filled nondilated distal small bowel loops in the pelvis likely on the basis of ileus. Tiny fat-containing umbilical hernia. Rest of exam unremarkable. -HIDA scan: Filling of the gallbladder excludes acute cystic duct obstruction. Delayed common hepatic duct with significant delayed biliary enteric transit of tracer. Findings are nonspecific and could be secondary to partial CBD obstruction/stricture or chronic cholecystitis. RUQ US: Fatty liver vs hepatocellular disease. Persistent CBD now measuring 1.6cm from 1.4cm on prior exam. Limited visualization of the pancreas with dilatation of the pancreatic duct measuring 4mm, unchanged since prior exam. - ASSESSMENT AND PLAN: Patient is a 62 year old male with past medical history of right lung CA on chemo/Keytruda, PE on eliquis, CAD s/p stenting, HTN, sent from oncologist's office due to fever (101.4F), malaise, vomiting and RUQ pain for 1 day. #Hepatobilliary disease with CBD obstruction /chronic cholecystitis on IV antibiotic Levaquin and Flagyl, ID (Dr. Tamayo) consulted. - #Acute transaminitis: john ltrend #Hx of Lung CA:on chemotherapy, Oncology (Dr. Emmanuel) consulted. #Hx of PE; on Eliquis 5mg BID #CAD s/p stent:on aspirin/ and plavix continue , continue Lipitor 80mg daily #HTN: stable continue Metoprolol XL 25mg, Amlodipine 5mg daily DVt Px: eliquis 5mg BID -full code -med surg
--- NOTE | 2018-07-26 19:28 | PN ---
Progress Note (short form) - Note Progress Note: Patient seen and examined admitted with generalized pains Last Vital Signs Temp Pulse Resp BP Pulse Ox 98.4 F 85 20 92/52 L 96 07/26/18 13:31 07/26/18 13:31 07/26/18 13:31 07/26/18 13:31 07/26/18 09:00 Cor: RSR, No murmurs, No gallops Lungs: Clear to P&A Abd: Soft, Normal bowel sounds, No organomegaly Ext:No significant edema Abnormal Lab Results 07/26/18 07/26/18 07/26/18 06:00 06:00 06:00 WBC 11.2 H Absolute Neuts (auto) 9.7 H Neutrophils % 86.8 H Lymphocytes % 5.6 L D PT with INR 23.80 H INR 2.00 H Anion Gap 7 L Calcium 8.2 L Total Bilirubin 2.0 H AST 396 H ALT 383 H Alkaline Phosphatase 183 H Albumin 3.3 L Active Medications Generic Name Dose Route Start Last Admin Trade Name Freq PRN Reason Stop Dose Admin Alprazolam 0.25 mg 07/25/18 19:50 07/25/18 22:57 Xanax - PO 0.25 mg Q12H PRN Administration ANXIETY Amlodipine Besylate 5 mg 07/27/18 10:00 Norvasc - PO DAILY COLBY Apixaban 5 mg 07/25/18 22:00 07/26/18 09:40 Eliquis - PO 5 mg BID COLBY Administration Artificial Tears 1 drop 07/25/18 22:00 07/26/18 15:42 Artificial Tears OU 1 drp TID COLBY Administration Aspirin 81 mg 07/27/18 10:00 Asa - PO DAILY COLBY Clopidogrel Bisulfate 75 mg 07/26/18 19:00 Plavix - PO DAILY COLBY Gabapentin 300 mg 07/25/18 22:00 07/26/18 15:44 Neurontin - PO 300 mg TID COLBY Administration Lactated Ringer's 1,000 mls @ 42 mls/hr 07/25/18 19:45 07/25/18 22:07 Lactated Ringers Solution IV 42 mls/hr ASDIR COLBY Administration Metronidazole 500 mg in 100 mls @ 100 mls/hr 07/26/18 02:00 07/26/18 18:05 Flagyl 500mg Premixed Ivpb - IVPB 100 mls/hr Q8H-IV COLBY Administration Methadone HCl 20 mg 07/26/18 06:00 07/26/18 06:14 Dolophine - PO 20 mg DAILY@0600 COLBY Administration Metoprolol Succinate 25 mg 07/27/18 10:00 Toprol Xl - PO DAILY COLBY Oxycodone HCl 10 mg 07/25/18 22:14 07/26/18 01:18 Roxicodone - PO 10 mg Q8H PRN Administration PAIN LEVEL 6-10 Pantoprazole Sodium 40 mg 07/26/18 10:00 07/26/18 09:40 Protonix - PO 40 mg DAILY COLBY Administration Prednisone 5 mg 07/26/18 10:00 07/26/18 09:40 Deltasone - PO 5 mg DAILY COLBY Administration a/p 62 y/o patient with metastatic lung cancerwith pleural involvement admitted with fever/ LFT abnormalities w/u ongoing for cholecystitis vs hep. b reactivation vs autoimune hepatitis related to keytruda On antibiotics gi/id consults
[2018-07-26] MEDS: LACTATED RINGERS SOLUTION 1,000 ML IV SCH (21:59)
[2018-07-26] MEDS: CLOPIDOGREL BISULFATE 75 MG TABLET (FP) PO SCH (22:00)
[2018-07-27] MEDS ORDERED: AZTREONAM 1 GM VIAL (RESTRICTED TO ID) ONE ×3 (00:51→17:31)
[2018-07-27] MEDS ORDERED: DEXTROSE 5%-WATER - 50 ML IVPB ONE ×3 (00:52→17:32)
[2018-07-27] MEDS: AZTREONAM 1 GM in DEXTROSE 5%-WATER - 50 ML IVPB SCH ×3 (01:03→17:34)
[2018-07-27] MEDS ORDERED: MELATONIN 5 MG TABLETS PO ONE (02:37)
[2018-07-27] MEDS: ALPRAZolam 0.25 MG TABLET PO PRN ×2 (02:48→23:14)
[2018-07-27] MEDS: VANCOMYCIN 1 GM PREMIX - 1 GM/200 ML BAG IVPB SCH ×2 (03:59→14:55)
[2018-07-27 04:12] LABS: HEPATITIS B CORE ANTIBODY,IGM Negative (Negative)
[2018-07-27] MEDS: METHADONE HCL 10 MG TABLET PO SCH (05:38)
[2018-07-27] MEDS: GABAPENTIN 300 MG CAPSULE (FP) PO SCH ×2 (05:38→15:24)
[2018-07-27] MEDS: oxyCODONE HCL 5 MG TABLET PO PRN (05:38)
[2018-07-27] MEDS: LACTATED RINGERS SOLUTION 1,000 ML IV SCH (05:44)
[2018-07-27] MEDS: ARTIFICIAL TEARS (POLYVINYL ALCOHOL) OPTH DROPS OU SCH ×3 (05:44→23:12)
[2018-07-27 07:47] LABS: BASO % 0.8 % (0-2.0); EOS % 10.1 % (0-4.5); HEMATOCRIT 38.9 % (35.4-49); HEMOGLOBIN 12.9 GM/dL (11.7-16.9); LYMPH % 8.5 % (8-40); MCH 28.1 pg (25.7-33.7); MCHC 33.2 g/dl (32.0-35.9); MEAN CELL VOLUME 84.7 fl (80-96); MEAN PLT VOLUME 8.6 fl (7.5-11.1); MONO % 9.8 % (3.8-10.2); NEUT % 70.8 % (42.8-82.8); PLATELET COUNT 182 K/MM3 (134-434); RBC 4.59 M/mm3 (4.00-5.60); WHITE BLOOD COUNT 7.4 K/mm3 (4.0-10.0)
[2018-07-27 08:14] LABS: ALBUMIN 2.8 g/dl (3.4-5.0); ALK PHOS 160 U/L (45-117); ANION GAP 5 MMOL/L (8-16); BLOOD UREA NITROGEN 12 mg/dL (7-18); CALCIUM 8.2 mg/dL (8.5-10.1); CHLORIDE 106 mmol/L (98-107); CO2 29 mmol/L (21-32); CREATININE 0.9 mg/dL (0.55-1.3); GLUCOSE,RANDOM 127 mg/dL (74-106); MAGNESIUM 2.2 mg/dL (1.8-2.4); PHOSPHOROUS 1.6 mg/dL (2.5-4.9); POTASSIUM 3.8 mmol/L (3.5-5.1); SGOT/AST 393 U/L (15-37); SGPT/ALT 433 U/L (13-61); SODIUM 140 mmol/L (136-145); TOT PROT 5.8 g/dl (6.4-8.2)
--- NOTE | 2018-07-27 08:50 | PN ---
Progress Note, Physician History of Present Illness: GI FOLLOW UP NOTE Patient examined and case discussed with Dr. Cee Patient denies abdominal pain, nausea, vomiting. Recent labs show AST 393, ALT 433, Alk Phos 160. HIDA scan performed and shows filling of gallbladder excludes acute cystic duct obstruction, delayed common bile duct with significant delayed biliary enteric transit of tracer, finding non-specific and can be second to partial CBD obstruction, stricture, or chronic cholecystitis. - Current Medication List Current Medications: Active Medications Alprazolam (Xanax -) 0.25 mg PO Q12H PRN PRN Reason: ANXIETY Last Admin: 07/27/18 02:48 Dose: 0.25 mg Apixaban (Eliquis -) 5 mg PO BID [facility] Last Admin: 07/26/18 22:00 Dose: 5 mg Artificial Tears (Artificial Tears) 1 drop OU TID [facility] Last Admin: 07/27/18 05:44 Dose: 1 drp Aspirin (Asa -) 81 mg PO DAILY [facility] Clopidogrel Bisulfate (Plavix -) 75 mg PO DAILY [facility] Last Admin: 07/26/18 22:00 Dose: 75 mg Gabapentin (Neurontin -) 300 mg PO TID [facility] Last Admin: 07/27/18 05:38 Dose: Not Given Lactated Ringer's (Lactated Ringers Solution) 1,000 mls @ 42 mls/hr IV ASDIR [facility] Last Admin: 07/27/18 05:44 Dose: 42 mls/hr Metronidazole (Flagyl 500mg Premixed Ivpb -) 500 mg in 100 mls @ 100 mls/hr IVPB Q8H-IV [facility] Last Admin: 07/27/18 01:37 Dose: 100 mls/hr Vancomycin HCl (Vancomycin 1 Gm Premix -) 1 gm in 200 mls @ 133.333 mls/hr IVPB Q12H [facility]; Protocol Last Admin: 07/27/18 03:59 Dose: 133.333 mls/hr Aztreonam 1 gm/ Dextrose 50 mls @ 100 mls/hr IVPB Q8H-IV [facility] Last Admin: 07/27/18 01:03 Dose: 100 mls/hr Methadone HCl (Dolophine -) 20 mg PO DAILY@0600 [facility] Last Admin: 07/27/18 05:38 Dose: 20 mg Metoprolol Succinate (Toprol Xl -) 25 mg PO DAILY [facility] Oxycodone HCl (Roxicodone -) 10 mg PO Q8H PRN PRN Reason: PAIN LEVEL 6-10 Last Admin: 07/27/18 05:38 Dose: 10 mg Pantoprazole Sodium (Protonix -) 40 mg PO DAILY [facility] Last Admin: 07/26/18 09:40 Dose: 40 mg Prednisone (Deltasone -) 5 mg PO DAILY [facility] Last Admin: 07/26/18 09:40 Dose: 5 mg - Objective Vital Signs: Vital Signs Temperature 97.5 F L 07/27/18 02:40 Pulse Rate 67 07/26/18 22:00 Respiratory Rate 20 07/26/18 22:00 Blood Pressure 111/66 07/26/18 22:00 O2 Sat by Pulse Oximetry (%) 96 07/26/18 21:00 Constitutional: Yes: No Distress, Calm Eyes: Yes: Conjunctiva Clear HENT: Yes: Atraumatic Cardiovascular: Yes: Regular Rate and Rhythm Respiratory: Yes: Regular, CTA Bilaterally Gastrointestinal: Yes: Normal Bowel Sounds, Soft. No: WNL, Abdomen, Obese, Ascites, Distention, Hematemesis, Hemorrhoids, Hepatomegaly, Hernia, Hyperactive Bowel Sounds, Hypoactive Bowel Sounds, Melena, Palpable Mass, Pulsatile Mass, Rectal Bleeding, Splenomegaly, Tenderness, Tenderness, Epigastrium, Tenderness, Rebound, Vomiting, Other Neurological: Yes: Alert, Oriented Psychiatric: Yes: Alert, Oriented Labs: CBC, BMP 07/27/18 07:00 07/27/18 07:00 INR, PTT INR 2.00 (0.83-1.09) H 07/26/18 06:00 CBCD WBC 7.4 K/mm3 (4.0-10.0) 07/27/18 07:00 RBC 4.59 M/mm3 (4.00-5.60) 07/27/18 07:00 Hgb 12.9 GM/dL (11.7-16.9) 07/27/18 07:00 Hct 38.9 % (35.4-49) 07/27/18 07:00 MCV 84.7 fl (80-96) 07/27/18 07:00 MCHC 33.2 g/dl (32.0-35.9) 07/27/18 07:00 RDW 16.0 % (11.9-15.9) H 07/27/18 07:00 Plt Count 182 K/MM3 (134-434) 07/27/18 07:00 MPV 8.6 fl (7.5-11.1) 07/27/18 07:00 CMP Sodium 140 mmol/L (136-145) 07/27/18 07:00 Potassium 3.8 mmol/L (3.5-5.1) 07/27/18 07:00 Chloride 106 mmol/L (98-107) 07/27/18 07:00 Carbon Dioxide 29 mmol/L (21-32) 07/27/18 07:00 Anion Gap 5 MMOL/L (8-16) L 07/27/18 07:00 BUN 12 mg/dL (7-18) 07/27/18 07:00 Creatinine 0.9 mg/dL (0.55-1.3) 07/27/18 07:00 Creat Clearance w eGFR 85.23 (>60) 07/27/18 07:00 Calcium 8.2 mg/dL (8.5-10.1) L 07/27/18 07:00 Total Bilirubin 1.0 mg/dL (0.2-1) 07/27/18 07:00 AST 393 U/L (15-37) H 07/27/18 07:00 ALT 433 U/L (13-61) H 07/27/18 07:00 Alkaline Phosphatase 160 U/L (45-117) H 07/27/18 07:00 Total Protein 5.8 g/dl (6.4-8.2) L 07/27/18 07:00 Albumin 2.8 g/dl (3.4-5.0) L 07/27/18 07:00 - ....Imaging Other: Report Reviewed Problem List - Problems (1) Dilated cbd, acquired Assessment/Plan: -CBD dilation secondary to long term care pharmacist methadone- use -HIDA scan results reviewed Code(s): K83.8 - OTHER SPECIFIED DISEASES OF BILIARY TRACT (2) LFTs abnormal Assessment/Plan: -elevated LFTs 2/2 to drug toxicity, was on intermediate statin -cardiology consulted -decrease statin to 20mg daily and start Zetia once liver enzymes near normal Code(s): R94.5 - ABNORMAL RESULTS OF LIVER FUNCTION STUDIES
[2018-07-27] MEDS ORDERED: NAPH,MB-DB/K PH,MBDB POWDER PACKET PO ONE (09:03)
[2018-07-27] MEDS ORDERED: amLODIPine BESYLATE 5 MG TABLET (FP) PO SCH (10:00)
[2018-07-27] MEDS ORDERED: metoPROLOL SUCCINATE 25 MG TAB.SR.24H (FP) PO SCH (10:00)
[2018-07-27] MEDS: predniSONE 5 MG TABLET (UD) PO SCH (11:07)
[2018-07-27] MEDS: metoPROLOL SUCCINATE 25 MG TAB.SR.24H (FP) PO SCH (11:07)
[2018-07-27] MEDS: ASPIRIN 81 MG CHEWABLE TABLETS PO SCH (11:07)
[2018-07-27] MEDS: CLOPIDOGREL BISULFATE 75 MG TABLET (FP) PO SCH (11:07)
[2018-07-27] MEDS: APIXABAN 5 MG TABLET PO SCH ×2 (11:09→23:12)
--- NOTE | 2018-07-27 14:59 | PN ---
Progress Note (short form) - Note Progress Note: feels well no further fevers no more abdominal discomfort no nausea he reports ruq discomfort since lung cancer diagnosis- chronic and intermittent Vital Signs Period Temp Pulse Resp BP Sys/Perea Pulse Ox Last 24 Hr 97.3 F-98.4 F 67-79 20-20 94-112/55-68 96 cor-rrr lungs clear abd soft,nt small scar RUQ just below rib?- states that's where surgery was attempted and aborted due to extent of his lung cancer ext no edema CBC, BMP 07/27/18 07:00 07/27/18 07:00 Microbiology 07/25/18 13:50 Blood - Peripheral Venous Blood Culture - Preliminary NO GROWTH OBTAINED AFTER 48 HOURS, INCUBATION TO CONTINUE FOR 3 DAYS. 07/25/18 13:35 Blood - Peripheral Venous Blood Culture - Preliminary NO GROWTH OBTAINED AFTER 48 HOURS, INCUBATION TO CONTINUE FOR 3 DAYS. 07/26/18 11:45 Blood - Peggy Cath Blood Culture - Preliminary NO GROWTH OBTAINED AFTER 24 HOURS, INCUBATION TO CONTINUE FOR 4 DAYS. 07/26/18 11:45 Blood - Peggy Cath Blood Culture - Preliminary NO GROWTH OBTAINED AFTER 24 HOURS, INCUBATION TO CONTINUE FOR 4 DAYS. 07/25/18 13:51 Urine - Urine Clean Catch Urine Culture - Final a/p fever/abnormal LFTS- consider MRCP to evaluate ducts not sure why fevers resolved lfts still elevated f/u cultures with pen allergy continue vanco/azactam/flagyl lung cancer on Keytruda penicillin allergy
[2018-07-27 15:08] LABS: RPR REACTIVE 1:2 (NONREACTIVE)
[2018-07-27 15:09] LABS: TREPONEMA ANTIBODY PREVIOUSLY REACTIVE (NONREACTIVE)
[2018-07-27] MEDS: PANTOPRAZOLE 40 MG TABLET (FP) PO SCH (17:30)
--- NOTE | 2018-07-27 17:55 | PN ---
Physical Exam: SUBJECTIVE: Patient seen and examined at bedside this morning. No acute events overnight. No fevers. Patient has no complaints and reports feeling well. OBJECTIVE: Vital Signs Temperature 97.3 F L 07/27/18 14:38 Pulse Rate 79 07/27/18 14:38 Respiratory Rate 20 07/27/18 14:38 Blood Pressure 112/68 07/27/18 14:38 O2 Sat by Pulse Oximetry (%) 96 07/27/18 09:00 GENERAL: The patient is awake, alert, and fully oriented, in no acute distress. HEAD: Normal with no signs of trauma. EYES:PERRLA, EOMI, conjunctiva clear. ENT: oropharynx clear without exudates, moist mucous membranes. NECK: Trachea midline, full range of motion, supple. LUNGS: Breath sounds equal, clear to auscultation bilaterally. HEART: Regular rate and rhythm, S1, S2 without murmur, rub or gallop. ABDOMEN: Soft, nontender, nondistended, normoactive bowel sounds. EXTREMITIES: 2+ pulses, warm, well-perfused, no edema. NEUROLOGICAL: Cranial nerves II through XII grossly intact. Normal speech, normal gait PSYCH: Normal mood, normal affect. SKIN: Warm, dry, normal turgor, no rashes or lesions noted Laboratory Results - last 24 hr 07/26/18 07/26/18 07/27/18 06:00 06:00 07:00 WBC 7.4 RBC 4.59 Hgb 12.9 Hct 38.9 MCV 84.7 MCH 28.1 MCHC 33.2 RDW 16.0 H Plt Count 182 MPV 8.6 Absolute Neuts (auto) 5.2 Neutrophils % 70.8 Lymphocytes % 8.5 D Monocytes % 9.8 D Eosinophils % 10.1 H D Basophils % 0.8 Nucleated RBC % 0 Sodium Potassium Chloride Carbon Dioxide Anion Gap BUN Creatinine Creat Clearance w eGFR Random Glucose Calcium Phosphorus Magnesium Total Bilirubin AST ALT Alkaline Phosphatase Total Protein Albumin RPR Titer T.pallidum Ab (MHA) Hep Bs Antibody Reactive Hep B Core IgM Ab Negative Hepatitis Be Antigen Negative 07/27/18 07/27/18 07:00 07:00 WBC RBC Hgb Hct MCV MCH MCHC RDW Plt Count MPV Absolute Neuts (auto) Neutrophils % Lymphocytes % Monocytes % Eosinophils % Basophils % Nucleated RBC % Sodium 140 Potassium 3.8 Chloride 106 Carbon Dioxide 29 Anion Gap 5 L BUN 12 Creatinine 0.9 Creat Clearance w eGFR 85.23 Random Glucose 127 H Calcium 8.2 L Phosphorus 1.6 L Magnesium 2.2 Total Bilirubin 1.0 AST 393 H ALT 433 H Alkaline Phosphatase 160 H Total Protein 5.8 L Albumin 2.8 L RPR Titer Reactive 1:2 H T.pallidum Ab (MHA) Previously reactive Hep Bs Antibody Hep B Core IgM Ab Hepatitis Be Antigen Active Medications Generic Name Dose Route Start Last Admin Trade Name Freq PRN Reason Stop Dose Admin Alprazolam 0.25 mg 07/25/18 19:50 07/27/18 02:48 Xanax - PO 0.25 mg Q12H PRN Administration ANXIETY Apixaban 5 mg 07/25/18 22:00 07/27/18 11:09 Eliquis - PO 5 mg BID [facility] Administration Artificial Tears 1 drop 07/25/18 22:00 07/27/18 17:34 Artificial Tears OU 1 drp TID [facility] Administration Aspirin 81 mg 07/27/18 10:00 07/27/18 11:07 Asa - PO 81 mg DAILY [facility] Administration Clopidogrel Bisulfate 75 mg 07/26/18 19:00 07/27/18 11:07 Plavix - PO 75 mg DAILY [facility] Administration Gabapentin 300 mg 07/25/18 22:00 07/27/18 15:24 Neurontin - PO Not Given TID [facility] Lactated Ringer's 1,000 mls @ 42 mls/hr 07/25/18 19:45 07/27/18 05:44 Lactated Ringers Solution IV 42 mls/hr ASDIR [facility] Administration Metronidazole 500 mg in 100 mls @ 100 mls/hr 07/26/18 02:00 07/27/18 12:11 Flagyl 500mg Premixed Ivpb - IVPB 100 mls/hr Q8H-IV [facility] Administration Vancomycin HCl 1 gm in 200 mls @ 133.333 mls/hr 07/27/18 01:00 07/27/18 14:55 Vancomycin 1 Gm Premix - IVPB 133.333 mls/hr Q12H [facility] Administration Protocol Aztreonam 1 gm/ Dextrose 50 mls @ 100 mls/hr 07/27/18 02:00 07/27/18 17:34 IVPB 100 mls/hr Q8H-IV [facility] Administration Methadone HCl 20 mg 07/26/18 06:00 07/27/18 05:38 Dolophine - PO 20 mg DAILY@0600 [facility] Administration Metoprolol Succinate 25 mg 07/27/18 10:00 07/27/18 11:07 Toprol Xl - PO 25 mg DAILY [facility] Administration Oxycodone HCl 10 mg 07/25/18 22:14 07/27/18 05:38 Roxicodone - PO 10 mg Q8H PRN Administration PAIN LEVEL 6-10 Pantoprazole Sodium 40 mg 07/26/18 10:00 07/27/18 17:30 Protonix - PO 40 mg DAILY [facility] Administration Prednisone 5 mg 07/26/18 10:00 07/27/18 11:07 Deltasone - PO 5 mg DAILY [facility] Administration -RUQ US: Fatty liver vs hepatocellular disease. Persistent CBD now measuring 1.6cm from 1.4cm on prior exam. Limited visualization of the pancreas with dilatation of the pancreatic duct measuring 4mm, unchanged since prior exam. -CTAP: Slightly overdistended gallbladder without intraluminal stones or wall thickening. Borderline dilatation of the intrapancreatic portion of the CBD measuring 6mm. Fluid-filled nondilated distal small bowel loops in the pelvis likely on the basis of ileus. Tiny fat-containing umbilical hernia. Rest of exam unremarkable. -HIDA scan: Filling of the gallbladder excludes acute cystic duct obstruction. Delayed common hepatic duct with significant delayed biliary enteric transit of tracer. Findings are nonspecific and could be secondary to partial CBD obstruction/stricture or chronic cholecystitis. ASSESSMENT/PLAN: Patient is a 62 year old male with past medical history of right lung CA on chemo/Keytruda, PE on eliquis, CAD s/p stenting, HTN, sent from oncologist's office due to fever (101.4F), malaise, vomiting and RUQ pain for 1 day. #Fever of unknown origin: likely hepatobiliary source -no fevers overnight, leukocystosis resolved -Blood cultures - no growth x24 hours -IV fluids -ID (Dr. Tamaoy) consulted. Recommendations appreciated. -LFTs still elevated -follow up cultures -With penicillin allergy, continue Vancomycin, Azactam and Flagyl -For MRCP #Acute transaminitis -GI (Dr. Cee) consulted. Recommendations appreciated. -likely 2/2 drug toxicity, currently on usp statin -hold statin -Avoid tylenol. -Cardiology (Dr. Roche) consulted. -consider decrease dose to 20mg daily and add Zetia once liver enzymes near normal #Hx of Lung CA -on chemotherapy -Oncology (Dr. Emmanuel) consulted. #Hx of PE -Eliquis 5mg BID #CAD s/p stenting -ASA 81mg daily -Clopidogrel 75mg daily -Lipitor 80mg daily - on hold #HTN: chronic -Continue home Metoprolol XL 25mg -Amlodipine 5mg daily #FEN -IV LR @ 42cc/hr -Electrolytes wnl, routine bmp monitoring -Regular diet #Prophylaxis -On eliquis 5mg BID #Disposition -full code -med surg Visit type - Emergency Visit Emergency Visit: Yes ED Registration Date: 07/25/18 Care time: The patient presented to the Emergency Department on the above date and was hospitalized for further evaluation of their emergent condition. - New Patient This patient is new to me today: No - Critical Care Critical Care patient: No
--- NOTE | 2018-07-27 18:31 | PN ---
Progress Note (short form) - Note Progress Note: Patient seen and examined feels better Last Vital Signs Temp Pulse Resp BP Pulse Ox 97.3 F L 79 20 112/68 96 07/27/18 14:38 07/27/18 14:38 07/27/18 14:38 07/27/18 14:38 07/27/18 09:00 Cor: RSR, No murmurs, No gallops Lungs: Clear to P&A Abd: Soft, Normal bowel sounds, No organomegaly Ext:No significant edema Abnormal Lab Results 07/26/18 07/26/18 07/26/18 06:00 06:00 06:00 WBC 11.2 H Absolute Neuts (auto) 9.7 H Neutrophils % 86.8 H Lymphocytes % 5.6 L D PT with INR 23.80 H INR 2.00 H Anion Gap 7 L Calcium 8.2 L Total Bilirubin 2.0 H AST 396 H ALT 383 H Alkaline Phosphatase 183 H Albumin 3.3 L Active Medications Generic Name Dose Route Start Last Admin Trade Name Freq PRN Reason Stop Dose Admin Alprazolam 0.25 mg 07/25/18 19:50 07/25/18 22:57 Xanax - PO 0.25 mg Q12H PRN Administration ANXIETY Amlodipine Besylate 5 mg 07/27/18 10:00 Norvasc - PO DAILY [facility] Apixaban 5 mg 07/25/18 22:00 07/26/18 09:40 Eliquis - PO 5 mg BID [facility] Administration Artificial Tears 1 drop 07/25/18 22:00 07/26/18 15:42 Artificial Tears OU 1 drp TID [facility] Administration Aspirin 81 mg 07/27/18 10:00 Asa - PO DAILY [facility] Clopidogrel Bisulfate 75 mg 07/26/18 19:00 Plavix - PO DAILY [facility] Gabapentin 300 mg 07/25/18 22:00 07/26/18 15:44 Neurontin - PO 300 mg TID [facility] Administration Lactated Ringer's 1,000 mls @ 42 mls/hr 07/25/18 19:45 07/25/18 22:07 Lactated Ringers Solution IV 42 mls/hr ASDIR [facility] Administration Metronidazole 500 mg in 100 mls @ 100 mls/hr 07/26/18 02:00 07/26/18 18:05 Flagyl 500mg Premixed Ivpb - IVPB 100 mls/hr Q8H-IV [facility] Administration Methadone HCl 20 mg 07/26/18 06:00 07/26/18 06:14 Dolophine - PO 20 mg DAILY@0600 [facility] Administration Metoprolol Succinate 25 mg 07/27/18 10:00 Toprol Xl - PO DAILY [facility] Oxycodone HCl 10 mg 07/25/18 22:14 07/26/18 01:18 Roxicodone - PO 10 mg Q8H PRN Administration PAIN LEVEL 6-10 Pantoprazole Sodium 40 mg 07/26/18 10:00 07/26/18 09:40 Protonix - PO 40 mg DAILY [facility] Administration Prednisone 5 mg 07/26/18 10:00 07/26/18 09:40 Deltasone - PO 5 mg DAILY [facility] Administration a/p 62 y/o patient with metastatic lung canceron [facility], admitted with fevers, abnormal LFTS HIDA scan showing chronic cholecystitis? Improved on antibiotics Hepatitis serologies pending ? autoimmune hepatitis from [facility] will follow clinical course and dose steroids
--- NOTE | 2018-07-27 21:26 | PN ---
Teaching Attending Note Name of Resident: Gina Young ATTENDING PHYSICIAN STATEMENT I saw and evaluated the patient. I reviewed the resident's note and discussed the case with the resident. I agree with the resident's findings and plan as documented. SUBJECTIVE: Patient is lying in bed c/o having mid-abdominal pain, no nausea or vomiting. OBJECTIVE: Vital Signs Temperature 97.3 F L 07/27/18 14:38 Pulse Rate 79 07/27/18 14:38 Respiratory Rate 20 07/27/18 14:38 Blood Pressure 112/68 07/27/18 14:38 O2 Sat by Pulse Oximetry (%) 96 07/27/18 09:00 GENERAL: The patient is awake, alert, and fully oriented, in no acute distress. HEAD: Normal with no signs of trauma. EYES:PERRLA, EOMI, conjunctiva clear. ENT: oropharynx clear without exudates, moist mucous membranes. NECK: Trachea midline, full range of motion, supple. LUNGS: Breath sounds equal, clear to auscultation bilaterally. HEART: Regular rate and rhythm, S1, S2 without murmur, rub or gallop. ABDOMEN: Soft, mild tenderness midepigastric pain, nondistended, normoactive bowel sounds. EXTREMITIES: 2+ pulses, warm, well-perfused, no edema. NEUROLOGICAL: Cranial nerves II through XII grossly intact. Normal speech, normal gait PSYCH: Normal mood, normal affect. SKIN: Warm, dry, normal turgor, no rashes or lesions noted CBCD WBC 7.4 K/mm3 (4.0-10.0) 07/27/18 07:00 RBC 4.59 M/mm3 (4.00-5.60) 07/27/18 07:00 Hgb 12.9 GM/dL (11.7-16.9) 07/27/18 07:00 Hct 38.9 % (35.4-49) 07/27/18 07:00 MCV 84.7 fl (80-96) 07/27/18 07:00 MCHC 33.2 g/dl (32.0-35.9) 07/27/18 07:00 RDW 16.0 % (11.9-15.9) H 07/27/18 07:00 Plt Count 182 K/MM3 (134-434) 07/27/18 07:00 MPV 8.6 fl (7.5-11.1) 07/27/18 07:00 CMP Sodium 140 mmol/L (136-145) 07/27/18 07:00 Potassium 3.8 mmol/L (3.5-5.1) 07/27/18 07:00 Chloride 106 mmol/L (98-107) 07/27/18 07:00 Carbon Dioxide 29 mmol/L (21-32) 07/27/18 07:00 Anion Gap 5 MMOL/L (8-16) L 07/27/18 07:00 BUN 12 mg/dL (7-18) 07/27/18 07:00 Creatinine 0.9 mg/dL (0.55-1.3) 07/27/18 07:00 Creat Clearance w eGFR 85.23 (>60) 07/27/18 07:00 Random Glucose 127 mg/dL (74-106) H 07/27/18 07:00 Calcium 8.2 mg/dL (8.5-10.1) L 07/27/18 07:00 Total Bilirubin 1.0 mg/dL (0.2-1) 07/27/18 07:00 AST 393 U/L (15-37) H 07/27/18 07:00 ALT 433 U/L (13-61) H 07/27/18 07:00 Alkaline Phosphatase 160 U/L (45-117) H 07/27/18 07:00 Total Protein 5.8 g/dl (6.4-8.2) L 07/27/18 07:00 Albumin 2.8 g/dl (3.4-5.0) L 07/27/18 07:00 CARDIAC ENZYMES Creatine Kinase 52 U/L (26-308) 07/25/18 14:47 Troponin I 0.03 ng/ml (0.00-0.05) 07/25/18 14:47 Current Medications Generic Name Dose Route Start Last Admin Trade Name Freq PRN Reason Stop Dose Admin Alprazolam 0.25 mg 07/25/18 19:50 07/27/18 02:48 Xanax - PO 0.25 mg Q12H PRN Administration ANXIETY Apixaban 5 mg 07/25/18 22:00 07/27/18 11:09 Eliquis - PO 5 mg BID [facility] Administration Artificial Tears 1 drop 07/25/18 22:00 07/27/18 17:34 Artificial Tears OU 1 drp TID [facility] Administration Aspirin 81 mg 07/27/18 10:00 07/27/18 11:07 Asa - PO 81 mg DAILY [facility] Administration Clopidogrel Bisulfate 75 mg 07/26/18 19:00 07/27/18 11:07 Plavix - PO 75 mg DAILY [facility] Administration Lactated Ringer's 1,000 mls @ 42 mls/hr 07/25/18 19:45 07/27/18 05:44 Lactated Ringers Solution IV 42 mls/hr ASDIR [facility] Administration Metronidazole 500 mg in 100 mls @ 100 mls/hr 07/26/18 02:00 07/27/18 12:11 Flagyl 500mg Premixed Ivpb - IVPB 100 mls/hr Q8H-IV [facility] Administration Vancomycin HCl 1 gm in 200 mls @ 133.333 mls/hr 07/27/18 01:00 07/27/18 14:55 Vancomycin 1 Gm Premix - IVPB 133.333 mls/hr Q12H [facility] Administration Protocol Aztreonam 1 gm/ Dextrose 50 mls @ 100 mls/hr 07/27/18 02:00 07/27/18 17:34 IVPB 100 mls/hr Q8H-IV [facility] Administration Methadone HCl 20 mg 07/26/18 06:00 07/27/18 05:38 Dolophine - PO 20 mg DAILY@0600 [facility] Administration Metoprolol Succinate 25 mg 07/27/18 10:00 07/27/18 11:07 Toprol Xl - PO 25 mg DAILY [facility] Administration Pantoprazole Sodium 40 mg 07/26/18 10:00 07/27/18 17:30 Protonix - PO 40 mg DAILY [facility] Administration Prednisone 5 mg 07/26/18 10:00 07/27/18 11:07 Deltasone - PO 5 mg DAILY [facility] Administration Home Medications Medication Instructions Recorded Methadone HCl 20 mg PO DAILY 02/11/14 Pantoprazole Sodium [Protonix -] 40 mg PO DAILY 07/05/16 Nystatin Oral Suspension - 5 ml PO QID #1 bottle 09/25/17 [Nystatin Oral Susp 230278 Units/5 ML -] Prednisone 10 mg PO DAILY 04/23/18 Atorvastatin Ca [Lipitor] 80 mg PO HS tablet 04/26/18 Alprazolam [Xanax] 0.25 mg PO BID PRN 05/15/18 Apixaban [Eliquis -] 5 mg PO BID 05/15/18 Dextran 70/Hypromellose [Natural 15 ml OU TID #1 bottle 05/15/18 Balance Tears Eye Drop] Multivitamin [Multiple Vitamins] 1 each PO DAILY #30 tablet 05/15/18 Diclofenac Sodium [Voltaren] 2 gm TP QID PRN #3 tube 07/12/18 Ergocalciferol [Vitamin D2] 50,000 unit PO Q7D@1000 #4 capsule 07/12/18 Gabapentin 300 mg PO Q8H #90 capsule 07/12/18 Oxycodone HCl/Acetaminophen 1 each PO TID #70 tablet MDD 3 07/12/18 [Percocet 10-325 mg Tablet] Clopidogrel Bisulfate [Plavix] 75 mg PO DAILY 07/26/18 Metoprolol Succinate [Toprol Xl] 25 mg PO DAILY 07/26/18 CTAP: Slightly overdistended gallbladder without intraluminal stones or wall thickening. Borderline dilatation of the intrapancreatic portion of the CBD measuring 6mm. Fluid-filled nondilated distal small bowel loops in the pelvis likely on the basis of ileus. Tiny fat-containing umbilical hernia. Rest of exam unremarkable. -HIDA scan: Filling of the gallbladder excludes acute cystic duct obstruction. Delayed common hepatic duct with significant delayed biliary enteric transit of tracer. Findings are nonspecific and could be secondary to partial CBD obstruction/stricture or chronic cholecystitis. RUQ US: Fatty liver vs hepatocellular disease. Persistent CBD now measuring 1.6cm from 1.4cm on prior exam. Limited visualization of the pancreas with dilatation of the pancreatic duct measuring 4mm, unchanged since prior exam. - ASSESSMENT AND PLAN: Patient is a 62 year old male with past medical history of right lung CA on chemo/Keytruda, PE on eliquis, CAD s/p stenting, HTN, sent from oncologist's office due to fever (101.4F), malaise, vomiting and RUQ pain for 1 day. #Hepatobilliary disease with CBD obstruction /chronic cholecystitis on IV antibiotic Azactam/Flagyl/and vanco as per ID (Dr. Tamayo) consulted. - #Acute transaminitis: will ltrend #Hx of Lung CA:on chemotherapy, Oncology (Dr. Emmanuel) consulted. #Hx of PE; on Eliquis 5mg BID #CAD s/p stent:on aspirin/ and plavix continue , continue Lipitor 80mg daily #HTN: stable continue Metoprolol XL 25mg, Amlodipine 5mg daily DVt Px: eliquis 5mg BID -full code -med surg ordered MRCP
[2018-07-28] MEDS ORDERED: oxyCODONE HCL 5 MG TABLET PO ONE (01:03)
[2018-07-28] MEDS ORDERED: ALPRAZolam 0.25 MG TABLET PO ONE (01:03)
[2018-07-28] MEDS ORDERED: AZTREONAM 1 GM VIAL (RESTRICTED TO ID) ONE ×2 (01:08→08:31)
[2018-07-28] MEDS ORDERED: DEXTROSE 5%-WATER - 50 ML IVPB ONE ×2 (01:08→08:31)
[2018-07-28] MEDS: VANCOMYCIN 1 GM PREMIX - 1 GM/200 ML BAG IVPB SCH ×2 (01:19→13:22)
[2018-07-28] MEDS: AZTREONAM 1 GM in DEXTROSE 5%-WATER - 50 ML IVPB SCH ×2 (05:15→09:59)
[2018-07-28] MEDS: ARTIFICIAL TEARS (POLYVINYL ALCOHOL) OPTH DROPS OU SCH ×3 (05:42→22:15)
[2018-07-28] MEDS: METHADONE HCL 10 MG TABLET PO SCH (06:13)
[2018-07-28] MEDS: LACTATED RINGERS SOLUTION 1,000 ML IV SCH (06:14)
[2018-07-28 07:28] LABS: EOS % 10.2 % (0-4.5); HEMOGLOBIN 13.5 GM/dL (11.7-16.9); LYMPH % 23.8 % (8-40); MEAN CELL VOLUME 84.8 fl (80-96); MEAN PLT VOLUME 8.8 fl (7.5-11.1); PLATELET COUNT 207 K/MM3 (134-434); RBC 4.83 M/mm3 (4.00-5.60); RDW 15.9 % (11.9-15.9); WHITE BLOOD COUNT 6.8 K/mm3 (4.0-10.0)
[2018-07-28 07:54] LABS: ALBUMIN 3.1 g/dl (3.4-5.0); ALK PHOS 187 U/L (45-117); ANION GAP 9 MMOL/L (8-16); BILIRUBIN,TOTAL 0.7 mg/dL (0.2-1); BLOOD UREA NITROGEN 11 mg/dL (7-18); CALCIUM 8.2 mg/dL (8.5-10.1); CHLORIDE 105 mmol/L (98-107); CO2 24 mmol/L (21-32); CREATININE 0.8 mg/dL (0.55-1.3); GLUCOSE,RANDOM 106 mg/dL (74-106); MAGNESIUM 2.1 mg/dL (1.8-2.4); PHOSPHOROUS 2.9 mg/dL (2.5-4.9); POTASSIUM 3.5 mmol/L (3.5-5.1); SGOT/AST 325 U/L (15-37); SGPT/ALT 428 U/L (13-61); SODIUM 138 mmol/L (136-145); TOT PROT 6.2 g/dl (6.4-8.2)
[2018-07-28] MEDS: ASPIRIN 81 MG CHEWABLE TABLETS PO SCH (09:59)
[2018-07-28] MEDS: PANTOPRAZOLE 40 MG TABLET (FP) PO SCH (09:59)
[2018-07-28] MEDS: metoPROLOL SUCCINATE 25 MG TAB.SR.24H (FP) PO SCH (09:59)
[2018-07-28] MEDS: predniSONE 5 MG TABLET (UD) PO SCH (09:59)
[2018-07-28] MEDS: APIXABAN 5 MG TABLET PO SCH ×2 (09:59→22:13)
[2018-07-28] MEDS: CLOPIDOGREL BISULFATE 75 MG TABLET (FP) PO SCH (09:59)
--- NOTE | 2018-07-28 10:43 | PN ---
Progress Note (short form) - Note Progress Note: Patient seen in follow up. No new complaints. No significant events overnight. Inpatient Meds reviewed. Current Medications Generic Name Dose Route Start Last Admin Trade Name Freq PRN Reason Stop Dose Admin Alprazolam 0.25 mg 07/25/18 19:50 07/28/18 15:01 Xanax - PO 0.25 mg Q12H PRN Administration ANXIETY Apixaban 5 mg 07/25/18 22:00 07/28/18 09:59 Eliquis - PO 5 mg BID COLBY Administration Artificial Tears 1 drop 07/25/18 22:00 07/28/18 13:22 Artificial Tears OU 1 drp TID COLBY Administration Aspirin 81 mg 07/27/18 10:00 07/28/18 09:59 Asa - PO 81 mg DAILY COLBY Administration Clopidogrel Bisulfate 75 mg 07/26/18 19:00 07/28/18 09:59 Plavix - PO 75 mg DAILY COLBY Administration Lactated Ringer's 1,000 mls @ 42 mls/hr 07/25/18 19:45 07/28/18 06:14 Lactated Ringers Solution IV 42 mls/hr ASDIR COLBY Administration Metronidazole 500 mg in 100 mls @ 100 mls/hr 07/26/18 02:00 07/28/18 17:58 Flagyl 500mg Premixed Ivpb - IVPB 100 mls/hr Q8H-IV COLBY Administration Levofloxacin 500 mg in 100 mls @ 100 mls/hr 07/28/18 14:45 07/28/18 14:59 Levaquin 500 Mg Premixed Ivpb - IVPB 100 mls/hr DAILY COLBY Administration Protocol Methadone HCl 20 mg 07/26/18 06:00 07/28/18 06:13 Dolophine - PO 20 mg DAILY@0600 COLBY Administration Metoprolol Succinate 25 mg 07/27/18 10:00 07/28/18 09:59 Toprol Xl - PO 25 mg DAILY COLBY Administration Pantoprazole Sodium 40 mg 07/26/18 10:00 07/28/18 09:59 Protonix - PO 40 mg DAILY COLBY Administration Prednisone 5 mg 07/26/18 10:00 07/28/18 09:59 Deltasone - PO 5 mg DAILY COLBY Administration On Examination: Last Vital Signs Temp Pulse Resp BP Pulse Ox 98.5 F 73 20 135/79 96 07/28/18 18:00 07/28/18 18:00 07/28/18 18:00 07/28/18 18:00 07/28/18 09:00 General: In no acute distress, lying comfortably in bed. Extremities: No pallor or icterus. No pedal edema. No palpable lymphadenopathy. CVS: S1, S2, regular, no gallop or murmur. Chest: good air entry bilaterally, clear Abdomen: Non-distended, non-tender, no palpable organomegaly. Neuro: Alert, oriented, non-focal. Labs: CBC, BMP 07/28/18 06:00 07/28/18 06:00 Assessment. Metastatic lung cancer - on keytruda, Admitted with fevers, neutrophilia, abnormal LFTS Improved with empiric antibiotics. Afebrile > 48 hours, ANC now normal, Transaminases peaked possibly. Hep B Ag negtaive. If LFTs continue to improved, and remains afebrile then consider DC, if ID and GI agreeable
[2018-07-28 12:14] LABS: HBSAG SCREEN Negative (Negative); HEP A AB, IGM Negative (Negative); HEP B CORE AB, TOT Positive (Negative)
--- NOTE | 2018-07-28 13:52 | PN ---
Progress Note (short form) - Note Progress Note: Asked by Dr Tamayo to re-evaluate patient in light of abnormal LFTs and recent fever. Pt denies any abdominal pain now. Says he did have RUQ pain before , now resolved. Imaging studies appreciated including CT scan, which shows a markedly dilated CBD (but was present also in past). Evidence of past HBV infection but current HBsAg negative, treated in past for HCV with reported sustained viral response. No current HCV RNA level in chart. Constellation of fever, RUQ pain, abnormal LFTs certainly suggests biliary tract disease. Agree with MRI/MRCP.
--- NOTE | 2018-07-28 14:36 | PN ---
Progress Note (short form) - Note Progress Note: fwants to go home feels well Vital Signs Period Temp Pulse Resp BP Sys/Perea Pulse Ox Last 24 Hr 97.3 F-99.0 F 66-93 20-20 101-117/58-68 96 cor-rrr lungs clear abd soft,nt ext no edema CBC, BMP 07/28/18 06:00 07/28/18 06:00 Microbiology 07/25/18 13:35 Blood - Peripheral Venous Blood Culture - Preliminary NO GROWTH OBTAINED AFTER 72 HOURS, INCUBATION TO CONTINUE FOR 2 DAYS. 07/26/18 11:45 Blood - Peggy Cath Blood Culture - Preliminary NO GROWTH OBTAINED AFTER 48 HOURS, INCUBATION TO CONTINUE FOR 3 DAYS. 07/26/18 11:45 Blood - Peggy Cath Blood Culture - Preliminary NO GROWTH OBTAINED AFTER 48 HOURS, INCUBATION TO CONTINUE FOR 3 DAYS. 07/25/18 13:50 Blood - Peripheral Venous Blood Culture - Preliminary NO GROWTH OBTAINED AFTER 48 HOURS, INCUBATION TO CONTINUE FOR 3 DAYS. 07/25/18 13:51 Urine - Urine Clean Catch Urine Culture - Final a/p fever/abnormal LFTS- consider MRCP to evaluate ducts not sure why fevers resolved lfts still elevated f/u cultures with pen allergy switch to levaquin/flagyl-ER ekg with normal qtc, will order repeat ekg d/c vancomycin as blood cultures are negative trend lfts d/w GI at length lung cancer on Keytruda penicillin allergy
[2018-07-28] MEDS: ALPRAZolam 0.25 MG TABLET PO PRN (15:01)
--- NOTE | 2018-07-28 16:21 | CONS ---
DATE OF CONSULTATION: 07/26/2018 HISTORY OF PRESENT ILLNESS: This is a 62-year-old man who on the presented to his oncologist for chemo. He was noted to have fever. He complained of some abdominal discomfort. He apparently has 1 or 2 episodes of vomiting. He was noted to have normal LFTs, and he was admitted and given a dose of Levaquin and Flagyl after cultures were sent. I was asked to see him in followup. On the he continued to have fever as high as 102. His abdominal pain had resolved. There was no vomiting, no cough, no shortness of breath, no headache. No diarrhea or dysuria. He lives at home with his daughter and his . PAST MEDICAL HISTORY: Notable for lung cancer. It was not resectable. It was diagnosed 2 years ago, and he is on Keytruda every 3 weeks. He has a history of a PE. He is on Eliquis. Coronary artery disease status post stenting, and hypertension. He has had no other surgery. He does have a port in place on his right chest that he has had he said for 2 years. SOCIAL HISTORY: Lives with his family. No history of any sick contacts. There is no history of any travel. ALLERGIES: PENICILLIN, which gives him a rash, and SEROQUEL, which gives him nightmares. MEDICATIONS: His medications at home include methadone, amlodipine, Protonix, Remeron, prednisone, atorvastatin, Xanax, Eliquis, trazodone, Voltaren cream, vitamin D, gabapentin, and Percocet. FAMILY HISTORY: Noncontributory. PHYSICAL EXAMINATION: Vital Signs: He had fever of 102.3 the morning I saw him. Pulse of 98, blood pressure 118/72, respiratory rate of 20. General: He was awake and alert and reported he felt great. HEENT: Normocephalic. Eyes are anicteric. He had no thrush. Neck: Supple. Lungs: Clear to auscultation. Heart: Regular rate and rhythm. Abdomen: Soft. He had no right upper quadrant pain. Extremities: Without edema. Chest: Port site was without erythema and nontender. LABORATORY: Labs on admission were 11.5, repeat 11.2. Hemoglobin 13.8, platelets of 194, INR of 1.7 on Eliquis. His BUN and creatinine were 9 and 1.2. His LFTs: His total bilirubin was 2 with AST of 396, ALT of 383, and alkaline phosphatase of 183. Urinalysis was negative. He was sent off for a HIDA scan, and the results were pending. He had had an ultrasound that showed a fatty liver, persistent dilated common bile duct that was slightly larger than it had been in the past, and he had a CTA of his chest, abdomen, and pelvis. CTA of the chest that showed no PE, showed a right lower lobe mass-like lesion, and CAT scan of the abdomen and pelvis was notable for an overdistended gallbladder without stones, otherwise unremarkable. SUMMARY: This was a 62-year-old man with advanced lung cancer status post Keytruda 3 weeks ago (he did not receive his dose on the day of admission) with fever and abnormal LFTs. He also has a PENICILLIN allergy. Differential diagnosis would include biliary disease with biliary sepsis. He could have sepsis from his port. Blood cultures from his port were just sent, as well as perhaps some sort of viral reactivation given the Keytruda and given the chemotherapy. Hepatitis serologies have been sent. Will send CMV and EBV as well. Will await the HIDA scan results. Will treat him with vancomycin, aztreonam, and Flagyl at this time to cover both the port and his biliary system as he has a PENICILLIN allergy. Lastly, his cancer on Keytruda. Keytruda can cause liver abnormalities, so will discuss this with Oncology. Further recommendations to follow. ANNIKA SALEH M.D. [facility]/[id number]
--- NOTE | 2018-07-28 20:17 | PN ---
Progress Note (short form) - Note Progress Note: Patient is feeling better, continues to have mid-abdominal pain. Vital Signs Temperature 98.5 F 07/28/18 18:00 Pulse Rate 73 07/28/18 18:00 Respiratory Rate 20 07/28/18 18:00 Blood Pressure 135/79 07/28/18 18:00 O2 Sat by Pulse Oximetry (%) 96 07/28/18 09:00 GENERAL: The patient is awake, alert, and fully oriented, in no acute distress. HEAD: Normal with no signs of trauma. EYES:PERRLA, EOMI, conjunctiva clear. ENT: oropharynx clear without exudates, moist mucous membranes. NECK: Trachea midline, full range of motion, supple. LUNGS: Breath sounds equal, clear to auscultation bilaterally. HEART: Regular rate and rhythm, S1, S2 without murmur, rub or gallop. ABDOMEN: Soft, mild tenderness midepigastric area, nondistended, normoactive bowel sounds. EXTREMITIES: 2+ pulses, warm, well-perfused, no edema. NEUROLOGICAL: Cranial nerves II through XII grossly intact. Normal speech, normal gait PSYCH: Normal mood, normal affect. SKIN: Warm, dry, normal turgor, no rashes or lesions noted CBCD WBC 6.8 K/mm3 (4.0-10.0) 07/28/18 06:00 RBC 4.83 M/mm3 (4.00-5.60) 07/28/18 06:00 Hgb 13.5 GM/dL (11.7-16.9) 07/28/18 06:00 Hct 41.0 % (35.4-49) 07/28/18 06:00 MCV 84.8 fl (80-96) 07/28/18 06:00 MCHC 33.0 g/dl (32.0-35.9) 07/28/18 06:00 RDW 15.9 % (11.9-15.9) 07/28/18 06:00 Plt Count 207 K/MM3 (134-434) 07/28/18 06:00 MPV 8.8 fl (7.5-11.1) 07/28/18 06:00 CMP Sodium 138 mmol/L (136-145) 07/28/18 06:00 Potassium 3.5 mmol/L (3.5-5.1) 07/28/18 06:00 Chloride 105 mmol/L (98-107) 07/28/18 06:00 Carbon Dioxide 24 mmol/L (21-32) 07/28/18 06:00 Anion Gap 9 MMOL/L (8-16) 07/28/18 06:00 BUN 11 mg/dL (7-18) 07/28/18 06:00 Creatinine 0.8 mg/dL (0.55-1.3) 07/28/18 06:00 Creat Clearance w eGFR 97.63 (>60) 07/28/18 06:00 Random Glucose 106 mg/dL (74-106) 07/28/18 06:00 Calcium 8.2 mg/dL (8.5-10.1) L 07/28/18 06:00 Total Bilirubin 0.7 mg/dL (0.2-1) 07/28/18 06:00 AST 325 U/L (15-37) H 07/28/18 06:00 ALT 428 U/L (13-61) H 07/28/18 06:00 Alkaline Phosphatase 187 U/L (45-117) H 07/28/18 06:00 Total Protein 6.2 g/dl (6.4-8.2) L 07/28/18 06:00 Albumin 3.1 g/dl (3.4-5.0) L 07/28/18 06:00 CARDIAC ENZYMES Creatine Kinase 52 U/L (26-308) 07/25/18 14:47 Troponin I 0.03 ng/ml (0.00-0.05) 07/25/18 14:47 Current Medications Generic Name Dose Route Start Last Admin Trade Name Freq PRN Reason Stop Dose Admin Alprazolam 0.25 mg 07/25/18 19:50 07/28/18 15:01 Xanax - PO 0.25 mg Q12H PRN Administration ANXIETY Apixaban 5 mg 07/25/18 22:00 07/28/18 09:59 Eliquis - PO 5 mg BID COLBY Administration Artificial Tears 1 drop 07/25/18 22:00 07/28/18 13:22 Artificial Tears OU 1 drp TID COLBY Administration Aspirin 81 mg 07/27/18 10:00 07/28/18 09:59 Asa - PO 81 mg DAILY COLBY Administration Clopidogrel Bisulfate 75 mg 07/26/18 19:00 07/28/18 09:59 Plavix - PO 75 mg DAILY COLBY Administration Diphenhydramine HCl 25 mg 07/28/18 19:40 Benadryl Injection - IVPUSH ONCE PRN itchiness Lactated Ringer's 1,000 mls @ 42 mls/hr 07/25/18 19:45 07/28/18 06:14 Lactated Ringers Solution IV 42 mls/hr ASDIR COLBY Administration Metronidazole 500 mg in 100 mls @ 100 mls/hr 07/26/18 02:00 07/28/18 17:58 Flagyl 500mg Premixed Ivpb - IVPB 100 mls/hr Q8H-IV COLBY Administration Levofloxacin 500 mg in 100 mls @ 100 mls/hr 07/28/18 14:45 07/28/18 14:59 Levaquin 500 Mg Premixed Ivpb - IVPB 100 mls/hr DAILY COLBY Administration Protocol Methadone HCl 20 mg 07/26/18 06:00 07/28/18 06:13 Dolophine - PO 20 mg DAILY@0600 COLBY Administration Metoprolol Succinate 25 mg 07/27/18 10:00 07/28/18 09:59 Toprol Xl - PO 25 mg DAILY COLBY Administration Pantoprazole Sodium 40 mg 07/26/18 10:00 07/28/18 09:59 Protonix - PO 40 mg DAILY COLBY Administration Prednisone 5 mg 07/26/18 10:00 07/28/18 09:59 Deltasone - PO 5 mg DAILY COLBY Administration Home Medications Medication Instructions Recorded Methadone HCl 20 mg PO DAILY 02/11/14 Pantoprazole Sodium [Protonix -] 40 mg PO DAILY 07/05/16 Nystatin Oral Suspension - 5 ml PO QID #1 bottle 09/25/17 [Nystatin Oral Susp 813242 Units/5 ML -] Prednisone 10 mg PO DAILY 04/23/18 Atorvastatin Ca [Lipitor] 80 mg PO HS tablet 04/26/18 Alprazolam [Xanax] 0.25 mg PO BID PRN 05/15/18 Apixaban [Eliquis -] 5 mg PO BID 05/15/18 Dextran 70/Hypromellose [Natural 15 ml OU TID #1 bottle 05/15/18 Balance Tears Eye Drop] Multivitamin [Multiple Vitamins] 1 each PO DAILY #30 tablet 05/15/18 Diclofenac Sodium [Voltaren] 2 gm TP QID PRN #3 tube 07/12/18 Ergocalciferol [Vitamin D2] 50,000 unit PO Q7D@1000 #4 capsule 07/12/18 Gabapentin 300 mg PO Q8H #90 capsule 07/12/18 Oxycodone HCl/Acetaminophen 1 each PO TID #70 tablet MDD 3 07/12/18 [Percocet 10-325 mg Tablet] Clopidogrel Bisulfate [Plavix] 75 mg PO DAILY 07/26/18 Metoprolol Succinate [Toprol Xl] 25 mg PO DAILY 07/26/18 CTAP: Slightly overdistended gallbladder without intraluminal stones or wall thickening. Borderline dilatation of the intrapancreatic portion of the CBD measuring 6mm. Fluid-filled nondilated distal small bowel loops in the pelvis likely on the basis of ileus. Tiny fat-containing umbilical hernia. Rest of exam unremarkable. -HIDA scan: Filling of the gallbladder excludes acute cystic duct obstruction. Delayed common hepatic duct with significant delayed biliary enteric transit of tracer. Findings are nonspecific and could be secondary to partial CBD obstruction/stricture or chronic cholecystitis. RUQ US: Fatty liver vs hepatocellular disease. Persistent CBD now measuring 1.6cm from 1.4cm on prior exam. Limited visualization of the pancreas with dilatation of the pancreatic duct measuring 4mm, unchanged since prior exam. - ASSESSMENT AND PLAN: Patient is a 62 year old male with past medical history of right lung CA on chemo/Keytruda, PE on eliquis, CAD s/p stenting, HTN, sent from oncologist's office due to fever (101.4F), malaise, vomiting and RUQ pain for 1 day. #Hepatobilliary disease with CBD obstruction /chronic cholecystitis on IV antibiotic flagyl/levaquin now , ID (Dr. aTmayo)appreciated. - #Acute transaminitis: will continue ltrend #Hx of Lung CA:on chemotherapy, Oncology (Dr. Emmanuel) consulted. #Hx of PE; on Eliquis 5mg BID #CAD s/p stent:on aspirin/ and plavix continue , continue Lipitor 80mg daily #HTN: stable continue Metoprolol XL 25mg, Amlodipine 5mg daily DVt Px: eliquis 5mg BID -full code -med surg Visit type - Emergency Visit Emergency Visit: Yes ED Registration Date: 07/25/18 Care time: The patient presented to the Emergency Department on the above date and was hospitalized for further evaluation of their emergent condition. - New Patient This patient is new to me today: No - Critical Care Critical Care patient: No - Discharge Referral Referred to [facility] Med P.C.: No
[2018-07-29] MEDS: ALPRAZolam 0.25 MG TABLET PO PRN ×2 (03:13→22:15)
[2018-07-29] MEDS: METHADONE HCL 10 MG TABLET PO SCH (06:17)
[2018-07-29] MEDS: ARTIFICIAL TEARS (POLYVINYL ALCOHOL) OPTH DROPS OU SCH ×3 (06:19→22:17)
[2018-07-29] MEDS ORDERED: PT OWN MED DRAWER 7, Y5N ONE (07:00)
[2018-07-29 08:51] LABS: BASO % 0.8 % (0-2.0); EOS % 5.1 % (0-4.5); HEMATOCRIT 42.4 % (35.4-49); HEMOGLOBIN 13.9 GM/dL (11.7-16.9); LYMPH % 19.6 % (8-40); MCH 28.2 pg (25.7-33.7); MCHC 32.9 g/dl (32.0-35.9); MONO % 6.8 % (3.8-10.2); NEUT % 67.7 % (42.8-82.8); PLATELET COUNT 244 K/MM3 (134-434); RBC 4.93 M/mm3 (4.00-5.60); RDW 16.2 % (11.9-15.9); WHITE BLOOD COUNT 10.5 K/mm3 (4.0-10.0)
[2018-07-29 09:21] LABS: ALBUMIN 3.3 g/dl (3.4-5.0); ALK PHOS 230 U/L (45-117); ANION GAP 9 MMOL/L (8-16); BILIRUBIN,DIRECT 0.4 mg/dL (0.0-0.2); BILIRUBIN,TOTAL 0.6 mg/dL (0.2-1); BLOOD UREA NITROGEN 10 mg/dL (7-18); CALCIUM 8.2 mg/dL (8.5-10.1); CHLORIDE 107 mmol/L (98-107); CO2 27 mmol/L (21-32); GLUCOSE,RANDOM 98 mg/dL (74-106); POTASSIUM 3.2 mmol/L (3.5-5.1); SGOT/AST 210 U/L (15-37); SGPT/ALT 363 U/L (13-61); SODIUM 143 mmol/L (136-145); TOT PROT 6.4 g/dl (6.4-8.2)
[2018-07-29] MEDS ORDERED: ALPRAZolam 0.25 MG TABLET PO ONE ×3 (09:46→12:15)
[2018-07-29] MEDS: CLOPIDOGREL BISULFATE 75 MG TABLET (FP) PO SCH (10:38)
[2018-07-29] MEDS: PANTOPRAZOLE 40 MG TABLET (FP) PO SCH (10:38)
[2018-07-29] MEDS: metoPROLOL SUCCINATE 25 MG TAB.SR.24H (FP) PO SCH (10:38)
[2018-07-29] MEDS: ASPIRIN 81 MG CHEWABLE TABLETS PO SCH (10:38)
[2018-07-29] MEDS: predniSONE 5 MG TABLET (UD) PO SCH (10:39)
[2018-07-29] MEDS: APIXABAN 5 MG TABLET PO SCH ×2 (10:39→22:16)
--- NOTE | 2018-07-29 11:22 | PN ---
Progress Note (short form) - Note Progress Note: Patient seen in follow up. No new complaints. Low grade fever this am. Inpatient Meds reviewed. Current Medications Alprazolam (Xanax -) 0.25 mg PO Q12H PRN PRN Reason: ANXIETY Last Admin: 07/29/18 03:13 Dose: 0.25 mg Apixaban (Eliquis -) 5 mg PO BID [facility] Last Admin: 07/29/18 10:39 Dose: 5 mg Artificial Tears (Artificial Tears) 1 drop OU TID [facility] Last Admin: 07/29/18 06:19 Dose: Not Given Aspirin (Asa -) 81 mg PO DAILY [facility] Last Admin: 07/29/18 10:38 Dose: 81 mg Clopidogrel Bisulfate (Plavix -) 75 mg PO DAILY [facility] Last Admin: 07/29/18 10:38 Dose: 75 mg Lactated Ringer's (Lactated Ringers Solution) 1,000 mls @ 42 mls/hr IV ASDIR [facility] Last Admin: 07/28/18 06:14 Dose: 42 mls/hr Metronidazole (Flagyl 500mg Premixed Ivpb -) 500 mg in 100 mls @ 100 mls/hr IVPB Q8H-IV [facility] Last Admin: 07/29/18 10:38 Dose: 100 mls/hr Levofloxacin (Levaquin 500 Mg Premixed Ivpb -) 500 mg in 100 mls @ 100 mls/hr IVPB DAILY [facility]; Protocol Last Admin: 07/28/18 14:59 Dose: 100 mls/hr Methadone HCl (Dolophine -) 20 mg PO DAILY@0600 [facility] Last Admin: 07/29/18 06:17 Dose: 20 mg Metoprolol Succinate (Toprol Xl -) 25 mg PO DAILY [facility] Last Admin: 07/29/18 10:38 Dose: 25 mg Pantoprazole Sodium (Protonix -) 40 mg PO DAILY [facility] Last Admin: 07/29/18 10:38 Dose: 40 mg Prednisone (Deltasone -) 5 mg PO DAILY [facility] Last Admin: 07/29/18 10:39 Dose: 5 mg On Examination: Last Vital Signs Temp Pulse Resp BP Pulse Ox 99.4 F 79 18 107/83 96 07/29/18 06:00 07/29/18 06:00 07/29/18 06:00 07/29/18 06:00 07/28/18 21:00 General: In no acute distress, lying comfortably in bed. Extremities: No pallor or icterus. No pedal edema. No palpable lymphadenopathy. CVS: S1, S2, regular, no gallop or murmur. Chest: good air entry bilaterally, clear Abdomen: Non-distended, non-tender, no palpable organomegaly. Neuro: Alert, oriented, non-focal. Labs: CBC, BMP 07/29/18 07:00 07/29/18 07:00 Assessment. Metastatic lung cancer - on keytruda, Admitted with fevers, neutrophilia, abnormal LFTS Improved with empiric antibiotics. Afebrile > 48 hours, ANC normal yesterday. Today however concerned about reurrence of mild neutrophilia with low grade temp. Transaminases continue to trend down, although ALP rising Hep B Ag negative Awaiting ID input today regarding developments today as above. If LFTs continue to improved, and remains afebrile then consider DC, if ID and GI agreeable
--- NOTE | 2018-07-29 11:25 | PN ---
Progress Note (short form) - Note Progress Note: Denies any abdominal pain. CBCD WBC 10.5 K/mm3 (4.0-10.0) H 07/29/18 07:00 RBC 4.93 M/mm3 (4.00-5.60) 07/29/18 07:00 Hgb 13.9 GM/dL (11.7-16.9) 07/29/18 07:00 Hct 42.4 % (35.4-49) 07/29/18 07:00 MCV 86.0 fl (80-96) 07/29/18 07:00 MCHC 32.9 g/dl (32.0-35.9) 07/29/18 07:00 RDW 16.2 % (11.9-15.9) H 07/29/18 07:00 Plt Count 244 K/MM3 (134-434) 07/29/18 07:00 MPV 9.0 fl (7.5-11.1) 07/29/18 07:00 CMP Sodium 143 mmol/L (136-145) 07/29/18 07:00 Potassium 3.2 mmol/L (3.5-5.1) L 07/29/18 07:00 Chloride 107 mmol/L (98-107) 07/29/18 07:00 Carbon Dioxide 27 mmol/L (21-32) 07/29/18 07:00 Anion Gap 9 MMOL/L (8-16) 07/29/18 07:00 BUN 10 mg/dL (7-18) 07/29/18 07:00 Creatinine 1.0 mg/dL (0.55-1.3) 07/29/18 07:00 Creat Clearance w eGFR 75.47 (>60) 07/29/18 07:00 Calcium 8.2 mg/dL (8.5-10.1) L 07/29/18 07:00 Total Bilirubin 0.6 mg/dL (0.2-1) 07/29/18 07:00 AST 210 U/L (15-37) H 07/29/18 07:00 ALT 363 U/L (13-61) H 07/29/18 07:00 Alkaline Phosphatase 230 U/L (45-117) H 07/29/18 07:00 Total Protein 6.4 g/dl (6.4-8.2) 07/29/18 07:00 Albumin 3.3 g/dl (3.4-5.0) L 07/29/18 07:00 WBC, Hgb/Hct stable but LFTs still elevated. AST and ALT down slightly but alk phos up slightly. He now agrees to MRI of abdomen, to be done later today.
--- NOTE | 2018-07-29 11:28 | PN ---
Physical Exam: SUBJECTIVE: Patient seen and examined this am. Resting comfortably. No new complaints. no acute overnight events as per nursing. OBJECTIVE: Vital Signs Period Temp Pulse Resp BP Sys/Perea Pulse Ox Last 24 Hr 98.5 F-99.4 F 72-81 18-20 107-135/63-83 96 GENERAL: A&Ox3, NAD HEAD: NCAT EYES: PERRL, EOMI ENT: moist mucous membranes. NECK: Supple LUNGS: Clear to auscultation bilaterally, no wheezes, no crackles HEART: Regular rate and rhythm, S1, S2 without murmur ABDOMEN: Soft, nontender, nondistended, + bowel sounds, no guarding EXTREMITIES: No edema. NEUROLOGICAL: Cranial nerves II through XII grossly intact. SKIN: Warm, dry Laboratory Results - last 24 hr 07/27/18 07/29/18 07/29/18 07:00 07:00 07:00 WBC 10.5 H RBC 4.93 Hgb 13.9 Hct 42.4 MCV 86.0 MCH 28.2 MCHC 32.9 RDW 16.2 H Plt Count 244 MPV 9.0 Absolute Neuts (auto) 7.1 Neutrophils % 67.7 D Lymphocytes % 19.6 Monocytes % 6.8 Eosinophils % 5.1 H Basophils % 0.8 Nucleated RBC % 0 Sodium 143 Potassium 3.2 L Chloride 107 Carbon Dioxide 27 Anion Gap 9 BUN 10 Creatinine 1.0 Creat Clearance w eGFR 75.47 Random Glucose 98 Calcium 8.2 L Total Bilirubin 0.6 Direct Bilirubin 0.4 H AST 210 H ALT 363 H Alkaline Phosphatase 230 H Total Protein 6.4 Albumin 3.3 L Hep A IgM Ab Confirm Negative Hepatitis A Ab Total Positive H Hep Bs Antigen Negative Hep Bs Antibody Non reactive Hep B Core Total Ab Positive H Microbiology 07/25/18 13:50 Blood - Peripheral Venous Blood Culture - Preliminary NO GROWTH OBTAINED AFTER 72 HOURS, INCUBATION TO CONTINUE FOR 2 DAYS. 07/25/18 13:35 Blood - Peripheral Venous Blood Culture - Preliminary NO GROWTH OBTAINED AFTER 72 HOURS, INCUBATION TO CONTINUE FOR 2 DAYS. 07/26/18 11:45 Blood - Peggy Cath Blood Culture - Preliminary NO GROWTH OBTAINED AFTER 48 HOURS, INCUBATION TO CONTINUE FOR 3 DAYS. 07/26/18 11:45 Blood - Peggy Cath Blood Culture - Preliminary NO GROWTH OBTAINED AFTER 48 HOURS, INCUBATION TO CONTINUE FOR 3 DAYS. 07/25/18 13:51 Urine - Urine Clean Catch Urine Culture - Final Active Medications Alprazolam (Xanax -) 0.25 mg PO Q12H PRN PRN Reason: ANXIETY Last Admin: 07/29/18 03:13 Dose: 0.25 mg Apixaban (Eliquis -) 5 mg PO BID [facility] Last Admin: 07/29/18 10:39 Dose: 5 mg Artificial Tears (Artificial Tears) 1 drop OU TID [facility] Last Admin: 07/29/18 06:19 Dose: Not Given Aspirin (Asa -) 81 mg PO DAILY [facility] Last Admin: 07/29/18 10:38 Dose: 81 mg Clopidogrel Bisulfate (Plavix -) 75 mg PO DAILY [facility] Last Admin: 07/29/18 10:38 Dose: 75 mg Lactated Ringer's (Lactated Ringers Solution) 1,000 mls @ 42 mls/hr IV ASDIR [facility] Last Admin: 07/28/18 06:14 Dose: 42 mls/hr Metronidazole (Flagyl 500mg Premixed Ivpb -) 500 mg in 100 mls @ 100 mls/hr IVPB Q8H-IV [facility] Last Admin: 07/29/18 10:38 Dose: 100 mls/hr Levofloxacin (Levaquin 500 Mg Premixed Ivpb -) 500 mg in 100 mls @ 100 mls/hr IVPB DAILY [facility]; Protocol Last Admin: 07/28/18 14:59 Dose: 100 mls/hr Methadone HCl (Dolophine -) 20 mg PO DAILY@0600 [facility] Last Admin: 07/29/18 06:17 Dose: 20 mg Metoprolol Succinate (Toprol Xl -) 25 mg PO DAILY [facility] Last Admin: 07/29/18 10:38 Dose: 25 mg Pantoprazole Sodium (Protonix -) 40 mg PO DAILY [facility] Last Admin: 07/29/18 10:38 Dose: 40 mg Prednisone (Deltasone -) 5 mg PO DAILY [facility] Last Admin: 07/29/18 10:39 Dose: 5 mg IMAGING: -CXR: No significant change since 04/23/2018 exam. No acute pathology -Abdomen US: Fatty liver versus hepatocellular disease. Persistent dilated common bile duct now measuring 1.6 cm in AP dimension. On prior examination measured 1.4 cm. Further evaluation is needed. Limited visualization of the pancreas with dilatation of the pancreatic duct measuring 4 mm, unchanged since the prior exam. -Chest CTA: There is no gross evidence of a pulmonary embolus within the main pulmonary artery and its proximal branches, bilaterally. Previously visualized masslike density in the right lower lobe, posteriorly is again seen with minimal right pleural effusion -CT A/P with contrast: Slightly over distended gallbladder without intraluminal stones or wall thickening. Borderline dilatation of the intrapancreatic portion of the common bile duct measuring 6 mm in diameter. Fluid-filled nondilated distal small bowel loops in the pelvis likely on the basis of ileus. Tiny fat- containing umbilical hernia. The rest of the examination appears unremarkable. -HIDA Scan: Filling of the gallbladder excludes acute cystic duct obstruction. Delayed common hepatic duct with significant delayed biliary enteric transit of tracer. Findings are nonspecific and could be secondary to partial CBD obstruction/stricture or chronic cholecystitis. ASSESSMENT/PLAN: 62 y/o M with PMHx of Right lung CA (on chemo/Keytruda), PE (on eliquis), CAD s/ p stenting, HTN, sent from oncologist's office due to fever (101.4F), malaise, vomiting and RUQ pain x 1 day. #Fever of unknown origin -Likely hepatobiliary source given Fever, RUQ pain, Abnormal LFTs -Remained afebrile overnight however now WBC count rising -IVF -Continue Metronidazole 500mg IV Q8H, Levofloxacin 500Mg IV daily (Abx course started on 07/25) -Imaging and Micro noted above; Follow Cx's -ID (Dr. Tamayo) consulted, Appreciate rec's #Acute transaminitis--Improving -Hepatobiliary source vs drug toxicity (oysterman statin use) -Hold statin, Avoid tylenol -For MRCP today---Will give 0.5mg Alprazolam before due to clostraphobia -GI (Dr. Cee) consulted, Appreciate rec's #Hx of Lung CA -On chemotherapy -Oncology (Dr. Emmanuel) consulted, Appreciate rec's #Hx of PE -Apixaban 5mg BID #CAD s/p stenting -ASA, Clopidogrel -Hold Statin -Cardiology (Dr. Roche) consulted, Appreciate rec's #HTN -Metoprolol Succinate 25mg daily #FEN -IV LR @ 42 mls/hr -Lytes wnl -Regular diet #PPx -DVT: Eliquis Visit type - Emergency Visit Emergency Visit: Yes ED Registration Date: 07/25/18 Care time: The patient presented to the Emergency Department on the above date and was hospitalized for further evaluation of their emergent condition. - New Patient This patient is new to me today: Yes Date on this admission: 07/29/18 - Critical Care Critical Care patient: No - Discharge Referral Referred to [facility] No
--- NOTE | 2018-07-29 18:53 | PN ---
Teaching Attending Note Name of Resident: Tiki Garcia ATTENDING PHYSICIAN STATEMENT I saw and evaluated the patient. I reviewed the resident's note and discussed the case with the resident. I agree with the resident's findings and plan as documented. SUBJECTIVE: Patient is comfortable with no acute distress. going for MRCP. OBJECTIVE: Vital Signs Temperature 99.5 F 07/29/18 09:00 Pulse Rate 95 H 07/29/18 09:00 Respiratory Rate 18 07/29/18 09:00 Blood Pressure 130/73 07/29/18 09:00 O2 Sat by Pulse Oximetry (%) 97 07/29/18 09:00 GENERAL: The patient is awake, alert, and fully oriented, in no acute distress. HEAD: Normal with no signs of trauma. EYES:PERRLA, EOMI, conjunctiva clear. ENT: oropharynx clear without exudates, moist mucous membranes. NECK: Trachea midline, full range of motion, supple. LUNGS: Breath sounds equal, clear to auscultation bilaterally. HEART: Regular rate and rhythm, S1, S2 without murmur, rub or gallop. ABDOMEN: Soft, mild tenderness midepigastric pain, nondistended, normoactive bowel sounds. EXTREMITIES: 2+ pulses, warm, well-perfused, no edema. NEUROLOGICAL: Cranial nerves II through XII grossly intact. Normal speech, normal gait PSYCH: Normal mood, normal affect. SKIN: Warm, dry, normal turgor, no rashes or lesions noted CBCD WBC 10.5 K/mm3 (4.0-10.0) H 07/29/18 07:00 RBC 4.93 M/mm3 (4.00-5.60) 07/29/18 07:00 Hgb 13.9 GM/dL (11.7-16.9) 07/29/18 07:00 Hct 42.4 % (35.4-49) 07/29/18 07:00 MCV 86.0 fl (80-96) 07/29/18 07:00 MCHC 32.9 g/dl (32.0-35.9) 07/29/18 07:00 RDW 16.2 % (11.9-15.9) H 07/29/18 07:00 Plt Count 244 K/MM3 (134-434) 07/29/18 07:00 MPV 9.0 fl (7.5-11.1) 07/29/18 07:00 CMP Sodium 143 mmol/L (136-145) 07/29/18 07:00 Potassium 3.2 mmol/L (3.5-5.1) L 07/29/18 07:00 Chloride 107 mmol/L (98-107) 07/29/18 07:00 Carbon Dioxide 27 mmol/L (21-32) 07/29/18 07:00 Anion Gap 9 MMOL/L (8-16) 07/29/18 07:00 BUN 10 mg/dL (7-18) 07/29/18 07:00 Creatinine 1.0 mg/dL (0.55-1.3) 07/29/18 07:00 Creat Clearance w eGFR 75.47 (>60) 07/29/18 07:00 Random Glucose 98 mg/dL (74-106) 07/29/18 07:00 Calcium 8.2 mg/dL (8.5-10.1) L 07/29/18 07:00 Total Bilirubin 0.6 mg/dL (0.2-1) 07/29/18 07:00 AST 210 U/L (15-37) H 07/29/18 07:00 ALT 363 U/L (13-61) H 07/29/18 07:00 Alkaline Phosphatase 230 U/L (45-117) H 07/29/18 07:00 Total Protein 6.4 g/dl (6.4-8.2) 07/29/18 07:00 Albumin 3.3 g/dl (3.4-5.0) L 07/29/18 07:00 CARDIAC ENZYMES Creatine Kinase 52 U/L (26-308) 07/25/18 14:47 Troponin I 0.03 ng/ml (0.00-0.05) 07/25/18 14:47 Current Medications Generic Name Dose Route Start Last Admin Trade Name Freq PRN Reason Stop Dose Admin Alprazolam 0.25 mg 07/25/18 19:50 07/29/18 03:13 Xanax - PO 0.25 mg Q12H PRN Administration ANXIETY Apixaban 5 mg 07/25/18 22:00 07/29/18 10:39 Eliquis - PO 5 mg BID [facility] Administration Artificial Tears 1 drop 07/25/18 22:00 07/29/18 16:32 Artificial Tears OU 1 drp TID [facility] Administration Aspirin 81 mg 07/27/18 10:00 07/29/18 10:38 Asa - PO 81 mg DAILY [facility] Administration Clopidogrel Bisulfate 75 mg 07/26/18 19:00 07/29/18 10:38 Plavix - PO 75 mg DAILY [facility] Administration Lactated Ringer's 1,000 mls @ 42 mls/hr 07/25/18 19:45 07/28/18 06:14 Lactated Ringers Solution IV 42 mls/hr ASDIR [facility] Administration Metronidazole 500 mg in 100 mls @ 100 mls/hr 07/26/18 02:00 07/29/18 18:00 Flagyl 500mg Premixed Ivpb - IVPB 100 mls/hr Q8H-IV [facility] Administration Levofloxacin 500 mg in 100 mls @ 100 mls/hr 07/28/18 14:45 07/29/18 11:47 Levaquin 500 Mg Premixed Ivpb - IVPB 100 mls/hr DAILY [facility] Administration Protocol Methadone HCl 20 mg 07/26/18 06:00 07/29/18 06:17 Dolophine - PO 20 mg DAILY@0600 [facility] Administration Metoprolol Succinate 25 mg 07/27/18 10:00 07/29/18 10:38 Toprol Xl - PO 25 mg DAILY [facility] Administration Pantoprazole Sodium 40 mg 07/26/18 10:00 07/29/18 10:38 Protonix - PO 40 mg DAILY [facility] Administration Prednisone 5 mg 07/26/18 10:00 07/29/18 10:39 Deltasone - PO 5 mg DAILY [facility] Administration Home Medications Medication Instructions Recorded Methadone HCl 20 mg PO DAILY 02/11/14 Pantoprazole Sodium [Protonix -] 40 mg PO DAILY 07/05/16 Nystatin Oral Suspension - 5 ml PO QID #1 bottle 09/25/17 [Nystatin Oral Susp 700446 Units/5 ML -] Prednisone 10 mg PO DAILY 04/23/18 Atorvastatin Ca [Lipitor] 80 mg PO HS tablet 04/26/18 Alprazolam [Xanax] 0.25 mg PO BID PRN 05/15/18 Apixaban [Eliquis -] 5 mg PO BID 05/15/18 Dextran 70/Hypromellose [Natural 15 ml OU TID #1 bottle 05/15/18 Balance Tears Eye Drop] Multivitamin [Multiple Vitamins] 1 each PO DAILY #30 tablet 05/15/18 Diclofenac Sodium [Voltaren] 2 gm TP QID PRN #3 tube 07/12/18 Ergocalciferol [Vitamin D2] 50,000 unit PO Q7D@1000 #4 capsule 07/12/18 Gabapentin 300 mg PO Q8H #90 capsule 07/12/18 Oxycodone HCl/Acetaminophen 1 each PO TID #70 tablet MDD 3 07/12/18 [Percocet 10-325 mg Tablet] Clopidogrel Bisulfate [Plavix] 75 mg PO DAILY 07/26/18 Metoprolol Succinate [Toprol Xl] 25 mg PO DAILY 07/26/18 CTAP: Slightly overdistended gallbladder without intraluminal stones or wall thickening. Borderline dilatation of the intrapancreatic portion of the CBD measuring 6mm. Fluid-filled nondilated distal small bowel loops in the pelvis likely on the basis of ileus. Tiny fat-containing umbilical hernia. Rest of exam unremarkable. -HIDA scan: Filling of the gallbladder excludes acute cystic duct obstruction. Delayed common hepatic duct with significant delayed biliary enteric transit of tracer. Findings are nonspecific and could be secondary to partial CBD obstruction/stricture or chronic cholecystitis. RUQ US: Fatty liver vs hepatocellular disease. Persistent CBD now measuring 1.6cm from 1.4cm on prior exam. Limited visualization of the pancreas with dilatation of the pancreatic duct measuring 4mm, unchanged since prior exam. - ASSESSMENT AND PLAN: Patient is a 62 year old male with past medical history of right lung CA on chemo/Keytruda, PE on eliquis, CAD s/p stenting, HTN, sent from oncologist's office due to fever (101.4F), malaise, vomiting and RUQ pain for 1 day. #Hepatobilliary disease with CBD obstruction /chronic cholecystitis on IV antibiotic Levaquin and Flagyl, continue as per ID (Dr. Tamayo), going for mrcp - #Acute transaminitis: will continue to ltrend #Hx of Lung CA:on chemotherapy, Oncology (Dr. Emmanuel) consulted. #Hx of PE; on Eliquis 5mg BID #CAD s/p stent:on aspirin/ and plavix continue , continue Lipitor 80mg daily #HTN: stable continue Metoprolol XL 25mg, Amlodipine 5mg daily DVt Px: eliquis 5mg BID -full code -med surg MRCP was not done since has a stent, possible in am
[2018-07-29] MEDS: LACTATED RINGERS SOLUTION 1,000 ML IV SCH (22:16)
[2018-07-30] MEDS: LACTATED RINGERS SOLUTION 1,000 ML IV SCH ×2 (05:55→21:48)
[2018-07-30] MEDS: ARTIFICIAL TEARS (POLYVINYL ALCOHOL) OPTH DROPS OU SCH ×3 (05:56→21:48)
[2018-07-30] MEDS: METHADONE HCL 10 MG TABLET PO SCH (05:57)
[2018-07-30] MEDS ORDERED: INSULIN (NOVOLOG) ASPART 100 UNITS/ML 10ML VIAL ONE (06:47)
[2018-07-30 07:33] LABS: EOS % 6.9 % (0-4.5); HEMATOCRIT 40.3 % (35.4-49); HEMOGLOBIN 13.4 GM/dL (11.7-16.9); LYMPH % 23.8 % (8-40); MCH 28.2 pg (25.7-33.7); MCHC 33.3 g/dl (32.0-35.9); MEAN CELL VOLUME 84.7 fl (80-96); MEAN PLT VOLUME 8.6 fl (7.5-11.1); MONO % 10.6 % (3.8-10.2); NEUT % 57.7 % (42.8-82.8); PLATELET COUNT 250 K/MM3 (134-434); RBC 4.76 M/mm3 (4.00-5.60); RDW 16.1 % (11.9-15.9); WHITE BLOOD COUNT 8.9 K/mm3 (4.0-10.0)
[2018-07-30 08:07] LABS: ALK PHOS 209 U/L (45-117); ANION GAP 5 MMOL/L (8-16); BILIRUBIN,TOTAL 0.6 mg/dL (0.2-1); BLOOD UREA NITROGEN 12 mg/dL (7-18); CALCIUM 8.4 mg/dL (8.5-10.1); CHLORIDE 108 mmol/L (98-107); CO2 28 mmol/L (21-32); CREATININE 0.8 mg/dL (0.55-1.3); GLUCOSE,RANDOM 91 mg/dL (74-106); PHOSPHOROUS 2.7 mg/dL (2.5-4.9); POTASSIUM 3.5 mmol/L (3.5-5.1); SGOT/AST 121 U/L (15-37); SGPT/ALT 274 U/L (13-61); SODIUM 141 mmol/L (136-145); TOT PROT 6.1 g/dl (6.4-8.2)
[2018-07-30] MEDS: CLOPIDOGREL BISULFATE 75 MG TABLET (FP) PO SCH (09:35)
[2018-07-30] MEDS: predniSONE 5 MG TABLET (UD) PO SCH (09:35)
[2018-07-30] MEDS: ASPIRIN 81 MG CHEWABLE TABLETS PO SCH (09:35)
[2018-07-30] MEDS: PANTOPRAZOLE 40 MG TABLET (FP) PO SCH (09:35)
[2018-07-30] MEDS: metoPROLOL SUCCINATE 25 MG TAB.SR.24H (FP) PO SCH (09:35)
[2018-07-30] MEDS: APIXABAN 5 MG TABLET PO SCH ×2 (09:35→21:48)
--- NOTE | 2018-07-30 09:39 | PN ---
Progress Note, Physician History of Present Illness: GI FOLLOW UP NOTE Patient examined and case discussed with Dr. Cee Patient denies abdominal pain, nausea, vomiting. Recent labs show downtrend of LFTs with AST 210, ALT 363, and elevation of Alk Phos 230. - Current Medication List Current Medications: Active Medications Apixaban (Eliquis -) 5 mg PO BID [facility] Last Admin: 07/30/18 09:35 Dose: 5 mg Artificial Tears (Artificial Tears) 1 drop OU TID [facility] Last Admin: 07/30/18 05:56 Dose: 1 drp Aspirin (Asa -) 81 mg PO DAILY [facility] Last Admin: 07/30/18 09:35 Dose: 81 mg Clopidogrel Bisulfate (Plavix -) 75 mg PO DAILY [facility] Last Admin: 07/30/18 09:35 Dose: 75 mg Lactated Ringer's (Lactated Ringers Solution) 1,000 mls @ 42 mls/hr IV ASDIR [facility] Last Admin: 07/30/18 05:55 Dose: Not Given Metronidazole (Flagyl 500mg Premixed Ivpb -) 500 mg in 100 mls @ 100 mls/hr IVPB Q8H-IV [facility] Last Admin: 07/30/18 09:35 Dose: 100 mls/hr Levofloxacin (Levaquin 500 Mg Premixed Ivpb -) 500 mg in 100 mls @ 100 mls/hr IVPB DAILY [facility]; Protocol Last Admin: 07/30/18 09:35 Dose: 100 mls/hr Methadone HCl (Dolophine -) 20 mg PO DAILY@0600 [facility] Last Admin: 07/30/18 05:57 Dose: 20 mg Metoprolol Succinate (Toprol Xl -) 25 mg PO DAILY [facility] Last Admin: 07/30/18 09:35 Dose: 25 mg Pantoprazole Sodium (Protonix -) 40 mg PO DAILY [facility] Last Admin: 07/30/18 09:35 Dose: 40 mg Prednisone (Deltasone -) 5 mg PO DAILY [facility] Last Admin: 07/30/18 09:35 Dose: 5 mg - Objective Vital Signs: Vital Signs Temperature 98.7 F 07/30/18 06:25 Pulse Rate 81 07/30/18 06:25 Respiratory Rate 18 07/30/18 06:25 Blood Pressure 134/73 07/30/18 06:25 O2 Sat by Pulse Oximetry (%) 96 07/29/18 21:00 Constitutional: Yes: No Distress, Calm Eyes: Yes: Conjunctiva Clear HENT: Yes: Atraumatic Cardiovascular: Yes: Regular Rate and Rhythm Respiratory: Yes: Regular, CTA Bilaterally Gastrointestinal: Yes: Normal Bowel Sounds, Soft. No: WNL, Abdomen, Obese, Ascites, Distention, Hematemesis, Hemorrhoids, Hepatomegaly, Hernia, Hyperactive Bowel Sounds, Hypoactive Bowel Sounds, Melena, Palpable Mass, Pulsatile Mass, Rectal Bleeding, Splenomegaly, Tenderness, Tenderness, Epigastrium, Tenderness, Rebound, Vomiting, Other Neurological: Yes: Alert, Oriented Psychiatric: Yes: Alert, Oriented Labs: CBC, BMP 07/30/18 06:00 07/30/18 06:00 INR, PTT INR 2.00 (0.83-1.09) H 07/26/18 06:00 <Jenny Ly - Last Filed: 07/30/18 09:37> - Current Medication List Current Medications: Active Medications Alprazolam (Xanax -) 0.25 mg PO Q12H PRN PRN Reason: ANXIETY Apixaban (Eliquis -) 5 mg PO BID [facility] Last Admin: 07/30/18 09:35 Dose: 5 mg Artificial Tears (Artificial Tears) 1 drop OU TID [facility] Last Admin: 07/30/18 13:19 Dose: 1 drp Aspirin (Asa -) 81 mg PO DAILY [facility] Last Admin: 07/30/18 09:35 Dose: 81 mg Clopidogrel Bisulfate (Plavix -) 75 mg PO DAILY [facility] Last Admin: 07/30/18 09:35 Dose: 75 mg Lactated Ringer's (Lactated Ringers Solution) 1,000 mls @ 42 mls/hr IV ASDIR [facility] Last Admin: 07/30/18 05:55 Dose: Not Given Metronidazole (Flagyl 500mg Premixed Ivpb -) 500 mg in 100 mls @ 100 mls/hr IVPB Q8H-IV [facility] Last Admin: 07/30/18 17:03 Dose: 100 mls/hr Levofloxacin (Levaquin 500 Mg Premixed Ivpb -) 500 mg in 100 mls @ 100 mls/hr IVPB DAILY [facility]; Protocol Last Admin: 07/30/18 09:35 Dose: 100 mls/hr Melatonin (Melatonin) 10 mg PO HS [facility] Methadone HCl (Dolophine -) 20 mg PO DAILY@0600 [facility] Last Admin: 07/30/18 05:57 Dose: 20 mg Metoprolol Succinate (Toprol Xl -) 25 mg PO DAILY [facility] Last Admin: 07/30/18 09:35 Dose: 25 mg Pantoprazole Sodium (Protonix -) 40 mg PO DAILY [facility] Last Admin: 07/30/18 09:35 Dose: 40 mg Prednisone (Deltasone -) 5 mg PO DAILY [facility] Last Admin: 07/30/18 09:35 Dose: 5 mg - Objective Vital Signs: Vital Signs Temperature 98.1 F 07/30/18 13:33 Pulse Rate 81 07/30/18 13:33 Respiratory Rate 20 07/30/18 13:33 Blood Pressure 118/84 07/30/18 13:33 O2 Sat by Pulse Oximetry (%) 95 07/30/18 09:00 Labs: CBC, BMP 07/30/18 06:00 07/30/18 06:00 INR, PTT INR 2.00 (0.83-1.09) H 07/26/18 06:00 <Karlos Cee - Last Filed: 07/30/18 17:30> Problem List - Problems (1) Dilated cbd, acquired Assessment/Plan: -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 -HIDA scan results reviewed Code(s): K83.8 - OTHER SPECIFIED DISEASES OF BILIARY TRACT (2) LFTs abnormal Assessment/Plan: -elevated LFTs 2/2 to drug toxicity, was on dedicated intermodal truck driver statin -cardiology consulted -decrease statin to 20mg daily and start Zetia once liver enzymes near normal Code(s): R94.5 - ABNORMAL RESULTS OF LIVER FUNCTION STUDIES <Jenny Ly - Last Filed: 07/30/18 09:37> - Problems (1) LFT elevation Code(s): R94.5 - ABNORMAL RESULTS OF LIVER FUNCTION STUDIES (2) Dilated cbd, acquired Code(s): K83.8 - OTHER SPECIFIED DISEASES OF BILIARY TRACT <Karlos Cee - Last Filed: 07/30/18 17:30>
[2018-07-30] MEDS ORDERED: PT OWN MED DRAWER 7, Y5N ONE (09:55)
--- NOTE | 2018-07-30 10:33 | EKG ---
Test Reason : Blood Pressure : / mmHG Vent. Rate : 064 BPM Atrial Rate : 064 BPM P-R Int : 122 ms QRS Dur : 100 ms QT Int : 424 ms P-R-T Axes : 047 051 057 degrees QTc Int : 437 ms NORMAL SINUS RHYTHM NORMAL ECG WHEN COMPARED WITH ECG OF 25-JUL-2018 22:28, VENT. RATE HAS DECREASED BY 36 BPM Confirmed by GERALD RAMESH MD ([id number]) on 07/30/2018 10:33:27 AM Referred By: Simone DAVIES Confirmed By:GERALD RAMESH MD
--- NOTE | 2018-07-30 11:18 | PN ---
Progress Note, Physician Chief Complaint: Pt alert; denies chest pain or dyspnea. History of Present Illness: The patient is a 62 year old male (b. [place]) with a significant PMH of R Lung Ca (dx 2017, chemo- Keytruda q3w), PE (on Eliquis), CAD s/p stent 04/2018 at [facility],, HTNl, sent to ED from oncologist office for evaluation of fever (101.4F) and elevated LFTs. The patient reports right upper abdominal pain and had 1m episode of NBNB emesis which he attributes to "drinking too much water". He denies SOB, cough, chest pain, back pain, headache, rash, lightheadedness, syncope, nausea, diarrhea, bloody stools, dysuria. No sick contacts, no recent travel. PMD: Violeta Hem/Onc: Lien - Current Medication List Current Medications: Active Medications Apixaban (Eliquis -) 5 mg PO BID [facility] Last Admin: 07/30/18 09:35 Dose: 5 mg Artificial Tears (Artificial Tears) 1 drop OU TID [facility] Last Admin: 07/30/18 05:56 Dose: 1 drp Aspirin (Asa -) 81 mg PO DAILY [facility] Last Admin: 07/30/18 09:35 Dose: 81 mg Clopidogrel Bisulfate (Plavix -) 75 mg PO DAILY [facility] Last Admin: 07/30/18 09:35 Dose: 75 mg Lactated Ringer's (Lactated Ringers Solution) 1,000 mls @ 42 mls/hr IV ASDIR [facility] Last Admin: 07/30/18 05:55 Dose: Not Given Metronidazole (Flagyl 500mg Premixed Ivpb -) 500 mg in 100 mls @ 100 mls/hr IVPB Q8H-IV [facility] Last Admin: 07/30/18 09:35 Dose: 100 mls/hr Levofloxacin (Levaquin 500 Mg Premixed Ivpb -) 500 mg in 100 mls @ 100 mls/hr IVPB DAILY [facility]; Protocol Last Admin: 07/30/18 09:35 Dose: 100 mls/hr Methadone HCl (Dolophine -) 20 mg PO DAILY@0600 [facility] Last Admin: 07/30/18 05:57 Dose: 20 mg Metoprolol Succinate (Toprol Xl -) 25 mg PO DAILY [facility] Last Admin: 07/30/18 09:35 Dose: 25 mg Pantoprazole Sodium (Protonix -) 40 mg PO DAILY [facility] Last Admin: 07/30/18 09:35 Dose: 40 mg Prednisone (Deltasone -) 5 mg PO DAILY [facility] Last Admin: 07/30/18 09:35 Dose: 5 mg - Objective Vital Signs: Vital Signs Temperature 98.7 F 07/30/18 06:25 Pulse Rate 81 07/30/18 06:25 Respiratory Rate 18 07/30/18 06:25 Blood Pressure 134/73 07/30/18 06:25 O2 Sat by Pulse Oximetry (%) 96 07/29/18 21:00 Constitutional: Yes: Calm Eyes: Yes: WNL HENT: Yes: WNL Neck: Yes: WNL Cardiovascular: Yes: S1, S2 Respiratory: Yes: Regular Gastrointestinal: Yes: Soft ...Rectal Exam: Yes: Deferred Genitourinary: No: Anuria Breast(s): Yes: WNL Musculoskeletal: Yes: Muscle Weakness Extremities: Yes: Cool Edema: No Peripheral Pulses WNL: Yes Integumentary: Yes: WNL Neurological: Yes: Alert, Weakness Psychiatric: Yes: Alert Labs: CBC, BMP 07/30/18 06:00 07/30/18 06:00 INR, PTT INR 2.00 (0.83-1.09) H 07/26/18 06:00 Problem List - Problems (1) Fever Assessment/Plan: antibiotics per ID and oncologist. Antipyretics, especially non-aspirin NSAIDs and acetaminophen, are problematic ( elevated LFTs; recent coronary artery stent). Code(s): R50.9 - FEVER, UNSPECIFIED (2) LFTs abnormal Assessment/Plan: Discontinue Tylenol. F/u with oncologist, GI. Code(s): R94.5 - ABNORMAL RESULTS OF LIVER FUNCTION STUDIES (3) Sepsis Code(s): A41.9 - SEPSIS, UNSPECIFIED ORGANISM Qualifiers: Sepsis type: sepsis due to unspecified organism Qualified Code(s): A41.9 - Sepsis, unspecified organism (4) HTN (hypertension) Assessment/Plan: On metoprolol ER for HR, BP control. Code(s): I10 - ESSENTIAL (PRIMARY) HYPERTENSION (5) History of lung cancer Assessment/Plan: f/u with oncologist. Code(s): Z85.118 - PERSONAL HISTORY OF MALIGNANT NEOPLASM OF BRONCHUS AND LUNG (6) Hypercholesterolemia Code(s): E78.0 - PURE HYPERCHOLESTEROLEMIA * DO NOT USE * (7) Methadone maintenance therapy patient Code(s): F11.20 - OPIOID DEPENDENCE, UNCOMPLICATED (8) Pulmonary emboli Assessment/Plan: On apixaban. Code(s): I26.99 - OTHER PULMONARY EMBOLISM WITHOUT ACUTE COR PULMONALE Qualifiers: Pulmonary embolism type: unspecified Chronicity: acute Acute cor pulmonale presence: without acute cor pulmonale Qualified Code(s): I26.99 - Other pulmonary embolism without acute cor pulmonale (10) H/O heart artery stent Assessment/Plan: s/p drug-eluting stent 04/2018. Continue ASA 81 mg daily and clopidogerel 75 mg daily. He is also on apixaban for PE. Code(s): Z95.5 - PRESENCE OF CORONARY ANGIOPLASTY IMPLANT AND GRAFT (11) Diastolic CHF Assessment/Plan: On metoprolol ER for HR, BP, CHF. F/u BUn/Cr, electrolytes, daily weight, Is and Os. Code(s): I50.30 - UNSPECIFIED DIASTOLIC (CONGESTIVE) HEART FAILURE
--- NOTE | 2018-07-30 11:54 | PN ---
Progress Note (short form) - Note Progress Note: feels well didnot have MRI yesterday Vital Signs Period Temp Pulse Resp BP Sys/Perea Pulse Ox Last 24 Hr 97.9 F-98.8 F 75-82 18-18 115-145/73-77 95-96 cor-rrr lungs clear abd soft,nt ext no edema CBC, BMP 07/30/18 06:00 07/30/18 06:00 Microbiology 07/25/18 13:50 Blood - Peripheral Venous Blood Culture - Preliminary NO GROWTH OBTAINED AFTER 96 HOURS, INCUBATION TO CONTINUE FOR 1 DAYS. 07/25/18 13:35 Blood - Peripheral Venous Blood Culture - Preliminary NO GROWTH OBTAINED AFTER 96 HOURS, INCUBATION TO CONTINUE FOR 1 DAYS. 07/26/18 11:45 Blood - Peggy Cath Blood Culture - Preliminary NO GROWTH OBTAINED AFTER 72 HOURS, INCUBATION TO CONTINUE FOR 2 DAYS. 07/26/18 11:45 Blood - Peggy Cath Blood Culture - Preliminary NO GROWTH OBTAINED AFTER 72 HOURS, INCUBATION TO CONTINUE FOR 2 DAYS. 07/25/18 13:51 Urine - Urine Clean Catch Urine Culture - Final a/p fever resolved lfts trending down still has not had MRI await GI input continue levaquin/flagyl day#5 antibiotics lung cancer on Keytruda penicillin allergy
--- NOTE | 2018-07-30 12:58 | PN ---
Progress Note, Physician History of Present Illness: The patient is a 62 year old male (b. [place]) with a significant PMH of R Lung Ca (dx 2017, chemo- Keytruda q3w), PE (on Eliquis), CAD s/p stent 04/2018 at [facility],, HTNl, sent to ED from oncologist office for evaluation of fever (101.4F) and elevated LFTs. The patient reports right upper abdominal pain and had 1m episode of NBNB emesis which he attributes to "drinking too much water". He denies SOB, cough, chest pain, back pain, headache, rash, lightheadedness, syncope, nausea, diarrhea, bloody stools, dysuria. No sick contacts, no recent travel. PMD: Violeta Hem/Onc: Lien - Current Medication List Current Medications: Active Medications Apixaban (Eliquis -) 5 mg PO BID [facility] Last Admin: 07/30/18 09:35 Dose: 5 mg Artificial Tears (Artificial Tears) 1 drop OU TID [facility] Last Admin: 07/30/18 05:56 Dose: 1 drp Aspirin (Asa -) 81 mg PO DAILY [facility] Last Admin: 07/30/18 09:35 Dose: 81 mg Clopidogrel Bisulfate (Plavix -) 75 mg PO DAILY [facility] Last Admin: 07/30/18 09:35 Dose: 75 mg Lactated Ringer's (Lactated Ringers Solution) 1,000 mls @ 42 mls/hr IV ASDIR [facility] Last Admin: 07/30/18 05:55 Dose: Not Given Metronidazole (Flagyl 500mg Premixed Ivpb -) 500 mg in 100 mls @ 100 mls/hr IVPB Q8H-IV [facility] Last Admin: 07/30/18 09:35 Dose: 100 mls/hr Levofloxacin (Levaquin 500 Mg Premixed Ivpb -) 500 mg in 100 mls @ 100 mls/hr IVPB DAILY [facility]; Protocol Last Admin: 07/30/18 09:35 Dose: 100 mls/hr Methadone HCl (Dolophine -) 20 mg PO DAILY@0600 [facility] Last Admin: 07/30/18 05:57 Dose: 20 mg Metoprolol Succinate (Toprol Xl -) 25 mg PO DAILY [facility] Last Admin: 07/30/18 09:35 Dose: 25 mg Pantoprazole Sodium (Protonix -) 40 mg PO DAILY [facility] Last Admin: 07/30/18 09:35 Dose: 40 mg Prednisone (Deltasone -) 5 mg PO DAILY [facility] Last Admin: 07/30/18 09:35 Dose: 5 mg - Objective Vital Signs: Vital Signs Temperature 97.9 F 07/30/18 09:00 Pulse Rate 82 07/30/18 09:00 Respiratory Rate 18 07/30/18 09:00 Blood Pressure 145/73 07/30/18 09:00 O2 Sat by Pulse Oximetry (%) 95 07/30/18 09:00 Eyes: Yes: WNL, Conjunctiva Clear, EOM Intact HENT: Yes: WNL, Atraumatic, Normocephalic Neck: Yes: WNL, Supple, Trachea Midline Cardiovascular: Yes: WNL, Regular Rate and Rhythm Respiratory: Yes: WNL, Regular, CTA Bilaterally Gastrointestinal: Yes: WNL, Normal Bowel Sounds Genitourinary: Yes: WNL Musculoskeletal: Yes: WNL Extremities: Yes: WNL Edema: No Integumentary: Yes: WNL Neurological: Yes: WNL, Alert, Oriented ...Motor Strength: WNL Psychiatric: Yes: WNL Labs: CBC, BMP 07/30/18 06:00 07/30/18 06:00 INR, PTT INR 2.00 (0.83-1.09) H 07/26/18 06:00 Assessment/Plan - Problems (1) Fever Assessment/Plan: antibiotics per ID and oncologist. Antipyretics, especially non-aspirin NSAIDs and acetaminophen, are problematic ( elevated LFTs; recent coronary artery stent). Code(s): R50.9 - FEVER, UNSPECIFIED (2) LFTs abnormal Assessment/Plan: Discontinue Tylenol. F/u with oncologist, GI. Code(s): R94.5 - ABNORMAL RESULTS OF LIVER FUNCTION STUDIES (3) Sepsis Code(s): A41.9 - SEPSIS, UNSPECIFIED ORGANISM Qualifiers: Sepsis type: sepsis due to unspecified organism Qualified Code(s): A41.9 - Sepsis, unspecified organism (4) HTN (hypertension) Assessment/Plan: On metoprolol ER for HR, BP control. Code(s): I10 - ESSENTIAL (PRIMARY) HYPERTENSION (5) History of lung cancer Assessment/Plan: f/u with oncologist. Code(s): Z85.118 - PERSONAL HISTORY OF MALIGNANT NEOPLASM OF BRONCHUS AND LUNG (6) Hypercholesterolemia Code(s): E78.0 - PURE HYPERCHOLESTEROLEMIA * DO NOT USE * (7) Methadone maintenance therapy patient Code(s): F11.20 - OPIOID DEPENDENCE, UNCOMPLICATED (8) Pulmonary emboli Assessment/Plan: On apixaban. Code(s): I26.99 - OTHER PULMONARY EMBOLISM WITHOUT ACUTE COR PULMONALE Qualifiers: Pulmonary embolism type: unspecified Chronicity: acute Acute cor pulmonale presence: without acute cor pulmonale Qualified Code(s): I26.99 - Other pulmonary embolism without acute cor pulmonale (10) H/O heart artery stent Assessment/Plan: s/p drug-eluting stent 04/2018. Continue ASA 81 mg daily and clopidogerel 75 mg daily. He is also on apixaban for PE. Code(s): Z95.5 - PRESENCE OF CORONARY ANGIOPLASTY IMPLANT AND GRAFT (11) Diastolic CHF Assessment/Plan: On metoprolol ER for HR, BP, CHF. F/u BUn/Cr, electrolytes, daily weight, Is and Os. Code(s): I50.30 - UNSPECIFIED DIASTOLIC (CONGESTIVE) HEART FAILURE
[2018-07-30] MEDS ORDERED: diphenhydrAMINE HCL 25 MG CAPSULE (FP) PO ONE (13:24)
[2018-07-30] MEDS ORDERED: ALPRAZolam 0.25 MG TABLET PO ONE ×2 (14:00→14:33)
--- NOTE | 2018-07-30 17:06 | PN ---
Physical Exam: SUBJECTIVE: Patient seen and examined at bedside this morning. No acute events overnight. Patient has no complaints and reports feeling well. Denies fever, chills, headache, dizziness, chest pain, SOB, abdominal pain, diarrhea. OBJECTIVE: Vital Signs Temperature 98.1 F 07/30/18 13:33 Pulse Rate 81 07/30/18 13:33 Respiratory Rate 20 07/30/18 13:33 Blood Pressure 118/84 07/30/18 13:33 O2 Sat by Pulse Oximetry (%) 95 07/30/18 09:00 GENERAL: The patient is awake, alert, and fully oriented, in no acute distress. HEAD: Normal with no signs of trauma. EYES:PERRLA, EOMI, conjunctiva clear. ENT: oropharynx clear without exudates, moist mucous membranes. NECK: Trachea midline, full range of motion, supple. LUNGS: Breath sounds equal, clear to auscultation bilaterally. HEART: Regular rate and rhythm, S1, S2 without murmur, rub or gallop. ABDOMEN: Soft, nontender, nondistended, normoactive bowel sounds. EXTREMITIES: 2+ pulses, warm, well-perfused, no edema. NEUROLOGICAL: Cranial nerves II through XII grossly intact. Normal speech, normal gait PSYCH: Normal mood, normal affect. SKIN: Warm, dry, normal turgor, no rashes or lesions noted Laboratory Results - last 24 hr 07/26/18 07/30/18 07/30/18 06:00 06:00 06:00 WBC 8.9 RBC 4.76 Hgb 13.4 Hct 40.3 MCV 84.7 MCH 28.2 MCHC 33.3 RDW 16.1 H Plt Count 250 MPV 8.6 Absolute Neuts (auto) 5.1 Neutrophils % 57.7 Lymphocytes % 23.8 D Monocytes % 10.6 H Eosinophils % 6.9 H Basophils % 1.0 Nucleated RBC % 0 Sodium 141 Potassium 3.5 Chloride 108 H Carbon Dioxide 28 Anion Gap 5 L BUN 12 Creatinine 0.8 Creat Clearance w eGFR 97.63 Random Glucose 91 Calcium 8.4 L Phosphorus 2.7 Magnesium 2.0 Total Bilirubin 0.6 AST 121 H ALT 274 H Alkaline Phosphatase 209 H Total Protein 6.1 L Albumin 3.0 L HCV Quantitation Hcv not detected HCV RNA log copies/mL TNP Active Medications Generic Name Dose Route Start Last Admin Trade Name Freq PRN Reason Stop Dose Admin Alprazolam 0.25 mg 07/30/18 16:15 Xanax - PO Q12H PRN ANXIETY Apixaban 5 mg 07/25/18 22:00 07/30/18 09:35 Eliquis - PO 5 mg BID [facility] Administration Artificial Tears 1 drop 07/25/18 22:00 07/30/18 13:19 Artificial Tears OU 1 drp TID [facility] Administration Aspirin 81 mg 07/27/18 10:00 07/30/18 09:35 Asa - PO 81 mg DAILY [facility] Administration Clopidogrel Bisulfate 75 mg 07/26/18 19:00 07/30/18 09:35 Plavix - PO 75 mg DAILY [facility] Administration Lactated Ringer's 1,000 mls @ 42 mls/hr 07/25/18 19:45 07/30/18 05:55 Lactated Ringers Solution IV Not Given ASDIR [facility] Metronidazole 500 mg in 100 mls @ 100 mls/hr 07/26/18 02:00 07/30/18 09:35 Flagyl 500mg Premixed Ivpb - IVPB 100 mls/hr Q8H-IV [facility] Administration Levofloxacin 500 mg in 100 mls @ 100 mls/hr 07/28/18 14:45 07/30/18 09:35 Levaquin 500 Mg Premixed Ivpb - IVPB 100 mls/hr DAILY [facility] Administration Protocol Melatonin 10 mg 07/30/18 22:00 Melatonin PO HS [facility] Methadone HCl 20 mg 07/26/18 06:00 07/30/18 05:57 Dolophine - PO 20 mg DAILY@0600 [facility] Administration Metoprolol Succinate 25 mg 07/27/18 10:00 07/30/18 09:35 Toprol Xl - PO 25 mg DAILY [facility] Administration Pantoprazole Sodium 40 mg 07/26/18 10:00 07/30/18 09:35 Protonix - PO 40 mg DAILY [facility] Administration Prednisone 5 mg 07/26/18 10:00 07/30/18 09:35 Deltasone - PO 5 mg DAILY [facility] Administration -RUQ US: Fatty liver vs hepatocellular disease. Persistent CBD now measuring 1.6cm from 1.4cm on prior exam. Limited visualization of the pancreas with dilatation of the pancreatic duct measuring 4mm, unchanged since prior exam. -CTAP: Slightly overdistended gallbladder without intraluminal stones or wall thickening. Borderline dilatation of the intrapancreatic portion of the CBD measuring 6mm. Fluid-filled nondilated distal small bowel loops in the pelvis likely on the basis of ileus. Tiny fat-containing umbilical hernia. Rest of exam unremarkable. -HIDA scan: Filling of the gallbladder excludes acute cystic duct obstruction. Delayed common hepatic duct with significant delayed biliary enteric transit of tracer. Findings are nonspecific and could be secondary to partial CBD obstruction/stricture or chronic cholecystitis. ASSESSMENT/PLAN: Patient is a 62 year old male with past medical history of right lung CA on chemo/Keytruda, PE on eliquis, CAD s/p stenting, HTN, sent from oncologist's office due to fever (101.4F), malaise, vomiting and RUQ pain for 1 day. #Fever of unknown origin: likely hepatobiliary source -no fevers overnight, leukocystosis resolved -Blood cultures - no growth -IV fluids -ID (Dr. Tamayo) consulted. Recommendations appreciated. -LFTs trending down -With penicillin allergy, continue Levquin and Flagyl day 5 -For MRCP tonight. #Acute transaminitis: improving -GI (Dr. Cee) consulted. Recommendations appreciated. -likely 2/2 drug toxicity, currently on retirement statin -hold statin -Avoid tylenol. -Cardiology (Dr. Roche) consulted. -consider decrease dose to 20mg daily and add Zetia once liver enzymes near normal #Hx of Lung CA -on chemotherapy (Keytruda) -Oncology (Dr. Emmanuel) consulted. #Hx of PE -Eliquis 5mg BID #CAD s/p stenting -ASA 81mg daily -Clopidogrel 75mg daily -Lipitor 80mg daily - on hold #HTN: chronic -Continue home Metoprolol XL 25mg -Amlodipine 5mg daily #FEN -IV LR @ 42cc/hr -Electrolytes wnl, routine bmp monitoring -Regular diet #Prophylaxis -On eliquis 5mg BID #Disposition -full code -med surg -for MRI tonight. Visit type - Emergency Visit Emergency Visit: Yes ED Registration Date: 07/25/18 Care time: The patient presented to the Emergency Department on the above date and was hospitalized for further evaluation of their emergent condition. - New Patient This patient is new to me today: No - Critical Care Critical Care patient: No
--- NOTE | 2018-07-30 17:43 | PN ---
Progress Note (short form) - Note Progress Note: Patient seen and examined feels better afvss Cor: RSR, No murmurs, No gallops Lungs: Clear to P&A Abd: Soft, Normal bowel sounds, No organomegaly Ext:No significant edema labs/meds reviewed a/p 62 y/o patient with metastatic lung cancer with pleural involvement admitted with fever/ LFT abnormalities w/u ongoing for cholecystitis vs hep. b reactivation vs autoimune hepatitis related to keytruda On antibiotics with improvement Hep. Bsag and e ag negative. Hep B core ab +. Checking Hep. B DNA PCR For MRI today Based on MRI results -- will discuss with gi and consider 1mg/kg/day of PRednisone--70mg daily of prednisone Will need BGM monitoring on prednisone
[2018-07-30] MEDS: ALPRAZolam 0.25 MG TABLET PO PRN (17:47)
--- NOTE | 2018-07-30 18:28 | PN ---
Teaching Attending Note Name of Resident: Gina Young ATTENDING PHYSICIAN STATEMENT I saw and evaluated the patient. I reviewed the resident's note and discussed the case with the resident. I agree with the resident's findings and plan as documented. SUBJECTIVE: Patient feels better , going for mrcp today. OBJECTIVE: Vital Signs Temperature 98.1 F 07/30/18 13:33 Pulse Rate 81 07/30/18 13:33 Respiratory Rate 20 07/30/18 13:33 Blood Pressure 118/84 07/30/18 13:33 O2 Sat by Pulse Oximetry (%) 95 07/30/18 09:00 GENERAL: The patient is awake, alert, and fully oriented, in no acute distress. HEAD: Normal with no signs of trauma. EYES:PERRLA, EOMI, conjunctiva clear. ENT: oropharynx clear without exudates, moist mucous membranes. NECK: Trachea midline, full range of motion, supple. LUNGS: Breath sounds equal, clear to auscultation bilaterally. HEART: Regular rate and rhythm, S1, S2 without murmur, rub or gallop. ABDOMEN: Soft, mild tenderness midepigastric pain, nondistended, normoactive bowel sounds. EXTREMITIES: 2+ pulses, warm, well-perfused, no edema. NEUROLOGICAL: Cranial nerves II through XII grossly intact. Normal speech, normal gait PSYCH: Normal mood, normal affect. SKIN: Warm, dry, normal turgor, no rashes or lesions noted CBCD WBC 8.9 K/mm3 (4.0-10.0) 07/30/18 06:00 RBC 4.76 M/mm3 (4.00-5.60) 07/30/18 06:00 Hgb 13.4 GM/dL (11.7-16.9) 07/30/18 06:00 Hct 40.3 % (35.4-49) 07/30/18 06:00 MCV 84.7 fl (80-96) 07/30/18 06:00 MCHC 33.3 g/dl (32.0-35.9) 07/30/18 06:00 RDW 16.1 % (11.9-15.9) H 07/30/18 06:00 Plt Count 250 K/MM3 (134-434) 07/30/18 06:00 MPV 8.6 fl (7.5-11.1) 07/30/18 06:00 CMP Sodium 141 mmol/L (136-145) 07/30/18 06:00 Potassium 3.5 mmol/L (3.5-5.1) 07/30/18 06:00 Chloride 108 mmol/L (98-107) H 07/30/18 06:00 Carbon Dioxide 28 mmol/L (21-32) 07/30/18 06:00 Anion Gap 5 MMOL/L (8-16) L 07/30/18 06:00 BUN 12 mg/dL (7-18) 07/30/18 06:00 Creatinine 0.8 mg/dL (0.55-1.3) 07/30/18 06:00 Creat Clearance w eGFR 97.63 (>60) 07/30/18 06:00 Random Glucose 91 mg/dL (74-106) 07/30/18 06:00 Calcium 8.4 mg/dL (8.5-10.1) L 07/30/18 06:00 Total Bilirubin 0.6 mg/dL (0.2-1) 07/30/18 06:00 AST 121 U/L (15-37) H 07/30/18 06:00 ALT 274 U/L (13-61) H 07/30/18 06:00 Alkaline Phosphatase 209 U/L (45-117) H 07/30/18 06:00 Total Protein 6.1 g/dl (6.4-8.2) L 07/30/18 06:00 Albumin 3.0 g/dl (3.4-5.0) L 07/30/18 06:00 CARDIAC ENZYMES Creatine Kinase 52 U/L (26-308) 07/25/18 14:47 Troponin I 0.03 ng/ml (0.00-0.05) 07/25/18 14:47 Current Medications Generic Name Dose Route Start Last Admin Trade Name Freq PRN Reason Stop Dose Admin Alprazolam 0.25 mg 07/30/18 16:15 07/30/18 17:47 Xanax - PO 0.25 mg Q12H PRN Administration ANXIETY Apixaban 5 mg 07/25/18 22:00 07/30/18 09:35 Eliquis - PO 5 mg BID [facility] Administration Artificial Tears 1 drop 07/25/18 22:00 07/30/18 13:19 Artificial Tears OU 1 drp TID [facility] Administration Aspirin 81 mg 07/27/18 10:00 07/30/18 09:35 Asa - PO 81 mg DAILY [facility] Administration Clopidogrel Bisulfate 75 mg 07/26/18 19:00 07/30/18 09:35 Plavix - PO 75 mg DAILY [facility] Administration Lactated Ringer's 1,000 mls @ 42 mls/hr 07/25/18 19:45 07/30/18 05:55 Lactated Ringers Solution IV Not Given ASDIR [facility] Metronidazole 500 mg in 100 mls @ 100 mls/hr 07/26/18 02:00 07/30/18 17:03 Flagyl 500mg Premixed Ivpb - IVPB 100 mls/hr Q8H-IV [facility] Administration Levofloxacin 500 mg in 100 mls @ 100 mls/hr 07/28/18 14:45 07/30/18 09:35 Levaquin 500 Mg Premixed Ivpb - IVPB 100 mls/hr DAILY [facility] Administration Protocol Melatonin 10 mg 07/30/18 22:00 Melatonin PO HS [facility] Methadone HCl 20 mg 07/26/18 06:00 07/30/18 05:57 Dolophine - PO 20 mg DAILY@0600 [facility] Administration Metoprolol Succinate 25 mg 07/27/18 10:00 07/30/18 09:35 Toprol Xl - PO 25 mg DAILY [facility] Administration Pantoprazole Sodium 40 mg 07/26/18 10:00 07/30/18 09:35 Protonix - PO 40 mg DAILY [facility] Administration Prednisone 5 mg 07/26/18 10:00 07/30/18 09:35 Deltasone - PO 5 mg DAILY [facility] Administration Home Medications Medication Instructions Recorded Methadone HCl 20 mg PO DAILY 02/11/14 Pantoprazole Sodium [Protonix -] 40 mg PO DAILY 07/05/16 Nystatin Oral Suspension - 5 ml PO QID #1 bottle 09/25/17 [Nystatin Oral Susp 169785 Units/5 ML -] Prednisone 10 mg PO DAILY 04/23/18 Atorvastatin Ca [Lipitor] 80 mg PO HS tablet 04/26/18 Alprazolam [Xanax] 0.25 mg PO BID PRN 05/15/18 Apixaban [Eliquis -] 5 mg PO BID 05/15/18 Dextran 70/Hypromellose [Natural 15 ml OU TID #1 bottle 05/15/18 Balance Tears Eye Drop] Multivitamin [Multiple Vitamins] 1 each PO DAILY #30 tablet 05/15/18 Diclofenac Sodium [Voltaren] 2 gm TP QID PRN #3 tube 07/12/18 Ergocalciferol [Vitamin D2] 50,000 unit PO Q7D@1000 #4 capsule 07/12/18 Gabapentin 300 mg PO Q8H #90 capsule 07/12/18 Oxycodone HCl/Acetaminophen 1 each PO TID #70 tablet MDD 3 07/12/18 [Percocet 10-325 mg Tablet] Clopidogrel Bisulfate [Plavix] 75 mg PO DAILY 07/26/18 Metoprolol Succinate [Toprol Xl] 25 mg PO DAILY 07/26/18 CTAP: Slightly overdistended gallbladder without intraluminal stones or wall thickening. Borderline dilatation of the intrapancreatic portion of the CBD measuring 6mm. Fluid-filled nondilated distal small bowel loops in the pelvis likely on the basis of ileus. Tiny fat-containing umbilical hernia. Rest of exam unremarkable. -HIDA scan: Filling of the gallbladder excludes acute cystic duct obstruction. Delayed common hepatic duct with significant delayed biliary enteric transit of tracer. Findings are nonspecific and could be secondary to partial CBD obstruction/stricture or chronic cholecystitis. RUQ US: Fatty liver vs hepatocellular disease. Persistent CBD now measuring 1.6cm from 1.4cm on prior exam. Limited visualization of the pancreas with dilatation of the pancreatic duct measuring 4mm, unchanged since prior exam. - ASSESSMENT AND PLAN: Patient is a 62 year old male with past medical history of right lung CA on chemo/Keytruda, PE on eliquis, CAD s/p stenting, HTN, sent from oncologist's office due to fever (101.4F), malaise, vomiting and RUQ pain for 1 day. #Hepatobilliary disease with CBD obstruction /chronic cholecystitis on IV antibiotic Levaquin and Flagyl, continue as per ID (Dr. Tamayo), going for mrcp today - #Acute transaminitis: will continue to ltrend #Hx of Lung CA:on chemotherapy, Oncology (Dr. Emmanuel) consulted. #Hx of PE; on Eliquis 5mg BID #CAD s/p stent:on aspirin/ and plavix continue , continue Lipitor 80mg daily #HTN: stable continue Metoprolol XL 25mg, Amlodipine 5mg daily DVt Px: eliquis 5mg BID -full code -med surg MRCP was not done since has a stent, going today
[2018-07-30] MEDS ORDERED: MELATONIN 5 MG TABLETS PO SCH (22:00)
[2018-07-31] MEDS: METHADONE HCL 10 MG TABLET PO SCH (05:25)
[2018-07-31] MEDS: ALPRAZolam 0.25 MG TABLET PO PRN (05:26)
[2018-07-31] MEDS: ARTIFICIAL TEARS (POLYVINYL ALCOHOL) OPTH DROPS OU SCH ×2 (06:07→13:13)
[2018-07-31 07:29] LABS: BASO % 1.2 % (0-2.0); EOS % 6.6 % (0-4.5); HEMATOCRIT 37.7 % (35.4-49); LYMPH % 23.8 % (8-40); MCH 28.9 pg (25.7-33.7); MCHC 34.4 g/dl (32.0-35.9); MEAN CELL VOLUME 84.1 fl (80-96); MEAN PLT VOLUME 8.3 fl (7.5-11.1); MONO % 9.8 % (3.8-10.2); NEUT % 58.6 % (42.8-82.8); PLATELET COUNT 259 K/MM3 (134-434); RBC 4.49 M/mm3 (4.00-5.60); RDW 16.3 % (11.9-15.9); WHITE BLOOD COUNT 8.3 K/mm3 (4.0-10.0)
--- NOTE | 2018-07-31 07:38 | PN ---
Progress Note, Physician History of Present Illness: GI FOLLOW UP NOTE Patient examined and case discussed with Dr. Cee Patient denies abdominal pain, nausea, vomiting. Patient had Abdomen MRI done yesterday, official results pending. LFTs continue to be trending down. Recent labs from 07/30/18 shows AST 121, ALT 274, Alk Phos 209. - Current Medication List Current Medications: Active Medications Alprazolam (Xanax -) 0.25 mg PO Q12H PRN PRN Reason: ANXIETY Last Admin: 07/31/18 05:26 Dose: 0.25 mg Apixaban (Eliquis -) 5 mg PO BID [facility] Last Admin: 07/30/18 21:48 Dose: 5 mg Artificial Tears (Artificial Tears) 1 drop OU TID [facility] Last Admin: 07/31/18 06:07 Dose: 1 drp Aspirin (Asa -) 81 mg PO DAILY [facility] Last Admin: 07/30/18 09:35 Dose: 81 mg Clopidogrel Bisulfate (Plavix -) 75 mg PO DAILY [facility] Last Admin: 07/30/18 09:35 Dose: 75 mg Lactated Ringer's (Lactated Ringers Solution) 1,000 mls @ 42 mls/hr IV ASDIR [facility] Last Admin: 07/30/18 21:48 Dose: 42 mls/hr Metronidazole (Flagyl 500mg Premixed Ivpb -) 500 mg in 100 mls @ 100 mls/hr IVPB Q8H-IV [facility] Last Admin: 07/31/18 01:24 Dose: 100 mls/hr Levofloxacin (Levaquin 500 Mg Premixed Ivpb -) 500 mg in 100 mls @ 100 mls/hr IVPB DAILY [facility]; Protocol Last Admin: 07/30/18 09:35 Dose: 100 mls/hr Melatonin (Melatonin) 10 mg PO HS [facility] Last Admin: 07/30/18 21:48 Dose: 10 mg Methadone HCl (Dolophine -) 20 mg PO DAILY@0600 [facility] Last Admin: 07/31/18 05:25 Dose: 20 mg Metoprolol Succinate (Toprol Xl -) 25 mg PO DAILY [facility] Last Admin: 07/30/18 09:35 Dose: 25 mg Pantoprazole Sodium (Protonix -) 40 mg PO DAILY [facility] Last Admin: 07/30/18 09:35 Dose: 40 mg Prednisone (Deltasone -) 5 mg PO DAILY [facility] Last Admin: 07/30/18 09:35 Dose: 5 mg - Objective Vital Signs: Vital Signs Temperature 97.9 F 07/31/18 05:41 Pulse Rate 75 07/31/18 05:41 Respiratory Rate 18 07/31/18 05:41 Blood Pressure 125/75 07/31/18 05:41 O2 Sat by Pulse Oximetry (%) 94 L 07/30/18 20:44 Constitutional: Yes: No Distress, Calm Eyes: Yes: Conjunctiva Clear HENT: Yes: Atraumatic Cardiovascular: Yes: Regular Rate and Rhythm Respiratory: Yes: Regular, CTA Bilaterally Gastrointestinal: Yes: Normal Bowel Sounds, Soft, Other (tympany). No: WNL, Abdomen, Obese, Ascites, Distention, Hematemesis, Hemorrhoids, Hepatomegaly, Hernia, Hyperactive Bowel Sounds, Hypoactive Bowel Sounds, Melena, Palpable Mass , Pulsatile Mass, Rectal Bleeding, Splenomegaly, Tenderness, Tenderness, Epigastrium, Tenderness, Rebound, Vomiting Neurological: Yes: Alert, Oriented Psychiatric: Yes: Alert, Oriented Labs: INR, PTT INR 2.00 (0.83-1.09) H 07/26/18 06:00 Problem List - Problems (1) Dilated cbd, acquired Assessment/Plan: -CBD dilation secondary to fdc methadone- use -HIDA scan results reviewed -official results of Abdomen MRI pending Code(s): K83.8 - OTHER SPECIFIED DISEASES OF BILIARY TRACT (2) LFTs abnormal Assessment/Plan: -elevated LFTs 2/2 to drug toxicity, was on long term care administrator statin -cardiology consulted -decrease statin to 20mg daily and start Zetia once liver enzymes near normal -LFTs showing downtrend--monitor daily -noted with Hep B core Ab positive, pending Hep B DNA PCR Code(s): R94.5 - ABNORMAL RESULTS OF LIVER FUNCTION STUDIES
[2018-07-31] MEDS ORDERED: PT OWN MED DRAWER 7, Y5N ONE ×2 (08:47→09:54)
[2018-07-31] MEDS: PANTOPRAZOLE 40 MG TABLET (FP) PO SCH (09:46)
[2018-07-31] MEDS: ASPIRIN 81 MG CHEWABLE TABLETS PO SCH (09:46)
[2018-07-31] MEDS: APIXABAN 5 MG TABLET PO SCH (09:47)
[2018-07-31] MEDS: CLOPIDOGREL BISULFATE 75 MG TABLET (FP) PO SCH (09:47)
[2018-07-31] MEDS: predniSONE 5 MG TABLET (UD) PO SCH (09:47)
[2018-07-31] MEDS: metoPROLOL SUCCINATE 25 MG TAB.SR.24H (FP) PO SCH (09:47)
[2018-07-31] MEDS ORDERED: CHOLECALCIFEROL (VITAMIN D3) 1,000 UNIT TABLET (FP) PO SCH (10:15)
[2018-07-31 10:23] LABS: POTASSIUM 3.6 mmol/L (3.5-5.1); SODIUM 140 mmol/L (136-145)
[2018-07-31 10:24] LABS: ALBUMIN 2.9 g/dl (3.4-5.0); ANION GAP 6 MMOL/L (8-16); BLOOD UREA NITROGEN 11 mg/dL (7-18); CHLORIDE 106 mmol/L (98-107); CO2 28 mmol/L (21-32); GLUCOSE,RANDOM 89 mg/dL (74-106); MAGNESIUM 2.2 mg/dL (1.8-2.4)
[2018-07-31 10:25] LABS: ALK PHOS 186 U/L (45-117); BILIRUBIN,TOTAL 0.6 mg/dL (0.2-1); PHOSPHOROUS 3.4 mg/dL (2.5-4.9); SGOT/AST 69 U/L (15-37); SGPT/ALT 206 U/L (13-61); TOT PROT 5.8 g/dl (6.4-8.2)
[2018-07-31 10:26] LABS: CREATININE 0.8 mg/dL (0.55-1.3)
--- NOTE | 2018-07-31 11:39 | PN ---
Physical Exam: SUBJECTIVE: Patient seen and examined at bedside this morning. No acute events overnight. Patient reports feeling well and just wants to go home. OBJECTIVE: Vital Signs Temperature 98.8 F 07/31/18 09:00 Pulse Rate 76 07/31/18 09:00 Respiratory Rate 20 07/31/18 09:00 Blood Pressure 135/71 07/31/18 09:00 O2 Sat by Pulse Oximetry (%) 99 07/31/18 09:00 GENERAL: The patient is awake, alert, and fully oriented, in no acute distress. HEAD: Normal with no signs of trauma. EYES:PERRLA, EOMI, conjunctiva clear. ENT: oropharynx clear without exudates, moist mucous membranes. NECK: Trachea midline, full range of motion, supple. LUNGS: Breath sounds equal, clear to auscultation bilaterally. HEART: Regular rate and rhythm, S1, S2 without murmur, rub or gallop. ABDOMEN: Soft, nontender, nondistended, normoactive bowel sounds. EXTREMITIES: 2+ pulses, warm, well-perfused, no edema. NEUROLOGICAL: Cranial nerves II through XII grossly intact. Normal speech, normal gait PSYCH: Normal mood, normal affect. SKIN: Warm, dry, normal turgor, no rashes or lesions noted Laboratory Results - last 24 hr 07/31/18 07/31/18 06:00 06:00 WBC 8.3 RBC 4.49 Hgb 13.0 Hct 37.7 MCV 84.1 MCH 28.9 MCHC 34.4 RDW 16.3 H Plt Count 259 MPV 8.3 Absolute Neuts (auto) 4.9 Neutrophils % 58.6 Lymphocytes % 23.8 Monocytes % 9.8 Eosinophils % 6.6 H Basophils % 1.2 Nucleated RBC % 0 Sodium 140 Potassium 3.6 Chloride 106 Carbon Dioxide 28 Anion Gap 6 L BUN 11 Creatinine 0.8 Creat Clearance w eGFR 97.63 Random Glucose 89 Calcium 8.0 L Phosphorus 3.4 Magnesium 2.2 Total Bilirubin 0.6 AST 69 H ALT 206 H Alkaline Phosphatase 186 H Total Protein 5.8 L Albumin 2.9 L Active Medications Generic Name Dose Route Start Last Admin Trade Name Freq PRN Reason Stop Dose Admin Alprazolam 0.25 mg 07/30/18 16:15 07/31/18 05:26 Xanax - PO 0.25 mg Q12H PRN Administration ANXIETY Apixaban 5 mg 07/25/18 22:00 07/31/18 09:47 Eliquis - PO 5 mg BID COLBY Administration Artificial Tears 1 drop 07/25/18 22:00 07/31/18 06:07 Artificial Tears OU 1 drp TID COLBY Administration Aspirin 81 mg 07/27/18 10:00 07/31/18 09:46 Asa - PO 81 mg DAILY COLBY Administration Cholecalciferol 2,000 unit 07/31/18 10:15 07/31/18 10:45 Vitamin D3 - PO 2,000 unit DAILY COLBY Administration Clopidogrel Bisulfate 75 mg 07/26/18 19:00 07/31/18 09:47 Plavix - PO 75 mg DAILY COLBY Administration Lactated Ringer's 1,000 mls @ 42 mls/hr 07/25/18 19:45 07/30/18 21:48 Lactated Ringers Solution IV 42 mls/hr ASDIR COLBY Administration Metronidazole 500 mg in 100 mls @ 100 mls/hr 07/26/18 02:00 07/31/18 09:46 Flagyl 500mg Premixed Ivpb - IVPB 100 mls/hr Q8H-IV COLBY Administration Levofloxacin 500 mg in 100 mls @ 100 mls/hr 07/28/18 14:45 07/31/18 09:46 Levaquin 500 Mg Premixed Ivpb - IVPB 100 mls/hr DAILY COLBY Administration Protocol Melatonin 10 mg 07/30/18 22:00 07/30/18 21:48 Melatonin PO 10 mg HS COLBY Administration Methadone HCl 20 mg 07/26/18 06:00 07/31/18 05:25 Dolophine - PO 20 mg DAILY@0600 COLBY Administration Metoprolol Succinate 25 mg 07/27/18 10:00 07/31/18 09:47 Toprol Xl - PO 25 mg DAILY COLBY Administration Pantoprazole Sodium 40 mg 07/26/18 10:00 07/31/18 09:46 Protonix - PO 40 mg DAILY COLBY Administration Prednisone 5 mg 07/26/18 10:00 07/31/18 09:47 Deltasone - PO 5 mg DAILY COLBY Administration -RUQ US: Fatty liver vs hepatocellular disease. Persistent CBD now measuring 1.6cm from 1.4cm on prior exam. Limited visualization of the pancreas with dilatation of the pancreatic duct measuring 4mm, unchanged since prior exam. -CTAP: Slightly overdistended gallbladder without intraluminal stones or wall thickening. Borderline dilatation of the intrapancreatic portion of the CBD measuring 6mm. Fluid-filled nondilated distal small bowel loops in the pelvis likely on the basis of ileus. Tiny fat-containing umbilical hernia. Rest of exam unremarkable. -HIDA scan: Filling of the gallbladder excludes acute cystic duct obstruction. Delayed common hepatic duct with significant delayed biliary enteric transit of tracer. Findings are nonspecific and could be secondary to partial CBD obstruction/stricture or chronic cholecystitis. -MRI Abdomen: No cholelithiasis or choledocholithiasis. No MRI evidence of cholecystitis. Fusiform dilatation of the CHD and CBD coupled with mild diffuse pancreatic ductal dilatation. Findings are nonspecific and could be secondary to ampullary lesion or stricture in the region of the ampulla. Alternatively findings could be secondary to choledochocyst type I. IF indicated, ERCP may be obtained for further evaluation. Fatty infiltration of the liver. 4.6 x 3.1 cm ill-defined intensity in the right lung base likely corresponding to scar seen on CT scan of chest dating back to 2017. ASSESSMENT/PLAN: Patient is a 62 year old male with past medical history of right lung CA on chemo/Keytruda, PE on eliquis, CAD s/p stenting, HTN, sent from oncologist's office due to fever (101.4F), malaise, vomiting and RUQ pain for 1 day. #Fever of unknown origin: likely hepatobiliary source -no fevers overnight, leukocystosis resolved -Blood cultures - no growth -IV fluids -ID (Dr. Tamayo) consulted. Recommendations appreciated. -LFTs trending down -With penicillin allergy, continue Levquin and Flagyl day 6 -MRCP of abdomen done -Oncology (Dr. Che) consulted. REcommendations appreciated. -Plan for GI follow up, for possible ERCP -On plavix #Acute transaminitis: improving -GI (Dr. Cee) consulted. Recommendations appreciated. -likely 2/2 drug toxicity, currently on terminal press operator statin -hold statin -Avoid tylenol. -Cardiology (Dr. Roche) consulted. -consider decrease dose to 20mg daily and add Zetia once liver enzymes near normal #Hx of Lung CA -on chemotherapy (Keytruda) -Oncology (Dr. Emmanuel) consulted. #Hx of PE -Eliquis 5mg BID #CAD s/p stenting -ASA 81mg daily -Clopidogrel 75mg daily -Lipitor 80mg daily - on hold #HTN: chronic -Continue home Metoprolol XL 25mg #FEN -IV LR @ 42cc/hr -Electrolytes wnl, routine bmp monitoring -Regular diet #Prophylaxis -On eliquis 5mg BID #Disposition -full code -med surg -for MRI tonight. Visit type - Emergency Visit Emergency Visit: Yes ED Registration Date: 07/25/18 Care time: The patient presented to the Emergency Department on the above date and was hospitalized for further evaluation of their emergent condition. - New Patient This patient is new to me today: No - Critical Care Critical Care patient: No
[2018-07-31 13:30] VITALS: BP 124/66; PULSE 81; TEMP 98.9
[2018-07-31] MEDS ORDERED: metoPROLOL SUCCINATE 25 MG TAB.SR.24H (FP) PO ONE (15:45)
--- NOTE | 2018-07-31 16:17 | PN ---
Progress Note (short form) - Note Progress Note: Patient seen and examined Underwent MRI with CHD,CBD and pancreatic ductal dilatation with tapering of distal CBD. Non visualization of ampulla. Raises possibility of obstruction or partial obstruction . For GI follow up Scarring RLL. Last Vital Signs Temp Pulse Resp BP Pulse Ox 98.9 F 81 20 124/66 99 07/31/18 13:28 07/31/18 13:28 07/31/18 13:28 07/31/18 13:28 07/31/18 09:00 HEENT: SAUD, EOM Intact Oropharynx: No thrush, No mucositis Cor: RSR, No murmurs, No gallops Lungs: diffuse rhonchi Abd: Soft, Normal bowel sounds, No organomegaly Ext:No significant edema Skin: No rashes, Integument intact CBC, BMP 07/31/18 06:00 07/31/18 06:00 Current Medications Generic Name Dose Route Start Last Admin Trade Name Freq PRN Reason Stop Dose Admin Alprazolam 0.25 mg 07/30/18 16:15 07/31/18 05:26 Xanax - PO 0.25 mg Q12H PRN Administration ANXIETY Apixaban 5 mg 07/25/18 22:00 07/31/18 09:47 Eliquis - PO 5 mg BID COLBY Administration Artificial Tears 1 drop 07/25/18 22:00 07/31/18 13:13 Artificial Tears OU 1 drp TID COLBY Administration Aspirin 81 mg 07/27/18 10:00 07/31/18 09:46 Asa - PO 81 mg DAILY COLBY Administration Cholecalciferol 2,000 unit 07/31/18 10:15 07/31/18 10:45 Vitamin D3 - PO 2,000 unit DAILY COLBY Administration Clopidogrel Bisulfate 75 mg 07/26/18 19:00 07/31/18 09:47 Plavix - PO 75 mg DAILY COLBY Administration Lactated Ringer's 1,000 mls @ 42 mls/hr 07/25/18 19:45 07/30/18 21:48 Lactated Ringers Solution IV 42 mls/hr ASDIR COLBY Administration Metronidazole 500 mg in 100 mls @ 100 mls/hr 07/26/18 02:00 07/31/18 09:46 Flagyl 500mg Premixed Ivpb - IVPB 100 mls/hr Q8H-IV COLBY Administration Levofloxacin 500 mg in 100 mls @ 100 mls/hr 07/28/18 14:45 07/31/18 09:46 Levaquin 500 Mg Premixed Ivpb - IVPB 100 mls/hr DAILY COLBY Administration Protocol Melatonin 10 mg 07/30/18 22:00 07/30/18 21:48 Melatonin PO 10 mg HS COLBY Administration Methadone HCl 20 mg 07/26/18 06:00 07/31/18 05:25 Dolophine - PO 20 mg DAILY@0600 COLBY Administration Metoprolol Succinate 25 mg 07/27/18 10:00 07/31/18 09:47 Toprol Xl - PO 25 mg DAILY COLBY Administration Pantoprazole Sodium 40 mg 07/26/18 10:00 07/31/18 09:46 Protonix - PO 40 mg DAILY COLBY Administration Prednisone 5 mg 07/26/18 10:00 07/31/18 09:47 Deltasone - PO 5 mg DAILY COLBY Administration Impression: Lung ca Abnormal LFT's MRI CHD,CBD pancreatic duct dilatation raising concern for possible obstruction. Plan for GI follow up.--??ERCP On plavix and elevated INR noted.
--- NOTE | 2018-07-31 17:59 | PN ---
Teaching Attending Note Name of Resident: Gina Young ATTENDING PHYSICIAN STATEMENT I saw and evaluated the patient. I reviewed the resident's note and discussed the case with the resident. I agree with the resident's findings and plan as documented. SUBJECTIVE: Patient is feeling better wants, to go home. OBJECTIVE: Vital Signs Temperature 98.9 F 07/31/18 13:28 Pulse Rate 81 07/31/18 13:28 Respiratory Rate 20 07/31/18 13:28 Blood Pressure 124/66 07/31/18 13:28 O2 Sat by Pulse Oximetry (%) 99 07/31/18 09:00 GENERAL: The patient is awake, alert, and fully oriented, in no acute distress. HEAD: Normal with no signs of trauma. EYES:PERRLA, EOMI, conjunctiva clear. ENT: oropharynx clear without exudates, moist mucous membranes. NECK: Trachea midline, full range of motion, supple. LUNGS: Breath sounds equal, clear to auscultation bilaterally. HEART: Regular rate and rhythm, S1, S2 without murmur, rub or gallop. ABDOMEN: Soft, no further pain on palpation , nondistended, normoactive bowel sounds. EXTREMITIES: 2+ pulses, warm, well-perfused, no edema. NEUROLOGICAL: Cranial nerves II through XII grossly intact. Normal speech, normal gait PSYCH: Normal mood, normal affect. SKIN: Warm, dry, normal turgor, no rashes or lesions noted CBCD WBC 8.3 K/mm3 (4.0-10.0) 07/31/18 06:00 RBC 4.49 M/mm3 (4.00-5.60) 07/31/18 06:00 Hgb 13.0 GM/dL (11.7-16.9) 07/31/18 06:00 Hct 37.7 % (35.4-49) 07/31/18 06:00 MCV 84.1 fl (80-96) 07/31/18 06:00 MCHC 34.4 g/dl (32.0-35.9) 07/31/18 06:00 RDW 16.3 % (11.9-15.9) H 07/31/18 06:00 Plt Count 259 K/MM3 (134-434) 07/31/18 06:00 MPV 8.3 fl (7.5-11.1) 07/31/18 06:00 CMP Sodium 140 mmol/L (136-145) 07/31/18 06:00 Potassium 3.6 mmol/L (3.5-5.1) 07/31/18 06:00 Chloride 106 mmol/L (98-107) 07/31/18 06:00 Carbon Dioxide 28 mmol/L (21-32) 07/31/18 06:00 Anion Gap 6 MMOL/L (8-16) L 07/31/18 06:00 BUN 11 mg/dL (7-18) 07/31/18 06:00 Creatinine 0.8 mg/dL (0.55-1.3) 07/31/18 06:00 Creat Clearance w eGFR 97.63 (>60) 07/31/18 06:00 Random Glucose 89 mg/dL (74-106) 07/31/18 06:00 Calcium 8.0 mg/dL (8.5-10.1) L 07/31/18 06:00 Total Bilirubin 0.6 mg/dL (0.2-1) 07/31/18 06:00 AST 69 U/L (15-37) H 07/31/18 06:00 ALT 206 U/L (13-61) H 07/31/18 06:00 Alkaline Phosphatase 186 U/L (45-117) H 07/31/18 06:00 Total Protein 5.8 g/dl (6.4-8.2) L 07/31/18 06:00 Albumin 2.9 g/dl (3.4-5.0) L 07/31/18 06:00 CARDIAC ENZYMES Creatine Kinase 52 U/L (26-308) 07/25/18 14:47 Troponin I 0.03 ng/ml (0.00-0.05) 07/25/18 14:47 Current Medications Generic Name Dose Route Start Last Admin Trade Name Freq PRN Reason Stop Dose Admin Alprazolam 0.25 mg 07/30/18 16:15 07/31/18 05:26 Xanax - PO 0.25 mg Q12H PRN Administration ANXIETY Apixaban 5 mg 07/25/18 22:00 07/31/18 09:47 Eliquis - PO 5 mg BID COLBY Administration Artificial Tears 1 drop 07/25/18 22:00 07/31/18 13:13 Artificial Tears OU 1 drp TID COLBY Administration Aspirin 81 mg 07/27/18 10:00 07/31/18 09:46 Asa - PO 81 mg DAILY COLBY Administration Cholecalciferol 2,000 unit 07/31/18 10:15 07/31/18 10:45 Vitamin D3 - PO 2,000 unit DAILY COLBY Administration Clopidogrel Bisulfate 75 mg 07/26/18 19:00 07/31/18 09:47 Plavix - PO 75 mg DAILY COLBY Administration Lactated Ringer's 1,000 mls @ 42 mls/hr 07/25/18 19:45 07/30/18 21:48 Lactated Ringers Solution IV 42 mls/hr ASDIR COLBY Administration Metronidazole 500 mg in 100 mls @ 100 mls/hr 07/26/18 02:00 07/31/18 17:07 Flagyl 500mg Premixed Ivpb - IVPB 100 mls/hr Q8H-IV COLBY Administration Levofloxacin 500 mg in 100 mls @ 100 mls/hr 07/28/18 14:45 07/31/18 09:46 Levaquin 500 Mg Premixed Ivpb - IVPB 100 mls/hr DAILY COLBY Administration Protocol Melatonin 10 mg 07/30/18 22:00 07/30/18 21:48 Melatonin PO 10 mg HS COLBY Administration Methadone HCl 20 mg 07/26/18 06:00 07/31/18 05:25 Dolophine - PO 20 mg DAILY@0600 COLBY Administration Metoprolol Succinate 25 mg 07/27/18 10:00 07/31/18 09:47 Toprol Xl - PO 25 mg DAILY COLBY Administration Pantoprazole Sodium 40 mg 07/26/18 10:00 07/31/18 09:46 Protonix - PO 40 mg DAILY COLBY Administration Prednisone 5 mg 07/26/18 10:00 07/31/18 09:47 Deltasone - PO 5 mg DAILY COLBY Administration Home Medications Medication Instructions Recorded Methadone HCl 20 mg PO DAILY 02/11/14 Pantoprazole Sodium [Protonix -] 40 mg PO DAILY 07/05/16 Nystatin Oral Suspension - 5 ml PO QID #1 bottle 09/25/17 [Nystatin Oral Susp 687131 Units/5 ML -] Prednisone 10 mg PO DAILY 04/23/18 Alprazolam [Xanax] 0.25 mg PO BID PRN 05/15/18 Apixaban [Eliquis -] 5 mg PO BID 05/15/18 Dextran 70/Hypromellose [Natural 15 ml OU TID #1 bottle 05/15/18 Balance Tears Eye Drop] Multivitamin [Multiple Vitamins] 1 each PO DAILY #30 tablet 05/15/18 Gabapentin 300 mg PO Q8H #90 capsule 07/12/18 Oxycodone HCl/Acetaminophen 1 each PO TID #70 tablet MDD 3 07/12/18 [Percocet 10-325 mg Tablet] Clopidogrel Bisulfate [Plavix] 75 mg PO DAILY 07/26/18 Metoprolol Succinate [Toprol Xl] 25 mg PO DAILY 07/26/18 Aspirin [ASA -] 81 mg PO DAILY tab.chew 07/31/18 CTAP: Slightly overdistended gallbladder without intraluminal stones or wall thickening. Borderline dilatation of the intrapancreatic portion of the CBD measuring 6mm. Fluid-filled nondilated distal small bowel loops in the pelvis likely on the basis of ileus. Tiny fat-containing umbilical hernia. Rest of exam unremarkable. -HIDA scan: Filling of the gallbladder excludes acute cystic duct obstruction. Delayed common hepatic duct with significant delayed biliary enteric transit of tracer. Findings are nonspecific and could be secondary to partial CBD obstruction/stricture or chronic cholecystitis. RUQ US: Fatty liver vs hepatocellular disease. Persistent CBD now measuring 1.6cm from 1.4cm on prior exam. Limited visualization of the pancreas with dilatation of the pancreatic duct measuring 4mm, unchanged since prior exam. - ASSESSMENT AND PLAN: Patient is a 62 year old male with past medical history of right lung CA on chemo/Keytruda, PE on eliquis, CAD s/p stenting, HTN, sent from oncologist's office due to fever (101.4F), malaise, vomiting and RUQ pain for 1 day. #Hepatobilliary disease with CBD obstruction /chronic cholecystitis on IV antibiotic Levaquin and Flagyl, day# 6 today , s/p MRCP. discussed the result with , as per Coleman Christiansen , no change from previous ERCP, patient can go home and repeat LFTs in am week period and follow up with him as an outpatient. #Acute transaminitis: trending down. Rx given for the labs to be repeated in a week and follow up with GI in a week. #Hx of Lung CA:on chemotherapy, Oncology (Dr. Emmanuel) , follow with oncology as an outpatient. #Hx of PE; on Eliquis 5mg BID #CAD s/p stent:on aspirin/ and plavix continue , continue Lipitor 80mg daily #HTN: stable continue Metoprolol XL 25mg, Amlodipine 5mg daily DVt Px: eliquis 5mg BID As per Dr. Cee, patient can be discharge home today with f/u w GI in a week and repeat the lab in a week.
--- NOTE | 2018-07-31 18:39 | DS ---
Physical Exam: SUBJECTIVE: Patient seen and examined at bedside this morning. No acute events overnight. Patient reports feeling well and just wants to go home. OBJECTIVE: Vital Signs Temperature 98.9 F 07/31/18 13:28 Pulse Rate 81 07/31/18 13:28 Respiratory Rate 20 07/31/18 13:28 Blood Pressure 124/66 07/31/18 13:28 O2 Sat by Pulse Oximetry (%) 99 07/31/18 09:00 PHYSICAL EXAM GENERAL: The patient is awake, alert, and fully oriented, in no acute distress. HEAD: Normal with no signs of trauma. EYES:PERRLA, EOMI, conjunctiva clear. ENT: oropharynx clear without exudates, moist mucous membranes. NECK: Trachea midline, full range of motion, supple. LUNGS: Breath sounds equal, clear to auscultation bilaterally. HEART: Regular rate and rhythm, S1, S2 without murmur, rub or gallop. ABDOMEN: Soft, nontender, nondistended, normoactive bowel sounds. EXTREMITIES: 2+ pulses, warm, well-perfused, no edema. NEUROLOGICAL: Cranial nerves II through XII grossly intact. Normal speech, normal gait PSYCH: Normal mood, normal affect. SKIN: Warm, dry, normal turgor, no rashes or lesions noted LABS Laboratory Results - last 24 hr 07/27/18 07/31/18 07/31/18 07:00 06:00 06:00 WBC 8.3 RBC 4.49 Hgb 13.0 Hct 37.7 MCV 84.1 MCH 28.9 MCHC 34.4 RDW 16.3 H Plt Count 259 MPV 8.3 Absolute Neuts (auto) 4.9 Neutrophils % 58.6 Lymphocytes % 23.8 Monocytes % 9.8 Eosinophils % 6.6 H Basophils % 1.2 Nucleated RBC % 0 Sodium 140 Potassium 3.6 Chloride 106 Carbon Dioxide 28 Anion Gap 6 L BUN 11 Creatinine 0.8 Creat Clearance w eGFR 97.63 Random Glucose 89 Calcium 8.0 L Phosphorus 3.4 Magnesium 2.2 Total Bilirubin 0.6 AST 69 H ALT 206 H Alkaline Phosphatase 186 H Total Protein 5.8 L Albumin 2.9 L EBV DNA (PCR) Negative EBV DNA Quant PCR log10 TNP -RUQ US: Fatty liver vs hepatocellular disease. Persistent CBD now measuring 1.6cm from 1.4cm on prior exam. Limited visualization of the pancreas with dilatation of the pancreatic duct measuring 4mm, unchanged since prior exam. -CTAP: Slightly overdistended gallbladder without intraluminal stones or wall thickening. Borderline dilatation of the intrapancreatic portion of the CBD measuring 6mm. Fluid-filled nondilated distal small bowel loops in the pelvis likely on the basis of ileus. Tiny fat-containing umbilical hernia. Rest of exam unremarkable. -HIDA scan: Filling of the gallbladder excludes acute cystic duct obstruction. Delayed common hepatic duct with significant delayed biliary enteric transit of tracer. Findings are nonspecific and could be secondary to partial CBD obstruction/stricture or chronic cholecystitis. -MRI Abdomen: No cholelithiasis or choledocholithiasis. No MRI evidence of cholecystitis. Fusiform dilatation of the CHD and CBD coupled with mild diffuse pancreatic ductal dilatation. Findings are nonspecific and could be secondary to ampullary lesion or stricture in the region of the ampulla. Alternatively findings could be secondary to choledochocyst type I. IF indicated, ERCP may be obtained for further evaluation. Fatty infiltration of the liver. 4.6 x 3.1 cm ill-defined intensity in the right lung base likely corresponding to scar seen on CT scan of chest dating back to 2017. HOSPITAL COURSE: Date of Admission:07/25/18 Date of Discharge: 07/31/18 Patient is a 62 year old male with past medical history of right lung CA on chemo/Keytruda, PE on eliquis, CAD s/p stenting, HTN, sent from oncologist's office due to fever (101.4F), malaise, vomiting and RUQ pain for 1 day. On admission, patient was noted to have elevated LFTs. Lipitor was put on hold. Patient was started on IV Levaquin and Flagyl. ID, GI and Heme-Onc consulted. RUQ ultrasound, CT abdomen, HIDA scan and MRI with MRCP of abdomen done. Blood cultures were negative. Patient continued to improve throughout hospital stay, remaining afebrile with leukocytosis resolved. LFTs started to trend down. Patient completed 5 days of IV antibiotics. He was discharged with instructions to repeat blood work in 1 week and to follow up with GI, oncology and PCP. Minutes to complete discharge: 40 Discharge Summary Reason For Visit: ACQUIRED DILATION OF COMMON BILE DUCT, ELEVATED LI Current Active Problems Diastolic CHF (Acute) Dilated cbd, acquired (Acute) H/O heart artery stent (Acute) LFTs abnormal (Acute) Sepsis (Acute) Condition: Improved - Instructions Diet, Activity, Other Instructions: Your visit You were admitted to the hospital because you were noted to have a fever. You were given IV antibiotics. Your liver function were also noted to be elevated. MRI of your belly was done. It is important that you follow up with the compound finisher for further work- up and management. Medications Please take note of the following changes to your medications: 1. STOP taking Lipitor until you repeat the labs. 2. Vit D 2000units once a day Continue your other home medications. Care Eat a healthy diet and drink plenty of water. You will be given a prescription for a repeat bloodwork (CBC, CMP) in 1 week. Please follow up with Dr. Cee with the results. Follow-up Please follow-up with your primary care physician in 1 week. Please follow-up with the oncologist (Dr. Emmanuel) within 1 week. Please follow-up with the compound finisher (Dr. Cee) within 1 week. Additional info -Call 911 or go to the ED if with any worsening fever, chills, headache, nausea , vomiting, chest pain, shortness of breath, belly pain, bloody urine or stools or any new concerns noted. Referrals: Karlos Cee MD [Staff Physician] - 1 Week Lien Ta MD [Staff Physician] - 1 Week Disposition: HOME - Home Medications Comprehensive Discharge Medication List: Ambulatory Orders Methadone HCl 20 mg PO DAILY 02/11/14 Pantoprazole Sodium [Protonix -] 40 mg PO DAILY 07/05/16 Nystatin Oral Suspension - [Nystatin Oral Susp 422539 Units/5 ML -] 5 ml PO QID #1 bottle 09/25/17 Alprazolam [Xanax] 0.25 mg PO BID PRN 05/15/18 Apixaban [Eliquis -] 5 mg PO BID 05/15/18 Dextran 70/Hypromellose [Natural Balance Tears Eye Drop] 15 ml OU TID #1 bottle 05/15/18 Multivitamin [Multiple Vitamins] 1 each PO DAILY #30 tablet 05/15/18 Gabapentin 300 mg PO Q8H #90 capsule 07/12/18 Oxycodone HCl/Acetaminophen [Percocet 10-325 mg Tablet] 1 each PO TID #70 tablet MDD 3 07/12/18 Clopidogrel Bisulfate [Plavix] 75 mg PO DAILY 07/26/18 Metoprolol Succinate [Toprol Xl] 25 mg PO DAILY 07/26/18 Aspirin [ASA -] 81 mg PO DAILY tab.chew 07/31/18 Cholecalciferol (Vitamin D3) [Vitamin D3 -] 2,000 unit PO DAILY #30 tab Miscellaneous Medical Supply [Outpatient Order] 1 each ASDIR #1 misc Prednisone 10 mg PO DAILY #30 tablet 07/31/18 This patient is new to me today: No Emergency Visit: Yes ED Registration Date: 07/25/18 Care time: The patient presented to the Emergency Department on the above date and was hospitalized for further evaluation of their emergent condition. Critical Care patient: No - Discharge Referral Referred to [facility] No
== END 2018-07-31 18:59 | disposition home or self-care (01) ==
LOC: JER 12:17 → JERBED 16:40 → J7W 21:50
PROVIDERS: ADMIT Internal Medicine; ATTEND Internal Medicine
DX: K83.8 Other specified diseases of biliary tract (principal); R50.9 Fever, unspecified; I25.10 Atherosclerotic heart disease of native coronary artery without angina pectoris; R94.5 Abnormal results of liver function studies; T46.6X5A Adverse effect of antihyperlipidemic and antiarteriosclerotic drugs, initial encounter; C34.90 Malignant neoplasm of unspecified part of unspecified bronchus or lung; F11.20 Opioid dependence, uncomplicated; E88.09 Other disorders of plasma-protein metabolism, not elsewhere classified; E46 Unspecified protein-calorie malnutrition; K76.0 Fatty (change of) liver, not elsewhere classified; I11.0 Hypertensive heart disease with heart failure; I50.30 Unspecified diastolic (congestive) heart failure; R74.0 Nonspecific elevation of levels of transaminase and lactic acid dehydrogenase [LDH]; Z98.61 Coronary angioplasty status; D72.829 Elevated white blood cell count, unspecified
CPT/HCPCS: 36415; 71045-TC-FY; 71275-TC; 74177-TC; 74181-TC; 76705-TC; 78226-TC; 80053; 80076; 81003; 82248; 82530; 82550; 82803; 83605; 83615; 83690; 83735; 84100; 84439; 84443; 84484; 85025; 85610; 85730; 86593; 86682; 86704; 86705; 86706; 86707; 86708; 86780; 87040; 87086; 87340; 87350; 87497; 87522; 87799; 93005; 93010; 97116-GP; 97161-GP; 99283-25; A9537; J0131

== ENCOUNTER → 2018-07-25 | Day surgery (SDC) | payer OTHER | LOC: JONCCHEMO 07:17 ==

== ENCOUNTER → 2018-08-29 | Day surgery (SDC) | payer OTHER ==
[~2018-08-29] MED LIST changes: -DEXAMETHASONE SODIUM PHOSPHATE 10 MG, DIPHENHYDRAMINE 25 MG in SODIUM CHLORIDE 100 ML IVPB ONE; +DEXAMETHASONE SODIUM PHOSPHATE 8 MG, DIPHENHYDRAMINE 25 MG in SODIUM CHLORIDE 100 ML IVPB ONE
[2018-08-29 10:46] LABS: BASO % 0.9 % (0-2.0); EOS % 2.5 % (0-4.5); HEMATOCRIT 44.2 % (35.4-49); HEMOGLOBIN 14.3 GM/dL (11.7-16.9); LYMPH % 28.1 % (8-40); MCH 28.2 pg (25.7-33.7); MCHC 32.4 g/dl (32.0-35.9); MEAN CELL VOLUME 86.8 fl (80-96); MEAN PLT VOLUME 8.1 fl (7.5-11.1); MONO % 7.6 % (3.8-10.2); NEUT % 60.9 % (42.8-82.8); PLATELET COUNT 205 K/MM3 (134-434); RBC 5.09 M/mm3 (4.00-5.60); RDW 16.2 % (11.9-15.9); WHITE BLOOD COUNT 10.7 K/mm3 (4.0-10.0)
[2018-08-29 11:24] LABS: ALBUMIN 3.5 g/dl (3.4-5.0); BILIRUBIN,TOTAL 0.4 mg/dL (0.2-1); CALCIUM 8.7 mg/dL (8.5-10.1); CREATININE 0.9 mg/dL (0.55-1.3); MAGNESIUM 2.2 mg/dL (1.8-2.4); POTASSIUM 3.9 mmol/L (3.5-5.1); TOT PROT 6.5 g/dl (6.4-8.2)
== END | disposition home or self-care (01) ==
LOC: JONCCHEMO 07:18
PROVIDERS: ATTEND Internal Medicine Hematology & Oncology
DX: Z53.8 Procedure and treatment not carried out for other reasons (principal)
CPT/HCPCS: 36415; 80053; 83735; 85025

== ENCOUNTER 2018-09-05 07:27 | Day surgery (SDC) | payer OTHER ==
[2018-09-05] MEDS ORDERED: SODIUM CHLORIDE 250 ML IV ONE ×2 (09:00→11:00)
[2018-09-05] MEDS ORDERED: DEXAMETHASONE SODIUM PHOSPHATE 8 MG, DIPHENHYDRAMINE 25 MG in SODIUM CHLORIDE 100 ML IVPB ONE (10:00)
[2018-09-05 10:06] LABS: BASO % 0.6 % (0-2.0); EOS % 2.1 % (0-4.5); HEMATOCRIT 42.4 % (35.4-49); HEMOGLOBIN 13.9 GM/dL (11.7-16.9); LYMPH % 29.9 % (8-40); MCH 28.5 pg (25.7-33.7); MCHC 32.7 g/dl (32.0-35.9); MEAN PLT VOLUME 8.3 fl (7.5-11.1); MONO % 7.7 % (3.8-10.2); NEUT % 59.7 % (42.8-82.8); PLATELET COUNT 240 K/MM3 (134-434); RBC 4.88 M/mm3 (4.00-5.60); RDW 16.6 % (11.9-15.9)
[2018-09-05] MEDS ORDERED: PEMBROLIZUMAB 200 MG in SODIUM CHLORIDE 50 ML IV ONE (10:30)
[2018-09-05 10:49] LABS: ALBUMIN 3.4 g/dl (3.4-5.0); BILIRUBIN,TOTAL 0.4 mg/dL (0.2-1); CALCIUM 8.5 mg/dL (8.5-10.1); POTASSIUM 3.5 mmol/L (3.5-5.1); TOT PROT 6.2 g/dl (6.4-8.2)
[2018-09-05 18:08] VITALS: BP 128/76; PULSE 71; TEMP 97.8
[2018-09-05] MEDS ORDERED: PORTA CATH FLUSH 10 ML IVPUSH ONE (18:08)
== END 2018-09-05 14:10 | disposition home or self-care (01) ==
LOC: JONCCHEMO 07:27 → J7W 10:29 → JONCCHEMO 14:10
PROVIDERS: ATTEND Internal Medicine Hematology & Oncology
DX: Z51.11 Encounter for antineoplastic chemotherapy (principal); C34.31 Malignant neoplasm of lower lobe, right bronchus or lung
CPT/HCPCS: 36415; 80053; 83735; 84439; 84443; 85025; 96361; 96367; 96375; 96413; J9271

== ENCOUNTER 2018-09-26 05:45 | Day surgery (SDC) | payer OTHER | END 2018-09-26 15:00 | disposition home or self-care (01) | LOC: JONCCHEMO 05:45 → J7W 10:53 → JONCCHEMO 15:00 ==

== ENCOUNTER 2018-10-17 07:15 | Day surgery (SDC) | payer OTHER ==
[2018-10-17] MEDS ORDERED: SODIUM CHLORIDE 250 ML IV ONE ×2 (09:00→10:30)
[2018-10-17] MEDS ORDERED: DEXAMETHASONE SODIUM PHOSPHATE 8 MG, DIPHENHYDRAMINE 25 MG in SODIUM CHLORIDE 100 ML IVPB ONE (09:30)
[2018-10-17 09:31] LABS: BASO % 1.1 % (0-2.0); EOS % 2.9 % (0-4.5); HEMATOCRIT 45.2 % (35.4-49); HEMOGLOBIN 14.9 GM/dL (11.7-16.9); MCH 28.6 pg (25.7-33.7); MEAN CELL VOLUME 86.8 fl (80-96); MEAN PLT VOLUME 8.1 fl (7.5-11.1); MONO % 8.2 % (3.8-10.2); NEUT % 58.8 % (42.8-82.8); PLATELET COUNT 232 K/MM3 (134-434); RBC 5.21 M/mm3 (4.00-5.60); RDW 15.1 % (11.9-15.9); WHITE BLOOD COUNT 8.3 K/mm3 (4.0-10.0)
[2018-10-17] MEDS ORDERED: PEMBROLIZUMAB 200 MG in SODIUM CHLORIDE 50 ML IV ONE (10:00)
[2018-10-17 10:10] LABS: ALBUMIN 3.6 g/dl (3.4-5.0); BILIRUBIN,DIRECT 0.1 mg/dL (0.0-0.2); BILIRUBIN,TOTAL 0.3 mg/dL (0.2-1); BLOOD UREA NITROGEN 12.5 mg/dL (7-18); CALCIUM 8.7 mg/dL (8.5-10.1); MAGNESIUM 2.1 mg/dL (1.8-2.4); POTASSIUM 3.5 mmol/L (3.5-5.1); TOT PROT 6.7 g/dl (6.4-8.2)
[2018-10-17 17:47] VITALS: TEMP 20
[2018-10-17] MEDS ORDERED: PORTA CATH FLUSH 10 ML IVPUSH ONE ×2 (17:49→17:55)
[2018-10-17 17:55] VITALS: BP 128/83; PULSE 98
== END 2018-10-17 14:40 | disposition home or self-care (01) ==
LOC: JONCCHEMO 07:15 → J7W 10:47 → JONCCHEMO 14:40
PROVIDERS: ATTEND Internal Medicine Hematology & Oncology
DX: Z51.11 Encounter for antineoplastic chemotherapy (principal); C34.31 Malignant neoplasm of lower lobe, right bronchus or lung
CPT/HCPCS: 36415; 80048; 80076; 82150; 83690; 83735; 84443; 85025; 96361; 96367; 96375; 96413; J9271

== ENCOUNTER 2018-11-07 07:17 | Day surgery (SDC) | payer OTHER ==
[2018-11-07] MEDS ORDERED: SODIUM CHLORIDE 250 ML IV ONE ×2 (09:00→11:00)
[2018-11-07] MEDS ORDERED: DEXAMETHASONE SODIUM PHOSPHATE 8 MG, DIPHENHYDRAMINE 25 MG in SODIUM CHLORIDE 100 ML IVPB ONE (10:00)
[2018-11-07 10:08] LABS: ALBUMIN 3.4 g/dl (3.4-5.0); BILIRUBIN,DIRECT 0.1 mg/dL (0.0-0.2); BILIRUBIN,TOTAL 0.4 mg/dL (0.2-1); BLOOD UREA NITROGEN 14.5 mg/dL (7-18); CALCIUM 8.4 mg/dL (8.5-10.1); MAGNESIUM 2.3 mg/dL (1.8-2.4); POTASSIUM 3.5 mmol/L (3.5-5.1); TOT PROT 6.4 g/dl (6.4-8.2)
[2018-11-07 10:15] LABS: BASO % 0.8 % (0-2.0); HEMATOCRIT 43.3 % (35.4-49); HEMOGLOBIN 14.2 GM/dL (11.7-16.9); LYMPH % 28.3 % (8-40); MCH 28.5 pg (25.7-33.7); MCHC 32.8 g/dl (32.0-35.9); MEAN PLT VOLUME 8.4 fl (7.5-11.1); MONO % 6.7 % (3.8-10.2); NEUT % 63.2 % (42.8-82.8); PLATELET COUNT 229 K/MM3 (134-434); RBC 4.98 M/mm3 (4.00-5.60); RDW 15.1 % (11.9-15.9); WHITE BLOOD COUNT 11.6 K/mm3 (4.0-10.0)
[2018-11-07] MEDS ORDERED: PEMBROLIZUMAB 200 MG in SODIUM CHLORIDE 50 ML IV ONE (10:30)
[2018-11-07 16:13] VITALS: TEMP 97.9
[2018-11-07 16:14] VITALS: BP 136/77; PULSE 71
== END 2018-11-07 14:30 | disposition home or self-care (01) ==
LOC: JONCCHEMO 07:17 → J7W 10:31 → JONCCHEMO 14:30
PROVIDERS: ATTEND Internal Medicine Hematology & Oncology
DX: Z51.11 Encounter for antineoplastic chemotherapy (principal); C34.31 Malignant neoplasm of lower lobe, right bronchus or lung
CPT/HCPCS: 36415; 80048; 80076; 83735; 85025; 87522; 96361; 96367; 96375; 96413; J9271

== ENCOUNTER 2018-11-28 07:10 | Day surgery (SDC) | payer OTHER ==
[2018-11-28] MEDS ORDERED: SODIUM CHLORIDE 250 ML IV ONE ×2 (09:00→10:30)
[2018-11-28] MEDS ORDERED: DEXAMETHASONE SODIUM PHOSPHATE 8 MG, DIPHENHYDRAMINE 25 MG in SODIUM CHLORIDE 100 ML IVPB ONE (09:30)
[2018-11-28 09:59] LABS: EOS % 2.2 % (0-4.5); HEMATOCRIT 42.6 % (35.4-49); LYMPH % 27.5 % (8-40); MCH 28.9 pg (25.7-33.7); MEAN CELL VOLUME 87.5 fl (80-96); MEAN PLT VOLUME 8.1 fl (7.5-11.1); MONO % 7.7 % (3.8-10.2); NEUT % 61.6 % (42.8-82.8); PLATELET COUNT 228 K/MM3 (134-434); RBC 4.86 M/mm3 (4.00-5.60); RDW 15.1 % (11.9-15.9); WHITE BLOOD COUNT 9.7 K/mm3 (4.0-10.0)
[2018-11-28] MEDS ORDERED: PEMBROLIZUMAB 200 MG in SODIUM CHLORIDE 50 ML IV ONE (10:00)
[2018-11-28 10:30] LABS: ALBUMIN 3.3 g/dl (3.4-5.0); BILIRUBIN,DIRECT 0.1 mg/dL (0.0-0.2); BILIRUBIN,TOTAL 0.4 mg/dL (0.2-1); BLOOD UREA NITROGEN 17.4 mg/dL (7-18); CALCIUM 8.6 mg/dL (8.5-10.1); MAGNESIUM 2.2 mg/dL (1.8-2.4); POTASSIUM 3.7 mmol/L (3.5-5.1); TOT PROT 6.3 g/dl (6.4-8.2)
[2018-11-28 15:07] VITALS: TEMP 98.3
[2018-11-28] MEDS ORDERED: PORTA CATH FLUSH 10 ML IVPUSH ONE (15:07)
[2018-11-28 15:08] VITALS: BP 149/85; PULSE 74
== END 2018-11-28 13:50 | disposition home or self-care (01) ==
LOC: JONCCHEMO 07:10 → J7W 10:21 → JONCCHEMO 13:50
PROVIDERS: ATTEND Internal Medicine Hematology & Oncology
DX: Z51.11 Encounter for antineoplastic chemotherapy (principal); C34.31 Malignant neoplasm of lower lobe, right bronchus or lung
CPT/HCPCS: 36415; 80048; 80076; 82150; 83690; 83735; 85025; 96361; 96367; 96375; 96413; J9271

== ENCOUNTER 2018-12-19 08:35 | Day surgery (SDC) | payer OTHER ==
[2018-12-19] MEDS ORDERED: SODIUM CHLORIDE 250 ML IV ONE ×2 (09:00→11:00)
[2018-12-19] MEDS ORDERED: DEXAMETHASONE SODIUM PHOSPHATE 8 MG, DIPHENHYDRAMINE 25 MG in SODIUM CHLORIDE 100 ML IVPB ONE (10:00)
[2018-12-19] MEDS ORDERED: PEMBROLIZUMAB 200 MG in SODIUM CHLORIDE 50 ML IV ONE (10:30)
[2018-12-19 11:30] LABS: BASO % 0.6 % (0-2.0); EOS % 1.7 % (0-4.5); HEMATOCRIT 42.7 % (35.4-49); LYMPH % 21.9 % (8-40); MCH 29.1 pg (25.7-33.7); MCHC 32.8 g/dl (32.0-35.9); MEAN CELL VOLUME 88.7 fl (80-96); MEAN PLT VOLUME 8.3 fl (7.5-11.1); MONO % 6.4 % (3.8-10.2); NEUT % 69.4 % (42.8-82.8); PLATELET COUNT 231 K/MM3 (134-434); RBC 4.81 M/mm3 (4.00-5.60); RDW 15.4 % (11.9-15.9); WHITE BLOOD COUNT 12.5 K/mm3 (4.0-10.0)
[2018-12-19 11:58] LABS: ALBUMIN 3.5 g/dl (3.4-5.0); BILIRUBIN,DIRECT 0.1 mg/dL (0.0-0.2); BILIRUBIN,TOTAL 0.4 mg/dL (0.2-1); BLOOD UREA NITROGEN 15.6 mg/dL (7-18); CALCIUM 9.1 mg/dL (8.5-10.1); MAGNESIUM 2.2 mg/dL (1.8-2.4); POTASSIUM 3.2 mmol/L (3.5-5.1); TOT PROT 6.4 g/dl (6.4-8.2)
[2018-12-19] MEDS ORDERED: POTASSIUM CHLORIDE TABS 20 MEQ TABLET.ER (FP) PO ONE (14:52)
[2018-12-19 16:23] VITALS: BP 160/95; PULSE 77; TEMP 98.2
[2018-12-19] MEDS ORDERED: PORTA CATH FLUSH 10 ML IVPUSH ONE (16:24)
== END 2018-12-19 15:30 | disposition home or self-care (01) ==
LOC: JONCCHEMO 08:35 → J7W 10:25 → JONCCHEMO 15:30
PROVIDERS: ATTEND Internal Medicine Hematology & Oncology
PROC: 3E04305 Introduction of Other Antineoplastic into Central Vein, Percutaneous Approach (ICD-10-PCS; principal; 2018-12-19)
PROC: 3E043GC Introduction of Other Therapeutic Substance into Central Vein, Percutaneous Approach (ICD-10-PCS; 2018-12-19)
PROC: 3E0437Z Introduction of Electrolytic and Water Balance Substance into Central Vein, Percutaneous Approach (ICD-10-PCS; 2018-12-19)
DX: Z51.11 Encounter for antineoplastic chemotherapy (principal); C34.31 Malignant neoplasm of lower lobe, right bronchus or lung
CPT/HCPCS: 36415; 80048; 80076; 83735; 85025; 96361; 96367; 96375; 96413; J9271

== ENCOUNTER 2019-01-09 05:31 | Day surgery (SDC) | payer OTHER ==
[2019-01-09] MEDS ORDERED: SODIUM CHLORIDE 250 ML IV ONE ×2 (08:30→09:30)
[2019-01-09] MEDS ORDERED: DEXAMETHASONE INJECTION 8 MG, DIPHENHYDRAMINE 25 MG in SODIUM CHLORIDE 100 ML IVPB ONE (09:00)
[2019-01-09] MEDS ORDERED: PEMBROLIZUMAB 200 MG in SODIUM CHLORIDE 50 ML IV ONE (09:00)
[2019-01-09 09:58] LABS: BASO % 0.8 % (0-2.0); EOS % 2.4 % (0-4.5); HEMATOCRIT 43.2 % (35.4-49); HEMOGLOBIN 14.1 GM/dL (11.7-16.9); LYMPH % 27.5 % (8-40); MCH 29.2 pg (25.7-33.7); MCHC 32.7 g/dl (32.0-35.9); MEAN CELL VOLUME 89.2 fl (80-96); MEAN PLT VOLUME 8.4 fl (7.5-11.1); MONO % 5.9 % (3.8-10.2); NEUT % 63.4 % (42.8-82.8); PLATELET COUNT 230 K/MM3 (134-434); RBC 4.84 M/mm3 (4.00-5.60); RDW 14.9 % (11.9-15.9); WHITE BLOOD COUNT 10.4 K/mm3 (4.0-10.0)
[2019-01-09 10:37] LABS: ALBUMIN 3.4 g/dl (3.4-5.0); BILIRUBIN,DIRECT 0.1 mg/dL (0.0-0.2); BILIRUBIN,TOTAL 0.4 mg/dL (0.2-1); BLOOD UREA NITROGEN 17.1 mg/dL (7-18); CALCIUM 8.9 mg/dL (8.5-10.1); CREATININE 1.1 mg/dL (0.55-1.3); MAGNESIUM 2.1 mg/dL (1.8-2.4); POTASSIUM 3.5 mmol/L (3.5-5.1); TOT PROT 6.3 g/dl (6.4-8.2)
[2019-01-09 14:27] VITALS: TEMP 97.8
[2019-01-09 14:28] VITALS: BP 155/89; PULSE 70
== END 2019-01-09 14:29 | disposition home or self-care (01) ==
LOC: JONCCHEMO 05:31 → J7W 11:02 → JONCCHEMO 14:29
PROVIDERS: ATTEND Internal Medicine Hematology & Oncology
DX: Z51.11 Encounter for antineoplastic chemotherapy (principal); C34.31 Malignant neoplasm of lower lobe, right bronchus or lung
CPT/HCPCS: 36415; 80048; 80076; 83735; 84443; 85025; 96361; 96367; 96375; 96413; J1100; J9271

== ENCOUNTER 2019-01-30 07:11 | Day surgery (SDC) | payer OTHER ==
[2019-01-30] MEDS ORDERED: SODIUM CHLORIDE 250 ML IV ONE ×2 (09:00→10:30)
[2019-01-30] MEDS ORDERED: DEXAMETHASONE SODIUM PHOSPHATE 8 MG, DIPHENHYDRAMINE 25 MG in SODIUM CHLORIDE 100 ML IVPB ONE (09:30)
[2019-01-30] MEDS ORDERED: PEMBROLIZUMAB 200 MG in SODIUM CHLORIDE 50 ML IV ONE (10:00)
[2019-01-30 10:04] LABS: BASO % 1.2 % (0-2.0); EOS % 2.3 % (0-4.5); HEMATOCRIT 44.8 % (35.4-49); HEMOGLOBIN 14.8 GM/dL (11.7-16.9); LYMPH % 24.7 % (8-40); MCH 29.5 pg (25.7-33.7); MCHC 33.2 g/dl (32.0-35.9); MEAN CELL VOLUME 88.9 fl (80-96); MEAN PLT VOLUME 8.2 fl (7.5-11.1); MONO % 8.1 % (3.8-10.2); NEUT % 63.7 % (42.8-82.8); PLATELET COUNT 232 K/MM3 (134-434); RBC 5.03 M/mm3 (4.00-5.60); RDW 14.6 % (11.9-15.9); WHITE BLOOD COUNT 10.3 K/mm3 (4.0-10.0)
[2019-01-30 10:36] LABS: ALBUMIN 3.5 g/dl (3.4-5.0); BILIRUBIN,TOTAL 0.5 mg/dL (0.2-1); BLOOD UREA NITROGEN 14.5 mg/dL (7-18); CALCIUM 8.8 mg/dL (8.5-10.1); CREATININE 1.1 mg/dL (0.55-1.3); MAGNESIUM 2.1 mg/dL (1.8-2.4); POTASSIUM 3.6 mmol/L (3.5-5.1); TOT PROT 6.4 g/dl (6.4-8.2)
[2019-01-30 15:51] VITALS: BP 154/86; PULSE 74; TEMP 97.6
== END 2019-01-30 12:20 | disposition home or self-care (01) ==
LOC: JONCCHEMO 07:11 → J7W 10:35 → JONCCHEMO 12:20
PROVIDERS: ATTEND Internal Medicine Hematology & Oncology
PROC: 3E033GC Introduction of Other Therapeutic Substance into Peripheral Vein, Percutaneous Approach (ICD-10-PCS; principal; 2019-01-30)
DX: Z51.11 Encounter for antineoplastic chemotherapy (principal); C34.31 Malignant neoplasm of lower lobe, right bronchus or lung; Z53.8 Procedure and treatment not carried out for other reasons
CPT/HCPCS: 36415; 80053; 83735; 85025; 87517; 96361; 96365

== ENCOUNTER 2020-05-29 13:00 | Emergency (ER) | payer OTHER ==
[2020-05-29 13:10] VITALS: BMI 29.7
[2020-05-29] MEDS ORDERED: BAMLANIVIMAB 700 MG in SODIUM CHLORIDE 250 ML IVPB ONE (14:06)
[2020-05-29 15:11] LABS: HEMATOCRIT 44.9 % (35.4-49); HEMOGLOBIN 14.8 GM/dL (11.7-16.9); MCH 29.1 pg (25.7-33.7); MCHC 32.9 g/dl (32.0-35.9); MEAN CELL VOLUME 88.4 fl (80-96); MEAN PLT VOLUME 8.7 fl (7.5-11.1); PLATELET COUNT 216 K/MM3 (134-434); RBC 5.08 M/mm3 (4.00-5.60); RDW 14.6 % (11.9-15.9); WHITE BLOOD COUNT 5.6 K/mm3 (4.0-10.0)
[2020-05-29 15:35] LABS: POTASSIUM 3.9 mmol/L (3.5-5.1)
[2020-05-29 15:36] LABS: CALCIUM 8.3 mg/dL (8.5-10.1)
[2020-05-29 15:37] LABS: BLOOD UREA NITROGEN 26.4 mg/dL (7-18)
[2020-05-29 15:40] LABS: CREATININE 1.4 mg/dL (0.55-1.3)
[2020-05-29 16:30] VITALS: PULSE 65
[2020-05-29 17:48] VITALS: BP 139/74; TEMP 98.7
== END 2020-05-29 18:15 | disposition home or self-care (01) ==
LOC: JER 13:00 → JCOVINFU 13:00
PROC: 3E033GC Introduction of Other Therapeutic Substance into Peripheral Vein, Percutaneous Approach (ICD-10-PCS; principal; 2020-05-29)
DX: U07.1 COVID-19 (principal)
CPT/HCPCS: 36415; 71046-TC-FY; 80048; 85027; 99284-25; M0239; Q0239

== ENCOUNTER 2021-09-24 04:12 | Day surgery (SDC) | payer OTHER ==
[2021-09-22 15:13] VITALS: BMI 29.7
[2021-09-24] MEDS ORDERED: BUPIVACAINE HCL/PF 0.75% 10 ML VIAL ONE (07:23)
[2021-09-24] MEDS ORDERED: LIDOCAINE HCL/PF 1% SDV 5ML VIAL ONE ×2 (07:23→07:24)
[2021-09-24] MEDS ORDERED: BUPIVACAINE HCL/PF 0.75% 10 ML VIAL NR ONE (09:46)
[2021-09-24 10:23] VITALS: BP 130/74; PULSE 55; TEMP 97.7
== END 2021-09-24 10:20 | disposition home or self-care (01) ==
LOC: JASU-SURG 04:12
PROVIDERS: ATTEND Pain Medicine Pain Medicine
PROC: 3E0T33Z Introduction of Anti-inflammatory into Peripheral Nerves and Plexi, Percutaneous Approach (ICD-10-PCS; 2021-09-24)
PROC: 3E0T3BZ Introduction of Anesthetic Agent into Peripheral Nerves and Plexi, Percutaneous Approach (ICD-10-PCS; principal; 2021-09-24 09:00)
DX: M47.816 Spondylosis without myelopathy or radiculopathy, lumbar region (principal)
CPT/HCPCS: 76000-TC-FY

== ENCOUNTER 2021-10-19 04:07 | Day surgery (SDC) | payer OTHER ==
[2021-10-14 09:26] VITALS: BMI 31.3
[~2021-10-19 04:07] MED LIST changes: +BUPIVACAINE HCL/PF 0.75% 10 ML VIAL NR ONE; -DEXAMETHASONE SODIUM PHOSPHATE 8 MG, DIPHENHYDRAMINE 25 MG in SODIUM CHLORIDE 100 ML IVPB ONE; -PEMBROLIZUMAB 200 MG in SODIUM CHLORIDE 50 ML IV ONE; -SODIUM CHLORIDE 250 ML IV ONE
[2021-10-19] MEDS ORDERED: LIDOCAINE HCL/PF 1% SDV 5ML VIAL ONE (08:07)
[2021-10-19] MEDS ORDERED: DEXAMETHASONE SOD PHOSPHATE 10 MG/1 ML VIAL ONE (08:07)
[2021-10-19] MEDS ORDERED: BUPIVACAINE HCL/PF 0.75% 10 ML VIAL ONE (08:18)
[2021-10-19] MEDS ORDERED: LIDOCAINE HCL 1% PRESERVATIVE FREE - 30ML VIAL IJ ONE (11:52)
[2021-10-19] MEDS ORDERED: BUPIVACAINE HCL/PF 0.75% 10 ML VIAL NR ONE (11:56)
[2021-10-19 14:10] VITALS: BP 140/80; PULSE 18; TEMP 98
== END 2021-10-19 13:35 | disposition home or self-care (01) ==
LOC: JASU-SURG 04:07
PROVIDERS: ATTEND Pain Medicine Pain Medicine
PROC: 3E0T33Z Introduction of Anti-inflammatory into Peripheral Nerves and Plexi, Percutaneous Approach (ICD-10-PCS; 2021-10-19)
PROC: 3E0T3BZ Introduction of Anesthetic Agent into Peripheral Nerves and Plexi, Percutaneous Approach (ICD-10-PCS; principal; 2021-10-19 11:30)
DX: M47.816 Spondylosis without myelopathy or radiculopathy, lumbar region (principal); E11.9 Type 2 diabetes mellitus without complications; I10 Essential (primary) hypertension
CPT/HCPCS: 76000-TC-FY; 94760; J1100

== ENCOUNTER 2021-12-03 04:06 | Day surgery (SDC) | payer OTHER ==
[2021-12-01 09:51] VITALS: BMI 31.3
[2021-12-03] MEDS ORDERED: LIDOCAINE HCL/PF 1% SDV 5ML VIAL ONE (07:20)
[2021-12-03] MEDS ORDERED: TRIAMCINOLONE ACET 40MG/1ML VIAL ONE ×2 (07:20→08:44)
[2021-12-03] MEDS ORDERED: BUPIVACAINE HCL/PF 0.5% (5MG/ML) 10 ML VIAL ONE (07:20)
[2021-12-03 07:21] VITALS: RESP 20
[2021-12-03] MEDS ORDERED: TRIAMCINOLONE ACETONIDE 40 MG/ML 10 ML VIAL IJ ONE ×2 (08:49→09:12)
[2021-12-03] MEDS ORDERED: LIDOCAINE 1% P/F 10 MG/ML VIAL INF ONE ×2 (08:50→09:12)
[2021-12-03] MEDS ORDERED: BUPIVACAINE HCL/PF 0.5% (5MG/ML) 10 ML VIAL IJ ONE ×3 (08:52→09:12)
[2021-12-03] MEDS ORDERED: IOHEXOL 180 MG/1 ML ML IJ ONE (08:55)
[2021-12-03 09:59] VITALS: BP 178/87; PULSE 86; TEMP 97.9
== END 2021-12-03 09:42 | disposition home or self-care (01) ==
LOC: JASU-SURG 04:06
PROVIDERS: ATTEND Pain Medicine Pain Medicine
PROC: 3E0U3BZ Introduction of Anesthetic Agent into Joints, Percutaneous Approach (ICD-10-PCS; 2021-12-03)
PROC: 3E0U33Z Introduction of Anti-inflammatory into Joints, Percutaneous Approach (ICD-10-PCS; principal; 2021-12-03 08:45)
DX: M53.3 Sacrococcygeal disorders, not elsewhere classified (principal); I10 Essential (primary) hypertension; E11.9 Type 2 diabetes mellitus without complications; Z79.84 Long term (current) use of oral hypoglycemic drugs
CPT/HCPCS: 76000-TC-FY

== ENCOUNTER 2022-07-18 22:33 | Emergency (ER) | payer OTHER ==
[2022-07-18 22:39] VITALS: BMI 31.3
[2022-07-18 23:43] LABS: HEMATOCRIT 43.5 % (35.4-49); HEMOGLOBIN 14.5 GM/dL (11.7-16.9); LYMPH % 31.1 % (8-40); MCH 28.4 pg (25.7-33.7); MCHC 33.3 g/dl (32.0-35.9); MEAN CELL VOLUME 85.2 fl (80-96); MEAN PLT VOLUME 8.5 fl (7.5-11.1); MONO % 10.3 % (3.8-10.2); NEUT % 53.6 % (42.8-82.8); PLATELET COUNT 179 10^3/uL (134-434); RBC 5.11 M/mm3 (4.00-5.60); WHITE BLOOD COUNT 7.3 K/mm3 (4.0-10.0)
[2022-07-18] MEDS ORDERED: MAG HYDROX/AL HYDROX/SIMETH 30 ML UNIT-DOSE CUP PO ONE (23:43)
[2022-07-18] MEDS ORDERED: FAMOTIDINE 20 MG/50 ML IVPB 20 MG/50 ML MG IVPB ONE ×2 (23:43→23:49)
[2022-07-18] MEDS ORDERED: ACETAMINOPHEN 1000 MG/100 ML BAG IVPB ONE (23:43)
[2022-07-18] MEDS ORDERED: MAG HYDROX/AL HYDROX/SIMETH 30 ML UNIT-DOSE CUP ONE (23:49)
[2022-07-18] MEDS ORDERED: ACETAMINOPHEN INJECTION 100 ML IVPB ONE (23:49)
[2022-07-18] MEDS ORDERED: ASPIRIN 81 MG CHEWABLE TABLETS ONE (23:49)
[2022-07-18 23:50] LABS: INR 1.03 (0.83-1.09); PROTHROMBIN TIME (PATIENT) 11.9 SEC (9.7-13.0)
[2022-07-18 23:53] LABS: ACTIVATED PTT 23.3 SECONDS (25.2-36.5)
[2022-07-19] MEDS ORDERED: ASPIRIN 81 MG CHEWABLE TABLETS PO ONE (00:01)
[2022-07-19 00:10] LABS: BLOOD UREA NITROGEN 17.5 mg/dL (7-18); CALCIUM 8.6 mg/dL (8.5-10.1)
[2022-07-19 00:11] LABS: ALBUMIN 3.1 g/dl (3.4-5.0)
[2022-07-19 00:14] LABS: CREATININE 1.3 mg/dL (0.55-1.3)
[2022-07-19 00:15] LABS: BILIRUBIN,TOTAL 0.5 mg/dL (0.2-1)
[2022-07-19] MEDS ORDERED: morphine CARPU-JECT 4 MG/1 ML DISP.SYRIN IVPUSH ONE (03:00)
[2022-07-19] MEDS ORDERED: HEPARIN NA (PORCINE) 5,000 UNITS/ML 1ML VIAL IVPUSH ONE (03:57)
[2022-07-19] MEDS ORDERED: TICAGRELOR 90 MG TABLET PO ONE ×2 (03:58→04:02)
[2022-07-19] MEDS ORDERED: HEPARIN NA (PORCINE) 5,000 UNITS/ML 1ML VIAL IVPUSH PRN ×2 (03:59)
[2022-07-19] MEDS ORDERED: HEPARIN NA (PORCINE) 5,000 UNITS/ML 1ML VIAL ONE (03:59)
[2022-07-19] MEDS ORDERED: HEPARIN INFUSION - 25,000 UNITS/500 ML INFUS.BAG IVPB SCH (04:00)
[2022-07-19 04:19] VITALS: BP 128/66; PULSE 72
[2022-07-19 04:22] VITALS: RESP 20; TEMP 98.7
[2022-07-19] MEDS ORDERED: ASPIRIN 81 MG CHEWABLE TABLETS PO SCH (10:00)
== END 2022-07-19 04:31 | disposition short-term general hospital (02) ==
LOC: JER 22:33
PROC: 3E033GC Introduction of Other Therapeutic Substance into Peripheral Vein, Percutaneous Approach (ICD-10-PCS; principal; 2022-07-18)
PROC: 3E033NZ Introduction of Analgesics, Hypnotics, Sedatives into Peripheral Vein, Percutaneous Approach (ICD-10-PCS; 2022-07-18)
PROC: 3E033GC Introduction of Other Therapeutic Substance into Peripheral Vein, Percutaneous Approach (ICD-10-PCS; 2022-07-18)
PROC: 3E033NZ Introduction of Analgesics, Hypnotics, Sedatives into Peripheral Vein, Percutaneous Approach (ICD-10-PCS; 2022-07-18)
DX: I21.19 ST elevation (STEMI) myocardial infarction involving other coronary artery of inferior wall (principal); Z20.822 Contact with and (suspected) exposure to COVID-19
CPT/HCPCS: 0241U-QW; 36415; 71045-TC-FY; 71275-TC; 80053; 83880; 84484; 85025; 85610; 85730; 93005; 93010; 96365; 96375; 99285-25; J1644

== ENCOUNTER 2023-11-30 11:18 | Inpatient (IN) | payer OTHER ==
[2023-11-30] MEDS ORDERED: ACETAMINOPHEN INJECTION 100 ML IVPB ONE ×2 (11:46→17:40)
[2023-11-30] MEDS: ACETAMINOPHEN 1000 MG/100 ML BAG IVPB ONE ×2 (11:59→18:43)
[2023-11-30] MEDS: SODIUM CHLORIDE 1,000 ML IV STA ×2 (11:59→19:14)
[2023-11-30 12:03] LABS: BASO % 0.6 % (0-2.0); EOS % 1.9 % (0-4.5); HEMATOCRIT 41.8 % (35.4-49); LYMPH % 7.4 % (8-40); MCHC 33.4 g/dl (32.0-35.9); MEAN CELL VOLUME 86.8 fl (80-96); MEAN PLT VOLUME 8.9 fl (7.5-11.1); MONO % 4.9 % (3.8-10.2); NEUT % 85.2 % (42.8-82.8); PLATELET COUNT 158 10^3/uL (134-434); RBC 4.82 M/mm3 (4.00-5.60)
[2023-11-30 12:11] LABS: VENOUS BASE EXCESS -1.8 mmol/L (-2-2); VENOUS O2 SATURATION 36.7 % (70-80); VENOUS PH 7.288 (7.310-7.410)
[2023-11-30 12:28] LABS: CHLORIDE 102 mmol/L (98-107); SODIUM 139 mmol/L (136-145)
[2023-11-30 12:30] LABS: CALCIUM 9.1 mg/dL (8.5-10.1)
[2023-11-30 12:31] LABS: ALBUMIN 3.2 g/dl (3.4-5.0); ANION GAP 7 mmol/L (4-13); BLOOD UREA NITROGEN 17.5 mg/dL (7-18); CO2 30 mmol/L (21-32); GLUCOSE,RANDOM 136 mg/dL (74-106)
[2023-11-30 12:34] LABS: SGOT/AST 160 U/L (15-37); SGPT/ALT 112 U/L (13-61)
[2023-11-30 12:36] LABS: BILIRUBIN,TOTAL 1.8 mg/dL (0.2-1); TOT PROT 7.8 g/dl (6.4-8.2)
[2023-11-30 12:37] LABS: ALK PHOS 286 U/L (45-117)
[2023-11-30 12:42] LABS: LACTIC ACID 3.3 mmol/L (0.4-2.0)
[2023-11-30 12:47] VITALS: BMI 21.9
[2023-11-30 12:49] LABS: URINE APPEARANCE Turbid; URINE BILIRUBIN 1+ (NEGATIVE); URINE COLOR Yellow; URINE GLUCOSE (UA) Trace (NEGATIVE); URINE KETONE Negative (NEGATIVE); URINE LEUK ESTERASE Negative (NEGATIVE); URINE NITRITE Negative (NEGATIVE); URINE PROTEIN 2+ (NEGATIVE)
[2023-11-30 13:13] LABS: URINE RBC 2 /hpf (0-4)
[2023-11-30 13:14] LABS: EPI CELLS RARE /HPF; URINE WBC 2 (NEGATIVE)
[2023-11-30 15:31] LABS: INR 1.11 (0.83-1.09); PROTHROMBIN TIME (PATIENT) 12.7 SEC (9.7-13.0)
[2023-11-30] MEDS: SODIUM CHLORIDE 0.9% 500 ML INFUS.BAG IV ONE (15:35)
[2023-11-30] MEDS ORDERED: PIPERACILLIN/TAZOB 3.375 GM 3.375 GM/50 ML BAG IVPB ONE ×2 (16:01→16:39)
[2023-11-30] MEDS ORDERED: PIPERACILLIN/TAZOB 4.5 GM 4.5 GM/100 ML BAG IVPB ONE (16:48)
[2023-11-30] MEDS: PIPERACILLIN/TAZOB 4.5 GM 4.5 GM in DEXTROSE 5%-WATER 100 ML IVPB ONE (16:53)
[2023-11-30 17:26] LABS: LACTIC ACID 2.9 mmol/L (0.4-2.0)
[2023-11-30] MEDS: VANCOMYCIN 1,000 MG in DEXTROSE 5%-WATER - 250 ML IVPB ONE (17:30)
[2023-11-30] MEDS ORDERED: VANCOMYCIN 1 GRAM (PRE-DOCKED) 1,000 MG/250 ML BAG IVPB ONE (17:40)
[2023-11-30] MEDS ORDERED: PATIENT'S OWN MEDICATION (NON-FORMULARY) (Oxycodone Hcl/Acetaminophen [Oxycodone-Acetamino PO PRN (18:55)
[2023-11-30] MEDS ORDERED: MEROPENEM 1 GM in DEXTROSE 5%-WATER 100 ML IVPB SCH (20:00)
[2023-11-30 20:19] LABS: COCAINE, UR NEGATIVE (NEGATIVE); OPIATES, URI NEGATIVE (NEGATIVE); URINE BARBITURATES NEGATIVE (NEGATIVE); URINE BENZODIAZEPINES NEGATIVE (NEGATIVE)
[2023-11-30 20:20] LABS: PHENCYCLIDINE,URINE NEGATIVE (NEGATIVE)
[2023-11-30 20:21] LABS: METHADONE, UR POSITIVE (NEGATIVE); URINE AMPHETAMINES NEGATIVE (NEGATIVE)
[2023-11-30] MEDS: oxyCODONE HCL 5 MG TABLET PO PRN (20:54)
[2023-11-30] MEDS: MEROPENEM 1 GM in DEXTROSE 5%-WATER 100 ML IVPB SCH (20:54)
[2023-11-30] MEDS: APIXABAN 5 MG TABLET PO SCH (21:58)
[2023-11-30] MEDS: INSULIN ASPART SLIDING SCALE (NOVOLOG) 1 VIAL SQ SCH (22:00)
[2023-12-01] MEDS: MELATONIN 5 MG TABLETS PO ONE (01:44)
[2023-12-01] MEDS: methaDONE HCL 40 MG DISPERSABLE TABLET PO SCH ×2 (09:00→13:49)
[2023-12-01 09:54] LABS: HEMATOCRIT 35.9 % (35.4-49); HEMOGLOBIN 11.7 GM/dL (11.7-16.9); MCH 28.8 pg (25.7-33.7); MCHC 32.7 g/dl (32.0-35.9); MEAN CELL VOLUME 88.1 fl (80-96); MEAN PLT VOLUME 8.9 fl (7.5-11.1); PLATELET COUNT 117 10^3/uL (134-434); RBC 4.08 M/mm3 (4.00-5.60); RDW 16.1 % (11.9-15.9); WHITE BLOOD COUNT 6.4 K/mm3 (4.0-10.0)
[2023-12-01] MEDS: metoPROLOL SUCCINATE 25 MG TAB.SR.24H (FP) PO SCH (10:06)
[2023-12-01] MEDS: PANTOPRAZOLE 40 MG TABLET PO SCH (10:06)
[2023-12-01 10:24] LABS: POTASSIUM 3.9 mmol/L (3.5-5.1)
[2023-12-01 10:26] LABS: CALCIUM 7.8 mg/dL (8.5-10.1)
[2023-12-01 10:27] LABS: BLOOD UREA NITROGEN 16.8 mg/dL (7-18); MAGNESIUM 1.8 mg/dL (1.8-2.4)
[2023-12-01 10:28] LABS: ALBUMIN 2.3 g/dl (3.4-5.0)
[2023-12-01 10:29] LABS: CREATININE 1.2 mg/dL (0.55-1.3); PHOSPHOROUS 2.1 mg/dL (2.5-4.9)
[2023-12-01 10:30] LABS: BILIRUBIN,DIRECT 3.8 mg/dL (0.0-0.2)
[2023-12-01 10:37] LABS: BILIRUBIN,TOTAL 4.9 mg/dL (0.2-1); TOT PROT 5.8 g/dl (6.4-8.2)
[2023-12-01] MEDS: DEXTROSE 5%-LACTATED RINGERS 1,000 ML IV SCH (13:52)
[2023-12-01] MEDS: CEFTRIAXONE 2 GM in DEXTROSE 5%-WATER 100 ML IVPB SCH (15:57)
[2023-12-02 09:11] LABS: HEMATOCRIT 35.3 % (35.4-49); HEMOGLOBIN 11.8 GM/dL (11.7-16.9); MCH 29.2 pg (25.7-33.7); MCHC 33.5 g/dl (32.0-35.9); MEAN CELL VOLUME 87.2 fl (80-96); MEAN PLT VOLUME 9.5 fl (7.5-11.1); PLATELET COUNT 126 10^3/uL (134-434); RBC 4.05 M/mm3 (4.00-5.60); RDW 16.4 % (11.9-15.9); WHITE BLOOD COUNT 7.1 K/mm3 (4.0-10.0)
[2023-12-02] MEDS: ASPIRIN COATED 81 MG TABLET.EC PO SCH (09:22)
[2023-12-02 09:28] LABS: POTASSIUM 3.9 mmol/L (3.5-5.1)
[2023-12-02 09:40] LABS: ALBUMIN 2.4 g/dl (3.4-5.0)
[2023-12-02 09:41] LABS: BLOOD UREA NITROGEN 13.3 mg/dL (7-18); CALCIUM 8.3 mg/dL (8.5-10.1); TOT PROT 6.2 g/dl (6.4-8.2)
[2023-12-02 09:42] LABS: BILIRUBIN,TOTAL 1.7 mg/dL (0.2-1); MAGNESIUM 1.9 mg/dL (1.8-2.4)
[2023-12-02 09:44] LABS: CREATININE 1.1 mg/dL (0.55-1.3); PHOSPHOROUS 2.5 mg/dL (2.5-4.9)
[2023-12-02] MEDS: ACETAMINOPHEN 325 MG TABLET (FP) PO PRN (18:08)
[2023-12-02] MEDS: ACETAMINOPHEN 500 MG TABLET (FP) PO ONE (23:01)
[2023-12-03 08:37] LABS: BASO % 0.6 % (0-2.0); EOS % 1.9 % (0-4.5); HEMATOCRIT 35.3 % (35.4-49); HEMOGLOBIN 11.6 GM/dL (11.7-16.9); LYMPH % 22.7 % (8-40); MCH 28.6 pg (25.7-33.7); MCHC 32.8 g/dl (32.0-35.9); MEAN CELL VOLUME 87.1 fl (80-96); MEAN PLT VOLUME 9.4 fl (7.5-11.1); MONO % 9.4 % (3.8-10.2); NEUT % 65.4 % (42.8-82.8); PLATELET COUNT 126 10^3/uL (134-434); RBC 4.06 M/mm3 (4.00-5.60); RDW 15.6 % (11.9-15.9); WHITE BLOOD COUNT 6.4 K/mm3 (4.0-10.0)
[2023-12-03 08:40] LABS: INR 1.26 (0.83-1.09); PROTHROMBIN TIME (PATIENT) 14.1 SEC (9.7-13.0)
[2023-12-03 08:42] LABS: POTASSIUM 3.3 mmol/L (3.5-5.1)
[2023-12-03 08:44] LABS: CALCIUM 8.1 mg/dL (8.5-10.1)
[2023-12-03 08:45] LABS: ALBUMIN 2.4 g/dl (3.4-5.0); BLOOD UREA NITROGEN 12.2 mg/dL (7-18)
[2023-12-03 08:48] LABS: CREATININE 1.1 mg/dL (0.55-1.3)
[2023-12-03 08:49] LABS: BILIRUBIN,TOTAL 1.6 mg/dL (0.2-1); TOT PROT 6.2 g/dl (6.4-8.2)
[2023-12-03] MEDS: POTASSIUM CHLORIDE ORAL LIQUID 20 MEQ/15 ML PO ONE (11:30)
[2023-12-03] MEDS: ENOXAPARIN NA (PORCINE) 40 MG/0.4 ML DISP.SYRIN SQ SCH (11:30)
[2023-12-03] MEDS: MEROPENEM 1 GM in DEXTROSE 5%-WATER 100 ML IVPB SCH (18:02)
[2023-12-03] MEDS: ACETAMINOPHEN 500 MG TABLET (FP) PO ONE (22:53)
[2023-12-04] MEDS: ALBUTEROL SO4 2.5/IPRATROPIUM 0.5 INH SOL 3 ML VIAL.NEB. NEB SCH (09:12)
[2023-12-04 09:45] LABS: HEMATOCRIT 42.1 % (35.4-49); HEMOGLOBIN 13.8 GM/dL (11.7-16.9); MCH 28.9 pg (25.7-33.7); MCHC 32.7 g/dl (32.0-35.9); MEAN CELL VOLUME 88.3 fl (80-96); MEAN PLT VOLUME 9.7 fl (7.5-11.1); PLATELET COUNT 173 10^3/uL (134-434); RBC 4.77 M/mm3 (4.00-5.60); RDW 15.9 % (11.9-15.9); WHITE BLOOD COUNT 9.3 K/mm3 (4.0-10.0)
[2023-12-04 10:03] LABS: POTASSIUM 3.7 mmol/L (3.5-5.1)
[2023-12-04 10:11] LABS: ALBUMIN 2.7 g/dl (3.4-5.0); CALCIUM 8.6 mg/dL (8.5-10.1)
[2023-12-04 10:13] LABS: BLOOD UREA NITROGEN 10.1 mg/dL (7-18); MAGNESIUM 1.8 mg/dL (1.8-2.4)
[2023-12-04 10:16] LABS: PHOSPHOROUS 2.2 mg/dL (2.5-4.9)
[2023-12-04 10:17] LABS: BILIRUBIN,TOTAL 2.6 mg/dL (0.2-1); TOT PROT 7.4 g/dl (6.4-8.2)
[2023-12-04] MEDS: methylPREDNISolone NA SUCC 40 MG/1 ML VIAL IVPUSH SCH (11:45)
[2023-12-04] MEDS ORDERED: ACETAMINOPHEN 325 MG TABLET (FP) PO PRN (13:53)
[2023-12-04] MEDS: ACETAMINOPHEN 325 MG TABLET (FP) PO PRN (14:42)
[2023-12-04] MEDS: NAPH,MB-DB/K PH,MBDB POWDER PACKET PO SCH (21:16)
[2023-12-05] MEDS ORDERED: INSULIN ASPART SLIDING SCALE (NOVOLOG) 1 VIAL SQ ONE (11:22)
[2023-12-05 13:05] LABS: HEMATOCRIT 40.8 % (35.4-49); HEMOGLOBIN 13.6 GM/dL (11.7-16.9); MCH 28.9 pg (25.7-33.7); MCHC 33.3 g/dl (32.0-35.9); MEAN PLT VOLUME 9.7 fl (7.5-11.1); PLATELET COUNT 201 10^3/uL (134-434); RBC 4.69 M/mm3 (4.00-5.60); RDW 15.9 % (11.9-15.9); WHITE BLOOD COUNT 13.5 K/mm3 (4.0-10.0)
[2023-12-05 13:26] LABS: POTASSIUM 3.7 mmol/L (3.5-5.1)
[2023-12-05 13:30] LABS: CALCIUM 8.4 mg/dL (8.5-10.1)
[2023-12-05 13:32] LABS: ALBUMIN 2.6 g/dl (3.4-5.0)
[2023-12-05 13:34] LABS: CREATININE 1.2 mg/dL (0.55-1.3); PHOSPHOROUS 2.5 mg/dL (2.5-4.9)
[2023-12-05 13:36] LABS: BILIRUBIN,TOTAL 1.3 mg/dL (0.2-1); TOT PROT 7.3 g/dl (6.4-8.2)
[2023-12-05 14:35] VITALS: RESP 18
[2023-12-05 17:26] LABS: BILIRUBIN,DIRECT 0.7 mg/dL (0.0-0.2)
[2023-12-05] MEDS: INSULIN (LEVEMIR) 100 UNITS/ML UNITS SQ SCH (21:37)
[2023-12-05] MEDS: MELATONIN 5 MG TABLETS PO ONE (22:51)
[2023-12-06 08:02] LABS: HEMOGLOBIN 12.7 GM/dL (11.7-16.9); MCH 28.5 pg (25.7-33.7); MCHC 32.4 g/dl (32.0-35.9); MEAN CELL VOLUME 87.8 fl (80-96); MEAN PLT VOLUME 8.7 fl (7.5-11.1); PLATELET COUNT 246 10^3/uL (134-434); RBC 4.45 M/mm3 (4.00-5.60); RDW 16.1 % (11.9-15.9)
[2023-12-06 08:26] LABS: POTASSIUM 4.1 mmol/L (3.5-5.1)
[2023-12-06 08:33] LABS: ALBUMIN 2.5 g/dl (3.4-5.0); BLOOD UREA NITROGEN 19.3 mg/dL (7-18); CALCIUM 8.5 mg/dL (8.5-10.1); MAGNESIUM 2.1 mg/dL (1.8-2.4)
[2023-12-06 08:35] LABS: PHOSPHOROUS 3.3 mg/dL (2.5-4.9)
[2023-12-06 08:36] LABS: BILIRUBIN,TOTAL 0.9 mg/dL (0.2-1)
[2023-12-06] MEDS: predniSONE 20 MG TABLET (UD) PO SCH (10:11)
[2023-12-06] MEDS: APIXABAN 5 MG TABLET PO SCH (21:22)
[2023-12-07 04:08] VITALS: BP 115/58; TEMP 98.2
[2023-12-07 09:12] LABS: HEMATOCRIT 38.7 % (35.4-49); HEMOGLOBIN 12.5 GM/dL (11.7-16.9); MCH 28.4 pg (25.7-33.7); MCHC 32.3 g/dl (32.0-35.9); MEAN CELL VOLUME 87.9 fl (80-96); MEAN PLT VOLUME 8.7 fl (7.5-11.1); PLATELET COUNT 247 10^3/uL (134-434); WHITE BLOOD COUNT 11.5 K/mm3 (4.0-10.0)
[2023-12-07 09:28] LABS: POTASSIUM 4.6 mmol/L (3.5-5.1)
[2023-12-07 09:33] LABS: ALBUMIN 2.4 g/dl (3.4-5.0); BLOOD UREA NITROGEN 20.9 mg/dL (7-18); CALCIUM 8.3 mg/dL (8.5-10.1)
[2023-12-07 09:36] LABS: CREATININE 0.9 mg/dL (0.55-1.3)
[2023-12-07 09:37] LABS: TOT PROT 6.5 g/dl (6.4-8.2)
[2023-12-07 11:57] VITALS: PULSE 67
== END 2023-12-07 16:42 | disposition home or self-care (01) | DRG 871 ==
LOC: JER 11:18 → JERBED 16:16 → J6S 20:15
PROVIDERS: ADMIT Internal Medicine; ATTEND Internal Medicine
DX: A41.9 Sepsis, unspecified organism (principal); J18.9 Pneumonia, unspecified organism; I50.32 Chronic diastolic (congestive) heart failure; C34.90 Malignant neoplasm of unspecified part of unspecified bronchus or lung; E87.20 Acidosis, unspecified; K83.09 Other cholangitis; F11.20 Opioid dependence, uncomplicated; K83.8 Other specified diseases of biliary tract; K74.60 Unspecified cirrhosis of liver; R50.9 Fever, unspecified; R94.5 Abnormal results of liver function studies; E11.9 Type 2 diabetes mellitus without complications; I11.0 Hypertensive heart disease with heart failure; I25.10 Atherosclerotic heart disease of native coronary artery without angina pectoris; E78.5 Hyperlipidemia, unspecified; K21.9 Gastro-esophageal reflux disease without esophagitis; R11.2 Nausea with vomiting, unspecified; Z95.5 Presence of coronary angioplasty implant and graft
CPT/HCPCS: 0241U-QW; 36415; 70450-TC; 71045-TC-FY; 71275-TC; 74177-TC; 76705-TC; 80053; 80307; 81003; 82140; 82248; 82803; 82962; 82977; 83605; 83735; 83880; 84100; 84484; 85025; 85027; 85610; 85730; 86704; 86803; 86850; 86900; 86901; 87040; 87086; 87340; 87517; 87522; 87635; 87899; 93005; 93010; 93306-TC; 94640; 94761; 99285-25; J0131; Q9967

== ENCOUNTER 2024-05-08 19:34 | Inpatient (IN) | payer OTHER ==
[2024-05-08] MEDS ORDERED: ALBUTEROL SO4 2.5/IPRATROPIUM 0.5 INH SOL 3 ML VIAL.NEB. NEB ONE ×2 (20:36→21:07)
[2024-05-08] MEDS ORDERED: FUROSEMIDE 40 MG/4 ML INJECTABLE VIAL ONE (20:37)
[2024-05-08] MEDS: ALBUTEROL SO4 2.5/IPRATROPIUM 0.5 INH SOL 3 ML VIAL.NEB. NEB SCH (20:42)
[2024-05-08] MEDS: FUROSEMIDE 40 MG/4 ML INJECTABLE VIAL IVPUSH ONE (21:06)
[2024-05-08 21:21] LABS: BASO % 3.8 % (0-2.0); EOS % 0.3 % (0-4.5); HEMOGLOBIN 11.4 GM/dL (11.7-16.9); LYMPH % 12.6 % (8-40); MCHC 31.7 g/dl (32.0-35.9); MEAN CELL VOLUME 85.2 fl (80-96); MEAN PLT VOLUME 9.2 fl (7.5-11.1); NEUT % 73.3 % (42.8-82.8); PLATELET COUNT 238 10^3/uL (134-434); RBC 4.22 M/mm3 (4.00-5.60); WHITE BLOOD COUNT 10.9 K/mm3 (4.0-10.0)
[2024-05-08 21:29] LABS: INR 1.17 (0.83-1.09); PROTHROMBIN TIME (PATIENT) 13.2 SEC (9.7-13.0)
[2024-05-08 21:31] LABS: ACTIVATED PTT 31.1 SECONDS (25.2-36.5)
[2024-05-08 21:35] LABS: VENOUS BASE EXCESS -0.6 mmol/L (-2-2); VENOUS O2 SATURATION 89.4 % (70-80); VENOUS PCO2 43.9 mmHg (38-52); VENOUS PH 7.37 (7.310-7.410)
[2024-05-08 21:43] LABS: POTASSIUM 5.1 mmol/L (3.5-5.1)
[2024-05-08 21:46] LABS: CALCIUM 8.1 mg/dL (8.5-10.1)
[2024-05-08 21:47] LABS: BLOOD UREA NITROGEN 12.8 mg/dL (7-18); MAGNESIUM 1.9 mg/dL (1.8-2.4)
[2024-05-08 21:48] LABS: ALBUMIN 2.8 g/dl (3.4-5.0)
[2024-05-08 21:52] LABS: BILIRUBIN,TOTAL 1.1 mg/dL (0.2-1); TOT PROT 7.1 g/dl (6.4-8.2)
[2024-05-08 21:55] LABS: N-TERMINAL BNP 394.4 pg/ml (5-125)
[2024-05-08 22:03] LABS: PH,URINE 5.5 (5.0-8.0); URINE APPEARANCE CLEAR; URINE BILIRUBIN NEGATIVE (NEGATIVE); URINE COLOR YELLOW; URINE GLUCOSE (UA) NEGATIVE (NEGATIVE); URINE KETONE NEGATIVE (NEGATIVE); URINE LEUK ESTERASE NEGATIVE (NEGATIVE); URINE NITRITE NEGATIVE (NEGATIVE); URINE PROTEIN NEGATIVE (NEGATIVE); URINE UROBILINOGEN 0.2 mg/dL (0.2-1.0)
[2024-05-08 22:14] LABS: LACTIC ACID 2.7 mmol/L (0.4-2.0)
[2024-05-09 00:59] LABS: LACTIC ACID 7.3 mmol/L (0.4-2.0)
[2024-05-09] MEDS ORDERED: ASPIRIN 325 MG TABLET ONE (02:19)
[2024-05-09] MEDS: ASPIRIN 325 MG TABLET PO ONE (02:29)
[2024-05-09] MEDS ORDERED: hydrOXYzine PAMOATE 25 MG CAPSULE (FP) PO ONE (03:37)
[2024-05-09] MEDS: MELATONIN 5 MG TABLETS PO ONE (04:26)
[2024-05-09] MEDS: FUROSEMIDE 40 MG/4 ML INJECTABLE VIAL IVPUSH ONE (04:26)
[2024-05-09] MEDS: hydrOXYzine PAMOATE 25 MG CAPSULE (FP) PO ONE (04:26)
[2024-05-09] MEDS ORDERED: PANTOPRAZOLE 40 MG TABLET PO ONE (06:37)
[2024-05-09] MEDS: PANTOPRAZOLE 40 MG TABLET PO SCH (06:50)
[2024-05-09 07:41] LABS: POTASSIUM 4.1 mmol/L (3.5-5.1)
[2024-05-09 07:48] LABS: LACTIC ACID 3.5 mmol/L (0.4-2.0)
[2024-05-09 07:48] LABS: CALCIUM 8.1 mg/dL (8.5-10.1)
[2024-05-09 07:49] LABS: BLOOD UREA NITROGEN 14.4 mg/dL (7-18); MAGNESIUM 1.8 mg/dL (1.8-2.4)
[2024-05-09] MEDS: INSULIN ASPART SLIDING SCALE (NOVOLOG) 1 VIAL SQ SCH (07:49)
[2024-05-09 07:52] LABS: CREATININE 1.1 mg/dL (0.55-1.3); PHOSPHOROUS 3.3 mg/dL (2.5-4.9)
[2024-05-09 07:59] LABS: HEMATOCRIT 35.7 % (35.4-49); HEMOGLOBIN 11.5 GM/dL (11.7-16.9); MCH 27.3 pg (25.7-33.7); MCHC 32.1 g/dl (32.0-35.9); MEAN PLT VOLUME 9.4 fl (7.5-11.1); PLATELET COUNT 215 10^3/uL (134-434); RDW 16.9 % (11.9-15.9); WHITE BLOOD COUNT 8.6 K/mm3 (4.0-10.0)
[2024-05-09] MEDS ORDERED: TAMSULOSIN HCL 0.4 MG CAP ONE (08:14)
[2024-05-09] MEDS ORDERED: methaDONE HCL 10 MG TABLET ONE (08:14)
[2024-05-09] MEDS: TAMSULOSIN HCL 0.4 MG CAP PO SCH (08:18)
[2024-05-09] MEDS: methaDONE HCL 10 MG TABLET PO ONE (08:18)
[2024-05-09] MEDS ORDERED: PATIENT'S OWN MEDICATION (NON-FORMULARY) (Linaclotide 145 MCG Capsule) PO SCH (10:00)
[2024-05-09] MEDS ORDERED: APIXABAN 5 MG TABLET ONE (10:25)
[2024-05-09] MEDS ORDERED: ASPIRIN 81 MG CHEWABLE TABLETS ONE (10:25)
[2024-05-09] MEDS: ASPIRIN 81 MG CHEWABLE TABLETS PO SCH (10:28)
[2024-05-09] MEDS: APIXABAN 5 MG TABLET PO SCH (10:28)
[2024-05-09 12:09] LABS: HIV INTERPRETATION NEGATIVE (NEGATIVE)
[2024-05-09] MEDS ORDERED: methylPREDNISolone NA SUCC 40 MG/1 ML VIAL ONE (12:20)
[2024-05-09] MEDS: methylPREDNISolone NA SUCC 40 MG/1 ML VIAL IVPUSH SCH (12:37)
[2024-05-09] MEDS: FUROSEMIDE 40 MG/4 ML INJECTABLE VIAL IVPUSH SCH (15:51)
[2024-05-09 16:58] VITALS: BMI 31.0
[2024-05-09] MEDS: ALBUTEROL SO4 2.5/IPRATROPIUM 0.5 INH SOL 3 ML VIAL.NEB. NEB SCH (20:20)
[2024-05-09] MEDS: ATORVASTATIN CA 20 MG TABLET (FP) PO SCH (21:39)
[2024-05-10] MEDS: MELATONIN 5 MG TABLETS PO PRN (01:13)
[2024-05-10] MEDS: diphenhydrAMINE HCL 25 MG CAPSULE (FP) PO ONE ×2 (04:15→05:23)
[2024-05-10 07:43] LABS: BASO % 0.1 % (0-2.0); HEMATOCRIT 37.8 % (35.4-49); LYMPH % 9.5 % (8-40); MCHC 31.7 g/dl (32.0-35.9); MEAN PLT VOLUME 8.9 fl (7.5-11.1); NEUT % 87.4 % (42.8-82.8); PLATELET COUNT 222 10^3/uL (134-434); RBC 4.45 M/mm3 (4.00-5.60); RDW 16.4 % (11.9-15.9); WHITE BLOOD COUNT 7.8 K/mm3 (4.0-10.0)
[2024-05-10 08:02] LABS: POTASSIUM 4.4 mmol/L (3.5-5.1)
[2024-05-10 08:05] LABS: ALBUMIN 2.9 g/dl (3.4-5.0); BLOOD UREA NITROGEN 24.1 mg/dL (7-18); CALCIUM 8.6 mg/dL (8.5-10.1); MAGNESIUM 2.3 mg/dL (1.8-2.4)
[2024-05-10 08:09] LABS: CREATININE 1.1 mg/dL (0.55-1.3)
[2024-05-10 08:11] LABS: BILIRUBIN,TOTAL 1.1 mg/dL (0.2-1); TOT PROT 7.2 g/dl (6.4-8.2)
[2024-05-10] MEDS: methaDONE HCL 10 MG TABLET PO SCH (09:07)
[2024-05-10] MEDS: methaDONE HCL 40 MG DISPERSABLE TABLET PO ONE (09:13)
[2024-05-10] MEDS: INSULIN (NOVOLOG) ASPART 100 UNITS/ML 10ML VIAL SQ ONE (21:52)
[2024-05-11] MEDS: MELATONIN 5 MG TABLETS PO ONE (02:10)
[2024-05-11] MEDS: methaDONE HCL 10 MG TABLET PO SCH (05:55)
[2024-05-11 06:42] LABS: HEMATOCRIT 35.8 % (35.4-49); HEMOGLOBIN 11.5 GM/dL (11.7-16.9); LYMPH % 7.1 % (8-40); MCH 27.2 pg (25.7-33.7); MEAN CELL VOLUME 84.8 fl (80-96); MEAN PLT VOLUME 8.8 fl (7.5-11.1); MONO % 6.3 % (3.8-10.2); NEUT % 86.6 % (42.8-82.8); PLATELET COUNT 243 10^3/uL (134-434); RBC 4.22 M/mm3 (4.00-5.60); RDW 16.7 % (11.9-15.9); WHITE BLOOD COUNT 13.9 K/mm3 (4.0-10.0)
[2024-05-11 06:54] LABS: CALCIUM 8.3 mg/dL (8.5-10.1)
[2024-05-11 06:55] LABS: MAGNESIUM 2.3 mg/dL (1.8-2.4)
[2024-05-11 06:58] LABS: CREATININE 1.1 mg/dL (0.55-1.3)
[2024-05-11 06:59] LABS: BILIRUBIN,TOTAL 0.9 mg/dL (0.2-1); TOT PROT 7.2 g/dl (6.4-8.2)
[2024-05-11] MEDS: methylPREDNISolone NA SUCC 40 MG/1 ML VIAL IVPUSH SCH (10:06)
[2024-05-12] MEDS: INSULIN (NOVOLOG) ASPART 100 UNITS/ML 10ML VIAL SQ ONE ×2 (00:58→06:33)
[2024-05-12] MEDS: INSULIN ASPART SLIDING SCALE (NOVOLOG) 1 VIAL SQ SCH (06:31)
[2024-05-12] MEDS: INSULIN (LEVEMIR) 100 UNITS/ML UNITS SQ SCH ×2 (06:31→12:23)
[2024-05-12] MEDS: INSULIN (LEVEMIR) 100 UNITS/ML UNITS SQ ONE (06:34)
[2024-05-12 07:13] LABS: HEMATOCRIT 37.9 % (35.4-49); HEMOGLOBIN 11.8 GM/dL (11.7-16.9); LYMPH % 7.9 % (8-40); MCH 26.7 pg (25.7-33.7); MCHC 31.2 g/dl (32.0-35.9); MEAN CELL VOLUME 85.6 fl (80-96); MEAN PLT VOLUME 8.9 fl (7.5-11.1); MONO % 5.5 % (3.8-10.2); NEUT % 86.6 % (42.8-82.8); PLATELET COUNT 255 10^3/uL (134-434); RBC 4.43 M/mm3 (4.00-5.60); RDW 17.1 % (11.9-15.9); WHITE BLOOD COUNT 8.1 K/mm3 (4.0-10.0)
[2024-05-12 07:40] LABS: POTASSIUM 4.2 mmol/L (3.5-5.1)
[2024-05-12 07:56] LABS: ALBUMIN 2.8 g/dl (3.4-5.0); BILIRUBIN,TOTAL 0.8 mg/dL (0.2-1); BLOOD UREA NITROGEN 27.8 mg/dL (7-18)
[2024-05-12 07:57] LABS: TOT PROT 6.9 g/dl (6.4-8.2)
[2024-05-12 07:58] LABS: CALCIUM 8.2 mg/dL (8.5-10.1); MAGNESIUM 2.5 mg/dL (1.8-2.4)
[2024-05-12 08:00] LABS: CREATININE 1.2 mg/dL (0.55-1.3)
[2024-05-12] MEDS: EMPAGLIFLOZIN (JARDIANCE) 10 MG TABLET PO SCH (17:42)
[2024-05-13] MEDS: EMPAGLIFLOZIN (JARDIANCE) 10 MG TABLET PO SCH (07:05)
[2024-05-13 07:36] LABS: HEMATOCRIT 36.3 % (35.4-49); HEMOGLOBIN 11.9 GM/dL (11.7-16.9); MCH 27.5 pg (25.7-33.7); MCHC 32.8 g/dl (32.0-35.9); MEAN CELL VOLUME 83.9 fl (80-96); MEAN PLT VOLUME 8.7 fl (7.5-11.1); MONO % 7.8 % (3.8-10.2); NEUT % 84.2 % (42.8-82.8); PLATELET COUNT 245 10^3/uL (134-434); RBC 4.32 M/mm3 (4.00-5.60); RDW 17.2 % (11.9-15.9)
[2024-05-13 08:00] LABS: BLOOD UREA NITROGEN 27.4 mg/dL (7-18); MAGNESIUM 2.2 mg/dL (1.8-2.4)
[2024-05-13 08:03] LABS: CREATININE 1.2 mg/dL (0.55-1.3)
[2024-05-13] MEDS: FUROSEMIDE 40 MG TABLET (FP) PO SCH (13:42)
[2024-05-13] MEDS ORDERED: FUROSEMIDE 40 MG TABLET (FP) PO SCH (14:00)
[2024-05-13] MEDS: ALBUTEROL SO4 2.5/IPRATROPIUM 0.5 INH SOL 3 ML VIAL.NEB. NEB SCH (16:24)
[2024-05-13] MEDS ORDERED: INSULIN ASPART SLIDING SCALE (NOVOLOG) 1 VIAL SQ ONE ×2 (17:08→18:17)
[2024-05-13] MEDS: INSULIN ASPART SLIDING SCALE (NOVOLOG) 1 VIAL SQ SCH (17:16)
[2024-05-13] MEDS: INSULIN (LEVEMIR) 100 UNITS/ML UNITS SQ SCH (21:10)
[2024-05-13] MEDS: APIXABAN 5 MG TABLET PO SCH (21:10)
[2024-05-13] MEDS: ATORVASTATIN CA 20 MG TABLET (FP) PO SCH (21:10)
[2024-05-14] MEDS: MELATONIN 5 MG TABLETS PO PRN (00:59)
[2024-05-14] MEDS: PANTOPRAZOLE 40 MG TABLET PO SCH (06:13)
[2024-05-14] MEDS: methaDONE HCL 40 MG DISPERSABLE TABLET PO SCH (06:13)
[2024-05-14] MEDS: EMPAGLIFLOZIN (JARDIANCE) 10 MG TABLET PO SCH (06:13)
[2024-05-14] MEDS ORDERED: predniSONE 20 MG TABLET (UD) PO SCH (10:00)
[2024-05-14 10:17] VITALS: RESP 18
[2024-05-14] MEDS: predniSONE 20 MG TABLET (UD) PO SCH (10:39)
[2024-05-14] MEDS: ASPIRIN 81 MG CHEWABLE TABLETS PO SCH (10:39)
[2024-05-14] MEDS: TAMSULOSIN HCL 0.4 MG CAP PO SCH (10:39)
[2024-05-14 15:34] VITALS: BP 148/63; PULSE 91; TEMP 97.7
== END 2024-05-14 15:30 | disposition home or self-care (01) | DRG 189 ==
LOC: JER 19:34 → JERBED 05-09 03:37 → J4W 05-09 15:11 → J5S 05-13 15:19
PROVIDERS: ADMIT Internal Medicine
DX: J96.01 Acute respiratory failure with hypoxia (principal); I50.33 Acute on chronic diastolic (congestive) heart failure; F11.20 Opioid dependence, uncomplicated; I24.89 Other forms of acute ischemic heart disease; I11.0 Hypertensive heart disease with heart failure; E11.9 Type 2 diabetes mellitus without complications; J43.9 Emphysema, unspecified; I25.10 Atherosclerotic heart disease of native coronary artery without angina pectoris; Z95.5 Presence of coronary angioplasty implant and graft
CPT/HCPCS: 0241U-QW; 36415; 71045-TC-FY; 71275-TC; 76700-TC; 80048; 80053; 80061; 81003; 82803; 82962; 83036; 83605; 83735; 83880; 84100; 84443; 84484; 85025; 85027; 85610; 85730; 87086; 87389; 87522; 93005; 93010; 93306-TC; 94640; 94761; 97116-GP; 97162-GP; 99285-25; Q9967